=== PATIENT | male | born 1960 ===

== ENCOUNTER 2024-04-08 20:47 | Inpatient (IN) | payer OTHER, MEDICARE ==
[2024-04-08 21:08] LABS: Glucose,Whole Blood 412 mg/dL (70-110)
[2024-04-08 21:28] LABS: Basophils % (A) 0 %; Eosinophils # (A) 0.1 k/uL (0-0.7); Eosinophils % (A) 1 %; HCT 23.3 % (39.0-53.0); HGB 8.1 gm/dL (13.0-17.5); Lymphocytes # (A) 0.3 k/uL (1.0-4.8); Lymphocytes % (A) 5 %; MCH 34.9 pg (25.0-35.0); MCHC 34.8 g/dL (31.0-37.0); MCV 100.2 fL (80.0-100.0); Mean Platelet Volume 8.8; Monocytes # (A) 0.2 k/uL (0-1.0); Monocytes % (A) 3 %; Neutrophils # (A) 5.7 k/uL (1.3-7.7); Neutrophils % (A) 91 %; Platelet Count 100 k/uL (150-450); RBC 2.32 m/uL (4.30-5.90); WBC 6.3 k/uL (3.8-10.6)
[2024-04-08 21:33] LABS: INR 1.2 (<1.2); Partial Thromboplastin Time 22.3 sec (22.0-30.0)
[2024-04-08 21:35] LABS: ALT 101 U/L (4-49); AST 363 U/L (17-59); African American GFR (CKD) >90 (>60 ml/min/1.73 sqM); Albumin 3.5 g/dL (3.5-5.0); Alkaline Phosphatase 102 U/L (38-126); Anion Gap 19 mmol/L; Blood Urea Nitrogen 18 mg/dL (9-20); Calcium 8.9 mg/dL (8.4-10.2); Carbon Dioxide 21 mmol/L (22-30); Chloride 84 mmol/L (98-107); Creatine Kinase 722 U/L (55-170); Glucose 66 mg/dL (74-99); Magnesium 1.5 mg/dL (1.6-2.3); Non-African American GFR(CKD) >90 (>60 ml/min/1.73 sqM); Sodium 124 mmol/L (137-145); Total Bilirubin 2.1 mg/dL (0.2-1.3); Total Protein 5.9 g/dL (6.3-8.2)
[2024-04-08] MEDS: SODIUM CHLORIDE 0.9% 1,000 ML IV ONE (21:36)
[2024-04-08 22:20] LABS: Glucose,Whole Blood 66 mg/dL (70-110)
[2024-04-08] MEDS: SODIUM CHLORIDE 0.9% 1,000 ML IV SCH (22:36)
[2024-04-08] MEDS: DEXTROSE 5%-0.9% NACL 1,000 ML IV SCH (22:40)
[2024-04-08] MEDS ORDERED: NALOXONE 0.4 MG/ML 1 ML VIAL IV PRN (23:03)
--- NOTE | 2024-04-08 23:03 | ED ---
General Adult HPI - General Chief complaint: Recheck/Abnormal Lab/Rx Stated complaint: Abnormal labs Time Seen by Provider: 04/08/24 20:57 Source: EMS, RN notes reviewed Mode of arrival: EMS Limitations: altered mental status - History of Present Illness Initial comments: 63-year-old male presents emergency department via EMS from [facility] as a transfer. Patient was reportedly found by neighbor/caregiver on the ground in which they found that he did not have heat in his home. He did have initial temp of 87 degrees. Patient did have rewarming at outside facility. Patient also found to have glucose in the 30s. Patient is not a known diabetic. Patient did have CT of his brain, C-spine, chest abdomen pelvis. Patient had some subacute rib fractures but no other acute process. Patient unable to provide any significant information at this time. Patient reported that he drinks at least 1/5 of alcohol daily per reports. Patient found to have an elevated lactic, mildly elevated CK. Is unsure how long he was down on the ground. Patient was transferred here from outside facility for further treatment and evaluation. - Related Data Allergies Allergy/AdvReac Type Severity Reaction Status Date / Time Unable to Assess Allergy Verified 04/08/24 21:01 Review of Systems ROS Statement: Those systems with pertinent positive or pertinent negative responses have been documented in the HPI. ROS Other: All systems not noted in ROS Statement are negative. General Exam Limitations: altered mental status General appearance: in no apparent distress, lethargic Head exam: Present: atraumatic, normocephalic, normal inspection Eye exam: Present: normal appearance, PERRL, EOMI. Absent: scleral icterus, conjunctival injection, periorbital swelling ENT exam: Present: mucous membranes moist. Absent: normal exam, normal oropharynx (poor Dentition) Neck exam: Present: normal inspection, full ROM. Absent: tenderness, meningismus, lymphadenopathy Respiratory exam: Present: normal lung sounds bilaterally. Absent: respiratory distress, wheezes, rales, rhonchi, stridor Cardiovascular Exam: Present: normal rhythm, tachycardia, normal heart sounds. Absent: systolic murmur, diastolic murmur, rubs, gallop, clicks GI/Abdominal exam: Present: soft, normal bowel sounds. Absent: distended, tenderness, guarding, rebound, rigid Extremities exam: Present: other (Bruising noted, small abrasions) Neurological exam: Absent: alert, oriented X3 Skin exam: Present: warm, dry, intact, normal color. Absent: rash Course Vital Signs 04/08/24 20:49 Temperature 97.1 F L Pulse Rate 102 H Respiratory 18 Rate O2 Sat by Pulse 98 Oximetry EKG Findings - EKG Comments: EKG Findings:: EKG performed at 20: 54 sinus tachycardia with a rate of 1 2 VT 175 QRS 92 QT/QTc 370/429 - EKG Results: EKG: interpreted by [facility] Medical Decision Making - Medical Decision Making Was pt. sent in by a medical professional or institution (, PA, CARD RUNNER, urgent care, hospital, or usp...) When possible be specific @ -[facility] Did you speak to anyone other than the patient for history (EMS, parent, family, police, friend...)? What history was obtained from this source @ -No Did you review nursing and triage notes (agree or disagree)? Why? @ -I reviewed and agree with nursing and triage notes Were old charts reviewed (outside hosp., previous admission, EMS record, old EKG, old radiological studies, urgent care reports/EKG's, usp records)? Report findings @ -[Reviewed imaging, laboratory studies from [facility] Differential Diagnosis (chest pain, altered mental status, abdominal pain women, abdominal pain men, vaginal bleeding, weakness, fever, dyspnea, syncope, headache, dizziness, GI bleed, back pain, seizure, CVA, palpatations, mental health, musculoskeletal)? @ -Differential Altered Mental Status: Hypoglycemia, DKA, hypercapnia, ETOH, overdose, CO poisoning, trauma, myxedema coma, HTN encephalopathy, infection, encephalitis, psychosis, intercranial hemorrhage, hepatic encephalopathy, meningitis, CVA, this is not meant to be an all-inclusive list EKG interpreted by me (3pts min.). @ -As above X-rays interpreted by me (1pt min.). @ -None done CT interpreted by me (1pt min.). @ -None done U/S interpreted by me (1pt. min.). @ -None done What testing was considered but not performed or refused? (CT, X-rays, U/S, labs)? Why? @ -None What meds were considered but not given or refused? Why? @ -None Did you discuss the management of the patient with other professionals (professionals i.e. , PA, CARD RUNNER, lab, RT, psych nurse, licensed clinical social worker, steam brush operator, teacher, executive officer, nurse outreach case manager)? Give summary @ -[facility] for admission Was smoking cessation discussed for >3mins.? @ -No Was critical care preformed (if so, how long)? @ -No Were there social determinants of health that impacted care today? How? (Homelessness, low income, unemployed, alcoholism, drug addiction, transportation, low edu. Level, literacy, decrease access to med. care, correction, rehab)? @ -No Was there de-escalation of care discussed even if they declined (Discuss DNR or withdrawal of care, Hospice)? DNR status @ -No What co-morbidities impacted this encounter? (DM, HTN, Smoking, COPD, CAD, C ancer, CVA, ARF, Chemo, Hep., AIDS, mental health diagnosis, sleep apnea, morbid obesity)? @ -None Was patient admitted / discharged? Hospital course, mention meds given and route, prescriptions, significant lab abnormalities, going to OR and other pertinent info. @ -Admitted patient presented from outside facility for altered mental status. Patient has hyponatremia, hyperglycemia altered mental status may be from prolonged hypoglycemia, patient is known alcoholic with placed on CIWA, seizure precautions. Undiagnosed new problem with uncertain prognosis? @ -No Drug Therapy requiring intensive monitoring for toxicity (Heparin, Nitro, Insulin, Cardizem)? @ -No Were any procedures done? @ -No Diagnosis/symptom? @ -Altered mental status, hypoglycemia, hyponatremia, alcohol withdrawal, alcohol abuse Acute, or Chronic, or Acute on Chronic? @ -Acute Uncomplicated (without systemic symptoms) or Complicated (systemic symptoms)? @ -Complicated Side effects of treatment? @ -No Exacerbation, Progression, or Severe Exacerbation? @ -No Poses a threat to life or bodily function? How? (Chest pain, USA, NV, pneumonia, PE, COPD, DKA, ARF, appy, cholecystitis, CVA, Diverticulitis, Homicidal, Suicidal, threat to staff... and all critical care pts) @ -Yes endorgan failure - Lab Data Result diagrams: 04/08/24 21:14 04/08/24 21:14 Lab Results 04/08/24 04/08/24 04/08/24 Range/Units 21:07 21:14 21:14 WBC 6.3 (3.8-10.6) k/uL RBC 2.32 L (4.30-5.90) m/uL Hgb 8.1 L (13.0-17.5) gm/dL Hct 23.3 L (39.0-53.0) % MCV 100.2 H (80.0-100.0) fL MCH 34.9 (25.0-35.0) pg MCHC 34.8 (31.0-37.0) g/dL RDW 14.0 (11.5-15.5) % Plt Count 100 L (150-450) k/uL MPV 8.8 Neutrophils % 91 % Lymphocytes % 5 % Monocytes % 3 % Eosinophils % 1 % Basophils % 0 % Neutrophils # 5.7 (1.3-7.7) k/uL Lymphocytes # 0.3 L (1.0-4.8) k/uL Monocytes # 0.2 (0-1.0) k/uL Eosinophils # 0.1 (0-0.7) k/uL Basophils # 0.0 (0-0.2) k/uL PT (10.0-12.5) sec INR (<1.2) APTT (22.0-30.0) sec Sodium 124 L (137-145) mmol/L Potassium 3.0 L (3.5-5.1) mmol/L Chloride 84 L (98-107) mmol/L Carbon Dioxide 21 L (22-30) mmol/L Anion Gap 19 mmol/L BUN 18 (9-20) mg/dL Creatinine 0.67 (0.66-1.25) mg/dL Est GFR (CKD-EPI)AfAm >90 (>60 ml/min/1.73 sqM) Est GFR (CKD-EPI)NonAf >90 (>60 ml/min/1.73 sqM) Glucose 66 L (74-99) mg/dL POC Glucose (mg/dL) 412 H (70-110) mg/dL POC Glu Hospice Educator ID Lilia Carmichael Calcium 8.9 (8.4-10.2) mg/dL Magnesium 1.5 L (1.6-2.3) mg/dL Total Bilirubin 2.1 H (0.2-1.3) mg/dL AST 363 H (17-59) U/L ALT 101 H (4-49) U/L Alkaline Phosphatase 102 (38-126) U/L Creatine Kinase 722 H (55-170) U/L Troponin I (0.000-0.034) ng/mL Total Protein 5.9 L (6.3-8.2) g/dL Albumin 3.5 (3.5-5.0) g/dL 04/08/24 04/08/24 04/08/24 Range/Units 21:14 21:14 22:19 WBC (3.8-10.6) k/uL RBC (4.30-5.90) m/uL Hgb (13.0-17.5) gm/dL Hct (39.0-53.0) % MCV (80.0-100.0) fL MCH (25.0-35.0) pg MCHC (31.0-37.0) g/dL RDW (11.5-15.5) % Plt Count (150-450) k/uL MPV Neutrophils % % Lymphocytes % % Monocytes % % Eosinophils % % Basophils % % Neutrophils # (1.3-7.7) k/uL Lymphocytes # (1.0-4.8) k/uL Monocytes # (0-1.0) k/uL Eosinophils # (0-0.7) k/uL Basophils # (0-0.2) k/uL PT 13.0 H (10.0-12.5) sec INR 1.2 H (<1.2) APTT 22.3 (22.0-30.0) sec Sodium (137-145) mmol/L Potassium (3.5-5.1) mmol/L Chloride (98-107) mmol/L Carbon Dioxide (22-30) mmol/L Anion Gap mmol/L BUN (9-20) mg/dL Creatinine (0.66-1.25) mg/dL Est GFR (CKD-EPI)AfAm (>60 ml/min/1.73 sqM) Est GFR (CKD-EPI)NonAf (>60 ml/min/1.73 sqM) Glucose (74-99) mg/dL POC Glucose (mg/dL) 66 L (70-110) mg/dL POC Glu Hospice Educator ID Samay[place] Kay Calcium (8.4-10.2) mg/dL Magnesium (1.6-2.3) mg/dL Total Bilirubin (0.2-1.3) mg/dL AST (17-59) U/L ALT (4-49) U/L Alkaline Phosphatase (38-126) U/L Creatine Kinase (55-170) U/L Troponin I 0.042 H* (0.000-0.034) ng/mL Total Protein (6.3-8.2) g/dL Albumin (3.5-5.0) g/dL Disposition Clinical Impression: Hypoglycemia, Hyponatremia, Altered mental status, Alcohol withdrawal, Alcohol abuse, Hypokalemia, Hypomagnesemia Disposition: ADMITTED IP TO THIS HOSP Condition: Poor Referrals: Uriel Arciniega MD [Primary Care Provider] - 1-2 days Time of Disposition: 23:03
[2024-04-08] MEDS ORDERED: LORazepam 2 MG/ML INJ IV PRN (23:04)
[2024-04-08] MEDS: POTASSIUM CHLORIDE 10 MEQ in WATER FOR INJECTION 1 100ML.BAG IVPB STA (23:14)
[2024-04-08] MEDS: MAGNESIUM SULFATE-D5W PMX 1 GM in DEXTROSE/WATER 1 100ML.BAG IVPB SCH (23:52)
[2024-04-09] MEDS: POTASSIUM CHLORIDE 10 MEQ in WATER FOR INJECTION 1 100ML.BAG IVPB SCH (00:20)
[2024-04-09 02:42] LABS: Glucose,Whole Blood 90 mg/dL (70-110)
[2024-04-09] MEDS: LORazepam 2 MG/ML INJ IV PRN ×2 (02:43→15:28)
[2024-04-09] MEDS: POTASSIUM CHLORIDE 10 MEQ in WATER FOR INJECTION 1 100ML.BAG IVPB STA ×3 (02:47→02:48)
[2024-04-09 08:14] LABS: ALT 98 U/L (4-49); AST 363 U/L (17-59); African American GFR (CKD) >90 (>60 ml/min/1.73 sqM); Albumin 3.1 g/dL (3.5-5.0); Alkaline Phosphatase 99 U/L (38-126); Anion Gap 11 mmol/L; Blood Urea Nitrogen 18 mg/dL (9-20); Calcium 8.5 mg/dL (8.4-10.2); Carbon Dioxide 26 mmol/L (22-30); Chloride 87 mmol/L (98-107); Glucose 76 mg/dL (74-99); Non-African American GFR(CKD) >90 (>60 ml/min/1.73 sqM); Potassium 3.2 mmol/L (3.5-5.1); Sodium 124 mmol/L (137-145); Total Bilirubin 1.9 mg/dL (0.2-1.3); Total Protein 5.4 g/dL (6.3-8.2)
[2024-04-09] MEDS: THIAMINE 100 MG TAB PO SCH (09:53)
--- NOTE | 2024-04-09 12:09 | P.NPCON ---
History of Present Illness - Reason for Consult hyponatremia - History of Present Illness Reason for consultation: Hyponatremia History of present illness: Patient is a 63-year-old male seen in renal consultation for hyponatremia. Patient presented to another facility and a sodium level was noted to be 123 dated April 08, 2023 at 2 PM. Patient was subsequently transferred here and a sodium level was 124 last night and again this morning. He is currently receiving D5 normal saline. He has an external Diaz catheter and is nonoliguric. Patient is a poor historian. He is currently on [facility] protocol. Per records it is noted that he drinks a pint of liquor every day. Patient was found down in cold weather and was subsequently brought to the hospital. It is unsure how long he was down for. CK level elevated at 722. I do see Motrin on his home medication list but unsure how often he was taking it. I do not see any thiazide diuretics. Imaging revealed rib fractures but no other acute process. Vital signs are stable. General: No acute distress. HEENT: Head exam is unremarkable. On nasal cannula. LUNGS: No audible rhonchi or wheezes. HEART: Rate and Rhythm are regular. ABDOMEN: No distention. EXTREMITITES: No edema. Medications and Allergies Home Medications Medication Instructions Recorded Confirmed Type Acetaminophen Tab [Tylenol Tab] 1,000 mg PO TID PRN 04/09/24 04/09/24 History Albuterol Nebulized [Ventolin 2.5 mg INHALATION RT-QID PRN 04/09/24 04/09/24 History Nebulized] Albuterol Sulfate [Albuterol 2 puff PO RT-QID PRN 04/09/24 04/09/24 History Sulfate Hfa] Baclofen [Lioresal] 10 mg PO Q8H PRN 04/09/24 04/09/24 History Fexofenadine HCl [Stephanie Allergy] 180 mg PO DAILY 04/09/24 04/09/24 History Fluticasone Propion/Salmeterol 1 puff INHALATION RT-BID 04/09/24 04/09/24 History [Wixela 250-50 Inhub] Gabapentin 600 mg PO BID 04/09/24 04/09/24 History Ibuprofen [Motrin] 800 mg PO Q8H PRN 04/09/24 04/09/24 History Loratadine [Claritin] 10 mg PO DAILY 04/09/24 04/09/24 History Losartan Potassium [Cozaar] 100 mg PO DAILY 04/09/24 04/09/24 History Mag-Ox 420mg 420 mg PO DAILY 04/09/24 04/09/24 History Metoprolol Tartrate [Lopressor] 50 mg PO BID 04/09/24 04/09/24 History Multivitamins, Thera [Multivitamin 1 tab PO DAILY 04/09/24 04/09/24 History (formulary)] Omeprazole [PriLOSEC] 20 mg PO DAILY 04/09/24 04/09/24 History Oxybutynin ER [Ditropan XL] 10 mg PO HS 04/09/24 04/09/24 History Psyllium Husk/Aspartame [Metamucil 1 tsp PO BID 04/09/24 04/09/24 History Sugar-Free Powder] Roflumilast 500 mcg PO DAILY 04/09/24 04/09/24 History Sodium Bicarbonate 325 mg PO TID 04/09/24 04/09/24 History Spironolactone [Aldactone] 25 mg PO DAILY 04/09/24 04/09/24 History Tamsulosin HCl [Flomax] 0.4 mg PO BID 04/09/24 04/09/24 History amLODIPine [Norvasc] 10 mg PO DAILY 04/09/24 04/09/24 History hydrALAZINE HCL [Apresoline] 50 mg PO TID 04/09/24 04/09/24 History oxyCODONE-APAP 7.5-325MG [Percocet 1 tab PO Q8H PRN 04/09/24 04/09/24 History 7.5-325 mg] Allergies Allergy/AdvReac Type Severity Reaction Status Date / Time No Known Allergies Allergy Unverified 04/09/24 07:20 Physical Exam Vitals: Vital Signs Temp Pulse Resp BP Pulse Ox 04/09/24 11:00 95 24 143/90 90 L 04/09/24 10:00 97 24 143/94 95 04/09/24 09:00 98 24 155/97 96 04/09/24 07:00 98.3 F 101 H 22 134/95 95 04/09/24 06:28 98.4 F 103 H 20 146/90 94 L 04/09/24 04:00 102 H 20 155/92 100 04/09/24 02:00 106 H 20 129/94 100 04/09/24 00:27 101 H 20 124/83 99 04/08/24 23:22 101 H 20 132/96 100 04/08/24 22:45 100 20 132/86 100 04/08/24 22:21 97.2 F L 101 H 18 151/92 99 04/08/24 22:00 97.8 F 99 18 151/92 98 04/08/24 21:30 97.7 F 101 H 18 152/90 98 04/08/24 20:49 97.1 F L 102 H 18 98 Intake and Output 04/08/24 04/09/24 04/09/24 22:59 06:59 14:59 Other: Weight 86.183 kg Results - Lab Results Most recent lab results Calcium 8.5 mg/dL (8.4-10.2) 04/09/24 07:09 Magnesium 1.5 mg/dL (1.6-2.3) L 04/08/24 21:14 04/08/24 21:14 04/09/24 07:09 Assessment and Plan Plan: Assessment: 1. Hyponatremia. This is due to poor solute intake/beer potomania with component of hypovolemia. Sodium level 124 this morning. 2. Hypokalemia from poor intake. 3. Metabolic acidosis secondary to lactic acidosis. Improved with fluids. 4. Hypomagnesemia from alcohol induced urinary losses. Replaced. 5. Alcohol abuse. 6. Mild rhabdomyolysis from immobility. Plan: Maintain D5 normal saline. Check serum and urine osmolality and urine sodium level. Check TSH. Replace potassium. Repeat sodium level this evening. Thank you for the consultation. I will continue to follow the patient with you during his hospital stay.
--- NOTE | 2024-04-09 13:27 | CT ---
EXAMINATION TYPE: CT brain wo con DATE OF EXAM: 04/09/2024 12:29 PM COMPARISON: None. CLINICAL INDICATION: Male, 63 years old with history of confusion, altered mental status, difficulty with speech, TECHNIQUE: Examination was done in axial plane without intravenous contrast. Coronal and sagittal r econstructions performed. CT DLP: 978.2 mGycm, Automated exposure control for dose reduction was used. FINDINGS: There is no evidence of acute intracranial hemorrhage, acute ischemic changes, mass, mass-effect, or extra-axial fluid collection. There is no effacement of cerebral sulci or basal subarachnoid cister ns. There is no hydrocephalus. There is no midline shift. [place]-white matter distinction is preserv ed. There is a rounded area of eggshell calcification measuring 1.2 cm within the midline posterior fossa along the left vertebral artery. Unable to exclude underlying aneurysm. Mild patchy white matter hypodensities both cerebral hemispheres. Partially empty sella. Rightward nasal septal deviation. Patient is partially edentulous. The impacted left maxillary molar shows a probable 1.8 cm dentigerous cyst eroding the posterior wall of the maxilla, axial images 11 a nd 12. Trace adjacent mucosal thickening floor of the left maxillary sinus. Air fluid level left sphenoid sinus. Mastoid air cells are well pneumatized. Orbits and globes appear intact. IMPRESSION: 1. A 1.2 cm rounded area of eggshell calcification midline posterior cranial fossa along the left flakita tebral artery. Unable to exclude an arterial aneurysm here. 2. Mild pattern of chronic small vessel ischemic disease. 3. 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 Eroding the posteri or wall of the maxilla. Questionable clinical significance if asymptomatic. Consider dental referral. 4. Air fluid level left sphenoid sinus may represent acute sinusitis. [facility], , 04/09/2024 1:25 PM
--- NOTE | 2024-04-09 13:37 | P.HPIM ---
History of Present Illness H&P Date: 04/09/24 History of present illness; patient 63-year-old gentleman who is a transfer from [facility] after being found laying on ground outside his house. Most of the history has been obtained from the EMR according to which patient has been drinking 1/5 of alcohol per day. Patient was found by his neighbor to be laying on the ground, patient was initially hypothermic and was placed on warming blankets and was transferred to [facility] where he had CT of his brain, cervical spine and CT abdominal pelvis done which were unremarkable. Patient was later transferred to [facility] for further evaluation and treatment Initial lab work done in the ER showed WBC 6.3, hemoglobin 8.1, platelet count 100, sodium 124, potassium 5, BUN 18, creatinine 0.67, glucose 412, lactate 3.6, bilirubin 2.1, AST 363, ALT 101 Patient admitted to internal medicine service REVIEW OF SYSTEMS: Review of system cannot be obtained as patient is very lethargic PHYSICAL EXAMINATION: GENERAL: The patient is lethargic HEENT: Pupils are round and equally reacting to light. EOMI. No scleral icterus. No conjunctival pallor. Normocephalic, atraumatic. No pharyngeal erythema. No thyromegaly. CARDIOVASCULAR: S1 and S2 present. No murmurs, rubs, or gallops. PULMONARY: Chest is clear to auscultation, no wheezing or crackles. ABDOMEN: Soft, nontender, nondistended, normoactive bowel sounds. No palpable organomegaly. MUSCULOSKELETAL: No joint swelling or deformity. EXTREMITIES: No cyanosis, clubbing, or pedal edema. NEUROLOGICAL: Gross neurological examination did not reveal any focal deficits. SKIN: No rashes. Assessment and plan Ground-level fall Acute metabolic encephalopathy Alcohol abuse impending alcohol detox Rhabdomyolysis Acute transaminitis Hyponatremia Hypokalemia Lactic acidosis Elevated troponin Thrombocytopenia Monitor vital signs Monitor CBC Monitor CMP Continue telemetry monitoring Check troponins Serial electrolytes Replace potassium Continue IV fluids Check serial CPK Ordered CIWA protocol Ordered symptom triggered Ativan therapy Ordered thiamine folic acid Ordered 2D echo Consult nephrology Labs and medication were reviewed.. Continue same treatment. Continue with symptomatic treatment. Resume home medication. Monitor labs and vitals. DVT and GI prophylaxis. Further recommendations as per clinical course of the patient Dictation was produced using [employer] software. please excuse any grammatical, word or spelling errors. Medications and Allergies Home Medications Medication Instructions Recorded Confirmed Type Acetaminophen Tab [Tylenol Tab] 1,000 mg PO TID PRN 04/09/24 04/09/24 History Albuterol Nebulized [Ventolin 2.5 mg INHALATION RT-QID PRN 04/09/24 04/09/24 History Nebulized] Albuterol Sulfate [Albuterol 2 puff PO RT-QID PRN 04/09/24 04/09/24 History Sulfate Hfa] Baclofen [Lioresal] 10 mg PO Q8H PRN 04/09/24 04/09/24 History Fexofenadine HCl [Stephanie Allergy] 180 mg PO DAILY 04/09/24 04/09/24 History Fluticasone Propion/Salmeterol 1 puff INHALATION RT-BID 04/09/24 04/09/24 History [Wixela 250-50 Inhub] Gabapentin 600 mg PO BID 04/09/24 04/09/24 History Ibuprofen [Motrin] 800 mg PO Q8H PRN 04/09/24 04/09/24 History Loratadine [Claritin] 10 mg PO DAILY 04/09/24 04/09/24 History Losartan Potassium [Cozaar] 100 mg PO DAILY 04/09/24 04/09/24 History Mag-Ox 420mg 420 mg PO DAILY 04/09/24 04/09/24 History Metoprolol Tartrate [Lopressor] 50 mg PO BID 04/09/24 04/09/24 History Multivitamins, Thera [Multivitamin 1 tab PO DAILY 04/09/24 04/09/24 History (formulary)] Omeprazole [PriLOSEC] 20 mg PO DAILY 04/09/24 04/09/24 History Oxybutynin ER [Ditropan XL] 10 mg PO HS 04/09/24 04/09/24 History Psyllium Husk/Aspartame [Metamucil 1 tsp PO BID 04/09/24 04/09/24 History Sugar-Free Powder] Roflumilast 500 mcg PO DAILY 04/09/24 04/09/24 History Sodium Bicarbonate 325 mg PO TID 04/09/24 04/09/24 History Spironolactone [Aldactone] 25 mg PO DAILY 04/09/24 04/09/24 History Tamsulosin HCl [Flomax] 0.4 mg PO BID 04/09/24 04/09/24 History amLODIPine [Norvasc] 10 mg PO DAILY 04/09/24 04/09/24 History hydrALAZINE HCL [Apresoline] 50 mg PO TID 04/09/24 04/09/24 History oxyCODONE-APAP 7.5-325MG [Percocet 1 tab PO Q8H PRN 04/09/24 04/09/24 History 7.5-325 mg] Allergies Allergy/AdvReac Type Severity Reaction Status Date / Time No Known Allergies Allergy Unverified 04/09/24 07:20 Physical Exam Vitals: Vital Signs Temp Pulse Resp BP Pulse Ox 04/09/24 07:00 98.3 F 101 H 22 134/95 95 04/09/24 06:28 98.4 F 103 H 20 146/90 94 L 04/09/24 04:00 102 H 20 155/92 100 04/09/24 02:00 106 H 20 129/94 100 04/09/24 00:27 101 H 20 124/83 99 04/08/24 23:22 101 H 20 132/96 100 04/08/24 22:45 100 20 132/86 100 04/08/24 22:21 97.2 F L 101 H 18 151/92 99 04/08/24 22:00 97.8 F 99 18 151/92 98 04/08/24 21:30 97.7 F 101 H 18 152/90 98 04/08/24 20:49 97.1 F L 102 H 18 98 Intake and Output 04/08/24 04/09/24 04/09/24 22:59 06:59 14:59 Other: Weight 86.183 kg Results CBC & Chem 7: 04/08/24 21:14 04/09/24 07:09 Labs: Abnormal Lab Results - Last 24 Hours (Table) 04/08/24 04/08/24 04/08/24 Range/Units 21:05 21:07 21:14 RBC 2.32 L (4.30-5.90) m/uL Hgb 8.1 L (13.0-17.5) gm/dL Hct 23.3 L (39.0-53.0) % MCV 100.2 H (80.0-100.0) fL Plt Count 100 L (150-450) k/uL Lymphocytes # 0.3 L (1.0-4.8) k/uL PT (10.0-12.5) sec INR (<1.2) Sodium (137-145) mmol/L Potassium (3.5-5.1) mmol/L Chloride (98-107) mmol/L Carbon Dioxide (22-30) mmol/L Creatinine (0.66-1.25) mg/dL Glucose (74-99) mg/dL POC Glucose (mg/dL) 412 H (70-110) mg/dL Plasma Lactic Acid Edu 3.6 H* (0.7-2.0) mmol/L Magnesium (1.6-2.3) mg/dL Total Bilirubin (0.2-1.3) mg/dL AST (17-59) U/L ALT (4-49) U/L Creatine Kinase (55-170) U/L Troponin I (0.000-0.034) ng/mL Total Protein (6.3-8.2) g/dL Albumin (3.5-5.0) g/dL 04/08/24 04/08/24 04/08/24 Range/Units 21:14 21:14 21:14 RBC (4.30-5.90) m/uL Hgb (13.0-17.5) gm/dL Hct (39.0-53.0) % MCV (80.0-100.0) fL Plt Count (150-450) k/uL Lymphocytes # (1.0-4.8) k/uL PT 13.0 H (10.0-12.5) sec INR 1.2 H (<1.2) Sodium 124 L (137-145) mmol/L Potassium 3.0 L (3.5-5.1) mmol/L Chloride 84 L (98-107) mmol/L Carbon Dioxide 21 L (22-30) mmol/L Creatinine (0.66-1.25) mg/dL Glucose 66 L (74-99) mg/dL POC Glucose (mg/dL) (70-110) mg/dL Plasma Lactic Acid Edu (0.7-2.0) mmol/L Magnesium 1.5 L (1.6-2.3) mg/dL Total Bilirubin 2.1 H (0.2-1.3) mg/dL AST 363 H (17-59) U/L ALT 101 H (4-49) U/L Creatine Kinase 722 H (55-170) U/L Troponin I 0.042 H* (0.000-0.034) ng/mL Total Protein 5.9 L (6.3-8.2) g/dL Albumin (3.5-5.0) g/dL 04/08/24 04/09/24 Range/Units 22:19 07:09 RBC (4.30-5.90) m/uL Hgb (13.0-17.5) gm/dL Hct (39.0-53.0) % MCV (80.0-100.0) fL Plt Count (150-450) k/uL Lymphocytes # (1.0-4.8) k/uL PT (10.0-12.5) sec INR (<1.2) Sodium 124 L (137-145) mmol/L Potassium 3.2 L (3.5-5.1) mmol/L Chloride 87 L (98-107) mmol/L Carbon Dioxide (22-30) mmol/L Creatinine 0.61 L (0.66-1.25) mg/dL Glucose (74-99) mg/dL POC Glucose (mg/dL) 66 L (70-110) mg/dL Plasma Lactic Acid Edu (0.7-2.0) mmol/L Magnesium (1.6-2.3) mg/dL Total Bilirubin 1.9 H (0.2-1.3) mg/dL AST 363 H (17-59) U/L ALT 98 H (4-49) U/L Creatine Kinase (55-170) U/L Troponin I (0.000-0.034) ng/mL Total Protein 5.4 L (6.3-8.2) g/dL Albumin 3.1 L (3.5-5.0) g/dL
[2024-04-09] MEDS: POTASSIUM CHLORIDE 20 MEQ in WATER FOR INJECTION 1 100ML.BAG IVPB SCH (14:19)
--- NOTE | 2024-04-09 14:21 | XR ---
EXAMINATION TYPE: XR chest 1V portable DATE OF EXAM: 04/09/2024 2:14 PM COMPARISON: None. CLINICAL INDICATION: Male, 63 years old with history of Shortness of breath, TECHNIQUE: Single frontal view of the chest is obtained. FINDINGS: Low lung volumes are seen. There are small right greater than left pleural effusions is l eft basilar opacity. The cardiac silhouette size is upper limits of normal. Surgical change in the ce rvical and lumbar spine is partially imaged. IMPRESSION: Low lung volumes with small right greater than left pleural effusions and left basilar ac [place] infiltrate and/or atelectasis. [facility], , 04/09/2024 2:19 PM
--- NOTE | 2024-04-09 14:44 | P.CNNES ---
History of Present Illness Consult date: 04/09/24 Requesting physician: Marino Freeman Reason for Consult: altered mental status History of Present Illness: This is a 63-year-old gentleman who was transferred to our emergency department from outside facility in the [place] for further evaluation. History is obtained from the ED note as well as his nurse. It seems that the patient was found by his neighbor/caregiver on the ground and it seems that he did not have heat in his home and the initial temperature. Patient did have rewarming at the outside facility and it seems that his sugar was in 30s. He had CT of the head and cervical spine and chest and pelvis and the abnormality was subacute rib fracture but no other acute process. Patient does drink at least 1/5 of alcohol daily and had mildly elevated CK level. He does have underlying history of Par kinson's disease. No reported history of seizure reported. Some of the workup during this hospital visit consisted of: Sodium is 124, POC glucose is 412, plasma lactic acid is 3.6, AST is 363 and ALT is 101, CK level 722 Troponins 0.042 His repeated POC glucose was 66 Review of Systems Limited but as per HPI. Medications and Allergies Home Medications Medication Instructions Recorded Confirmed Type Acetaminophen Tab [Tylenol Tab] 1,000 mg PO TID PRN 04/09/24 04/09/24 History Albuterol Nebulized [Ventolin 2.5 mg INHALATION RT-QID PRN 04/09/24 04/09/24 History Nebulized] Albuterol Sulfate [Albuterol 2 puff PO RT-QID PRN 04/09/24 04/09/24 History Sulfate Hfa] Baclofen [Lioresal] 10 mg PO Q8H PRN 04/09/24 04/09/24 History Fexofenadine HCl [Stephanie Allergy] 180 mg PO DAILY 04/09/24 04/09/24 History Fluticasone Propion/Salmeterol 1 puff INHALATION RT-BID 04/09/24 04/09/24 History [Wixela 250-50 Inhub] Gabapentin 600 mg PO BID 04/09/24 04/09/24 History Ibuprofen [Motrin] 800 mg PO Q8H PRN 04/09/24 04/09/24 History Loratadine [Claritin] 10 mg PO DAILY 04/09/24 04/09/24 History Losartan Potassium [Cozaar] 100 mg PO DAILY 04/09/24 04/09/24 History Mag-Ox 420mg 420 mg PO DAILY 04/09/24 04/09/24 History Metoprolol Tartrate [Lopressor] 50 mg PO BID 04/09/24 04/09/24 History Multivitamins, Thera [Multivitamin 1 tab PO DAILY 04/09/24 04/09/24 History (formulary)] Omeprazole [PriLOSEC] 20 mg PO DAILY 04/09/24 04/09/24 History Oxybutynin ER [Ditropan XL] 10 mg PO HS 04/09/24 04/09/24 History Psyllium Husk/Aspartame [Metamucil 1 tsp PO BID 04/09/24 04/09/24 History Sugar-Free Powder] Roflumilast 500 mcg PO DAILY 04/09/24 04/09/24 History Sodium Bicarbonate 325 mg PO TID 04/09/24 04/09/24 History Spironolactone [Aldactone] 25 mg PO DAILY 04/09/24 04/09/24 History Tamsulosin HCl [Flomax] 0.4 mg PO BID 04/09/24 04/09/24 History amLODIPine [Norvasc] 10 mg PO DAILY 04/09/24 04/09/24 History hydrALAZINE HCL [Apresoline] 50 mg PO TID 04/09/24 04/09/24 History oxyCODONE-APAP 7.5-325MG [Percocet 1 tab PO Q8H PRN 04/09/24 04/09/24 History 7.5-325 mg] Allergies Allergy/AdvReac Type Severity Reaction Status Date / Time No Known Allergies Allergy Unverified 04/09/24 07:20 Physical Examination - Vital Signs Vital Signs: Vital Signs Temp Pulse Resp BP Pulse Ox 04/09/24 13:54 90 L 04/09/24 11:00 95 24 143/90 90 L 04/09/24 10:00 97 24 143/94 95 04/09/24 09:00 98 24 155/97 96 04/09/24 07:00 98.3 F 101 H 22 134/95 95 04/09/24 06:28 98.4 F 103 H 20 146/90 94 L 04/09/24 04:00 102 H 20 155/92 100 04/09/24 02:00 106 H 20 129/94 100 04/09/24 00:27 101 H 20 124/83 99 04/08/24 23:22 101 H 20 132/96 100 04/08/24 22:45 100 20 132/86 100 04/08/24 22:21 97.2 F L 101 H 18 151/92 99 04/08/24 22:00 97.8 F 99 18 151/92 98 04/08/24 21:30 97.7 F 101 H 18 152/90 98 04/08/24 20:49 97.1 F L 102 H 18 98 Intake and Output 04/08/24 04/09/24 04/09/24 22:59 06:59 14:59 Other: Weight 86.183 kg General: Lying in bed and does not appear in acute distress. Neuro: Limited. Patient is moderate to severe encephalopathic but is awake both to voice. He is oriented to self. He is oriented to place and the year with options. He follows some simple commands. No facial weakness. He does open his eyes but unable to assess visual andujar or pupillary reflex because of his cooperation. Motor he does lift the left upper extremity above gravity and he has resting tremor of left upper extremity and per the nurse he has underlying history of Parkinson's disease. Results - Laboratory Findings CBC and BMP: 04/08/24 21:14 04/09/24 07:09 Abnormal Lab Findings: Abnormal Labs 04/08/24 04/08/24 04/08/24 21:05 21:07 21:14 RBC 2.32 L Hgb 8.1 L Hct 23.3 L MCV 100.2 H Plt Count 100 L Lymphocytes # 0.3 L PT INR Sodium Potassium Chloride Carbon Dioxide Creatinine Glucose POC Glucose (mg/dL) 412 H Plasma Lactic Acid Edu 3.6 H* Magnesium Total Bilirubin AST ALT Creatine Kinase Troponin I C-Reactive Protein Total Protein Albumin 04/08/24 04/08/24 04/08/24 21:14 21:14 21:14 RBC Hgb Hct MCV Plt Count Lymphocytes # PT 13.0 H INR 1.2 H Sodium 124 L Potassium 3.0 L Chloride 84 L Carbon Dioxide 21 L Creatinine Glucose 66 L POC Glucose (mg/dL) Plasma Lactic Acid Edu Magnesium 1.5 L Total Bilirubin 2.1 H AST 363 H ALT 101 H Creatine Kinase 722 H Troponin I 0.042 H* C-Reactive Protein Total Protein 5.9 L Albumin 04/08/24 04/09/24 04/09/24 22:19 07:09 07:09 RBC Hgb Hct MCV Plt Count Lymphocytes # PT INR Sodium 124 L Potassium 3.2 L Chloride 87 L Carbon Dioxide Creatinine 0.61 L Glucose POC Glucose (mg/dL) 66 L Plasma Lactic Acid Edu Magnesium Total Bilirubin 1.9 H AST 363 H ALT 98 H Creatine Kinase Troponin I C-Reactive Protein 3.7 H Total Protein 5.4 L Albumin 3.1 L Assessment and Plan Assessment: This is a 63-year-old gentleman who was transferred from [place] for escalation of care in which the patient was found down by his neighbor on the ground and he did not have heat and his initial temperature was 87. Seems that his sugar at the outside facility was in the 30s. He had CT brain cervical spine abdomen pelvis and it showed subacute rib fracture but no acute process. In our facility he had sugars in the 400 initially then down to the 60s. He has [id number]. He is also is a heavy drinker Altered mental status due to toxic metabolic encephalopathy: Hyponatremia, hypoglycemia, hypothermia, transaminitis Hyponatremia Hypoglycemia Hypothermia and patient does not have heat at home that is reported Transaminitis AST more than ALT likely due to his alcohol use Underlying history of Parkinson's disease Plan: I ordered a CT of the head as a repeat in our facility. Ordered ammonia level, vitamin B12, folate. TSH is already ordered. I will start the patient on Sinemet 25-100, 1 tablet 3 times daily to assess if there is any improvement No need for EEG at this time since this seems more toxic metabolic encephalopathy. Patient is on thiamine 100mg daily. Nephrology is consulted Defer the rest of the medical management to primary other specialist Plan discussed with the patient nurse Thank you for the consultation Time with Patient: Greater than 30
[2024-04-09 14:45] LABS: C Reactive Protein 5.1 mg/dL (<1.0)
[2024-04-09] MEDS: CARBIDOPA-LEVODOPA 25-100 MG 1 EACH TAB PO SCH (17:21)
[2024-04-09 17:25] LABS: African American GFR (CKD) >90 (>60 ml/min/1.73 sqM); Anion Gap 10 mmol/L; Blood Urea Nitrogen 15 mg/dL (9-20); Carbon Dioxide 28 mmol/L (22-30); Chloride 87 mmol/L (98-107); Glucose 117 mg/dL (74-99); Potassium 3.4 mmol/L (3.5-5.1); Sodium 125 mmol/L (137-145)
[2024-04-09 17:26] LABS: Calcium 8.1 mg/dL (8.4-10.2); Non-African American GFR(CKD) >90 (>60 ml/min/1.73 sqM)
[2024-04-09] MEDS: IPRATROPIUM-ALBUTEROL 3 ML NEB INHALATION PRN (19:42)
[2024-04-09] MEDS: guaiFENesin 600 MG TABLET.ER PO SCH (20:10)
[2024-04-10 00:21] LABS: Glucose,Whole Blood 155 mg/dL (70-110)
[2024-04-10 00:54] LABS: ABG Base Excess 4.1 mmol/L; ABG HCO3 29 mmol/L (21-25); ABG Oxygen Saturation 94.7 % (94-97); ABG PCO2 42 mmHg (35-45); ABG PH 7.44 (7.35-7.45); ABG PO2 70 mmHg (83-108); ABG TCO2 30 mmol/L (19-24); Allen Test Performed? Yes
[2024-04-10] MEDS ORDERED: IPRATROPIUM-ALBUTEROL 3 ML NEB INHALATION PRN (01:01)
[2024-04-10] MEDS: AZITHROMYCIN 500 MG in SODIUM CHLORIDE 0.9% 250 ML IVPB STA (01:30)
[2024-04-10 01:48] LABS: Influenza A Not Detected (Not Detectd); Influenza B Not Detected (Not Detectd); RSV Not Detected (Not Detectd)
[2024-04-10] MEDS: methylPREDNISolone SOD SUCCI 125 MG/2 ML VIAL IV STA (01:51)
--- NOTE | 2024-04-10 02:08 | XR ---
EXAM: XR Chest, 1 View CLINICAL HISTORY: ITS.REASON XR Reason: respiratory distress TECHNIQUE: Frontal view of the chest. COMPARISON: Prior chest x-ray from April 09, 2024. FINDINGS: Lungs: Mild to moderate peribronchial thickening of the central and lower lobe bronchi. There is a patchy opacity at the left lung base. Low lung volumes limit evaluation of the lung bases. Pleural space: Tiny bilateral pleural effusions. No pneumothorax. Heart: Unremarkable. No cardiomegaly. Mediastinum: Unremarkable. Normal mediastinal contour. Bones/joints: Status post anterior fusion of the distal cervical spine. Status post posterior fusion of the thoracolumbar spine. No acute fracture. IMPRESSION: Bronchitis with left lower lobe infiltrate and tiny bilateral pleural effusions.
--- NOTE | 2024-04-10 03:52 | P.CNPUL ---
History of Present Illness Consult date: 04/10/24 Requesting physician: Renan De La Vega Reason for consult: other (Acute hypoxemic respiratory failure requiring BiPAP) Chief complaint: Altered status History of present illness: Patient is a 63-year-old male with past medical history significant for COPD, alcohol abuse, hypertension, hyperlipidemia, among other things. Transferred from [facility] on 04/08/2024. Apparently, was found by his neighbor on the ground and unresponsive in his residence. The heat in the house was not working, and patient was hypothermic with a temperature of 87 F. Unclear just how long the patient was on the floor. Did undergo rewarming at the outside facility. His blood glucose was also found to be low at 27 mg/dL. Did have a CT of the brain and C-spine which did not show any abnormalities or C-spine fracture/subluxation. Also, had a CT of the chest, images not available, however, reportedly demonstrating multiple bilateral subacute and nondisplaced rib fractures. According to the ER records, patient is an alcoholic and drinks approximately 1/5 of liquor per day. Currently on CIWA protocol. Workup at our facility, including a brain CT which did not show any acute intracranial hemorrhage, acute ischemic changes, or mass effect. Demonstrated a 1.2 cm rounded area of eggshell calcification midline posterior cranial fossa along the left vertebral artery. Concern was for possible aneurysm. Suspect a 1.8 cm cyst involving an impacted left maxillary molar. Regarding posterior wall of the maxilla. Air-fluid level of the left soft sphenoid sinus, possibly representing acute sinusitis. Chest x-ray showing low lung volumes with small bilateral pleural effusions and left-sided basilar atelectasis or infiltrate.CBC done arrival: WBC count 6.3, hemoglobin 8.1, hematocrit 23.3, platelets 100. Most recent CMP from yesterday showing a sodium 125, potassium 3.4, chloride 87, serum bicarb 28, BUN 15, creatinine 0.48, glucose 117. Lactic was 3.6 down to 1.5. Magnesium 1.5. LFTs mildly elevated, possibly secondary to chronic alcohol intake. CPK 722. Troponin was elevated at 0.042 and is trending down, most recently 0.027. Procalcitonin level is 1.11. Not currently on any antibiotics Patient currently being evaluated emergency department. He is on BiPAP with settings 12/6 and FiO2 100%. He is quite tachypneic, breathing in the high 40s. Vital lungs range around 400 to 500 mL. ABGs done on these settings showing a PaO2 of 70, pCO2 42, pH of 7.44. He remains quite obtunded, withdraws to painful stimuli in all 4 extremities. Now normothermic with a temperature of 98.3 F. Blood glucose 155. Ammonia 22. D5W with normal saline infusing at 75 mL/h. Plan is for patient be transferred to the intensive care unit once bed available. Review of Systems ROS unobtainable: due to mental status Medications and Allergies Home Medications Medication Instructions Recorded Confirmed Type Acetaminophen Tab [Tylenol Tab] 1,000 mg PO TID PRN 04/09/24 04/09/24 History Albuterol Nebulized [Ventolin 2.5 mg INHALATION RT-QID PRN 04/09/24 04/09/24 History Nebulized] Albuterol Sulfate [Albuterol 2 puff PO RT-QID PRN 04/09/24 04/09/24 History Sulfate Hfa] Baclofen [Lioresal] 10 mg PO Q8H PRN 04/09/24 04/09/24 History Fexofenadine HCl [Stephanie Allergy] 180 mg PO DAILY 04/09/24 04/09/24 History Fluticasone Propion/Salmeterol 1 puff INHALATION RT-BID 04/09/24 04/09/24 History [Wixela 250-50 Inhub] Gabapentin 600 mg PO BID 04/09/24 04/09/24 History Ibuprofen [Motrin] 800 mg PO Q8H PRN 04/09/24 04/09/24 History Loratadine [Claritin] 10 mg PO DAILY 04/09/24 04/09/24 History Losartan Potassium [Cozaar] 100 mg PO DAILY 04/09/24 04/09/24 History Mag-Ox 420mg 420 mg PO DAILY 04/09/24 04/09/24 History Metoprolol Tartrate [Lopressor] 50 mg PO BID 04/09/24 04/09/24 History Multivitamins, Thera [Multivitamin 1 tab PO DAILY 04/09/24 04/09/24 History (formulary)] Omeprazole [PriLOSEC] 20 mg PO DAILY 04/09/24 04/09/24 History Oxybutynin ER [Ditropan XL] 10 mg PO HS 04/09/24 04/09/24 History Psyllium Husk/Aspartame [Metamucil 1 tsp PO BID 04/09/24 04/09/24 History Sugar-Free Powder] Roflumilast 500 mcg PO DAILY 04/09/24 04/09/24 History Sodium Bicarbonate 325 mg PO TID 04/09/24 04/09/24 History Spironolactone [Aldactone] 25 mg PO DAILY 04/09/24 04/09/24 History Tamsulosin HCl [Flomax] 0.4 mg PO BID 04/09/24 04/09/24 History amLODIPine [Norvasc] 10 mg PO DAILY 04/09/24 04/09/24 History hydrALAZINE HCL [Apresoline] 50 mg PO TID 04/09/24 04/09/24 History oxyCODONE-APAP 7.5-325MG [Percocet 1 tab PO Q8H PRN 04/09/24 04/09/24 History 7.5-325 mg] Allergies Allergy/AdvReac Type Severity Reaction Status Date / Time No Known Allergies Allergy Unverified 04/09/24 07:20 Physical Exam Vitals: Vital Signs Temp Pulse Resp BP Pulse Ox FiO2 04/10/24 00:40 116 H 44 H 98/72 94 L 04/10/24 00:00 114 H 44 H 134/87 94 L 04/09/24 23:49 113 H 40 H 194/89 94 L 04/09/24 23:00 108 H 42 H 123/75 95 04/09/24 22:00 109 H 40 H 97 04/09/24 21:00 106 H 36 H 123/86 97 04/09/24 19:55 102 H 04/09/24 19:44 99 80 04/09/24 19:36 98 32 H 145/105 98 04/09/24 19:00 97 35 H 152/100 100 04/09/24 18:00 101 H 36 H 132/86 100 04/09/24 17:00 96 36 H 128/106 97 04/09/24 16:00 99 35 H 142/104 99 80 04/09/24 15:15 80 04/09/24 15:08 80 04/09/24 15:00 96 42 H 132/82 89 L 04/09/24 14:00 96 41 H 119/96 90 L 04/09/24 13:54 90 L 04/09/24 13:00 96 35 H 140/94 89 L 04/09/24 12:00 96 30 H 134/85 90 L 04/09/24 11:00 95 24 143/90 90 L 04/09/24 10:00 97 24 143/94 95 04/09/24 09:00 98 24 155/97 96 04/09/24 07:00 98.3 F 101 H 22 134/95 95 04/09/24 06:28 98.4 F 103 H 20 146/90 94 L 04/09/24 04:00 102 H 20 155/92 100 04/09/24 02:00 106 H 20 129/94 100 Intake and Output 04/09/24 04/09/24 04/10/24 14:59 22:59 06:59 Output Total 800 Balance -800 Output: Urine 800 Uretheral (Diaz) 800 GENERAL EXAM: Obtunded, disheveled 63-year-old male, in respiratory distress, tachypneic, on BiPAP HEAD: Normocephalic and atraumatic EYES: Normal reaction of pupils, equal size. No nystagmus. Nonicteric sclera. NOSE: Clear with pink turbinates. THROAT: No erythema or exudates. NECK: No masses, no JVD. CHEST: No chest wall deformity. LUNGS: Equal air entry with diffuse coarse rhonchi heard bilaterally. On BiPAP with settings 12/6 and FiO2 100%. Respiratory rate in the mid to high 40s. Tidal volumes ranging 400 to 500 mL. Accessory muscle use. CVS: S1 and S2 normal with no audible murmur, regular rhythm. No extra heart sounds ABDOMEN: No hepatosplenomegaly, active bowel sounds, no guarding or rigidity. SPINE: No scoliosis or deformity SKIN: No rashes CENTRAL NERVOUS SYSTEM: Obtunded, withdraws to painful stimuli in all 4 extremities, no focal deficits, tone is normal in all 4 extremities. EXTREMITIES: There is mild bilateral lower extremity edema . No clubbing, or cyanosis. Peripheral pulses are intact. Results - Laboratory Findings CBC and BMP: 04/08/24 21:14 04/09/24 16:50 PT/INR, D-dimer PT 13.0 sec (10.0-12.5) H 04/08/24 21:14 INR 1.2 (<1.2) H 04/08/24 21:14 Abnormal lab findings: Abnormal Labs 04/08/24 04/08/24 04/08/24 21:05 21:07 21:14 RBC 2.32 L Hgb 8.1 L Hct 23.3 L MCV 100.2 H Plt Count 100 L Lymphocytes # 0.3 L PT INR Sodium Potassium Chloride Carbon Dioxide Creatinine Glucose POC Glucose (mg/dL) 412 H Plasma Lactic Acid Edu 3.6 H* Calcium Magnesium Total Bilirubin AST ALT Creatine Kinase Troponin I C-Reactive Protein Total Protein Albumin Vitamin B12 Folate Procalcitonin 04/08/24 04/08/24 04/08/24 21:14 21:14 21:14 RBC Hgb Hct MCV Plt Count Lymphocytes # PT 13.0 H INR 1.2 H Sodium 124 L Potassium 3.0 L Chloride 84 L Carbon Dioxide 21 L Creatinine Glucose 66 L POC Glucose (mg/dL) Plasma Lactic Acid Edu Calcium Magnesium 1.5 L Total Bilirubin 2.1 H AST 363 H ALT 101 H Creatine Kinase 722 H Troponin I 0.042 H* C-Reactive Protein Total Protein 5.9 L Albumin Vitamin B12 Folate Procalcitonin 04/08/24 04/09/24 04/09/24 22:19 07:09 07:09 RBC Hgb Hct MCV Plt Count Lymphocytes # PT INR Sodium 124 L Potassium 3.2 L Chloride 87 L Carbon Dioxide Creatinine 0.61 L Glucose POC Glucose (mg/dL) 66 L Plasma Lactic Acid Edu Calcium Magnesium Total Bilirubin 1.9 H AST 363 H ALT 98 H Creatine Kinase Troponin I C-Reactive Protein 3.7 H Total Protein 5.4 L Albumin 3.1 L Vitamin B12 Folate Procalcitonin 04/09/24 04/09/24 04/09/24 07:09 13:50 13:55 RBC Hgb Hct MCV Plt Count Lymphocytes # PT INR Sodium Potassium Chloride Carbon Dioxide Creatinine Glucose POC Glucose (mg/dL) Plasma Lactic Acid Edu Calcium Magnesium Total Bilirubin AST ALT Creatine Kinase Troponin I C-Reactive Protein 5.1 H Total Protein Albumin Vitamin B12 Folate Procalcitonin 1.35 H 1.11 H 04/09/24 04/09/24 04/09/24 15:02 15:02 16:50 RBC Hgb Hct MCV Plt Count Lymphocytes # PT INR Sodium 125 L Potassium 3.4 L Chloride 87 L Carbon Dioxide Creatinine 0.48 L Glucose 117 H POC Glucose (mg/dL) Plasma Lactic Acid Edu Calcium 8.1 L Magnesium Total Bilirubin AST ALT Creatine Kinase Troponin I C-Reactive Protein Total Protein Albumin Vitamin B12 >3600.0 H Folate 31.90 H Procalcitonin 04/10/24 00:19 RBC Hgb Hct MCV Plt Count Lymphocytes # PT INR Sodium Potassium Chloride Carbon Dioxide Creatinine Glucose POC Glucose (mg/dL) 155 H Plasma Lactic Acid Edu Calcium Magnesium Total Bilirubin AST ALT Creatine Kinase Troponin I C-Reactive Protein Total Protein Albumin Vitamin B12 Folate Procalcitonin - Diagnostic Findings Chest x-ray: image reviewed Assessment and Plan Assessment: Acute hypoxemic respiratory failure, currently on BiPAP, chest x-ray showing low lung volumes with small bilateral pleural effusions, and left-sided basilar atelectasis versus infiltrate. Procalcitonin level elevated at 1.11 Acute COPD exacerbation Altered mental status, secondary to acute metabolic encephalopathy; hypothermic at outside facility with temperature of 87 F, hypoglycemic with initial blood glucose of 27 g/dL, hyponatremic sodium 125 Hypothermia, was rewarmed at outside facility, currently normothermic Episode of hypoglycemia, continues with Accu-Cheks Hyponatremia, likely secondary to poor oral intake Alcohol abuse, reportedly drinks 1/5 liquor /day, serum alcohol was 113 at outside facility Transaminitis, possibly secondary to alcohol intake Mild rhabdomyolysis, CPK 722 Normocytic, normochromic anemia, monitor for bleeding Thrombocytopenia, likely secondary to chronic alcohol intake History of hypertension History of hyperlipidemia History of Parkinson's Plan: Patient's medications, labs, chest x-ray reviewed Continue on BiPAP with current settings. ABG reviewed. Repeat chest x-ray Start patient on combination of DuoNebs, budesonide inhalation, formoterol inhalation, and IV Solu-Medrol Obtain blood culture, sputum culture Procalcitonin level elevated at 1.11 Patient to be started empiric antibiotics check Cepheid 4 Plex Monitor for signs of alcohol withdrawal and CIWA protocol Monitor CPK and renal function. Nephrology is consulted Monitor Accu-Cheks Echocardiogram pending Patient is at high risk for intubation; will continue with noninvasive Bipap at this time. Patient is currently transferred to the intensive care unit once bed available I have personally seen and examined the patient, performed the documentation and the assessment and plan as written. Number of minutes spent on the visit:20 This dictation was produced using [employer] dictation software please excuse grammatical errors Time with Patient: Greater than 30
[2024-04-10] MEDS: methylPREDNISolone SOD SUCCI 125 MG/2 ML VIAL IV SCH (07:26)
[2024-04-10 07:59] LABS: Basophils % (A) 0 %; Eosinophils % (A) 2 %; HCT 23.8 % (39.0-53.0); HGB 7.8 gm/dL (13.0-17.5); Lymphocytes # (A) 0.1 k/uL (1.0-4.8); Lymphocytes % (A) 11 %; MCH 33.9 pg (25.0-35.0); Macrocytosis Slight; Mean Platelet Volume 11.6; Monocytes # (A) 0.1 k/uL (0-1.0); Monocytes % (A) 9 %; Neutrophils # (A) 0.8 k/uL (1.3-7.7); Neutrophils % (A) 77 %; RBC 2.31 m/uL (4.30-5.90); RDW 14.2 % (11.5-15.5)
[2024-04-10 08:01] LABS: ALT 86 U/L (4-49); AST 310 U/L (17-59); African American GFR (CKD) >90 (>60 ml/min/1.73 sqM); Albumin 2.8 g/dL (3.5-5.0); Alkaline Phosphatase 123 U/L (38-126); Anion Gap 8 mmol/L; Blood Urea Nitrogen 15 mg/dL (9-20); Carbon Dioxide 29 mmol/L (22-30); Chloride 90 mmol/L (98-107); Creatine Kinase 312 U/L (55-170); Glucose 168 mg/dL (74-99); Magnesium 1.3 mg/dL (1.6-2.3); Non-African American GFR(CKD) >90 (>60 ml/min/1.73 sqM); Potassium 3.1 mmol/L (3.5-5.1); Sodium 127 mmol/L (137-145); Total Bilirubin 2.3 mg/dL (0.2-1.3); Total Protein 5.3 g/dL (6.3-8.2)
[2024-04-10] MEDS: FORMOTEROL FUMARATE 20 MCG/2 ML NEBU INHALATION SCH (08:15)
[2024-04-10] MEDS: BUDESONIDE 1 MG/2 ML NEBU INHALATION SCH (08:15)
[2024-04-10] MEDS: IPRATROPIUM-ALBUTEROL 3 ML NEB INHALATION SCH (08:16)
[2024-04-10] MEDS: PANTOPRAZOLE 40 MG/10 ML VIAL IVP SCH (08:16)
--- NOTE | 2024-04-10 09:29 | P.PN ---
Subjective History of present illness; patient 63-year-old gentleman who is a transfer from [facility] after being found laying on ground outside his house. Most of the history has been obtained from the EMR according to which patient has been drinking 1/5 of alcohol per day. Patient was found by his neighbor to be laying on the ground, patient was initially hypothermic and was placed on warming blankets and was transferred to [facility] where he had CT of his brain, cervical spine and CT abdominal pelvis done which were unremarkable. Patient was later transferred to [facility] for further evaluation and treatment Initial lab work done in the ER showed WBC 6.3, hemoglobin 8.1, platelet count 100, sodium 124, potassium 5, BUN 18, creatinine 0.67, glucose 412, lactate 3.6, bilirubin 2.1, AST 363, ALT 101 Patient admitted to internal medicine service 04/10 Patient is very weak and obtained. Currently in the ICU holding PEG in the emergency room T2. Patient on BiPAP with a setting of 12/6 and FiO2 of 70%, is tachypneic with somewhat limited air entry on both sides but no significant wheezing Abdomen soft. He has elevated CIWA score 13, 7 and 1, he received several doses of Ativan earlier this morning. Has Diaz catheter in place Getting D5 normal saline 75 mL/h. Sodium improved to 127, hemoglobin 8.1, platelet count 100 K, liver enzymes mildly elevated His blood pressure 98/72, has low-grade fever earlier 98.8, heart rate 101, respiratory rate 28 Is currently on Zithromax and ceftriaxone, CIWA protocol IV fluid and IV Solu- Medrol [address] of the brain ordered by neurology showing 1.2 cm round eggshell calcification along the left vertebral artery in the posterior cranial fossa cannot rule out aneurysm, left maxillary molar sepsis 1.8 cm eroding posterior wall of the maxilla and air-fluid level of the left sphenoid suspicious for acute sinusitis REVIEW OF SYSTEMS: Review of system cannot be obtained as patient is very lethargic Active Medications Generic Name Dose Route Start Last Admin Trade Name Freq PRN Reason Stop Dose Admin Albuterol/Ipratropium 3 ml 04/09/24 13:42 04/10/24 01:07 Ipratropium-Albuterol 3 Ml Neb INHALATION 3 ml RT-QID PRN Administration Shortness Of Breath Or Wheezing Albuterol/Ipratropium 3 ml 02/13/25 08:00 04/10/24 08:16 Ipratropium-Albuterol 3 Ml Neb INHALATION 3 ml RT-QID PANCHO Administration Albuterol/Ipratropium 3 ml 04/10/24 01:01 Ipratropium-Albuterol 3 Ml Neb INHALATION RT-Q4H PRN Shortness Of Breath Or Wheezing Budesonide 1 mg 04/10/24 08:00 04/10/24 08:15 Budesonide 1 Mg/2 Ml Nebu INHALATION 1 mg RT-BID PANCHO Administration Carbidopa/Levodopa 1 each 04/09/24 16:00 04/10/24 08:14 Carbidopa-Levodopa 25-100 Mg 1 Each Tab PO Not Given TID PANCHO Formoterol Fumarate 20 mcg 04/10/24 08:00 04/10/24 08:15 Formoterol Fumarate 20 Mcg/2 Ml Nebu INHALATION 20 mcg RT-BID PANCHO Administration Guaifenesin 600 mg 04/09/24 21:00 04/10/24 08:14 Guaifenesin 600 Mg Tablet.Er PO Not Given Q12HR [facility]CHO Sodium Chloride 1,000 mls @ 75 mls/hr 04/08/24 21:30 04/09/24 21:46 Saline 0.9% IV Not Given .[id number] [facility]CHO Dextrose/Sodium Chloride 1,000 mls @ 75 mls/hr 04/08/24 22:30 04/09/24 21:43 Dextrose 5%-Ns Iv Soln IV 75 mls/hr .[id number] [facility]CHO Administration Azithromycin 500 mg/ Sodium 250 mls @ 250 mls/hr 04/10/24 21:00 Chloride IVPB 04/12/24 21:59 DAILY@2100 [facility] Protocol Ceftriaxone Sodium 1 gm/ 50 mls @ 100 mls/hr 04/10/24 22:00 Sodium Chloride IVPB Q24H [facility] Protocol Lorazepam 1 mg 04/08/24 23:04 04/10/24 00:29 Lorazepam 2 Mg/Ml Inj IV 1 mg Q1HR PRN Administration CIWA 10 to 15 Lorazepam 1 mg 04/08/24 23:04 04/10/24 03:33 Lorazepam 2 Mg/Ml Inj IV 1 mg Q2HR PRN Administration CIWA 8 or 9 Lorazepam 2 mg 04/08/24 23:04 Lorazepam 2 Mg/Ml Inj IV 04/10/24 23:04 Q10M PRN CIWA 16 or higher Methylprednisolone Sodium Succinate 60 mg 04/10/24 06:00 04/10/24 07:26 Methylprednisolone Sod Succi 125 Mg/2 Ml Vial IV 60 mg Q6HR [facility]CHO Administration Morphine Sulfate 2 mg 04/10/24 09:12 Morphine Sulfate 2 Mg/Ml Syringe IVP Q6HR PRN Pain/Discomfort Naloxone HCl 0.2 mg 04/08/24 23:03 Naloxone 0.4 Mg/Ml 1 Ml Vial IV Q2M PRN Opioid Reversal Pantoprazole Sodium 40 mg 04/10/24 09:00 04/10/24 08:16 Pantoprazole 40 Mg/10 Ml Vial IVP 40 mg DAILY PANCHO Administration Thiamine HCl 100 mg 04/09/24 09:00 04/10/24 08:14 Thiamine 100 Mg Tab PO Not Given DAILY [facility] Objective - Vital Signs Vital signs: Vital Signs Temp 99.1 F 04/10/24 06:00 Pulse 101 H 04/10/24 08:43 Resp 22 04/10/24 08:17 BP 98/72 04/10/24 08:17 Pulse Ox 95 04/10/24 08:17 FiO2 70 04/10/24 08:11 Intake & Output 04/09/24 04/10/24 04/10/24 18:59 06:59 18:59 Intake Total 300 Output Total 1825 Balance -1525 Weight 86.183 kg Intake: Intake, IV Titration 300 Amount Dextrose 5%-0.9% NaCl 1, 225 000 ml @ 75 mls/hr IV . [id number] [facility] Rx#:[id number] Sodium Chloride 0.9% 1, 75 000 ml @ 75 mls/hr IV . [id number] [facility] Rx#:[id number] Oral 0 Output: Urine 1825 Uretheral (Diaz) 800 Other: Voiding Method Indwelling Catheter - Exam -GENERAL: The patient is confused, not answering questions on BiPAP HEENT: Pupils are round and equally reacting to light. EOMI. No scleral icterus. No conjunctival pallor. Normocephalic, atraumatic. No pharyngeal erythema. No thyromegaly. CARDIOVASCULAR: S1 and S2 present. No murmurs, rubs, or gallops. -PULMONARY: Chest is clear to auscultation, no wheezing , no crackles. Tachypneic with limited air entry on both sides ABDOMEN: Soft, nontender, nondistended, normoactive bowel sounds. No palpable organomegaly. MUSCULOSKELETAL: No joint swelling or deformity. EXTREMITIES: No cyanosis, clubbing, or pedal edema. NEUROLOGICAL: Gross neurological examination did not reveal any focal deficits. SKIN: No rashes. no petechiae. - Labs CBC & Chem 7: 04/08/24 21:14 04/10/24 06:40 Labs: Abnormal Lab Results - Last 24 Hours (Table) 04/09/24 04/09/24 04/09/24 Range/Units 07:09 07:09 13:50 ABG pO2 (83-108) mmHg ABG HCO3 (21-25) mmol/L ABG Total CO2 (19-24) mmol/L Hemoglobin (13.0-17.5) gm/dL Sodium (137-145) mmol/L Potassium (3.5-5.1) mmol/L Chloride (98-107) mmol/L Creatinine (0.66-1.25) mg/dL Glucose (74-99) mg/dL POC Glucose (mg/dL) (70-110) mg/dL Calcium (8.4-10.2) mg/dL Magnesium (1.6-2.3) mg/dL Total Bilirubin (0.2-1.3) mg/dL AST (17-59) U/L ALT (4-49) U/L Creatine Kinase (55-170) U/L C-Reactive Protein 3.7 H 5.1 H (<1.0) mg/dL Total Protein (6.3-8.2) g/dL Albumin (3.5-5.0) g/dL Vitamin B12 (200.0-944.0) pg/mL Folate (4.40-31.00) ng/mL Procalcitonin 1.35 H (0.02-0.50) ng/mL 04/09/24 04/09/24 04/09/24 Range/Units 13:55 15:02 15:02 ABG pO2 (83-108) mmHg ABG HCO3 (21-25) mmol/L ABG Total CO2 (19-24) mmol/L Hemoglobin (13.0-17.5) gm/dL Sodium (137-145) mmol/L Potassium (3.5-5.1) mmol/L Chloride (98-107) mmol/L Creatinine (0.66-1.25) mg/dL Glucose (74-99) mg/dL POC Glucose (mg/dL) (70-110) mg/dL Calcium (8.4-10.2) mg/dL Magnesium (1.6-2.3) mg/dL Total Bilirubin (0.2-1.3) mg/dL AST (17-59) U/L ALT (4-49) U/L Creatine Kinase (55-170) U/L C-Reactive Protein (<1.0) mg/dL Total Protein (6.3-8.2) g/dL Albumin (3.5-5.0) g/dL Vitamin B12 >3600.0 H (200.0-944.0) pg/mL Folate 31.90 H (4.40-31.00) ng/mL Procalcitonin 1.11 H (0.02-0.50) ng/mL 04/09/24 04/10/24 04/10/24 Range/Units 16:50 00:19 00:46 ABG pO2 70 L (83-108) mmHg ABG HCO3 29 H (21-25) mmol/L ABG Total CO2 30 H (19-24) mmol/L Hemoglobin 7.8 L (13.0-17.5) gm/dL Sodium 125 L (137-145) mmol/L Potassium 3.4 L (3.5-5.1) mmol/L Chloride 87 L (98-107) mmol/L Creatinine 0.48 L (0.66-1.25) mg/dL Glucose 117 H (74-99) mg/dL POC Glucose (mg/dL) 155 H (70-110) mg/dL Calcium 8.1 L (8.4-10.2) mg/dL Magnesium (1.6-2.3) mg/dL Total Bilirubin (0.2-1.3) mg/dL AST (17-59) U/L ALT (4-49) U/L Creatine Kinase (55-170) U/L C-Reactive Protein (<1.0) mg/dL Total Protein (6.3-8.2) g/dL Albumin (3.5-5.0) g/dL Vitamin B12 (200.0-944.0) pg/mL Folate (4.40-31.00) ng/mL Procalcitonin (0.02-0.50) ng/mL 04/10/24 Range/Units 06:40 ABG pO2 (83-108) mmHg ABG HCO3 (21-25) mmol/L ABG Total CO2 (19-24) mmol/L Hemoglobin (13.0-17.5) gm/dL Sodium 127 L (137-145) mmol/L Potassium 3.1 L (3.5-5.1) mmol/L Chloride 90 L (98-107) mmol/L Creatinine 0.43 L (0.66-1.25) mg/dL Glucose 168 H (74-99) mg/dL POC Glucose (mg/dL) (70-110) mg/dL Calcium 8.0 L (8.4-10.2) mg/dL Magnesium 1.3 L (1.6-2.3) mg/dL Total Bilirubin 2.3 H (0.2-1.3) mg/dL AST 310 H (17-59) U/L ALT 86 H (4-49) U/L Creatine Kinase 312 H (55-170) U/L C-Reactive Protein (<1.0) mg/dL Total Protein 5.3 L (6.3-8.2) g/dL Albumin 2.8 L (3.5-5.0) g/dL Vitamin B12 (200.0-944.0) pg/mL Folate (4.40-31.00) ng/mL Procalcitonin (0.02-0.50) ng/mL Assessment and Plan Assessment: Left lower lobe pneumonia Acute COPD exacerbation Acute hypoxic respiratory failure Alcohol use disorder and withdrawal Metabolic/toxic encephalopathy Microcytic anemia Alcoholic transaminitis Alcoholic induced thrombocytopenia Possible left vertebral artery round calcified eggshell lesion of 1.2 cm in the posterior cranial fossa, aneurysm cannot be ruled out Acute left sphenoid sinusitis Left upper maxillary cyst 1.8 cm eroding into the posterior wall of the left maxilla Hypertension Hyperlipidemia Possible Parkinson disease Plan: Continue with antibiotic Zithromax and ceftriaxone Continue with CIWA protocol and thiamine On IV fluid D5 normal saline at 75 mL/h On IV Solu-Medrol 60 mg Monitor sodium level Continue with oxygen therapy and BiPAP as needed and bronchodilator Several consultants on the case including pulmonary/critical care team, adhesive sprayer and neurologist GI prophylaxis: Protonix DVT prophylaxis: Mechanical. Relative contraindication for anticoagulation because of the possible brain aneurysm Prognosis is guarded
--- NOTE | 2024-04-10 09:40 | P.PN ---
Subjective Patient is seen in follow-up for hyponatremia. Sodium level 127 this morning. Resting in bed. On BiPAP. Vital signs are stable. General: No acute distress. HEENT: Head exam is unremarkable. On BiPAP. LUNGS: Scattered rhonchi. HEART: Rate and Rhythm are regular. ABDOMEN: No distention. EXTREMITITES: No edema. Objective - Vital Signs Vital signs: Vital Signs Temp 99.1 F 04/10/24 06:00 Pulse 99 04/10/24 09:21 Resp 28 H 04/10/24 09:21 BP 109/76 04/10/24 09:21 Pulse Ox 97 04/10/24 09:21 FiO2 70 04/10/24 08:11 Intake & Output 04/09/24 04/10/24 04/10/24 18:59 06:59 18:59 Intake Total 300 Output Total 1825 Balance -1525 Weight 86.183 kg Intake: Intake, IV Titration 300 Amount Dextrose 5%-0.9% NaCl 1, 225 000 ml @ 75 mls/hr IV . [id number] [facility] Rx#:[id number] Sodium Chloride 0.9% 1, 75 000 ml @ 75 mls/hr IV . [id number] [facility] Rx#:[id number] Oral 0 Output: Urine 1825 Uretheral (Diaz) 800 Other: Voiding Method Indwelling Catheter - Labs CBC & Chem 7: 04/08/24 21:14 04/10/24 06:40 Labs: Abnormal Lab Results - Last 24 Hours (Table) 04/09/24 04/09/24 04/09/24 Range/Units 07:09 07:09 13:50 ABG pO2 (83-108) mmHg ABG HCO3 (21-25) mmol/L ABG Total CO2 (19-24) mmol/L Hemoglobin (13.0-17.5) gm/dL Sodium (137-145) mmol/L Potassium (3.5-5.1) mmol/L Chloride (98-107) mmol/L Creatinine (0.66-1.25) mg/dL Glucose (74-99) mg/dL POC Glucose (mg/dL) (70-110) mg/dL Calcium (8.4-10.2) mg/dL Magnesium (1.6-2.3) mg/dL Total Bilirubin (0.2-1.3) mg/dL AST (17-59) U/L ALT (4-49) U/L Creatine Kinase (55-170) U/L C-Reactive Protein 3.7 H 5.1 H (<1.0) mg/dL Total Protein (6.3-8.2) g/dL Albumin (3.5-5.0) g/dL Vitamin B12 (200.0-944.0) pg/mL Folate (4.40-31.00) ng/mL Procalcitonin 1.35 H (0.02-0.50) ng/mL 04/09/24 04/09/24 04/09/24 Range/Units 13:55 15:02 15:02 ABG pO2 (83-108) mmHg ABG HCO3 (21-25) mmol/L ABG Total CO2 (19-24) mmol/L Hemoglobin (13.0-17.5) gm/dL Sodium (137-145) mmol/L Potassium (3.5-5.1) mmol/L Chloride (98-107) mmol/L Creatinine (0.66-1.25) mg/dL Glucose (74-99) mg/dL POC Glucose (mg/dL) (70-110) mg/dL Calcium (8.4-10.2) mg/dL Magnesium (1.6-2.3) mg/dL Total Bilirubin (0.2-1.3) mg/dL AST (17-59) U/L ALT (4-49) U/L Creatine Kinase (55-170) U/L C-Reactive Protein (<1.0) mg/dL Total Protein (6.3-8.2) g/dL Albumin (3.5-5.0) g/dL Vitamin B12 >3600.0 H (200.0-944.0) pg/mL Folate 31.90 H (4.40-31.00) ng/mL Procalcitonin 1.11 H (0.02-0.50) ng/mL 04/09/24 04/10/24 04/10/24 Range/Units 16:50 00:19 00:46 ABG pO2 70 L (83-108) mmHg ABG HCO3 29 H (21-25) mmol/L ABG Total CO2 30 H (19-24) mmol/L Hemoglobin 7.8 L (13.0-17.5) gm/dL Sodium 125 L (137-145) mmol/L Potassium 3.4 L (3.5-5.1) mmol/L Chloride 87 L (98-107) mmol/L Creatinine 0.48 L (0.66-1.25) mg/dL Glucose 117 H (74-99) mg/dL POC Glucose (mg/dL) 155 H (70-110) mg/dL Calcium 8.1 L (8.4-10.2) mg/dL Magnesium (1.6-2.3) mg/dL Total Bilirubin (0.2-1.3) mg/dL AST (17-59) U/L ALT (4-49) U/L Creatine Kinase (55-170) U/L C-Reactive Protein (<1.0) mg/dL Total Protein (6.3-8.2) g/dL Albumin (3.5-5.0) g/dL Vitamin B12 (200.0-944.0) pg/mL Folate (4.40-31.00) ng/mL Procalcitonin (0.02-0.50) ng/mL 04/10/24 Range/Units 06:40 ABG pO2 (83-108) mmHg ABG HCO3 (21-25) mmol/L ABG Total CO2 (19-24) mmol/L Hemoglobin (13.0-17.5) gm/dL Sodium 127 L (137-145) mmol/L Potassium 3.1 L (3.5-5.1) mmol/L Chloride 90 L (98-107) mmol/L Creatinine 0.43 L (0.66-1.25) mg/dL Glucose 168 H (74-99) mg/dL POC Glucose (mg/dL) (70-110) mg/dL Calcium 8.0 L (8.4-10.2) mg/dL Magnesium 1.3 L (1.6-2.3) mg/dL Total Bilirubin 2.3 H (0.2-1.3) mg/dL AST 310 H (17-59) U/L ALT 86 H (4-49) U/L Creatine Kinase 312 H (55-170) U/L C-Reactive Protein (<1.0) mg/dL Total Protein 5.3 L (6.3-8.2) g/dL Albumin 2.8 L (3.5-5.0) g/dL Vitamin B12 (200.0-944.0) pg/mL Folate (4.40-31.00) ng/mL Procalcitonin (0.02-0.50) ng/mL Assessment and Plan Plan: Assessment: 1. Hyponatremia. This is due to poor solute intake/beer potomania with component of hypovolemia. Sodium level 127 this morning. Urine sodium 63 and urine osmolality 620. TSH normal. 2. Hypokalemia from poor intake and hypomagnesemia. 3. Metabolic acidosis secondary to lactic acidosis. Improved with fluids. 4. Hypomagnesemia from poor intake and alcohol induced urinary losses. 5. Alcohol abuse. 6. Mild rhabdomyolysis from immobility. CK levels trending down. Plan: Maintain D5 normal saline. Replace potassium and magnesium. Continue to monitor renal function and urine output.
[2024-04-10] MEDS: POTASSIUM CHLORIDE 20 MEQ in WATER FOR INJECTION 1 100ML.BAG IVPB SCH (10:04)
[2024-04-10] MEDS: MAGNESIUM SULFATE-D5W PMX 1 GM in DEXTROSE/WATER 1 100ML.BAG IVPB SCH (10:04)
[2024-04-10 10:34] LABS: WBC 1.1 k/uL (3.8-10.6)
[2024-04-10 10:36] LABS: Platelet Count 111 k/uL (150-450)
--- NOTE | 2024-04-10 11:22 | P.PN ---
Subjective Progress Note Date: 04/10/24 I am following-up with the patient and is hypoxic, hypercapnic and he is on BiPAP. He continues to have elevated LFT's. He continues to be confused. Objective - Vital Signs Vital signs: Vital Signs Temp 99.1 F 04/10/24 06:00 Pulse 101 H 04/10/24 10:15 Resp 29 H 04/10/24 10:15 BP 132/99 04/10/24 10:15 Pulse Ox 96 04/10/24 10:15 FiO2 70 04/10/24 08:11 Intake & Output 04/09/24 04/10/24 04/10/24 18:59 06:59 18:59 Intake Total 300 Output Total 1825 Balance -1525 Weight 86.183 kg Intake: Intake, IV Titration 300 Amount Dextrose 5%-0.9% NaCl 1, 225 000 ml @ 75 mls/hr IV . [id number] [facility] Rx#:[id number] Sodium Chloride 0.9% 1, 75 000 ml @ 75 mls/hr IV . [id number] [facility] Rx#:[id number] Oral 0 Output: Urine 1825 Uretheral (Diaz) 800 Other: Voiding Method Indwelling Catheter - Exam General: Lying in bed and does not appear in acute distress. Respiratory: Is on BiPAP. Neuro: Very limited. But is severely drowsy and minimally opens eyes with painful stimuli. Otherwise not following commands or verbalizing. Some of the workup during this hospital visit consisted of: Sodium is 124, POC glucose is 412, plasma lactic acid is 3.6, AST is 363 and ALT is 101, CK level 722 Troponins 0.042 His repeated POC glucose was 66--resolved CT head: A 1.2cm rounded area of eggshell calcification midline posterior cranial fossa along the left vertebral artery. Unable to exclude an arterial aneurysm. Suspect 1.8cm dentgerous cyst involving the impacted left maxilary molar. Eroding the posterior wall of the maxilla. - Labs CBC & Chem 7: 04/10/24 06:40 04/10/24 06:40 Labs: Abnormal Lab Results - Last 24 Hours (Table) 04/09/24 04/09/24 04/09/24 Range/Units 07:09 07:09 13:50 WBC (3.8-10.6) k/uL RBC (4.30-5.90) m/uL Hgb (13.0-17.5) gm/dL Hct (39.0-53.0) % MCV (80.0-100.0) fL Plt Count (150-450) k/uL Neutrophils # (1.3-7.7) k/uL Lymphocytes # (1.0-4.8) k/uL ABG pO2 (83-108) mmHg ABG HCO3 (21-25) mmol/L ABG Total CO2 (19-24) mmol/L Hemoglobin (13.0-17.5) gm/dL Sodium (137-145) mmol/L Potassium (3.5-5.1) mmol/L Chloride (98-107) mmol/L Creatinine (0.66-1.25) mg/dL Glucose (74-99) mg/dL POC Glucose (mg/dL) (70-110) mg/dL Calcium (8.4-10.2) mg/dL Magnesium (1.6-2.3) mg/dL Total Bilirubin (0.2-1.3) mg/dL AST (17-59) U/L ALT (4-49) U/L Creatine Kinase (55-170) U/L C-Reactive Protein 3.7 H 5.1 H (<1.0) mg/dL Total Protein (6.3-8.2) g/dL Albumin (3.5-5.0) g/dL Vitamin B12 (200.0-944.0) pg/mL Folate (4.40-31.00) ng/mL Procalcitonin 1.35 H (0.02-0.50) ng/mL 04/09/24 04/09/24 04/09/24 Range/Units 13:55 15:02 15:02 WBC (3.8-10.6) k/uL RBC (4.30-5.90) m/uL Hgb (13.0-17.5) gm/dL Hct (39.0-53.0) % MCV (80.0-100.0) fL Plt Count (150-450) k/uL Neutrophils # (1.3-7.7) k/uL Lymphocytes # (1.0-4.8) k/uL ABG pO2 (83-108) mmHg ABG HCO3 (21-25) mmol/L ABG Total CO2 (19-24) mmol/L Hemoglobin (13.0-17.5) gm/dL Sodium (137-145) mmol/L Potassium (3.5-5.1) mmol/L Chloride (98-107) mmol/L Creatinine (0.66-1.25) mg/dL Glucose (74-99) mg/dL POC Glucose (mg/dL) (70-110) mg/dL Calcium (8.4-10.2) mg/dL Magnesium (1.6-2.3) mg/dL Total Bilirubin (0.2-1.3) mg/dL AST (17-59) U/L ALT (4-49) U/L Creatine Kinase (55-170) U/L C-Reactive Protein (<1.0) mg/dL Total Protein (6.3-8.2) g/dL Albumin (3.5-5.0) g/dL Vitamin B12 >3600.0 H (200.0-944.0) pg/mL Folate 31.90 H (4.40-31.00) ng/mL Procalcitonin 1.11 H (0.02-0.50) ng/mL 04/09/24 04/10/24 04/10/24 Range/Units 16:50 00:19 00:46 WBC (3.8-10.6) k/uL RBC (4.30-5.90) m/uL Hgb (13.0-17.5) gm/dL Hct (39.0-53.0) % MCV (80.0-100.0) fL Plt Count (150-450) k/uL Neutrophils # (1.3-7.7) k/uL Lymphocytes # (1.0-4.8) k/uL ABG pO2 70 L (83-108) mmHg ABG HCO3 29 H (21-25) mmol/L ABG Total CO2 30 H (19-24) mmol/L Hemoglobin 7.8 L (13.0-17.5) gm/dL Sodium 125 L (137-145) mmol/L Potassium 3.4 L (3.5-5.1) mmol/L Chloride 87 L (98-107) mmol/L Creatinine 0.48 L (0.66-1.25) mg/dL Glucose 117 H (74-99) mg/dL POC Glucose (mg/dL) 155 H (70-110) mg/dL Calcium 8.1 L (8.4-10.2) mg/dL Magnesium (1.6-2.3) mg/dL Total Bilirubin (0.2-1.3) mg/dL AST (17-59) U/L ALT (4-49) U/L Creatine Kinase (55-170) U/L C-Reactive Protein (<1.0) mg/dL Total Protein (6.3-8.2) g/dL Albumin (3.5-5.0) g/dL Vitamin B12 (200.0-944.0) pg/mL Folate (4.40-31.00) ng/mL Procalcitonin (0.02-0.50) ng/mL 04/10/24 04/10/24 Range/Units 06:40 06:40 WBC 1.1 L* (3.8-10.6) k/uL RBC 2.31 L (4.30-5.90) m/uL Hgb 7.8 L (13.0-17.5) gm/dL Hct 23.8 L (39.0-53.0) % MCV 103.0 H (80.0-100.0) fL Plt Count 111 L (150-450) k/uL Neutrophils # 0.8 L (1.3-7.7) k/uL Lymphocytes # 0.1 L (1.0-4.8) k/uL ABG pO2 (83-108) mmHg ABG HCO3 (21-25) mmol/L ABG Total CO2 (19-24) mmol/L Hemoglobin (13.0-17.5) gm/dL Sodium 127 L (137-145) mmol/L Potassium 3.1 L (3.5-5.1) mmol/L Chloride 90 L (98-107) mmol/L Creatinine 0.43 L (0.66-1.25) mg/dL Glucose 168 H (74-99) mg/dL POC Glucose (mg/dL) (70-110) mg/dL Calcium 8.0 L (8.4-10.2) mg/dL Magnesium 1.3 L (1.6-2.3) mg/dL Total Bilirubin 2.3 H (0.2-1.3) mg/dL AST 310 H (17-59) U/L ALT 86 H (4-49) U/L Creatine Kinase 312 H (55-170) U/L C-Reactive Protein (<1.0) mg/dL Total Protein 5.3 L (6.3-8.2) g/dL Albumin 2.8 L (3.5-5.0) g/dL Vitamin B12 (200.0-944.0) pg/mL Folate (4.40-31.00) ng/mL Procalcitonin (0.02-0.50) ng/mL Assessment and Plan Assessment: This is a 63-year-old gentleman who was transferred from [place] for escalation of care in which the patient was found down by his neighbor on the ground and he did not have heat and his initial temperature was 87. Seems that his sugar at the outside facility was in the 30s. He had CT brain cervical spine abdomen pelvis and it showed subacute rib fracture but no acute process. In our facility he had sugars in the 400 initially then down to the 60s. He has [id number]. He is also is a heavy drinker Altered mental status due to toxic metabolic encephalopathy: Hyponatremia, hypoglycemia, hypothermia, transaminitis and hypoxic/hypercapnic encephalopathy Hyponatremia (124-->127) Hypoglycemia--resolved 1.2cm rounded area of eggshell calcification midline posterior cranial fossa along the left vertebral artery. Unable to exclude an arterial aneurysm on CT head Suspect 1.8cm dentgerous cyst involving the impacted left maxilary molar. Eroding the posterior wall of the maxilla. Acute Hypoxic/Hypercapnic respiratory failure on BiPAP. Hypothermia and patient does not have heat at home that is reported Transaminitis AST more than ALT likely due to his alcohol use Underlying history of Parkinson's disease Plan: I ordered CTA head and neck to rule out aneurysm I started the patient on Sinemet 25-100 on 04/09/2024 for his Parkison's, 1 tablet 3 times daily to assess if there is any improvement His confusion does not seems seizure. But once patient is off BiPAP will attempt to pursue with EEG. Will consider MRI Brain once patient is stable and is off of BiPAP. Patient is on thiamine 100mg daily. Nephrology is consulted Consider dental consultation. Defer the rest of the medical management to primary other specialist Time with Patient: Less than 30
--- NOTE | 2024-04-10 14:39 | CT ---
EXAMINATION TYPE: CT angio head neck DATE OF EXAM: 04/10/2024 COMPARISON: None CLINICAL INDICATION: Male, 63 years old with history of rule out aneurysm on routine CT brain; Izzy MATT TECHNIQUE: CTA scan of the head and neck is performed with IV Contrast, patient injected with 65 mL of Isovue 370, axial images are obtained, coronal and sagittal reformatted images are reviewed. 3D re constructed images are created on an independent workstation and reviewed. 3-D post processing was pe rformed. CT DLP: 476.[address] CTDI: mGy Automated exposure control for dose reduction was used. NASCET criteria was used in interpretation of this exam? FINDINGS: The brachiocephalic origins are widely patent and no significant stenosis. There is mild eccentric calcified plaque within the carotid bifurcations. There is no significant kaitlynn nosis of the common or internal carotid arteries within the neck. There is no stenosis of the vertebral arteries. The left vertebral artery is markedly dominant and th e right vertebral artery. 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 There is no occlusive disease intracranially. There is an air-fluid level in the sphenoid sinus indicating acute sphenoid sinusitis. There are postsurgical changes of anterior cervical fusion from C3 through C7. IMPRESSION:. 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 NASCET criteria was used in interpretation of this exam? [facility], Workstation: RYAN 04/10/2024 2:37 PM
--- NOTE | 2024-04-10 14:46 | CA ---
Transthoracic Echo Report Name: Kevyn Odell Age: 63 Gender: M : 1960 Exam Date: 04/10/2024 10:01 Exam Location: [facility] Ht (in): 74 Wt (lb): 190 Ordering Physician: Renan De La Vega MD Attending/Referring Phys: Log Peeler Storm Ayala RDCS Procedure CPT: Indications: elevated troponin Cardiac Hx: Technical Quality: Good Contrast 1: Total Dose (mL): Contrast 2: Total Dose (mL): MEASUREMENTS (Male / Female) Normal Values 2D ECHO LV Diastolic Diameter PLAX 5.0 cm 4.2 - 5.9 / 3.9 - 5.3 cm LV Systolic Diameter PLAX 3.4 cm IVS Diastolic Thickness 0.9 cm 0.6 - 1.0 / 0.6 - 0.9 cm LVPW Diastolic Thickness 0.9 cm 0.6 - 1.0 / 0.6 - 0.9 cm LV Relative Wall Thickness 0.4 RV Internal Dim ED PLAX 3.9 cm LVOT Diameter 2.3 cm Aortic Root Diameter 2.9 cm LA Systolic Diameter LX 3.5 cm 3.0 - 4.0 / 2.7 - 3.8 cm LV Diastolic Volume MOD 2C 92.9 cm??? LV Systolic Volume MOD 2C 45.2 cm??? LV Ejection Fraction MOD 2C 51.4 % LV Cardiac Index MOD 2C 2179.5 cm???/min???m??? LV Diastolic Length 2C 9.7 cm LV Systolic Length 2C 8.4 cm LA Volume 43.7 cm??? 18 - 58 / 22 - 52 cm??? LA Volume Index 20.5 cm???/m??? 16 - 28 cm???/m??? DOPPLER AV Peak Velocity 131.8 cm/s AV Peak Gradient 7.0 mmHg AV Mean Velocity 87.3 cm/s AV Mean Gradient 3.3 mmHg AV Velocity Time Integral 16.5 cm LVOT Peak Velocity 118.9 cm/s LVOT Peak Gradient 5.7 mmHg LVOT Velocity Time Integral 19.9 cm LVOT Stroke Volume 83.5 cm??? LVOT Stroke Volume Index 39.3 ml/m??? LVOT Cardiac Index 3811.7 cm???/min???m??? AV Area Cont Eq vti 5.1 cm??? AV Area Cont Eq pk 3.8 cm??? MV Area PHT 4.6 cm??? Mitral E Point Velocity 54.0 cm/s Mitral A Point Velocity 80.4 cm/s Mitral E to A Ratio 0.7 MV Deceleration Time 164.8 ms TR Peak Velocity 313.3 cm/s TR Peak Gradient 39.3 mmHg Right Atrial Pressure 20.0 mmHg Pulmonary Artery Systolic Pressu 59.3 mmHg Right Ventricular Systolic Press 59.3 mmHg FINDINGS Left Ventricle Left ventricular ejection fraction is estimated at 60-65 %. Normal left ventricular systolic function with no obvious regional wall motion abnormalities. Right Ventricle Normal right ventricular size and function. Severe pulmonary hypertension. Right Atrium Normal right atrial size. Interatrial septum aneurysm. Left Atrium Normal left atrial size. Mitral Valve Structurally normal mitral valve. No mitral stenosis. No mitral regurgitation. Aortic Valve Trileaflet aortic valve. No aortic valve stenosis or regurgitation. Tricuspid Valve Structurally normal tricuspid valve. No tricuspid stenosis. Mild tricuspid regurgitation. Pulmonic Valve Structurally normal pulmonic valve. No pulmonic stenosis. No pulmonic regurgitation. Pericardium No pericardial effusion. Aorta Normal size aortic root and proximal ascending aorta. CONCLUSIONS Diagnosis abnormal troponins Normal LV size and systolic function No segmental wall motion abnormalities Previewed by: Dr. Fransico Kilgore MD (Electronically Signed) Final Date: 10 April 2024 14:45
[2024-04-10 16:02] LABS: Appearance,Urine Clear (Clear); Bilirubin,Urine 1+ (Negative); Blood,Urine Large (Negative); Color,Urine Yellow; Glucose,Urine (UA) 4+ (Negative); Ketones,Urine 1+ (Negative); Leukocyte Esterase,Urine Negative (Negative); Mucus,Urine Few /hpf; Nitrite,Urine Negative (Negative); PH, Urine 6.5 (5.0-8.0); Protein,Urine 1+ (Negative); RBC,Urine 7 /hpf (0-5); Squamous Epithelial Cell,Urine <1 /hpf (0-4); WBC,Urine 2 /hpf (0-5)
[2024-04-10 16:15] LABS: Specific Gravity,Urine >1.050 (1.001-1.035)
[2024-04-10 16:16] LABS: Amphetamine Screen,Urine Not Detected (NotDetected); Barbiturate Screen,Urine Not Detected (NotDetected); Benzodiazepines Screen,Urine Detected (NotDetected); Cocaine Screen,Urine Not Detected (NotDetected); Methadone Screen, Urine Not Detected (NotDetected); Opiate Screen,Urine Not Detected (NotDetected); Oxycodone Screen, Urine Not Detected (NotDetected); Phencyclidine Screen,Urine Not Detected (NotDetected); Tricyclic Antidepressant,Urine Not Detected (NotDetected); Urn Cannabinoid Scrn Detected (NotDetected)
[2024-04-10 17:19] LABS: Potassium 3.5 mmol/L (3.5-5.1)
[2024-04-10] MEDS ORDERED: Potassium Replacement Protocol 1 EACH MISC MISCELLANE PRN (19:37)
[2024-04-10 19:45] LABS: Glucose,Whole Blood 261 mg/dL (70-110)
[2024-04-10] MEDS ORDERED: DEXTROSE 50% SYRINGE 50 ML IVP PRN ×2 (19:57)
[2024-04-10] MEDS: INSULIN ASPART (NovoLOG) 100 UNIT/ML VIAL SQ SCH (20:15)
[2024-04-10] MEDS: POTASSIUM CHLORIDE 10 MEQ in WATER FOR INJECTION 1 100ML.BAG IVPB SCH (21:09)
[2024-04-10] MEDS: AZITHROMYCIN 500 MG in SODIUM CHLORIDE 0.9% 250 ML IVPB SCH (22:10)
[2024-04-11 01:36] LABS: Glucose,Whole Blood 166 mg/dL (70-110)
[2024-04-11 06:28] LABS: Glucose,Whole Blood 157 mg/dL (70-110)
[2024-04-11 06:48] LABS: Basophils % (A) 0 %; Eosinophils % (A) 1 %; HCT 22.3 % (39.0-53.0); HGB 7.4 gm/dL (13.0-17.5); Lymphocytes # (A) 0.2 k/uL (1.0-4.8); Lymphocytes % (A) 4 %; MCH 35.2 pg (25.0-35.0); MCHC 33.2 g/dL (31.0-37.0); MCV 106.1 fL (80.0-100.0); Macrocytosis Moderate; Mean Platelet Volume 10.6; Monocytes # (A) 0.3 k/uL (0-1.0); Monocytes % (A) 7 %; Neutrophils # (A) 3.4 k/uL (1.3-7.7); Neutrophils % (A) 87 %; Platelet Count 126 k/uL (150-450); RDW 14.3 % (11.5-15.5); WBC 3.9 k/uL (3.8-10.6)
[2024-04-11 07:05] LABS: African American GFR (CKD) >90 (>60 ml/min/1.73 sqM); Anion Gap 3 mmol/L; Blood Urea Nitrogen 15 mg/dL (9-20); Calcium 7.8 mg/dL (8.4-10.2); Carbon Dioxide 33 mmol/L (22-30); Chloride 95 mmol/L (98-107); Glucose 129 mg/dL (74-99); Magnesium 1.8 mg/dL (1.6-2.3); Non-African American GFR(CKD) >90 (>60 ml/min/1.73 sqM); Sodium 131 mmol/L (137-145)
[2024-04-11] MEDS ORDERED: Magnesium Replacement Protocol 1 EACH MISC MISCELLANE PRN (07:10)
[2024-04-11] MEDS: MAGNESIUM SULFATE-D5W PMX 1 GM in DEXTROSE/WATER 1 100ML.BAG IVPB ONE (08:22)
[2024-04-11] MEDS: SODIUM CHLORIDE 0.9% 500 ML 500 ML IV ONE ×2 (08:30→10:00)
--- NOTE | 2024-04-11 08:37 | XR ---
EXAMINATION TYPE: XR chest 1V portable DATE OF EXAM: 04/11/2024 5:37 AM COMPARISON: 04/10/2024 earlier exam CLINICAL INDICATION: Male, 63 years old with history of increased o2 needs, TECHNIQUE: XR chest 1V portable view(s) obtained. FINDINGS: The heart size is normal. The pulmonary vasculature is normal. The. Correlate for atelectasis and pneumonia. Retrocardiac infiltrate may be present. Small left pleu ral effusion is present. IMPRESSION: 1. Mild bibasilar infiltrates. Correlate for atelectasis or pneumonia. Small left pleural effusion is present. [facility], , 04/11/2024 8:35 AM
[2024-04-11] MEDS: SODIUM CHLORIDE 0.9% 1,000 ML IV SCH (10:00)
--- NOTE | 2024-04-11 11:05 | P.PN ---
Subjective Patient is seen in follow-up for hyponatremia. Sodium level 131 this morning. Resting in bed. Received fluid bolus this AM. Poor historian. Vital signs are stable. General: No acute distress. HEENT: Head exam is unremarkable. On NC. LUNGS: Scattered rhonchi. HEART: Rate and Rhythm are regular. ABDOMEN: No distention. EXTREMITITES: No edema. Objective - Vital Signs Vital signs: Vital Signs Temp 97.8 F 04/11/24 08:00 Pulse 107 H 04/11/24 09:02 Resp 29 H 04/11/24 09:00 BP 109/75 04/11/24 09:00 Pulse Ox 99 04/11/24 09:00 FiO2 60 04/11/24 04:00 Intake & Output 04/10/24 04/11/24 04/11/24 18:59 06:59 18:59 Intake Total 225 1675 250 Output Total 380 370 55 Balance -155 1305 195 Weight 77.2 kg Intake: IV 225 1675 250 Azithromycin 500 mg In 250 Sodium Chloride 0.9% 250 ml @ 250 mls/hr IVPB DAILY@2100 [facility] Rx#: [id number] Dextrose 5%-0.9% NaCl 1, 225 975 150 000 ml @ 75 mls/hr IV . [id number] [facility] Rx#:[id number] Magnesium Sulfate-D5w Pmx 100 1 gm In Dextrose/Water 1 100ml.bag @ 100 mls/hr IVPB ONCE ONE Rx#: [id number] Potassium Chloride 10 meq 400 In Water For Injection 1 100ml.bag @ 100 mls/hr IVPB Q1HR [facility] Rx#: [id number] cefTRIAXone 1 gm In 50 Sodium Chloride 0.9% 50 ml @ 100 mls/hr IVPB Q24H [facility] Rx#:[id number] Output: Urine 380 370 55 Other: Voiding Method Indwelling Catheter Indwelling Catheter - Labs CBC & Chem 7: 04/11/24 05:53 04/11/24 05:53 Labs: Abnormal Lab Results - Last 24 Hours (Table) 04/10/24 04/10/24 04/10/24 Range/Units 06:40 15:50 16:39 RBC (4.30-5.90) m/uL Hgb (13.0-17.5) gm/dL Hct (39.0-53.0) % MCV (80.0-100.0) fL MCH (25.0-35.0) pg Plt Count (150-450) k/uL Neutrophils # 0.8 L (1.3-7.7) k/uL Lymphocytes # 0.1 L (1.0-4.8) k/uL Sodium 129 L (137-145) mmol/L Chloride (98-107) mmol/L Carbon Dioxide (22-30) mmol/L Creatinine (0.66-1.25) mg/dL Glucose (74-99) mg/dL POC Glucose (mg/dL) (70-110) mg/dL Calcium (8.4-10.2) mg/dL Ur Specific [place] >1.050 H (1.001-1.035) Urine Protein 1+ H (Negative) Urine Glucose (UA) 4+ H (Negative) Urine Ketones 1+ H (Negative) Urine Blood Large H (Negative) Urine Bilirubin 1+ H (Negative) Urine RBC 7 H (0-5) /hpf Urine Mucus Few H (None) /hpf U Benzodiazepines Scrn Detected H (NotDetected) U Marijuana (THC) Screen Detected H (NotDetected) 04/10/24 04/11/24 04/11/24 Range/Units 19:44 01:34 05:53 RBC (4.30-5.90) m/uL Hgb (13.0-17.5) gm/dL Hct (39.0-53.0) % MCV (80.0-100.0) fL MCH (25.0-35.0) pg Plt Count (150-450) k/uL Neutrophils # (1.3-7.7) k/uL Lymphocytes # (1.0-4.8) k/uL Sodium 131 L (137-145) mmol/L Chloride 95 L (98-107) mmol/L Carbon Dioxide 33 H (22-30) mmol/L Creatinine 0.39 L (0.66-1.25) mg/dL Glucose 129 H (74-99) mg/dL POC Glucose (mg/dL) 261 H 166 H (70-110) mg/dL Calcium 7.8 L (8.4-10.2) mg/dL Ur Specific [place] (1.001-1.035) Urine Protein (Negative) Urine Glucose (UA) (Negative) Urine Ketones (Negative) Urine Blood (Negative) Urine Bilirubin (Negative) Urine RBC (0-5) /hpf Urine Mucus (None) /hpf U Benzodiazepines Scrn (NotDetected) U Marijuana (THC) Screen (NotDetected) 04/11/24 04/11/24 Range/Units 05:53 06:26 RBC 2.10 L (4.30-5.90) m/uL Hgb 7.4 L (13.0-17.5) gm/dL Hct 22.3 L (39.0-53.0) % MCV 106.1 H (80.0-100.0) fL MCH 35.2 H (25.0-35.0) pg Plt Count 126 L (150-450) k/uL Neutrophils # (1.3-7.7) k/uL Lymphocytes # 0.2 L (1.0-4.8) k/uL Sodium (137-145) mmol/L Chloride (98-107) mmol/L Carbon Dioxide (22-30) mmol/L Creatinine (0.66-1.25) mg/dL Glucose (74-99) mg/dL POC Glucose (mg/dL) 157 H (70-110) mg/dL Calcium (8.4-10.2) mg/dL Ur Specific [place] (1.001-1.035) Urine Protein (Negative) Urine Glucose (UA) (Negative) Urine Ketones (Negative) Urine Blood (Negative) Urine Bilirubin (Negative) Urine RBC (0-5) /hpf Urine Mucus (None) /hpf U Benzodiazepines Scrn (NotDetected) U Marijuana (THC) Screen (NotDetected) Assessment and Plan Plan: Assessment: 1. Hyponatremia. This is due to poor solute intake/beer potomania with component of hypovolemia. Sodium level 131 this morning. Urine sodium 63 and urine osmolality 620. TSH normal. 2. Hypokalemia from poor intake and hypomagnesemia. Replaced, better. 3. Metabolic acidosis secondary to lactic acidosis. Resolved. 4. Hypomagnesemia from poor intake and alcohol induced urinary losses. Replaced, better. 5. Alcohol abuse. 6. Mild rhabdomyolysis from immobility. CK levels trending down. Plan: Maintain NS. Replace potassium and magnesium as needed. Continue to monitor renal function and urine output.
--- NOTE | 2024-04-11 12:37 | P.PN ---
Subjective Progress Note Date: 04/11/24 I am following-up with patient and according to the nurse he is lethargic but he follows simple commands appropriately. He is not getting PO medication because of his overall condition. Objective - Vital Signs Vital signs: Vital Signs Temp 97.8 F 04/11/24 08:00 Pulse 105 H 04/11/24 11:51 Resp 29 H 04/11/24 09:00 BP 109/75 04/11/24 09:00 Pulse Ox 99 04/11/24 09:00 FiO2 60 04/11/24 04:00 Intake & Output 04/10/24 04/11/24 04/11/24 18:59 06:59 18:59 Intake Total 225 1675 250 Output Total 380 370 55 Balance -155 1305 195 Weight 77.2 kg Intake: IV 225 1675 250 Azithromycin 500 mg In 250 Sodium Chloride 0.9% 250 ml @ 250 mls/hr IVPB DAILY@2100 [facility] Rx#: [id number] Dextrose 5%-0.9% NaCl 1, 225 975 150 000 ml @ 75 mls/hr IV . [id number] [facility] Rx#:[id number] Magnesium Sulfate-D5w Pmx 100 1 gm In Dextrose/Water 1 100ml.bag @ 100 mls/hr IVPB ONCE ONE Rx#: [id number] Potassium Chloride 10 meq 400 In Water For Injection 1 100ml.bag @ 100 mls/hr IVPB Q1HR [facility] Rx#: [id number] cefTRIAXone 1 gm In 50 Sodium Chloride 0.9% 50 ml @ 100 mls/hr IVPB Q24H [facility] Rx#:[id number] Output: Urine 380 370 55 Other: Voiding Method Indwelling Catheter Indwelling Catheter - Exam General: Lying in bed and does not appear in acute distress. Neuro: Very limited. But is severely drowsy and is awakeable to voice. He is following simple command appropriately (thumbs up, raising arms, wiggling toes, attempting to smile). He nods appropriately to his name. Has tremor of the left upper extremity. Motor: Strength is hard to assess individual muscle strength because of his overall condition. Some of the workup during this hospital visit consisted of: Sodium is 124, POC glucose is 412, plasma lactic acid is 3.6, AST is 363 and ALT is 101, CK level 722 Troponins 0.042 His repeated POC glucose was 66--resolved CT head: A 1.2cm rounded area of eggshell calcification midline posterior cranial fossa along the left vertebral artery. Unable to exclude an arterial aneurysm. Suspect 1.8cm dentgerous cyst involving the impacted left maxilary molar. Eroding the posterior wall of the maxilla. 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 - Labs CBC & Chem 7: 04/11/24 05:53 04/11/24 05:53 Labs: Abnormal Lab Results - Last 24 Hours (Table) 04/10/24 04/10/24 04/10/24 Range/Units 15:50 16:39 19:44 RBC (4.30-5.90) m/uL Hgb (13.0-17.5) gm/dL Hct (39.0-53.0) % MCV (80.0-100.0) fL MCH (25.0-35.0) pg Plt Count (150-450) k/uL Lymphocytes # (1.0-4.8) k/uL Sodium 129 L (137-145) mmol/L Chloride (98-107) mmol/L Carbon Dioxide (22-30) mmol/L Creatinine (0.66-1.25) mg/dL Glucose (74-99) mg/dL POC Glucose (mg/dL) 261 H (70-110) mg/dL Calcium (8.4-10.2) mg/dL Ur Specific [place] >1.050 H (1.001-1.035) Urine Protein 1+ H (Negative) Urine Glucose (UA) 4+ H (Negative) Urine Ketones 1+ H (Negative) Urine Blood Large H (Negative) Urine Bilirubin 1+ H (Negative) Urine RBC 7 H (0-5) /hpf Urine Mucus Few H (None) /hpf U Benzodiazepines Scrn Detected H (NotDetected) U Marijuana (THC) Screen Detected H (NotDetected) 04/11/24 04/11/24 04/11/24 Range/Units 01:34 05:53 05:53 RBC 2.10 L (4.30-5.90) m/uL Hgb 7.4 L (13.0-17.5) gm/dL Hct 22.3 L (39.0-53.0) % MCV 106.1 H (80.0-100.0) fL MCH 35.2 H (25.0-35.0) pg Plt Count 126 L (150-450) k/uL Lymphocytes # 0.2 L (1.0-4.8) k/uL Sodium 131 L (137-145) mmol/L Chloride 95 L (98-107) mmol/L Carbon Dioxide 33 H (22-30) mmol/L Creatinine 0.39 L (0.66-1.25) mg/dL Glucose 129 H (74-99) mg/dL POC Glucose (mg/dL) 166 H (70-110) mg/dL Calcium 7.8 L (8.4-10.2) mg/dL Ur Specific [place] (1.001-1.035) Urine Protein (Negative) Urine Glucose (UA) (Negative) Urine Ketones (Negative) Urine Blood (Negative) Urine Bilirubin (Negative) Urine RBC (0-5) /hpf Urine Mucus (None) /hpf U Benzodiazepines Scrn (NotDetected) U Marijuana (THC) Screen (NotDetected) 04/11/24 Range/Units 06:26 RBC (4.30-5.90) m/uL Hgb (13.0-17.5) gm/dL Hct (39.0-53.0) % MCV (80.0-100.0) fL MCH (25.0-35.0) pg Plt Count (150-450) k/uL Lymphocytes # (1.0-4.8) k/uL Sodium (137-145) mmol/L Chloride (98-107) mmol/L Carbon Dioxide (22-30) mmol/L Creatinine (0.66-1.25) mg/dL Glucose (74-99) mg/dL POC Glucose (mg/dL) 157 H (70-110) mg/dL Calcium (8.4-10.2) mg/dL Ur Specific [place] (1.001-1.035) Urine Protein (Negative) Urine Glucose (UA) (Negative) Urine Ketones (Negative) Urine Blood (Negative) Urine Bilirubin (Negative) Urine RBC (0-5) /hpf Urine Mucus (None) /hpf U Benzodiazepines Scrn (NotDetected) U Marijuana (THC) Screen (NotDetected) Assessment and Plan Assessment: This is a 63-year-old gentleman who was transferred from [place] for escalation of care in which the patient was found down by his neighbor on the ground and he did not have heat and his initial temperature was 87. Seems that his sugar at the outside facility was in the 30s. He had CT brain cervical spine abdomen pelvis and it showed subacute rib fracture but no acute process. In our facility he had sugars in the 400 initially then down to the 60s. He has [id number]. He is also is a heavy drinker Altered mental status due to toxic metabolic encephalopathy: Hyponatremia, hypoglycemia, hypothermia, transaminitis and hypoxic/hypercapnic encephalopathy Hyponatremia (124-->131) Hypoglycemia--resolved Incidental 9mm Left vertebral artery aneurysm Suspect 1.8cm dentgerous cyst involving the impacted left maxilary molar. Eroding the posterior wall of the maxilla. Acute Hypoxic/Hypercapnic respiratory failure on BiPAP. Hypothermia and patient does not have heat at home that is reported Transaminitis AST more than ALT likely due to his alcohol use Underlying history of Parkinson's disease Plan: Regarding the left vertebral artery aneurysm, this seems incidental and recommend patient to follow-up with Dr. Kohli (Interventional Neurologist) as outpatient within 3 weeks as outpatient. Per nurse patient is not getting PO medication because of overall condition. I initially started him on Sinemet 25-100 on 04/09/2024 for his Parkison's, 1 tablet 3 times daily to assess if there is any improvement but since not getting it changed to 1 tab bid once stable to assess if help and if helps will escalate going up on the medication. Unsure if he can obtain MRI Brain since he had metal on neck and nurse will find out. Ordered routine EEG> Patient is on thiamine 100mg daily. Nephrology is consulted Consider dental consultation. Defer the rest of the medical management to primary other specialist The plan is discussed with patient's nurse. Will follow-up with patient sporadically. Dr. Meneses will resume neurology service this Sunday (04/14/2024) A.M. Time with Patient: Less than 30
--- NOTE | 2024-04-11 13:06 | P.PN ---
Subjective Progress Note Date: 04/11/24 Principal diagnosis: Hyponatremia. Patient is a 63-year-old male with past medical history significant for COPD, alcohol abuse, hypertension, hyperlipidemia, among other things. Transferred from [facility] on 04/08/2024. Apparently, was found by his neighbor on the ground and unresponsive in his residence. The heat in the house was not working, and patient was hypothermic with a temperature of 87 F. Unclear just how long the patient was on the floor. Did undergo rewarming at the outside facility. His blood glucose was also found to be low at 27 mg/dL. Did have a CT of the brain and C-spine which did not show any abnormalities or C-spine fracture/subluxation. Also, had a CT of the chest, images not available, however, reportedly demonstrating multiple bilateral subacute and nondisplaced rib fractures. According to the ER records, patient is an alcoholic and drinks approximately 1/5 of liquor per day. Currently on CIWA protocol. Workup at our facility, including a brain CT which did not show any acute intracranial hemorrhage, acute ischemic changes, or mass effect. Demonstrated a 1.2 cm rounded area of eggshell calcification midline posterior cranial fossa along the left vertebral artery. Concern was for possible aneurysm. Suspect a 1.8 cm cyst involving an impacted left maxillary molar. Regarding posterior wall of the maxilla. Air-fluid level of the left soft sphenoid sinus, possibly representing acute sinusitis. Chest x-ray showing low lung volumes with small bilateral pleural effusions and left-sided basilar atelectasis or infiltrate.CBC done arrival: WBC count 6.3, hemoglobin 8.1, hematocrit 23.3, platelets 100. Most recent CMP from yesterday showing a sodium 125, potassium 3.4, chloride 87, serum bicarb 28, BUN 15, creatinine 0.48, glucose 117. Lactic was 3.6 down to 1.5. Magnesium 1.5. LFTs mildly elevated, possibly secondary to chronic alcohol intake. CPK 722. Troponin was elevated at 0.042 and is trending down, most recently 0.027. Procalcitonin level is 1.11. Not currently on any antibiotics Patient currently being evaluated emergency department. He is on BiPAP with settings 12/6 and FiO2 100%. He is quite tachypneic, breathing in the high 40s. Vital lungs range around 400 to 500 mL. ABGs done on these settings showing a PaO2 of 70, pCO2 42, pH of 7.44. He remains quite obtunded, withdraws to painful stimuli in all 4 extremities. Now normothermic with a temperature of 98.3 F. Blood glucose 155. Ammonia 22. D5W with normal saline infusing at 75 mL/h. Plan is for patient be transferred to the intensive care unit once bed available. Progress note dated April 11, 2024. 63-year-old male seen today in the intensive care unit, room 259. The patient is on dextrose, with saline, 75 cc an hour, saline IV at 10 cc an hour, and getting nasal cannula at 3 L. He also has a BiPAP in the room, with settings of 12/6, and 60%. He appears to be resting relatively comfortably, although he is a bit lethargic and somnolent. Current labs include a white count 3.9, hemoglobin 7.4, hematocrit 22.3, and a platelet count of hearing 26,000. Sodium 131, potassium 4, chlorides 95, CO2 33, BUN 15, creatinine 0.39. Glucose is 157. Chest x-ray reveals mild bibasilar infiltrates or atelectasis. 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 Objective - Vital Signs Vital signs: Vital Signs Temp 97.8 F 04/11/24 08:00 Pulse 105 H 04/11/24 11:51 Resp 29 H 04/11/24 09:00 BP 109/75 04/11/24 09:00 Pulse Ox 99 04/11/24 09:00 FiO2 60 04/11/24 04:00 Intake & Output 04/10/24 04/11/24 04/11/24 18:59 06:59 18:59 Intake Total 225 1675 250 Output Total 380 370 55 Balance -155 1305 195 Weight 77.2 kg Intake: IV 225 1675 250 Azithromycin 500 mg In 250 Sodium Chloride 0.9% 250 ml @ 250 mls/hr IVPB DAILY@2100 [facility] Rx#: [id number] Dextrose 5%-0.9% NaCl 1, 225 975 150 000 ml @ 75 mls/hr IV . [id number] [facility] Rx#:[id number] Magnesium Sulfate-D5w Pmx 100 1 gm In Dextrose/Water 1 100ml.bag @ 100 mls/hr IVPB ONCE ONE Rx#: [id number] Potassium Chloride 10 meq 400 In Water For Injection 1 100ml.bag @ 100 mls/hr IVPB Q1HR [facility] Rx#: [id number] cefTRIAXone 1 gm In 50 Sodium Chloride 0.9% 50 ml @ 100 mls/hr IVPB Q24H [facility] Rx#:[id number] Output: Urine 380 370 55 Other: Voiding Method Indwelling Catheter Indwelling Catheter - Exam No acute distress, lethargic. Currently on 3 L nasal cannula. HEENT examination is grossly unremarkable. Mucous membranes are moist. No oral lesions. Neck supple. Full range of motion. No adenopathy thyromegaly or neck vein distention. Cardiovascular examination reveals regular rhythm rate. S1-S2 normal. No S3 or S4. No discernible murmur noted. Lungs reveal scattered bilateral inspiratory and expiratory rhonchi. No wheezes or crackles. Abdomen soft bowel sounds are heard. No masses or tenderness. Extremities are intact. No cyanosis clubbing or edema. Skin is without rash or lesion. Neurologic examination feels the patient to be obtunded, but does withdraw to painful stimuli. He is not able to give any history. - Labs CBC & Chem 7: 04/11/24 05:53 04/11/24 05:53 Labs: Abnormal Lab Results - Last 24 Hours (Table) 04/10/24 04/10/24 04/10/24 Range/Units 15:50 16:39 19:44 RBC (4.30-5.90) m/uL Hgb (13.0-17.5) gm/dL Hct (39.0-53.0) % MCV (80.0-100.0) fL MCH (25.0-35.0) pg Plt Count (150-450) k/uL Lymphocytes # (1.0-4.8) k/uL Sodium 129 L (137-145) mmol/L Chloride (98-107) mmol/L Carbon Dioxide (22-30) mmol/L Creatinine (0.66-1.25) mg/dL Glucose (74-99) mg/dL POC Glucose (mg/dL) 261 H (70-110) mg/dL Calcium (8.4-10.2) mg/dL Ur Specific [place] >1.050 H (1.001-1.035) Urine Protein 1+ H (Negative) Urine Glucose (UA) 4+ H (Negative) Urine Ketones 1+ H (Negative) Urine Blood Large H (Negative) Urine Bilirubin 1+ H (Negative) Urine RBC 7 H (0-5) /hpf Urine Mucus Few H (None) /hpf U Benzodiazepines Scrn Detected H (NotDetected) U Marijuana (THC) Screen Detected H (NotDetected) 04/11/24 04/11/24 04/11/24 Range/Units 01:34 05:53 05:53 RBC 2.10 L (4.30-5.90) m/uL Hgb 7.4 L (13.0-17.5) gm/dL Hct 22.3 L (39.0-53.0) % MCV 106.1 H (80.0-100.0) fL MCH 35.2 H (25.0-35.0) pg Plt Count 126 L (150-450) k/uL Lymphocytes # 0.2 L (1.0-4.8) k/uL Sodium 131 L (137-145) mmol/L Chloride 95 L (98-107) mmol/L Carbon Dioxide 33 H (22-30) mmol/L Creatinine 0.39 L (0.66-1.25) mg/dL Glucose 129 H (74-99) mg/dL POC Glucose (mg/dL) 166 H (70-110) mg/dL Calcium 7.8 L (8.4-10.2) mg/dL Ur Specific [place] (1.001-1.035) Urine Protein (Negative) Urine Glucose (UA) (Negative) Urine Ketones (Negative) Urine Blood (Negative) Urine Bilirubin (Negative) Urine RBC (0-5) /hpf Urine Mucus (None) /hpf U Benzodiazepines Scrn (NotDetected) U Marijuana (THC) Screen (NotDetected) 04/11/24 Range/Units 06:26 RBC (4.30-5.90) m/uL Hgb (13.0-17.5) gm/dL Hct (39.0-53.0) % MCV (80.0-100.0) fL MCH (25.0-35.0) pg Plt Count (150-450) k/uL Lymphocytes # (1.0-4.8) k/uL Sodium (137-145) mmol/L Chloride (98-107) mmol/L Carbon Dioxide (22-30) mmol/L Creatinine (0.66-1.25) mg/dL Glucose (74-99) mg/dL POC Glucose (mg/dL) 157 H (70-110) mg/dL Calcium (8.4-10.2) mg/dL Ur Specific [place] (1.001-1.035) Urine Protein (Negative) Urine Glucose (UA) (Negative) Urine Ketones (Negative) Urine Blood (Negative) Urine Bilirubin (Negative) Urine RBC (0-5) /hpf Urine Mucus (None) /hpf U Benzodiazepines Scrn (NotDetected) U Marijuana (THC) Screen (NotDetected) Assessment and Plan Assessment: Acute hypoxemic respiratory failure. Acute COPD exacerbation. Altered mental status, secondary to acute metabolic encephalopathy and hypothermia. 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 Hypothermia, resolved. Episode of hypoglycemia. Hyponatremia. Alcohol abuse, reportedly drinks 1/5 liquor /day. Transaminitis, possibly secondary to alcohol. Mild rhabdomyolysis. Normocytic, normochromic anemia. Thrombocytopenia, likely secondary to chronic alcohol intake. History of hypertension. History of hyperlipidemia . History of Parkinson's. Plan: Plan dated April 11, 2024. The patient is seen today in room 259. The patient's mental status is quite poor. The patient continues on dextrose and saline at 75 cc an hour, and nasal cannula at 3 L. Labs, x-rays, and all medications are reviewed. Procalcitonin level was elevated at 1.11. Laboratory data reveals anemia, but otherwise, the lab data appears relatively normal. The patient continues on azithromycin, and Rocephin, empirically, and culture data is currently negative. The patient also is currently on updrafts, as well as Pulmicort, and formoterol. The patient is also getting Solu-Medrol 60 mg every 6 hours. The patient's overall prognosis remains guarded. The patient continues on the CIWA protocol. 50 minutes was spent with this patient, including time spent examining the patient, reviewing pertinent laboratory data, x-rays, medications, as well as discussing the diagnosis, treatment, and prognosis, with the nursing staff, and other individuals in the intensive care unit. Time with Patient: Greater than 30
[2024-04-11] MEDS: THIAMINE 100 MG/ML 2 ML VIAL IVP SCH (14:23)
[2024-04-11 15:00] LABS: Glucose,Whole Blood 163 mg/dL (70-110)
[2024-04-11 18:41] LABS: Glucose,Whole Blood 126 mg/dL (70-110)
[2024-04-11] MEDS: SODIUM CHLORIDE 0.9% 1,000 ML IV ONE (18:55)
--- NOTE | 2024-04-11 19:38 | EEG ---
ELECTROENCEPHALOGRAM REPORT CLINICAL HISTORY: This is a 63-year-old gentleman with history of Parkinson's with altered mental status. The video EEG is obtained to evaluate for seizure epileptiform activity. RELEVANT MEDICATIONS: Ativan p.r.n. EEG TYPE: This is a routine 21-channel EEG with video using the 10/20 electrode placement system. DESCRIPTION: Wakefulness and drowsiness are obtained. During awake state, it was hard to assess because of the background, but appears 7.5 to 8.5 hertz activity intermixed with delta activity. There was no physiological stage 2 sleep architecture. There is no focal slowing. There is moderate to severe diffuse myogenic artifact. Interictal and ictal is none. ACTIVATION PROCEDURE: Photic stimulation was aborted at 2 hertz because of his cooperation and from the limited photic stimulation, there is no photic driving or abnormality. Hyperventilation is not performed. CLINICAL INTERPRETATION: This is an abnormal routine EEG. The background slowing is suggestive of mild to moderate encephalopathy. Otherwise, there is no focal slowing, epileptiform discharge, or seizure on the EEG. There is moderate to severe myogenic artifact during the study. Clinical correlation is recommended. RUBIO / IJN: [id number] / SONIA
[2024-04-11] MEDS: CARBIDOPA-LEVODOPA 25-100 MG 1 EACH TAB PO SCH (21:02)
[2024-04-11 21:08] LABS: Glucose,Whole Blood 120 mg/dL (70-110)
[2024-04-12 00:10] LABS: Glucose,Whole Blood 137 mg/dL (70-110)
[2024-04-12] MEDS: MAGNESIUM SULFATE-D5W PMX 1 GM in DEXTROSE/WATER 1 100ML.BAG IVPB SCH (05:15)
[2024-04-12 05:49] LABS: African American GFR (CKD) >90 (>60 ml/min/1.73 sqM); Anion Gap 9 mmol/L; Blood Urea Nitrogen 14 mg/dL (9-20); Calcium 7.4 mg/dL (8.4-10.2); Carbon Dioxide 25 mmol/L (22-30); Chloride 101 mmol/L (98-107); Glucose 127 mg/dL (74-99); Non-African American GFR(CKD) >90 (>60 ml/min/1.73 sqM); Potassium 4.1 mmol/L (3.5-5.1); Sodium 135 mmol/L (137-145)
[2024-04-12 06:09] LABS: Basophils % (A) 0 %; Eosinophils % (A) 1 %; HCT 21.4 % (39.0-53.0); Hypochromasia Slight; Lymphocytes # (A) 0.3 k/uL (1.0-4.8); Lymphocytes % (A) 5 %; MCH 35.1 pg (25.0-35.0); MCHC 32.1 g/dL (31.0-37.0); Macrocytosis Marked; Mean Platelet Volume 10.5; Monocytes # (A) 0.3 k/uL (0-1.0); Monocytes % (A) 6 %; Neutrophils % (A) 87 %; Platelet Count 133 k/uL (150-450); RBC 1.96 m/uL (4.30-5.90); RDW 14.5 % (11.5-15.5); WBC 4.6 k/uL (3.8-10.6)
[2024-04-12 06:14] LABS: HGB 6.9 gm/dL (13.0-17.5); MCV 109.3 fL (80.0-100.0)
[2024-04-12 06:51] LABS: Glucose,Whole Blood 166 mg/dL (70-110)
--- NOTE | 2024-04-12 07:38 | XR ---
EXAMINATION TYPE: XR chest 1V portable DATE OF EXAM: 04/12/2024 5:08 AM COMPARISON: Chest radiographs from 04/11/2024 CLINICAL INDICATION: Male, 63 years old with history of atelectasis; TECHNIQUE: XR chest 1V portable Frontal view of the chest. FINDINGS: Lungs/Pleura: Bibasilar opacities possibly representing atelectasis. No evidence for pneumothorax, pl eural effusion or focal consolidation. Pulmonary vascularity: Unremarkable. Heart/mediastinum: Cardiomediastinal silhouette is unremarkable. Musculoskeletal: No acute osseous pathology. There is fixation hardware in the lower cervical spine. IMPRESSION: Similar bibasilar airspace opacities versus atelectasis. [facility], , 04/12/2024 7:35 AM
[2024-04-12] MEDS: FUROSEMIDE 10 MG/ML 2 ML VIAL IV ONE (09:54)
--- NOTE | 2024-04-12 11:07 | P.PN ---
Subjective Patient is seen for follow-up for hyponatremia. Maintained on normal saline. Serum sodium is 135 today. Receiving packed RBCs transfusion for hemoglobin of 6.9 g/dL. Objective - Vital Signs Vital signs: Vital Signs Temp 96.4 F L 04/12/24 10:18 Pulse 105 H 04/12/24 10:18 Resp 19 04/12/24 10:18 BP 118/91 04/12/24 10:18 Pulse Ox 98 04/12/24 10:18 FiO2 60 04/11/24 04:00 Intake & Output 04/11/24 04/12/24 04/12/24 18:59 06:59 18:59 Intake Total 1925 2200 225 Output Total 320 350 100 Balance 1605 1850 125 Weight 79.6 kg Intake: IV 1925 2200 225 Azithromycin 500 mg In 250 Sodium Chloride 0.9% 250 ml @ 250 mls/hr IVPB DAILY@2100 [facility] Rx#: [id number] Dextrose 5%-0.9% NaCl 1, 225 000 ml @ 75 mls/hr IV . [id number] [facility] Rx#:[id number] Magnesium Sulfate-D5w Pmx 100 1 gm In Dextrose/Water 1 100ml.bag @ 100 mls/hr IVPB ONCE ONE Rx#: [id number] Sodium Chloride 0.9% 1, 1300 000 ml @ 75 mls/hr IV . [id number] [facility] Rx#:[id number] Sodium Chloride 0.9% 1, 300 1900 225 000 ml @ 75 mls/hr IV . [id number] [facility] Rx#:[id number] cefTRIAXone 1 gm In 50 Sodium Chloride 0.9% 50 ml @ 100 mls/hr IVPB Q24H [facility] Rx#:[id number] Blood Product 0 Unit 0 Output: Urine 320 350 100 Other: Voiding Method Indwelling Catheter Indwelling Catheter - Exam Patient is awake. He does not communicate much. Involuntary movements noted of the upper extremities. Examination of the heart S1 and S2 Examination of the lungs bilateral breath sounds are heard Abdomen is soft Examination of lower extremity shows no significant edema. - Labs CBC & Chem 7: 04/12/24 04:01 04/12/24 04:01 Labs: Abnormal Lab Results - Last 24 Hours (Table) 04/11/24 04/11/24 04/11/24 Range/Units 14:58 18:39 21:06 RBC (4.30-5.90) m/uL Hgb (13.0-17.5) gm/dL Hct (39.0-53.0) % MCV (80.0-100.0) fL MCH (25.0-35.0) pg Plt Count (150-450) k/uL Lymphocytes # (1.0-4.8) k/uL Macrocytosis Sodium (137-145) mmol/L Creatinine (0.66-1.25) mg/dL Glucose (74-99) mg/dL POC Glucose (mg/dL) 163 H 126 H 120 H (70-110) mg/dL Calcium (8.4-10.2) mg/dL Crossmatch 04/12/24 04/12/24 04/12/24 Range/Units 00:09 04:01 04:01 RBC 1.96 L (4.30-5.90) m/uL Hgb 6.9 L* (13.0-17.5) gm/dL Hct 21.4 L (39.0-53.0) % MCV 109.3 H (80.0-100.0) fL MCH 35.1 H (25.0-35.0) pg Plt Count 133 L (150-450) k/uL Lymphocytes # 0.3 L (1.0-4.8) k/uL Macrocytosis Marked A Sodium 135 L (137-145) mmol/L Creatinine 0.39 L (0.66-1.25) mg/dL Glucose 127 H (74-99) mg/dL POC Glucose (mg/dL) 137 H (70-110) mg/dL Calcium 7.4 L (8.4-10.2) mg/dL Crossmatch 04/12/24 04/12/24 Range/Units 06:49 06:50 RBC (4.30-5.90) m/uL Hgb (13.0-17.5) gm/dL Hct (39.0-53.0) % MCV (80.0-100.0) fL MCH (25.0-35.0) pg Plt Count (150-450) k/uL Lymphocytes # (1.0-4.8) k/uL Macrocytosis Sodium (137-145) mmol/L Creatinine (0.66-1.25) mg/dL Glucose (74-99) mg/dL POC Glucose (mg/dL) 166 H (70-110) mg/dL Calcium (8.4-10.2) mg/dL Crossmatch See Detail Microbiology - Last 24 Hours (Table) 04/10/24 00:48 Blood Culture - Preliminary Blood Assessment and Plan Assessment: 1. Hyponatremia secondary to poor solute intake/beer potomania with component of hypovolemia. Sodium level 135 this morning. Maintained on normal saline. Urine sodium 63 and urine osmolality 620. TSH normal. 2. Hypokalemia from poor intake and hypomagnesemia. Replaced, better. 3. Metabolic acidosis secondary to lactic acidosis. Resolved. 4. Hypomagnesemia from poor intake and alcohol induced urinary losses. Replaced, better. 5. Alcohol abuse. 6. Mild rhabdomyolysis from immobility. CK levels trending down. Plan: Continue with normal saline Repeat labs in a.m.
--- NOTE | 2024-04-12 11:36 | P.PN ---
Subjective Progress Note Date: 04/12/24 Principal diagnosis: Hyponatremia. Patient is a 63-year-old male with past medical history significant for COPD, alcohol abuse, hypertension, hyperlipidemia, among other things. Transferred from [facility] on 04/08/2024. Apparently, was found by his neighbor on the ground and unresponsive in his residence. The heat in the house was not working, and patient was hypothermic with a temperature of 87 F. Unclear just how long the patient was on the floor. Did undergo rewarming at the outside facility. His blood glucose was also found to be low at 27 mg/dL. Did have a CT of the brain and C-spine which did not show any abnormalities or C-spine fracture/subluxation. Also, had a CT of the chest, images not available, however, reportedly demonstrating multiple bilateral subacute and nondisplaced rib fractures. According to the ER records, patient is an alcoholic and drinks approximately 1/5 of liquor per day. Currently on CIWA protocol. Workup at our facility, including a brain CT which did not show any acute intracranial hemorrhage, acute ischemic changes, or mass effect. Demonstrated a 1.2 cm rounded area of eggshell calcification midline posterior cranial fossa along the left vertebral artery. Concern was for possible aneurysm. Suspect a 1.8 cm cyst involving an impacted left maxillary molar. Regarding posterior wall of the maxilla. Air-fluid level of the left soft sphenoid sinus, possibly representing acute sinusitis. Chest x-ray showing low lung volumes with small bilateral pleural effusions and left-sided basilar atelectasis or infiltrate.CBC done arrival: WBC count 6.3, hemoglobin 8.1, hematocrit 23.3, platelets 100. Most recent CMP from yesterday showing a sodium 125, potassium 3.4, chloride 87, serum bicarb 28, BUN 15, creatinine 0.48, glucose 117. Lactic was 3.6 down to 1.5. Magnesium 1.5. LFTs mildly elevated, possibly secondary to chronic alcohol intake. CPK 722. Troponin was elevated at 0.042 and is trending down, most recently 0.027. Procalcitonin level is 1.11. Not currently on any antibiotics Patient currently being evaluated emergency department. He is on BiPAP with settings 12/6 and FiO2 100%. He is quite tachypneic, breathing in the high 40s. Vital lungs range around 400 to 500 mL. ABGs done on these settings showing a PaO2 of 70, pCO2 42, pH of 7.44. He remains quite obtunded, withdraws to painful stimuli in all 4 extremities. Now normothermic with a temperature of 98.3 F. Blood glucose 155. Ammonia 22. D5W with normal saline infusing at 75 mL/h. Plan is for patient be transferred to the intensive care unit once bed available. Progress note dated April 11, 2024. 63-year-old male seen today in the intensive care unit, room 259. The patient is on dextrose, with saline, 75 cc an hour, saline IV at 10 cc an hour, and getting nasal cannula at 3 L. He also has a BiPAP in the room, with settings of 12/6, and 60%. He appears to be resting relatively comfortably, although he is a bit lethargic and somnolent. Current labs include a white count 3.9, hemoglobin 7.4, hematocrit 22.3, and a platelet count of hearing 26,000. Sodium 131, potassium 4, chlorides 95, CO2 33, BUN 15, creatinine 0.39. Glucose is 157. Chest x-ray reveals mild bibasilar infiltrates or atelectasis. 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 Progress note dated April 12, 2024. The patient is seen here in room 259. His mental status is a bit improved. He continues on 2 L nasal cannula. He is not using the BiPAP device. He is getting saline at 75 cc an hour. His hemoglobin this morning was 6.9. He will receive 1 unit packed red blood cells. In addition, the patient will get 1 dose of Lasix, 20 mg IV push. White count 4.6, hemoglobin 6.9, macro 21.4, platelet count 133,000. Sodium 135, potassium 4.1, chlorides 101, CO2 25, BUN 14, creatinine 0.39. Glucose 166. Calcium 7.4. Blood cultures are negative. Chest x-ray is largely unchanged, and show bibasilar airspace opacities versus atelectasis. Objective - Vital Signs Vital signs: Vital Signs Temp 96.4 F L 04/12/24 10:18 Pulse 108 H 04/12/24 11:00 Resp 18 04/12/24 11:00 BP 124/91 04/12/24 11:00 Pulse Ox 97 04/12/24 11:00 FiO2 60 04/11/24 04:00 Intake & Output 04/11/24 04/12/24 04/12/24 18:59 06:59 18:59 Intake Total 1925 2200 225 Output Total 320 350 600 Balance 1605 1850 -375 Weight 79.[place]: [place] [address] 225 Azithromycin 500 mg In 250 Sodium Chloride 0.9% 250 ml @ 250 mls/hr IVPB DAILY@2100 [facility] Rx#: [id number] Dextrose 5%-0.9% NaCl 1, 225 000 ml @ 75 mls/hr IV . [id number] [facility] Rx#:[id number] Magnesium Sulfate-D5w Pmx 100 1 gm In Dextrose/Water 1 100ml.bag @ 100 mls/hr IVPB ONCE ONE Rx#: [id number] Sodium Chloride 0.9% 1, 1300 000 ml @ 75 mls/hr IV . [id number] [facility] Rx#:[id number] Sodium Chloride 0.9% 1, 300 1900 225 000 ml @ 75 mls/hr IV . [id number] [facility] Rx#:[id number] cefTRIAXone 1 gm In 50 Sodium Chloride 0.9% 50 ml @ 100 mls/hr IVPB Q24H [facility] Rx#:[id number] Blood Product 0 Unit 0 Output: Urine 320 350 600 Other: Voiding Method Indwelling Catheter Indwelling Catheter - Exam No acute distress, lethargic. Currently on 2 L nasal cannula. HEENT examination is grossly unremarkable. Mucous membranes are moist. No oral lesions. Neck supple. Full range of motion. No adenopathy thyromegaly or neck vein distention. Cardiovascular examination reveals regular rhythm rate. S1-S2 normal. No S3 or S4. No discernible murmur noted. Lungs reveal scattered bilateral inspiratory and expiratory rhonchi. No wheezes or crackles. Abdomen soft bowel sounds are heard. No masses or tenderness. Extremities are intact. No cyanosis clubbing or edema. Skin is without rash or lesion. Neurologic examination feels the patient to be obtunded, but does withdraw to painful stimuli. He is not able to give any history. - Labs CBC & Chem 7: 04/12/24 04:01 04/12/24 04:01 Labs: Abnormal Lab Results - Last 24 Hours (Table) 04/11/24 04/11/24 04/11/24 Range/Units 14:58 18:39 21:06 RBC (4.30-5.90) m/uL Hgb (13.0-17.5) gm/dL Hct (39.0-53.0) % MCV (80.0-100.0) fL MCH (25.0-35.0) pg Plt Count (150-450) k/uL Lymphocytes # (1.0-4.8) k/uL Macrocytosis Sodium (137-145) mmol/L Creatinine (0.66-1.25) mg/dL Glucose (74-99) mg/dL POC Glucose (mg/dL) 163 H 126 H 120 H (70-110) mg/dL Calcium (8.4-10.2) mg/dL Crossmatch 04/12/24 04/12/24 04/12/24 Range/Units 00:09 04:01 04:01 RBC 1.96 L (4.30-5.90) m/uL Hgb 6.9 L* (13.0-17.5) gm/dL Hct 21.4 L (39.0-53.0) % MCV 109.3 H (80.0-100.0) fL MCH 35.1 H (25.0-35.0) pg Plt Count 133 L (150-450) k/uL Lymphocytes # 0.3 L (1.0-4.8) k/uL Macrocytosis Marked A Sodium 135 L (137-145) mmol/L Creatinine 0.39 L (0.66-1.25) mg/dL Glucose 127 H (74-99) mg/dL POC Glucose (mg/dL) 137 H (70-110) mg/dL Calcium 7.4 L (8.4-10.2) mg/dL Crossmatch 04/12/24 04/12/24 Range/Units 06:49 06:50 RBC (4.30-5.90) m/uL Hgb (13.0-17.5) gm/dL Hct (39.0-53.0) % MCV (80.0-100.0) fL MCH (25.0-35.0) pg Plt Count (150-450) k/uL Lymphocytes # (1.0-4.8) k/uL Macrocytosis Sodium (137-145) mmol/L Creatinine (0.66-1.25) mg/dL Glucose (74-99) mg/dL POC Glucose (mg/dL) 166 H (70-110) mg/dL Calcium (8.4-10.2) mg/dL Crossmatch See Detail Microbiology - Last 24 Hours (Table) 04/10/24 00:48 Blood Culture - Preliminary Blood Assessment and Plan Assessment: Acute hypoxemic respiratory failure. Acute COPD exacerbation. Altered mental status, secondary to acute metabolic encephalopathy and hypo thermia. 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 Hypothermia, resolved. Episode of hypoglycemia. Hyponatremia. Alcohol abuse, reportedly drinks 1/5 liquor /day. Transaminitis, possibly secondary to alcohol. Mild rhabdomyolysis. Normocytic, normochromic anemia. Thrombocytopenia, likely secondary to chronic alcohol intake. History of hypertension. History of hyperlipidemia . History of Parkinson's. Plan: Plan dated April 11, 2024. The patient is seen today in room 259. The patient's mental status is quite poor. The patient continues on dextrose and saline at 75 cc an hour, and nasal cannula at 3 L. Labs, x-rays, and all medications are reviewed. Procalcitonin level was elevated at 1.11. Laboratory data reveals anemia, but otherwise, the lab data appears relatively normal. The patient continues on azithromycin, and Rocephin, empirically, and culture data is currently negative. The patient also is currently on updrafts, as well as Pulmicort, and formoterol. The patient is also getting Solu-Medrol 60 mg every 6 hours. The patient's overall prognosis remains guarded. The patient continues on the CIWA protocol. 50 minutes was spent with this patient, including time spent examining the patient, reviewing pertinent laboratory data, x-rays, medications, as well as discussing the diagnosis, treatment, and prognosis, with the nursing staff, and other individuals in the intensive care unit. Plan dated April 12, 2024. The patient is seen today in room 259. His overall mental status is may be slightly improved. The patient continues on 2 L of oxygen by nasal cannula, saline at 75 cc an hour. He is has not used his BiPAP device overnight. The patient got Lasix 20 mg IV push x 1. His hemoglobin this morning was 6.9. 1 u nit of packed red blood cells was ordered. Labs, x-rays, and all medications are reviewed. 50 minutes was spent with this patient, including time spent examining the patient, reviewing pertinent laboratory data, x-rays, medications, as well as discussing the diagnosis, treatment, prognosis, with nursing staff, residents, and other ICU personnel. The patient's overall prognosis remains guarded. He remains a full code. Dictation was produced using [employer] dictation software. Please excuse any grammatical, word or spelling errors. Time with Patient: Greater than 30
[2024-04-12 12:00] LABS: Glucose,Whole Blood 158 mg/dL (70-110)
--- NOTE | 2024-04-12 13:21 | P.PN ---
Subjective Progress Note Date: 04/12/24 I am following with the patient and per the nurse he is following commands. Objective - Vital Signs Vital signs: Vital Signs Temp 96.7 F L 04/12/24 12:00 Pulse 98 04/12/24 13:00 Resp 28 H 04/12/24 13:00 BP 131/98 04/12/24 13:00 Pulse Ox 97 04/12/24 13:00 FiO2 60 04/11/24 04:00 Intake & Output 04/11/24 04/12/24 04/12/24 18:59 06:59 18:59 Intake Total 1925 2200 661 Output Total 320 350 800 Balance 1605 1850 -139 Weight 79.6 kg 79.6 kg Intake: IV 192 2200 375 Azithromycin 500 mg In 250 Sodium Chloride 0.9% 250 ml @ 250 mls/hr IVPB DAILY@2100 [facility] Rx#: [id number] Dextrose 5%-0.9% NaCl 1, 225 000 ml @ 75 mls/hr IV . [id number] [facility] Rx#:[id number] Magnesium Sulfate-D5w Pmx 100 1 gm In Dextrose/Water 1 100ml.bag @ 100 mls/hr IVPB ONCE ONE Rx#: [id number] Sodium Chloride 0.9% 1, 1300 000 ml @ 75 mls/hr IV . [id number] [facility] Rx#:[id number] Sodium Chloride 0.9% 1, 300 1900 375 000 ml @ 75 mls/hr IV . [id number] [facility] Rx#:[id number] cefTRIAXone 1 gm In 50 Sodium Chloride 0.9% 50 ml @ 100 mls/hr IVPB Q24H [facility] Rx#:[id number] Blood Product 286 Rc Pheresis As-3 Unit 286 [id number] Output: Urine 320 350 800 Other: Voiding Method Indwelling Catheter Indwelling Catheter - Exam General: Lying in bed and does not appear in acute distress. Neuro: Very limited. But is moderately drowsy and is awakeable to voice. He is oriented to self. Also oriented to place and time with options. He is following simple command appropriately (thumbs up, raising arms, wiggling toes, attempting to smile). He nods appropriately to his name. Has tremor of the left upper extremity. Motor: Strength is hard to assess individual muscle strength because of his overall condition. Some of the workup during this hospital visit consisted of: Sodium is 124, POC glucose is 412, plasma lactic acid is 3.6, AST is 363 and ALT is 101, CK level 722 Troponins 0.042 His repeated POC glucose was 66--resolved CT head: A 1.2cm rounded area of eggshell calcification midline posterior cranial fossa along the left vertebral artery. Unable to exclude an arterial aneurysm. Suspect 1.8cm dentgerous cyst involving the impacted left maxilary molar. Eroding the posterior wall of the maxilla. 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 Routine EEG: This is an abnormal routine EEG. The background slowing is suggestive of mild to moderate encephalopathy. Otherwise, there is no focal slowing, epileptiform discharge or seizure on the EEG. There is moderate to severe myogenic artifact during this study. - Labs CBC & Chem 7: 04/12/24 04:01 04/12/24 04:01 Labs: Abnormal Lab Results - Last 24 Hours (Table) 04/11/24 04/11/24 04/11/24 Range/Units 14:58 18:39 21:06 RBC (4.30-5.90) m/uL Hgb (13.0-17.5) gm/dL Hct (39.0-53.0) % MCV (80.0-100.0) fL MCH (25.0-35.0) pg Plt Count (150-450) k/uL Lymphocytes # (1.0-4.8) k/uL Macrocytosis Sodium (137-145) mmol/L Creatinine (0.66-1.25) mg/dL Glucose (74-99) mg/dL POC Glucose (mg/dL) 163 H 126 H 120 H (70-110) mg/dL Calcium (8.4-10.2) mg/dL Crossmatch 04/12/24 04/12/24 04/12/24 Range/Units 00:09 04:01 04:01 RBC 1.96 L (4.30-5.90) m/uL Hgb 6.9 L* (13.0-17.5) gm/dL Hct 21.4 L (39.0-53.0) % MCV 109.3 H (80.0-100.0) fL MCH 35.1 H (25.0-35.0) pg Plt Count 133 L (150-450) k/uL Lymphocytes # 0.3 L (1.0-4.8) k/uL Macrocytosis Marked A Sodium 135 L (137-145) mmol/L Creatinine 0.39 L (0.66-1.25) mg/dL Glucose 127 H (74-99) mg/dL POC Glucose (mg/dL) 137 H (70-110) mg/dL Calcium 7.4 L (8.4-10.2) mg/dL Crossmatch 04/12/24 04/12/24 04/12/24 Range/Units 06:49 06:50 11:58 RBC (4.30-5.90) m/uL Hgb (13.0-17.5) gm/dL Hct (39.0-53.0) % MCV (80.0-100.0) fL MCH (25.0-35.0) pg Plt Count (150-450) k/uL Lymphocytes # (1.0-4.8) k/uL Macrocytosis Sodium (137-145) mmol/L Creatinine (0.66-1.25) mg/dL Glucose (74-99) mg/dL POC Glucose (mg/dL) 166 H 158 H (70-110) mg/dL Calcium (8.4-10.2) mg/dL Crossmatch See Detail Microbiology - Last 24 Hours (Table) 04/10/24 00:48 Blood Culture - Preliminary Blood Assessment and Plan Assessment: This is a 63-year-old gentleman who was transferred from [place] for escalation of care in which the patient was found down by his neighbor on the ground and he did not have heat and his initial temperature was 87. Seems that his sugar at the outside facility was in the 30s. He had CT brain cervical spine abdomen pelvis and it showed subacute rib fracture but no acute process. In our facility he had sugars in the 400 initially then down to the 60s. He has [id number]. He is also is a heavy drinker Altered mental status due to toxic metabolic encephalopathy: Hyponatremia, hyp oglycemia, hypothermia, transaminitis and hypoxic/hypercapnic encephalopathy--mentation is improving. Hyponatremia (124-->135) Hypoglycemia--resolved Incidental 9mm Left vertebral artery aneurysm Suspect 1.8cm dentgerous cyst involving the impacted left maxilary molar. Eroding the posterior wall of the maxilla. Acute Hypoxic/Hypercapnic respiratory failure on BiPAP. Hypothermia and patient does not have heat at home that is reported Transaminitis AST more than ALT likely due to his alcohol use Underlying history of Parkinson's disease Plan: Regarding the left vertebral artery aneurysm, this seems incidental and recommend patient to follow-up with Dr. Kohli (Interventional Neurologist) as outpatient within 3 weeks as outpatient. Per nurse patient is not getting PO medication because of overall condition. I initially started him on Sinemet 25-100 on 04/09/2024 for his Parkison's, 1 tablet 3 times daily to assess if there is any improvement but since not getting it changed to 1 tab bid once stable to assess if help and if helps will escalate going up on the medication. No need for further brain imaging since altered mental status due to toxic-metabolic derangement and mentation is improving Patient is on thiamine 100mg daily. Nephrology is consulted Consider dental consultation. Defer the rest of the medical management to primary other specialist The plan is discussed with patient's nurse. Will follow-up with patient sporadically. Dr. Meneses will resume neurology service this Sunday (04/14/2024) A.M. Time with Patient: Less than 30
[2024-04-12 14:26] LABS: Anisocytosis Slight; HCT 23.4 % (39.0-53.0); HGB 7.9 gm/dL (13.0-17.5); Hypochromasia Slight; MCH 34.8 pg (25.0-35.0); MCHC 33.5 g/dL (31.0-37.0); Macrocytosis Moderate; Mean Platelet Volume 9.3; Platelet Count 129 k/uL (150-450); RBC 2.26 m/uL (4.30-5.90); RDW 16.4 % (11.5-15.5); WBC 6.5 k/uL (3.8-10.6)
[2024-04-12 14:32] LABS: MCV 103.9 fL (80.0-100.0)
--- NOTE | 2024-04-12 17:46 | P.PN ---
Subjective Progress Note Date: 04/11/24 63-year-old gentleman who is a transfer from [facility] after being found laying on ground outside his house. Most of the history has been obtained from the EMR according to which patient has been drinking 1/5 of alcohol per day. Patient was found by his neighbor to be laying on the ground, patient was initially hypothermic and was placed on warming blankets and was transferred to [facility] where he had CT of his brain, cervical spine and CT abdominal pelvis done which were unremarkable. Patient was later transferred to [facility] for further evaluation and treatment Initial lab work done in the ER showed WBC 6.3, hemoglobin 8.1, platelet count 100, sodium 124, potassium 5, BUN 18, creatinine 0.67, glucose 412, lactate 3.6, bilirubin 2.1, AST 363, ALT 101 Patient admitted to internal medicine service Objective - Vital Signs Vital signs: Vital Signs Temp 97.8 F 04/11/24 08:00 Pulse 103 H 04/11/24 11:38 Resp 29 H 04/11/24 09:00 BP 109/75 04/11/24 09:00 Pulse Ox 99 04/11/24 09:00 FiO2 60 04/11/24 04:00 Intake & Output 04/10/24 04/11/24 04/11/24 18:59 06:59 18:59 Intake Total 225 1675 250 Output Total 380 370 55 Balance -155 1305 195 Weight 77.2 kg Intake: IV 225 1675 250 Azithromycin 500 mg In 250 Sodium Chloride 0.9% 250 ml @ 250 mls/hr IVPB DAILY@2100 [facility] Rx#: [id number] Dextrose 5%-0.9% NaCl 1, 225 975 150 000 ml @ 75 mls/hr IV . [id number] [facility] Rx#:[id number] Magnesium Sulfate-D5w Pmx 100 1 gm In Dextrose/Water 1 100ml.bag @ 100 mls/hr IVPB ONCE ONE Rx#: [id number] Potassium Chloride 10 meq 400 In Water For Injection 1 100ml.bag @ 100 mls/hr IVPB Q1HR [facility] Rx#: [id number] cefTRIAXone 1 gm In 50 Sodium Chloride 0.9% 50 ml @ 100 mls/hr IVPB Q24H [facility] Rx#:[id number] Output: Urine 380 370 55 Other: Voiding Method Indwelling Catheter Indwelling Catheter - Exam -GENERAL: The patient is confused, not answering questions on BiPAP HEENT: Pupils are round and equally reacting to light. EOMI. No scleral icterus. No conjunctival pallor. Normocephalic, atraumatic. No pharyngeal erythema. No thyromegaly. CARDIOVASCULAR: S1 and S2 present. No murmurs, rubs, or gallops. -PULMONARY: Chest is clear to auscultation, no wheezing , no crackles. Tachypneic with limited air entry on both sides ABDOMEN: Soft, nontender, nondistended, normoactive bowel sounds. No palpable organomegaly. MUSCULOSKELETAL: No joint swelling or deformity. EXTREMITIES: No cyanosis, clubbing, or pedal edema. NEUROLOGICAL: Gross neurological examination did not reveal any focal deficits. SKIN: No rashes. no petechiae. - Labs CBC & Chem 7: 04/12/24 14:05 04/12/24 04:01 Labs: Abnormal Lab Results - Last 24 Hours (Table) 04/10/24 04/10/24 04/10/24 Range/Units 15:50 16:39 19:44 RBC (4.30-5.90) m/uL Hgb (13.0-17.5) gm/dL Hct (39.0-53.0) % MCV (80.0-100.0) fL MCH (25.0-35.0) pg Plt Count (150-450) k/uL Lymphocytes # (1.0-4.8) k/uL Sodium 129 L (137-145) mmol/L Chloride (98-107) mmol/L Carbon Dioxide (22-30) mmol/L Creatinine (0.66-1.25) mg/dL Glucose (74-99) mg/dL POC Glucose (mg/dL) 261 H (70-110) mg/dL Calcium (8.4-10.2) mg/dL Ur Specific [place] >1.050 H (1.001-1.035) Urine Protein 1+ H (Negative) Urine Glucose (UA) 4+ H (Negative) Urine Ketones 1+ H (Negative) Urine Blood Large H (Negative) Urine Bilirubin 1+ H (Negative) Urine RBC 7 H (0-5) /hpf Urine Mucus Few H (None) /hpf U Benzodiazepines Scrn Detected H (NotDetected) U Marijuana (THC) Screen Detected H (NotDetected) 04/11/24 04/11/24 04/11/24 Range/Units 01:34 05:53 05:53 RBC 2.10 L (4.30-5.90) m/uL Hgb 7.4 L (13.0-17.5) gm/dL Hct 22.3 L (39.0-53.0) % MCV 106.1 H (80.0-100.0) fL MCH 35.2 H (25.0-35.0) pg Plt Count 126 L (150-450) k/uL Lymphocytes # 0.2 L (1.0-4.8) k/uL Sodium 131 L (137-145) mmol/L Chloride 95 L (98-107) mmol/L Carbon Dioxide 33 H (22-30) mmol/L Creatinine 0.39 L (0.66-1.25) mg/dL Glucose 129 H (74-99) mg/dL POC Glucose (mg/dL) 166 H (70-110) mg/dL Calcium 7.8 L (8.4-10.2) mg/dL Ur Specific [place] (1.001-1.035) Urine Protein (Negative) Urine Glucose (UA) (Negative) Urine Ketones (Negative) Urine Blood (Negative) Urine Bilirubin (Negative) Urine RBC (0-5) /hpf Urine Mucus (None) /hpf U Benzodiazepines Scrn (NotDetected) U Marijuana (THC) Screen (NotDetected) 04/11/24 Range/Units 06:26 RBC (4.30-5.90) m/uL Hgb (13.0-17.5) gm/dL Hct (39.0-53.0) % MCV (80.0-100.0) fL MCH (25.0-35.0) pg Plt Count (150-450) k/uL Lymphocytes # (1.0-4.8) k/uL Sodium (137-145) mmol/L Chloride (98-107) mmol/L Carbon Dioxide (22-30) mmol/L Creatinine (0.66-1.25) mg/dL Glucose (74-99) mg/dL POC Glucose (mg/dL) 157 H (70-110) mg/dL Calcium (8.4-10.2) mg/dL Ur Specific [place] (1.001-1.035) Urine Protein (Negative) Urine Glucose (UA) (Negative) Urine Ketones (Negative) Urine Blood (Negative) Urine Bilirubin (Negative) Urine RBC (0-5) /hpf Urine Mucus (None) /hpf U Benzodiazepines Scrn (NotDetected) U Marijuana (THC) Screen (NotDetected) Assessment and Plan Assessment: Left lower lobe pneumonia Acute COPD exacerbation Acute hypoxic respiratory failure Alcohol use disorder and withdrawal Metabolic/toxic encephalopathy Microcytic anemia Alcoholic transaminitis Alcoholic induced thrombocytopenia Possible left vertebral artery round calcified eggshell lesion of 1.2 cm in the posterior cranial fossa, aneurysm cannot be ruled out Acute left sphenoid sinusitis Left upper maxillary cyst 1.8 cm eroding into the posterior wall of the left maxilla Hypertension Hyperlipidemia Possible Parkinson disease Plan: Continue with antibiotic Zithromax and ceftriaxone Continue with CIWA protocol and thiamine On IV fluid D5 normal saline at 75 mL/h On IV Solu-Medrol 60 mg Monitor sodium level Continue with oxygen therapy and BiPAP as needed and bronchodilator Several consultants on the case including pulmonary/critical care team, supervisor advertising dispatch clerks and neurologist GI prophylaxis: Protonix DVT prophylaxis: Mechanical. Relative contraindication for anticoagulation because of the possible brain aneurysm
--- NOTE | 2024-04-12 17:50 | P.PN ---
Subjective Progress Note Date: 04/12/24 63-year-old gentleman who is a transfer from [facility] after being found laying on ground outside his house. Most of the history has been obtained from the EMR according to which patient has been drinking 1/5 of alcohol per day. Patient was found by his neighbor to be laying on the ground, patient was initially hypothermic and was placed on warming blankets and was transferred to [facility] where he had CT of his brain, cervical spine and CT abdominal pelvis done which were unremarkable. Patient was later transferred to [facility] for further evaluation and treatment Initial lab work done in the ER showed WBC 6.3, hemoglobin 8.1, platelet count 100, sodium 124, potassium 5, BUN 18, creatinine 0.67, glucose 412, lactate 3.6, bilirubin 2.1, AST 363, ALT 101 Patient admitted to internal medicine service 04/12/2024 Patient is seen and evaluated in room at bedside; discussed with nursing staff; mental status is a bit improved. He continues on 2 L nasal cannula. He is not using the BiPAP device. Blood work reveals hemoglobin this morning was 6.9. He will receive 1 unit packed red blood cells. White count 4.6, hemoglobin 6.9, macro 21.4, platelet count 133,000. Sodium 135, potassium 4.1, chlorides 101, CO2 25, BUN 14, creatinine 0.39. Glucose 166. Calcium 7.4. Blood cultures are negative. Chest x-ray is largely unchanged, and show bibasilar airspace opacities versus atelectasis; patient received 1 dose of Lasix per critical care recommendations. The patient's overall prognosis remains guarded. Objective - Vital Signs Vital signs: Vital Signs Temp 96.7 F L 04/12/24 12:00 Pulse 98 04/12/24 13:00 Resp 28 H 04/12/24 13:00 BP 131/98 04/12/24 13:00 Pulse Ox 97 04/12/24 13:00 FiO2 60 04/11/24 04:00 Intake & Output 04/11/24 04/12/24 04/12/24 18:59 06:59 18:59 Intake Total 192 2200 661 Output Total 320 350 800 Balance 1605 1850 -139 Weight 79.6 kg 79.6 kg Intake: IV 1924 2199 375 Azithromycin 500 mg In 250 Sodium Chloride 0.9% 250 ml @ 250 mls/hr IVPB DAILY@2100 [facility] Rx#: [id number] Dextrose 5%-0.9% NaCl 1, 225 000 ml @ 75 mls/hr IV . [id number] [facility] Rx#:[id number] Magnesium Sulfate-D5w Pmx 100 1 gm In Dextrose/Water 1 100ml.bag @ 100 mls/hr IVPB ONCE ONE Rx#: [id number] Sodium Chloride 0.9% 1, 1300 000 ml @ 75 mls/hr IV . [id number] [facility] Rx#:[id number] Sodium Chloride 0.9% 1, 300 1900 375 000 ml @ 75 mls/hr IV . [id number] [facility] Rx#:[id number] cefTRIAXone 1 gm In 50 Sodium Chloride 0.9% 50 ml @ 100 mls/hr IVPB Q24H [facility] Rx#:[id number] Blood Product 286 Rc Pheresis As-3 Unit 286 [id number] Output: Urine 320 350 800 Other: Voiding Method Indwelling Catheter Indwelling Catheter - Exam -GENERAL: The patient is confused, not answering questions on BiPAP HEENT: Pupils are round and equally reacting to light. EOMI. No scleral icterus. No conjunctival pallor. Normocephalic, atraumatic. No pharyngeal erythema. No thyromegaly. CARDIOVASCULAR: S1 and S2 present. No murmurs, rubs, or gallops. -PULMONARY: Chest is clear to auscultation, no wheezing , no crackles. Tachypne ic with limited air entry on both sides ABDOMEN: Soft, nontender, nondistended, normoactive bowel sounds. No palpable organomegaly. MUSCULOSKELETAL: No joint swelling or deformity. EXTREMITIES: No cyanosis, clubbing, or pedal edema. NEUROLOGICAL: Gross neurological examination did not reveal any focal deficits. SKIN: No rashes. no petechiae. - Labs CBC & Chem 7: 04/12/24 14:05 04/12/24 04:01 Labs: Abnormal Lab Results - Last 24 Hours (Table) 04/11/24 04/11/24 04/11/24 Range/Units 14:58 18:39 21:06 RBC (4.30-5.90) m/uL Hgb (13.0-17.5) gm/dL Hct (39.0-53.0) % MCV (80.0-100.0) fL MCH (25.0-35.0) pg Plt Count (150-450) k/uL Lymphocytes # (1.0-4.8) k/uL Macrocytosis Sodium (137-145) mmol/L Creatinine (0.66-1.25) mg/dL Glucose (74-99) mg/dL POC Glucose (mg/dL) 163 H 126 H 120 H (70-110) mg/dL Calcium (8.4-10.2) mg/dL Crossmatch 04/12/24 04/12/24 04/12/24 Range/Units 00:09 04:01 04:01 RBC 1.96 L (4.30-5.90) m/uL Hgb 6.9 L* (13.0-17.5) gm/dL Hct 21.4 L (39.0-53.0) % MCV 109.3 H (80.0-100.0) fL MCH 35.1 H (25.0-35.0) pg Plt Count 133 L (150-450) k/uL Lymphocytes # 0.3 L (1.0-4.8) k/uL Macrocytosis Marked A Sodium 135 L (137-145) mmol/L Creatinine 0.39 L (0.66-1.25) mg/dL Glucose 127 H (74-99) mg/dL POC Glucose (mg/dL) 137 H (70-110) mg/dL Calcium 7.4 L (8.4-10.2) mg/dL Crossmatch 04/12/24 04/12/24 04/12/24 Range/Units 06:49 06:50 11:58 RBC (4.30-5.90) m/uL Hgb (13.0-17.5) gm/dL Hct (39.0-53.0) % MCV (80.0-100.0) fL MCH (25.0-35.0) pg Plt Count (150-450) k/uL Lymphocytes # (1.0-4.8) k/uL Macrocytosis Sodium (137-145) mmol/L Creatinine (0.66-1.25) mg/dL Glucose (74-99) mg/dL POC Glucose (mg/dL) 166 H 158 H (70-110) mg/dL Calcium (8.4-10.2) mg/dL Crossmatch See Detail Microbiology - Last 24 Hours (Table) 04/10/24 00:48 Blood Culture - Preliminary Blood Assessment and Plan Assessment: Left lower lobe pneumonia Acute COPD exacerbation Acute hypoxic respiratory failure Alcohol use disorder and withdrawal Metabolic/toxic encephalopathy Microcytic anemia Alcoholic transaminitis Alcoholic induced thrombocytopenia Possible left vertebral artery round calcified eggshell lesion of 1.2 cm in the posterior cranial fossa, aneurysm cannot be ruled out Acute left sphenoid sinusitis Left upper maxillary cyst 1.8 cm eroding into the posterior wall of the left maxilla Hypertension Hyperlipidemia Possible Parkinson disease Plan: Continue with antibiotic Zithromax and ceftriaxone Continue with CIWA protocol and thiamine On IV fluid D5 normal saline at 75 mL/h On IV Solu-Medrol 60 mg Monitor sodium level Continue with oxygen therapy and BiPAP as needed and bronchodilator Several consultants on the case including pulmonary/critical care team, medical records tech and neurologist GI prophylaxis: Protonix DVT prophylaxis: Mechanical. Relative contraindication for anticoagulation because of the possible brain aneurysm
[2024-04-12 18:12] LABS: Glucose,Whole Blood 162 mg/dL (70-110)
[2024-04-12] MEDS: INSULIN ASPART (NovoLOG) 100 UNIT/ML VIAL SQ SCH (18:38)
[2024-04-13 05:25] LABS: African American GFR (CKD) >90 (>60 ml/min/1.73 sqM); Anion Gap 12 mmol/L; Blood Urea Nitrogen 21 mg/dL (9-20); Calcium 7.8 mg/dL (8.4-10.2); Carbon Dioxide 23 mmol/L (22-30); Chloride 102 mmol/L (98-107); Glucose 117 mg/dL (74-99); Magnesium 1.9 mg/dL (1.6-2.3); Non-African American GFR(CKD) >90 (>60 ml/min/1.73 sqM); Potassium 4.1 mmol/L (3.5-5.1); Sodium 137 mmol/L (137-145)
[2024-04-13 05:46] LABS: Glucose,Whole Blood 127 mg/dL (70-110)
[2024-04-13 06:42] LABS: Anisocytosis Slight; HCT 26.2 % (39.0-53.0); HGB 8.5 gm/dL (13.0-17.5); MCH 33.7 pg (25.0-35.0); MCHC 32.6 g/dL (31.0-37.0); MCV 103.1 fL (80.0-100.0); Macrocytosis Moderate; Platelet Count 169 k/uL (150-450); RBC 2.54 m/uL (4.30-5.90); RDW 17.1 % (11.5-15.5)
--- NOTE | 2024-04-13 07:22 | XR ---
EXAMINATION TYPE: XR chest 1V portable DATE OF EXAM: 04/13/2024 5:15 AM COMPARISON: Chest radiographs from 04/12/2024 CLINICAL INDICATION: Male, 63 years old with history of atelectasis; TECHNIQUE: XR chest 1V portable Frontal view of the chest. FINDINGS: Lungs/Pleura: Bibasilar opacities possibly representing atelectasis. No evidence for pneumothorax, pl eural effusion or focal consolidation. Pulmonary vascularity: Unremarkable. Heart/mediastinum: Cardiomediastinal silhouette is unremarkable. Musculoskeletal: No acute osseous pathology. There is fixation hardware in the lower cervical spine. IMPRESSION: Similar bibasilar airspace opacities versus atelectasis. [facility], , 04/13/2024 7:20 AM
[2024-04-13 08:12] LABS: Basophils # (M) 0.07 k/uL (0-0.2); Lymphocytes # (M) 1.16 k/uL (1.0-4.8); Metamyelocytes # (M) 0.07 k/uL (0); Metamyelocytes % 1 %; Monocytes # (M) 0.07 k/uL (0-1.0); Neutrophils # (M) 5.51 k/uL (1.3-7.7); Neutrophils % (M) 81 %; Nucleated Red Blood Cells 11 /100 WBC (0-0); Total Cells Counted 200; WBC 6.8 k/uL (3.8-10.6)
[2024-04-13 08:13] LABS: Target Cells Present
[2024-04-13] MEDS: MAGNESIUM SULFATE-D5W PMX 1 GM in DEXTROSE/WATER 1 100ML.BAG IVPB ONE (08:40)
[2024-04-13] MEDS ORDERED: CLEVIDIPINE BUTYRATE 25 MG in EMPTY BAG 1 BAG IV SCH (09:00)
[2024-04-13] MEDS: METOPROLOL TARTRATE 5 MG/5 ML VIAL IVP SCH (09:45)
--- NOTE | 2024-04-13 11:05 | P.PN ---
Subjective Progress Note Date: 04/13/24 Principal diagnosis: Hyponatremia. Patient is a 63-year-old male with past medical history significant for COPD, alcohol abuse, hypertension, hyperlipidemia, among other things. Transferred from [facility] on 04/08/2024. Apparently, was found by his neighbor on the ground and unresponsive in his residence. The heat in the house was not working, and patient was hypothermic with a temperature of 87 F. Unclear just how long the patient was on the floor. Did undergo rewarming at the outside facility. His blood glucose was also found to be low at 27 mg/dL. Did have a CT of the brain and C-spine which did not show any abnormalities or C-spine fracture/subluxation. Also, had a CT of the chest, images not available, however, reportedly demonstrating multiple bilateral subacute and nondisplaced rib fractures. According to the ER records, patient is an alcoholic and drinks approximately 1/5 of liquor per day. Currently on CIWA protocol. Workup at our facility, including a brain CT which did not show any acute intracranial hemorrhage, acute ischemic changes, or mass effect. Demonstrated a 1.2 cm rounded area of eggshell calcification midline posterior cranial fossa along the left vertebral artery. Concern was for possible aneurysm. Suspect a 1.8 cm cyst involving an impacted left maxillary molar. Regarding posterior wall of the maxilla. Air-fluid level of the left soft sphenoid sinus, possibly representing acute sinusitis. Chest x-ray showing low lung volumes with small bilateral pleural effusions and left-sided basilar atelectasis or infiltrate.CBC done arrival: WBC count 6.3, hemoglobin 8.1, hematocrit 23.3, platelets 100. Most recent CMP from yesterday showing a sodium 125, potassium 3.4, chloride 87, serum bicarb 28, BUN 15, creatinine 0.48, glucose 117. Lactic was 3.6 down to 1.5. Magnesium 1.5. LFTs mildly elevated, possibly secondary to chronic alcohol intake. CPK 722. Troponin was elevated at 0.042 and is trending down, most recently 0.027. Procalcitonin level is 1.11. Not currently on any antibiotics Patient currently being evaluated emergency department. He is on BiPAP with settings 12/6 and FiO2 100%. He is quite tachypneic, breathing in the high 40s. Vital lungs range around 400 to 500 mL. ABGs done on these settings showing a PaO2 of 70, pCO2 42, pH of 7.44. He remains quite obtunded, withdraws to painful stimuli in all 4 extremities. Now normothermic with a temperature of 98.3 F. Blood glucose 155. Ammonia 22. D5W with normal saline infusing at 75 mL/h. Plan is for patient be transferred to the intensive care unit once bed available. Progress note dated April 11, 2024. 63-year-old male seen today in the intensive care unit, room 259. The patient is on dextrose, with saline, 75 cc an hour, saline IV at 10 cc an hour, and getting nasal cannula at 3 L. He also has a BiPAP in the room, with settings of 12/6, and 60%. He appears to be resting relatively comfortably, although he is a bit lethargic and somnolent. Current labs include a white count 3.9, hemoglobin 7.4, hematocrit 22.3, and a platelet count of hearing 26,000. Sodium 131, potassium 4, chlorides 95, CO2 33, BUN 15, creatinine 0.39. Glucose is 157. Chest x-ray reveals mild bibasilar infiltrates or atelectasis. 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 Progress note dated April 12, 2024. The patient is seen here in room 259. His mental status is a bit improved. He continues on 2 L nasal cannula. He is not using the BiPAP device. He is getting saline at 75 cc an hour. His hemoglobin this morning was 6.9. He will receive 1 unit packed red blood cells. In addition, the patient will get 1 dose of Lasix, 20 mg IV push. White count 4.6, hemoglobin 6.9, macro 21.4, platelet count 133,000. Sodium 135, potassium 4.1, chlorides 101, CO2 25, BUN 14, creatinine 0.39. Glucose 166. Calcium 7.4. Blood cultures are negative. Chest x-ray is largely unchanged, and show bibasilar airspace opacities versus atelectasis. Progress note dated April 13, 2024. 63-year-old male seen today in room 259. The patient is on saline at 75 cc an hour, nasal O2 at 2 L. He did receive 1 unit of packed red blood cells. The patient's blood pressure has been a bit elevated, so he may need something IV for that, I have written orders for both Cleviprex to be titrated, and IV beta- oh, i.e. the Lopressor. The patient's mental status is poor. It continues to be about the same. White count 6.8, hemoglobin 8.5, hematocrit 26.2, platelet count 169,000. Sodium 137, potassium 4.1, chlorides 102, CO2 23, anion gap 12, BUN 21, creatinine 0.5. Glucose 127. Calcium 7.8. Magnesium 1.9. Sputum and blood cultures are negative. Chest x-ray shows bibasilar airspace disease and/or atelectasis. Objective - Vital Signs Vital signs: Vital Signs Temp 98.0 F 04/13/24 09:00 Pulse 92 04/13/24 10:00 Resp 28 H 04/13/24 10:00 BP 110/87 04/13/24 10:00 Pulse Ox 99 04/13/24 10:00 FiO2 60 04/11/24 04:00 Intake & Output 04/12/24 04/13/24 04/13/24 18:59 06:59 18:59 Intake Total 1036 1200 400 Output Total 1225 485 60 Balance -189 715 340 Weight 79.6 kg 79.2 kg Intake: IV 750 1200 300 Azithromycin 500 mg In 250 Sodium Chloride 0.9% 250 ml @ 250 mls/hr IVPB DAILY@2100 [facility] Rx#: [id number] Sodium Chloride 0.9% 1, 750 900 300 000 ml @ 75 mls/hr IV . [id number] [facility] Rx#:[id number] cefTRIAXone 1 gm In 50 Sodium Chloride 0.9% 50 ml @ 100 mls/hr IVPB Q24H [facility] Rx#:[id number] Intake, IV Titration 100 Amount Magnesium Sulfate-D5w Pmx 100 1 gm In Dextrose/Water 1 100ml.bag @ 100 mls/hr IVPB ONCE ONE Rx#: [id number] Blood Product 286 Rc Pheresis As-3 Unit 286 [id number] Output: Urine 1225 485 60 Other: Voiding Method Indwelling Catheter Indwelling Catheter Indwelling Catheter - Exam No acute distress, lethargic. Currently on 2 L nasal cannula. HEENT examination is grossly unremarkable. Mucous membranes are moist. No oral lesions. Neck supple. Full range of motion. No adenopathy thyromegaly or neck vein distention. Cardiovascular examination reveals regular rhythm rate. S1-S2 normal. No S3 or S4. No discernible murmur noted. Lungs reveal scattered bilateral inspiratory and expiratory rhonchi. No wheezes or crackles. Abdomen soft bowel sounds are heard. No masses or tenderness. Extremities are intact. No cyanosis clubbing or edema. Skin is without rash or lesion. Neurologic examination feels the patient to be obtunded, but does withdraw to painful stimuli. He is not able to give any history. - Labs CBC & Chem 7: 04/13/24 04:42 04/13/24 04:42 Labs: Abnormal Lab Results - Last 24 Hours (Table) 04/12/24 04/12/24 04/12/24 Range/Units 06:50 11:58 14:05 RBC 2.26 L (4.30-5.90) m/uL Hgb 7.9 L (13.0-17.5) gm/dL Hct 23.4 L (39.0-53.0) % MCV 103.9 H D (80.0-100.0) fL RDW 16.4 H (11.5-15.5) % Plt Count 129 L (150-450) k/uL Metamyelocytes # (Man) (0) k/uL Nucleated RBCs (0-0) /100 WBC BUN (9-20) mg/dL Creatinine (0.66-1.25) mg/dL Glucose (74-99) mg/dL POC Glucose (mg/dL) 158 H (70-110) mg/dL Calcium (8.4-10.2) mg/dL Crossmatch See Detail 04/12/24 04/13/24 04/13/24 Range/Units 18:10 04:42 04:42 RBC 2.54 L (4.30-5.90) m/uL Hgb 8.5 L (13.0-17.5) gm/dL Hct 26.2 L (39.0-53.0) % MCV 103.1 H (80.0-100.0) fL RDW 17.1 H (11.5-15.5) % Plt Count (150-450) k/uL Metamyelocytes # (Man) 0.07 H (0) k/uL Nucleated RBCs 11 H (0-0) /100 WBC BUN 21 H (9-20) mg/dL Creatinine 0.50 L (0.66-1.25) mg/dL Glucose 117 H (74-99) mg/dL POC Glucose (mg/dL) 162 H (70-110) mg/dL Calcium 7.8 L (8.4-10.2) mg/dL Crossmatch 04/13/24 Range/Units 05:45 RBC (4.30-5.90) m/uL Hgb (13.0-17.5) gm/dL Hct (39.0-53.0) % MCV (80.0-100.0) fL RDW (11.5-15.5) % Plt Count (150-450) k/uL Metamyelocytes # (Man) (0) k/uL Nucleated RBCs (0-0) /100 WBC BUN (9-20) mg/dL Creatinine (0.66-1.25) mg/dL Glucose (74-99) mg/dL POC Glucose (mg/dL) 127 H (70-110) mg/dL Calcium (8.4-10.2) mg/dL Crossmatch Microbiology - Last 24 Hours (Table) 04/11/24 20:12 Gram Stain - Preliminary Sputum 04/10/24 00:48 Blood Culture - Preliminary Blood Assessment and Plan Assessment: Acute hypoxemic respiratory failure. Acute COPD exacerbation. Altered mental status, secondary to acute metabolic encephalopathy and hypothermia. 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 Hypothermia, resolved. Episode of hypoglycemia. Hyponatremia. Alcohol abuse, reportedly drinks 1/5 liquor /day. Transaminitis, possibly secondary to alcohol. Mild rhabdomyolysis. Normocytic, normochromic anemia. Thrombocytopenia, likely secondary to chronic alcohol intake. History of hypertension. History of hyperlipidemia . History of Parkinson's. Plan: Plan dated April 11, 2024. The patient is seen today in room 259. The patient's mental status is quite poor. The patient continues on dextrose and saline at 75 cc an hour, and nasal cannula at 3 L. Labs, x-rays, and all medications are reviewed. Procalcitonin level was elevated at 1.11. Laboratory data reveals anemia, but otherwise, the lab data appears relatively normal. The patient continues on azithromycin, and Rocephin, empirically, and culture data is currently negative. The patient also is currently on updrafts, as well as Pulmicort, and formoterol. The patient is also getting Solu-Medrol 60 mg every 6 hours. The patient's overall prognosis remains guarded. The patient continues on the CIWA protocol. 50 minutes was spent with this patient, including time spent examining the patient, reviewing pertinent laboratory data, x-rays, medications, as well as discussing the diagnosis, treatment, and prognosis, with the nursing staff, and other individuals in the intensive care unit. Plan dated April 12, 2024. The patient is seen today in room 259. His overall mental status is may be slightly improved. The patient continues on 2 L of oxygen by nasal cannula, sa line at 75 cc an hour. He is has not used his BiPAP device overnight. The patient got Lasix 20 mg IV push x 1. His hemoglobin this morning was 6.9. 1 unit of packed red blood cells was ordered. Labs, x-rays, and all medications are reviewed. 50 minutes was spent with this patient, including time spent examining the patient, reviewing pertinent laboratory data, x-rays, medications, as well as discussing the diagnosis, treatment, prognosis, with nursing staff, residents, and other ICU personnel. The patient's overall prognosis remains guarded. He remains a full code. Dictation was produced using [employer] software. Please excuse any grammatical, word or spelling errors. Plan dated April 13, 2024. The patient is seen in room 259. The patient continues on O2 at 2 L. The patient is getting saline at 75 cc an hour. For a low hemoglobin, the patient received 1 unit packed red blood cells. The patient has tachycardia, and hypertension. I recommend a combination of beta-oh, i.e. Lopressor, and Cleviprex, to be titrated. All labs, x-rays, and medications are reviewed. We will continue to follow the patient, make recommendations along the way. 50 minutes was spent with this patient, which included obtaining additional history, examining the patient, reviewing pertinent laboratory data, x-rays, medications, as well as discussing the diagnosis, treatment, and prognosis, with the patient's nursing staff, and other ICU personnel. Prognosis is guarded. Di ctation was produced using [employer] dictation software. Please excuse any grammatical, word or spelling errors. Time with Patient: Greater than 30
[2024-04-13 11:38] LABS: Glucose,Whole Blood 143 mg/dL (70-110)
--- NOTE | 2024-04-13 14:53 | P.PN ---
Subjective Progress Note Date: 04/13/24 63-year-old gentleman who is a transfer from [facility] after being found laying on ground outside his house. Most of the history has been obtained from the EMR according to which patient has been drinking 1/5 of alcohol per day. Patient was found by his neighbor to be laying on the ground, patient was initially hypothermic and was placed on warming blankets and was transferred to [facility] where he had CT of his brain, cervical spine and CT abdominal pelvis done which were unremarkable. Patient was later transferred to [facility] for further evaluation and treatment Initial lab work done in the ER showed WBC 6.3, hemoglobin 8.1, platelet count 100, sodium 124, potassium 5, BUN 18, creatinine 0.67, glucose 412, lactate 3.6, bilirubin 2.1, AST 363, ALT 101 Patient admitted to internal medicine service 04/12/2024 Patient is seen and evaluated in room at bedside; discussed with nursing staff; mental status is a bit improved. He continues on 2 L nasal cannula. He is not using the BiPAP device. Blood work reveals hemoglobin this morning was 6.9. He will receive 1 unit packed red blood cells. White count 4.6, hemoglobin 6.9, macro 21.4, platelet count 133,000. Sodium 135, potassium 4.1, chlorides 101, CO2 25, BUN 14, creatinine 0.39. Glucose 166. Calcium 7.4. Blood cultures are negative. Chest x-ray is largely unchanged, and show bibasilar airspace opacities versus atelectasis; patient received 1 dose of Lasix per critical care recommendations. The patient's overall prognosis remains guarded. 04/13/2024 Patient is seen and evaluated with nursing staff at bedside; patient is more alert and responsive; able to follow commands; wants to go home Vital signs are reviewed; blood pressure has been somewhat elevated; critical care recommended to titrate Cleviprex and IV Lopressor White count 6.8, hemoglobin 8.5, hematocrit 26.2, platelet count 169,000. Sodium 137, potassium 4.1, chlorides 102, CO2 23, anion gap 12, BUN 21, creatinine 0.5. Glucose 127. Calcium 7.8. Magnesium 1.9. Sputum and blood cultures are negative. Chest x-ray shows bibasilar airspace disease and/or atelectasis. -Patient received 1 unit packed RBCs for low hemoglobin -- Plan to continue current management at this time Objective - Vital Signs Vital signs: Vital Signs Temp 98.0 F 04/13/24 09:00 Pulse 112 H 04/13/24 09:59 Resp 26 H 04/13/24 09:00 BP 140/108 04/13/24 09:00 Pulse Ox 89 L 04/13/24 09:00 FiO2 60 04/11/24 04:00 Intake & Output 04/12/24 04/13/24 04/13/24 18:59 06:59 18:59 Intake Total 1036 1200 250 Output Total 1225 485 45 Balance -189 715 205 Weight 79.6 kg 79.2 kg Intake: IV 750 1200 150 Azithromycin 500 mg In 250 Sodium Chloride 0.9% 250 ml @ 250 mls/hr IVPB DAILY@2100 [facility] Rx#: [id number] Sodium Chloride 0.9% 1, 750 900 150 000 ml @ 75 mls/hr IV . [id number] [facility] Rx#:[id number] cefTRIAXone 1 gm In 50 Sodium Chloride 0.9% 50 ml @ 100 mls/hr IVPB Q24H [facility] Rx#:[id number] Intake, IV Titration 100 Amount Magnesium Sulfate-D5w Pmx 100 1 gm In Dextrose/Water 1 100ml.bag @ 100 mls/hr IVPB ONCE ONE Rx#: [id number] Blood Product 286 Rc Pheresis As-3 Unit 286 [id number] Output: Urine 1225 485 45 Other: Voiding Method Indwelling Catheter Indwelling Catheter Indwelling Catheter - Exam -GENERAL: The patient is confused, not answering questions on BiPAP HEENT: Pupils are round and equally reacting to light. EOMI. No scleral icterus. No conjunctival pallor. Normocephalic, atraumatic. No pharyngeal erythema. No thyromegaly. CARDIOVASCULAR: S1 and S2 present. No murmurs, rubs, or gallops. -PULMONARY: Chest is clear to auscultation, no wheezing , no crackles. Tachypneic with limited air entry on both sides ABDOMEN: Soft, nontender, nondistended, normoactive bowel sounds. No palpable organomegaly. MUSCULOSKELETAL: No joint swelling or deformity. EXTREMITIES: No cyanosis, clubbing, or pedal edema. NEUROLOGICAL: Gross neurological examination did not reveal any focal deficits. SKIN: No rashes. no petechiae. - Labs CBC & Chem 7: 04/13/24 04:42 04/13/24 04:42 Labs: Abnormal Lab Results - Last 24 Hours (Table) 04/12/24 04/12/24 04/12/24 Range/Units 06:50 11:58 14:05 RBC 2.26 L (4.30-5.90) m/uL Hgb 7.9 L (13.0-17.5) gm/dL Hct 23.4 L (39.0-53.0) % MCV 103.9 H D (80.0-100.0) fL RDW 16.4 H (11.5-15.5) % Plt Count 129 L (150-450) k/uL Metamyelocytes # (Man) (0) k/uL Nucleated RBCs (0-0) /100 WBC BUN (9-20) mg/dL Creatinine (0.66-1.25) mg/dL Glucose (74-99) mg/dL POC Glucose (mg/dL) 158 H (70-110) mg/dL Calcium (8.4-10.2) mg/dL Crossmatch See Detail 04/12/24 04/13/24 04/13/24 Range/Units 18:10 04:42 04:42 RBC 2.54 L (4.30-5.90) m/uL Hgb 8.5 L (13.0-17.5) gm/dL Hct 26.2 L (39.0-53.0) % MCV 103.1 H (80.0-100.0) fL RDW 17.1 H (11.5-15.5) % Plt Count (150-450) k/uL Metamyelocytes # (Man) 0.07 H (0) k/uL Nucleated RBCs 11 H (0-0) /100 WBC BUN 21 H (9-20) mg/dL Creatinine 0.50 L (0.66-1.25) mg/dL Glucose 117 H (74-99) mg/dL POC Glucose (mg/dL) 162 H (70-110) mg/dL Calcium 7.8 L (8.4-10.2) mg/dL Crossmatch 04/13/24 Range/Units 05:45 RBC (4.30-5.90) m/uL Hgb (13.0-17.5) gm/dL Hct (39.0-53.0) % MCV (80.0-100.0) fL RDW (11.5-15.5) % Plt Count (150-450) k/uL Metamyelocytes # (Man) (0) k/uL Nucleated RBCs (0-0) /100 WBC BUN (9-20) mg/dL Creatinine (0.66-1.25) mg/dL Glucose (74-99) mg/dL POC Glucose (mg/dL) 127 H (70-110) mg/dL Calcium (8.4-10.2) mg/dL Crossmatch Microbiology - Last 24 Hours (Table) 04/11/24 20:12 Gram Stain - Preliminary Sputum 04/10/24 00:48 Blood Culture - Preliminary Blood Assessment and Plan Assessment: Left lower lobe pneumonia Acute COPD exacerbation Acute hypoxic respiratory failure Alcohol use disorder and withdrawal Metabolic/toxic encephalopathy Microcytic anemia Alcoholic transaminitis Alcoholic induced thrombocytopenia Possible left vertebral artery round calcified eggshell lesion of 1.2 cm in the posterior cranial fossa, aneurysm cannot be ruled out Acute left sphenoid sinusitis Left upper maxillary cyst 1.8 cm eroding into the posterior wall of the left maxilla Hypertension Hyperlipidemia Possible Parkinson disease Plan: Continue with antibiotic Zithromax and ceftriaxone Continue with CIWA protocol and thiamine On IV fluid D5 normal saline at 75 mL/h On IV Solu-Medrol 60 mg Monitor sodium level Continue with oxygen therapy and BiPAP as needed and bronchodilator Several consultants on the case including pulmonary/critical care team, ne phrologist and neurologist GI prophylaxis: Protonix DVT prophylaxis: Mechanical. Relative contraindication for anticoagulation because of the possible brain aneurysm
[2024-04-13 17:23] LABS: Glucose,Whole Blood 147 mg/dL (70-110)
--- NOTE | 2024-04-13 21:17 | P.PN ---
Subjective Patient is seen for follow-up for hyponatremia. Maintained on normal saline. Serum sodium is 137 today. Objective - Vital Signs Vital signs: Vital Signs Temp 97.6 F 04/13/24 20:00 Pulse 95 04/13/24 20:00 Resp 18 04/13/24 20:00 BP 137/105 04/13/24 20:00 Pulse Ox 99 04/13/24 19:00 FiO2 99 04/13/24 20:00 Intake & Output 04/13/24 04/13/24 04/14/24 06:59 18:59 06:59 Intake Total 1200 1000 150 Output Total 485 220 35 Balance 715 780 115 Weight 79.2 kg Intake: IV 1200 900 150 Azithromycin 500 mg In 250 Sodium Chloride 0.9% 250 ml @ 250 mls/hr IVPB DAILY@2100 [facility] Rx#: [id number] Sodium Chloride 0.9% 1, 900 900 150 000 ml @ 75 mls/hr IV . [id number] [facility] Rx#:[id number] cefTRIAXone 1 gm In 50 Sodium Chloride 0.9% 50 ml @ 100 mls/hr IVPB Q24H [facility] Rx#:[id number] Intake, IV Titration 100 Amount Magnesium Sulfate-D5w Pmx 100 1 gm In Dextrose/Water 1 100ml.bag @ 100 mls/hr IVPB ONCE ONE Rx#: [id number] Output: Urine 485 220 35 Other: Voiding Method Indwelling Catheter Indwelling Catheter Indwelling Catheter - Exam Patient is sleeping but arousable Comfortable. Examination of the heart S1 and S2 Examination of the lungs bilateral breath sounds are heard Abdomen is soft Examination of lower extremity shows no significant edema. - Labs CBC & Chem 7: 04/13/24 04:42 04/13/24 04:42 Labs: Abnormal Lab Results - Last 24 Hours (Table) 04/13/24 04/13/24 04/13/24 Range/Units 04:42 04:42 05:45 RBC 2.54 L (4.30-5.90) m/uL Hgb 8.5 L (13.0-17.5) gm/dL Hct 26.2 L (39.0-53.0) % MCV 103.1 H (80.0-100.0) fL RDW 17.1 H (11.5-15.5) % Metamyelocytes # (Man) 0.07 H (0) k/uL Nucleated RBCs 11 H (0-0) /100 WBC BUN 21 H (9-20) mg/dL Creatinine 0.50 L (0.66-1.25) mg/dL Glucose 117 H (74-99) mg/dL POC Glucose (mg/dL) 127 H (70-110) mg/dL Calcium 7.8 L (8.4-10.2) mg/dL 04/13/24 04/13/24 Range/Units 11:36 17:22 RBC (4.30-5.90) m/uL Hgb (13.0-17.5) gm/dL Hct (39.0-53.0) % MCV (80.0-100.0) fL RDW (11.5-15.5) % Metamyelocytes # (Man) (0) k/uL Nucleated RBCs (0-0) /100 WBC BUN (9-20) mg/dL Creatinine (0.66-1.25) mg/dL Glucose (74-99) mg/dL POC Glucose (mg/dL) 143 H 147 H (70-110) mg/dL Calcium (8.4-10.2) mg/dL Microbiology - Last 24 Hours (Table) 04/11/24 20:12 Gram Stain - Preliminary Sputum Sputum Culture - Preliminary 04/10/24 00:48 Blood Culture - Preliminary Blood Assessment and Plan Assessment: 1. Hyponatremia secondary to poor solute intake/beer potomania with component of hypovolemia. Sodium level 137 this morning. Maintained on normal saline. Urine sodium 63 and urine osmolality 620. TSH normal. 2. Hypokalemia from poor intake and hypomagnesemia. Replaced, better. 3. Metabolic acidosis secondary to lactic acidosis. Resolved. 4. Hypomagnesemia from poor intake and alcohol induced urinary losses. Replaced, better. 5. Alcohol abuse. 6. Mild rhabdomyolysis from immobility. CK levels trending down. Plan: Continue with normal saline Repeat labs in a.m.
[2024-04-13 23:28] LABS: Glucose,Whole Blood 135 mg/dL (70-110)
[2024-04-14 06:50] LABS: Anisocytosis Slight; HCT 29.5 % (39.0-53.0); HGB 9.8 gm/dL (13.0-17.5); Hypochromasia Slight; MCH 35.1 pg (25.0-35.0); MCHC 33.2 g/dL (31.0-37.0); MCV 105.8 fL (80.0-100.0); Macrocytosis Marked; Platelet Count 187 k/uL (150-450); RBC 2.78 m/uL (4.30-5.90); RDW 16.8 % (11.5-15.5)
[2024-04-14 07:08] LABS: Band Neutrophils % 1 %; Neutrophils % (M) 80 %; Nucleated Red Blood Cells 13 /100 WBC (0-0); Total Cells Counted 200
[2024-04-14 07:09] LABS: Lymphocytes # (M) 0.74 k/uL (1.0-4.8); WBC 6.2 k/uL (3.8-10.6)
--- NOTE | 2024-04-14 07:10 | XR ---
EXAMINATION TYPE: XR chest 1V portable DATE OF EXAM: 04/14/2024 5:27 AM COMPARISON: 04/13/2024 CLINICAL INDICATION: Male, 63 years old with history of atelectasis, TECHNIQUE: XR chest 1V portable view(s) obtained. Patient is rotated to the left. FINDINGS: The heart size is normal. The pulmonary vasculature is normal. Small left pleural effusion with adjacent infiltrate may be present. A right lower lobe infiltrate is present worsening from comparison. Minimal right pleural effusion may be developing. IMPRESSION: 1. Worsening right lower lobe infiltrate and small effusion. 2. Small left pleural effusion. There may be some adjacent atelectasis. [facility], , 04/14/2024 7:08 AM
[2024-04-14 08:14] LABS: African American GFR (CKD) >90 (>60 ml/min/1.73 sqM); Anion Gap 10 mmol/L; Blood Urea Nitrogen 33 mg/dL (9-20); Calcium 7.9 mg/dL (8.4-10.2); Carbon Dioxide 24 mmol/L (22-30); Chloride 105 mmol/L (98-107); Glucose 128 mg/dL (74-99); Magnesium 2.1 mg/dL (1.6-2.3); Non-African American GFR(CKD) >90 (>60 ml/min/1.73 sqM); Potassium 4.8 mmol/L (3.5-5.1); Sodium 139 mmol/L (137-145)
[2024-04-14] MEDS: PIPERACILLIN-TAZOBACTAM 3.375 GM in SODIUM CHLORIDE 0.9% 100 ML IVPB SCH (11:28)
--- NOTE | 2024-04-14 12:31 | P.PN ---
Subjective Progress Note Date: 04/14/24 Patient is a 63-year-old male with past medical history significant for COPD, alcohol abuse, hypertension, hyperlipidemia, among other things. Transferred from [facility] on 04/08/2024. Apparently, was found by his neighbor on the ground and unresponsive in his residence. The heat in the house was not working, and patient was hypothermic with a temperature of 87 F. Unclear just how long the patient was on the floor. Did undergo rewarming at the outside facility. His blood glucose was also found to be low at 27 mg/dL. Did have a CT of the brain and C-spine which did not show any abnormalities or C-spine fracture/subluxation. Also, had a CT of the chest, images not available, ho estela, reportedly demonstrating multiple bilateral subacute and nondisplaced rib fractures. According to the ER records, patient is an alcoholic and drinks approximately 1/5 of liquor per day. Currently on CIWA protocol. Workup at our facility, including a brain CT which did not show any acute intracranial hemorrhage, acute ischemic changes, or mass effect. Demonstrated a 1.2 cm rounded area of eggshell calcification midline posterior cranial fossa along the left vertebral artery. Concern was for possible aneurysm. Suspect a 1.8 cm cyst involving an impacted left maxillary molar. Regarding posterior wall of the maxilla. Air-fluid level of the left soft sphenoid sinus, possibly repres enting acute sinusitis. Chest x-ray showing low lung volumes with small bilateral pleural effusions and left-sided basilar atelectasis or infiltrate.CBC done arrival: WBC count 6.3, hemoglobin 8.1, hematocrit 23.3, platelets 100. Most recent CMP from yesterday showing a sodium 125, potassium 3.4, chloride 87, serum bicarb 28, BUN 15, creatinine 0.48, glucose 117. Lactic was 3.6 down to 1.5. Magnesium 1.5. LFTs mildly elevated, possibly secondary to chronic alcohol intake. CPK 722. Troponin was elevated at 0.042 and is trending down, most recently 0.027. Procalcitonin level is 1.11. Not currently on any antibiotics Patient currently being evaluated emergency department. He is on BiPAP with settings 12/6 and FiO2 100%. He is quite tachypneic, breathing in the high 40s. Vital lungs range around 400 to 500 mL. ABGs done on these settings showing a PaO2 of 70, pCO2 42, pH of 7.44. He remains quite obtunded, withdraws to painful stimuli in all 4 extremities. Now normothermic with a temperature of 98.3 F. Blood glucose 155. Ammonia 22. D5W with normal saline infusing at 75 mL/h. Plan is for patient be transferred to the intensive care unit once bed available. Progress note dated April 11, 2024. 63-year-old male seen today in the intensive care unit, room 259. The patient is on dextrose, with saline, 75 cc an hour, saline IV at 10 cc an hour, and getting nasal cannula at 3 L. He also has a BiPAP in the room, with settings of 12/6, and 60%. He appears to be resting relatively comfortably, although he is a bit lethargic and somnolent. Current labs include a white count 3.9, hemoglobin 7.4, hematocrit 22.3, and a platelet count of hearing 26,000. Sodium 131, potassium 4, chlorides 95, CO2 33, BUN 15, creatinine 0.39. Glucose is 157. Chest x-ray reveals mild bibasilar infiltrates or atelectasis. 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 Progress note dated April 12, 2024. The patient is seen here in room 259. His mental status is a bit improved. He continues on 2 L nasal cannula. He is not using the BiPAP device. He is getting saline at 75 cc an hour. His hemoglobin this morning was 6.9. He will receive 1 unit packed red blood cells. In addition, the patient will get 1 dose of Lasix, 20 mg IV push. White count 4.6, hemoglobin 6.9, macro 21.4, platelet count 133,000. Sodium 135, potassium 4.1, chlorides 101, CO2 25, BUN 14, creatinine 0.39. Glucose 166. Calcium 7.4. Blood cultures are negative. Chest x-ray is largely unchanged, and show bibasilar airspace opacities versus atelectasis. Progress note dated April 13, 2024. 63-year-old male seen today in room 259. The patient is on saline at 75 cc an hour, nasal O2 at 2 L. He did receive 1 unit of packed red blood cells. The patient's blood pressure has been a bit elevated, so he may need something IV for that, I have written orders for both Cleviprex to be titrated, and IV beta- oh, i.e. the Lopressor. The patient's mental status is poor. It continues to be about the same. White count 6.8, hemoglobin 8.5, hematocrit 26.2, platelet count 169,000. Sodium 137, potassium 4.1, chlorides 102, CO2 23, anion gap 12, BUN 21, creatinine 0.5. Glucose 127. Calcium 7.8. Magnesium 1.9. Sputum and blood cultures are negative. Chest x-ray shows bibasilar airspace disease and/or atelectasis. On 04/14/2024, the patient is being seen for a follow-up. This morning, the patient is quite drowsy and sleepy and encephalopathic. He is not communicating with me. I was told that his mentation was much better yesterday. I came to find out that the patient was given Ativan overnight. Will continue monitoring his mentation. He is currently on 2 L of oxygen by nasal cannula. Chest x-ray shows development of a right lower lobe consolidation with worsening right lower lobe pulmonary filtrate and small left-sided pleural effusion and right-sided pleural effusion. There is also some limited atelectatic changes in the left lung. Hemodynamically stable on no pressors. White cell count of 6.2 with a heme of 9.8 and a platelet count of 187. BUN is 33 with a creatinine of 0.5 and a sodium levels at 139 and potassium level is at 4.8. Remains on DuoNeb. Remains on Pulmicort and Perforomist updrafts twice a day. Remains on IV Solu- Medrol. He was on IV Rocephin and I am going to switch his antibiotics to IV Zosyn covering for aspiration and hospital-acquired pathogens. Remains on normal citrate of 75 cc an hour. Ativan will be discontinued and his mental status needs to be monitored very closely. Objective - Vital Signs Vital signs: Vital Signs Temp 97.2 F L 04/14/24 08:00 Pulse 91 04/14/24 09:14 Resp 44 H 04/14/24 09:14 BP 122/96 04/14/24 09:00 Pulse Ox 98 04/14/24 09:00 FiO2 99 04/13/24 22:00 Intake & Output 04/13/24 04/14/24 04/14/24 18:59 06:59 18:59 Intake Total 1000 900 225 Output Total 220 275 95 Balance 780 625 130 Weight 78.4 kg Intake: IV 900 900 225 Sodium Chloride 0.9% 1, 900 900 225 000 ml @ 75 mls/hr IV . [id number] [facility] Rx#:[id number] Intake, IV Titration 100 Amount Magnesium Sulfate-D5w Pmx 100 1 gm In Dextrose/Water 1 100ml.bag @ 100 mls/hr IVPB ONCE ONE Rx#: [id number] Output: Urine 220 275 95 Other: Voiding Method Indwelling Catheter Indwelling Catheter Indwelling Catheter - Exam No acute distress, lethargic. Currently on 2 L nasal cannula. Diminished level of consciousness and encephalopathy, could be drug-induced. Grimaces to deep painful stimulation. Unable to maintain a conversation. HEENT examination is grossly unremarkable. Mucous membranes are moist. No oral lesions. Neck supple. Full range of motion. No adenopathy thyromegaly or neck vein distention. Cardiovascular examination reveals regular rhythm rate. S1-S2 normal. No S3 or S4. No discernible murmur noted. Lungs reveal scattered bilateral inspiratory and expiratory rhonchi. No wheezes or crackles. Diminished breath sound the right lung base Abdomen soft bowel sounds are heard. No masses or tenderness. Extremities are intact. No cyanosis clubbing or edema. Skin is without rash or lesion. Neurologic examination feels the patient to be obtunded, withdraws only to deep painful stimulation. Unable to provide any history. - Labs CBC & Chem 7: 04/14/24 06:00 04/14/24 06:00 Labs: Abnormal Lab Results - Last 24 Hours (Table) 04/13/24 04/13/24 04/13/24 Range/Units 11:36 17:22 23:27 RBC (4.30-5.90) m/uL Hgb (13.0-17.5) gm/dL Hct (39.0-53.0) % MCV (80.0-100.0) fL MCH (25.0-35.0) pg RDW (11.5-15.5) % Lymphocytes # (Manual) (1.0-4.8) k/uL Nucleated RBCs (0-0) /100 WBC Macrocytosis BUN (9-20) mg/dL Creatinine (0.66-1.25) mg/dL Glucose (74-99) mg/dL POC Glucose (mg/dL) 143 H 147 H 135 H (70-110) mg/dL Calcium (8.4-10.2) mg/dL 04/14/24 04/14/24 Range/Units 06:00 06:00 RBC 2.78 L (4.30-5.90) m/uL Hgb 9.8 L (13.0-17.5) gm/dL Hct 29.5 L (39.0-53.0) % MCV 105.8 H (80.0-100.0) fL MCH 35.1 H (25.0-35.0) pg RDW 16.8 H (11.5-15.5) % Lymphocytes # (Manual) 0.74 L (1.0-4.8) k/uL Nucleated RBCs 13 H (0-0) /100 WBC Macrocytosis Marked A BUN 33 H (9-20) mg/dL Creatinine 0.54 L (0.66-1.25) mg/dL Glucose 128 H (74-99) mg/dL POC Glucose (mg/dL) (70-110) mg/dL Calcium 7.9 L (8.4-10.2) mg/dL Microbiology - Last 24 Hours (Table) 04/11/24 20:12 Gram Stain - Preliminary Sputum Sputum Culture - Preliminary 04/10/24 00:48 Blood Culture - Preliminary Blood Assessment and Plan Plan: Acute hypoxemic respiratory failure, currently on 2 L of oxygen by nasal cannula Right lower lobe pneumonia with worsening consolidation of the right lung base. Rule out aspiration versus hospital-acquired pneumonia. The patient will be started on IV Zosyn. Acute COPD exacerbation, secondary to above maintained on a combination of bronchodilators and steroids Altered mental status, secondary to acute metabolic encephalopathy and hypothermia. The patient remains encephalopathic. There was concern of alcoholism and alcohol withdrawals and based on that the patient was given Ativan overnight. 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 Hypothermia, resolved. Episode of hypoglycemia, recovered Hyponatremia, recovered Alcohol abuse, reportedly drinks 1/5 liquor /day. Transaminitis, possibly secondary to alcohol. Mild rhabdomyolysis. Normocytic, normochromic anemia. Thrombocytopenia, likely secondary to chronic alcohol intake. History of hypertension. History of hyperlipidemia . History of Parkinson's. Plan: Keep the patient on 2 L of oxygen by nasal cannula Keep the patient n.p.o. Monitor mental status Hold Ativan CAT scan of the brain if there is no improvement in mentation over the next 24 hours Aspiration precautions Start the patient IV Zosyn based on worsening right lower lobe consolidation Continue bronchodilators Continue steroids and the patient remains on IV Solu-Medrol IV fluids at rate of 75 cc an hour Rest of the medication will be kept unchanged The patient was monitored closely in the intensive care unit. He is a full CODE STATUS. This evaluation was done and 35 minutes. This is a critical care evaluation. Time with Patient: Greater than 30
--- NOTE | 2024-04-14 18:50 | P.PN ---
Subjective 63-year-old gentleman who is a transfer from [facility] after being found laying on ground outside his house. Most of the history has been obtained from the EMR according to which patient has been drinking 1/5 of alcohol per day. Patient was found by his neighbor to be laying on the ground, patient was initially hypothermic and was placed on warming blankets and was transferred to [facility] where he had CT of his brain, cervical spine and CT abdominal pelvis done which were unremarkable. Patient was later transferred to [facility] for further evaluation and treatment Initial lab work done in the ER showed WBC 6.3, hemoglobin 8.1, platelet count 100, sodium 124, potassium 5, BUN 18, creatinine 0.67, glucose 412, lactate 3.6, bilirubin 2.1, AST 363, ALT 101 Patient admitted to internal medicine service 04/12/2024 Patient is seen and evaluated in room at bedside; discussed with nursing staff; mental status is a bit improved. He continues on 2 L nasal cannula. He is not using the BiPAP device. Blood work reveals hemoglobin this morning was 6.9. He will receive 1 unit packed red blood cells. White count 4.6, hemoglobin 6.9, macro 21.4, platelet count 133,000. Sodium 135, potassium 4.1, chlorides 101, CO2 25, BUN 14, creatinine 0.39. Glucose 166. Calcium 7.4. Blood cultures are negative. Chest x-ray is largely unchanged, and show bibasilar airspace opacities versus atelectasis; patient received 1 dose of Lasix per critical care recommendations. The patient's overall prognosis remains guarded. 04/13/2024 Patient is seen and evaluated with nursing staff at bedside; patient is more alert and responsive; able to follow commands; wants to go home Vital signs are reviewed; blood pressure has been somewhat elevated; critical care recommended to titrate Cleviprex and IV Lopressor White count 6.8, hemoglobin 8.5, hematocrit 26.2, platelet count 169,000. Sodium 137, potassium 4.1, chlorides 102, CO2 23, anion gap 12, BUN 21, creatinine 0.5. Glucose 127. Calcium 7.8. Magnesium 1.9. Sputum and blood cultures are negative. Chest x-ray shows bibasilar airspace disease and/or atelectasis. -Patient received 1 unit packed RBCs for low hemoglobin -- Plan to continue current management at this time 04/14 Patient remains obtund, nonverbal, not following command, he grimaces to painful stimuli He is off BiPAP on 2.5 L/min osygen via nasal cannula Has Diaz catheter in place Getting normal saline 75 mL/h Objective - Vital Signs Vital signs: Vital Signs Temp 97.5 F L 04/14/24 04:00 Pulse 93 04/14/24 06:00 Resp 24 04/14/24 06:00 BP 121/99 04/14/24 06:00 Pulse Ox 95 04/14/24 06:00 FiO2 99 04/13/24 22:00 Intake & Output 04/13/24 04/13/24 04/14/24 06:59 18:59 06:59 Intake Total 1200 1000 900 Output Total 485 220 275 Balance 715 780 625 Weight 79.2 kg 78.4 kg Intake: IV 1200 900 900 Azithromycin 500 mg In 250 Sodium Chloride 0.9% 250 ml @ 250 mls/hr IVPB DAILY@2100 [facility] Rx#: [id number] Sodium Chloride 0.9% 1, 900 900 900 000 ml @ 75 mls/hr IV . [id number] [facility] Rx#:[id number] cefTRIAXone 1 gm In 50 Sodium Chloride 0.9% 50 ml @ 100 mls/hr IVPB Q24H [facility] Rx#:[id number] Intake, IV Titration 100 Amount Magnesium Sulfate-D5w Pmx 100 1 gm In Dextrose/Water 1 100ml.bag @ 100 mls/hr IVPB ONCE ONE Rx#: [id number] Output: Urine 485 220 275 Other: Voiding Method Indwelling Catheter Indwelling Catheter Indwelling Catheter - Exam -GENERAL: The patient is obtund, not answering questions, nonverbal, grimaces to painful stimuli,on nasal canula HEENT: Pupils are round and equally reacting to light. EOMI. No scleral icterus. No conjunctival pallor. Normocephalic, atraumatic. No pharyngeal erythema. No thyromegaly. CARDIOVASCULAR: S1 and S2 present. No murmurs, rubs, or gallops. -PULMONARY: Chest is clear to auscultation, no wheezing , no crackles. Tachypneic with limited air entry on both sides ABDOMEN: Soft, nontender, nondistended, normoactive bowel sounds. No palpable organomegaly. MUSCULOSKELETAL: No joint swelling or deformity. EXTREMITIES: No cyanosis, clubbing, or pedal edema. NEUROLOGICAL: Gross neurological examination did not reveal any focal deficits. SKIN: No rashes. no petechiae. - Labs CBC & Chem 7: 04/14/24 06:00 04/14/24 06:00 Labs: Abnormal Lab Results - Last 24 Hours (Table) 04/13/24 04/13/24 04/13/24 Range/Units 04:42 11:36 17:22 RBC 2.54 L (4.30-5.90) m/uL Hgb 8.5 L (13.0-17.5) gm/dL Hct 26.2 L (39.0-53.0) % MCV 103.1 H (80.0-100.0) fL RDW 17.1 H (11.5-15.5) % Metamyelocytes # (Man) 0.07 H (0) k/uL Nucleated RBCs 11 H (0-0) /100 WBC POC Glucose (mg/dL) 143 H 147 H (70-110) mg/dL 04/13/24 Range/Units 23:27 RBC (4.30-5.90) m/uL Hgb (13.0-17.5) gm/dL Hct (39.0-53.0) % MCV (80.0-100.0) fL RDW (11.5-15.5) % Metamyelocytes # (Man) (0) k/uL Nucleated RBCs (0-0) /100 WBC POC Glucose (mg/dL) 135 H (70-110) mg/dL Microbiology - Last 24 Hours (Table) 04/11/24 20:12 Gram Stain - Preliminary Sputum Sputum Culture - Preliminary 04/10/24 00:48 Blood Culture - Preliminary Blood Assessment and Plan Assessment: Left lower lobe pneumonia Acute COPD exacerbation Acute hypoxic respiratory failure Alcohol use disorder and withdrawal Metabolic/toxic encephalopathy Microcytic anemia Alcoholic transaminitis Alcoholic induced thrombocytopenia Possible left vertebral artery round calcified eggshell lesion of 1.2 cm in the posterior cranial fossa, aneurysm cannot be ruled out Acute left sphenoid sinusitis Left upper maxillary cyst 1.8 cm eroding into the posterior wall of the left maxilla Hypertension Hyperlipidemia Possible Parkinson disease Plan: Continue with antibiotic Zithromax and ceftriaxone Continue with CIWA protocol and thiamine On IV fluid D5 normal saline at 75 mL/h On IV Solu-Medrol 60 mg Monitor sodium level Continue with oxygen therapy and BiPAP as needed and bronchodilator Several consultants on the case including pulmonary/critical care team, redevelopment manager and neurologist GI prophylaxis: Protonix DVT prophylaxis: Mechanical. Relative contraindication for anticoagulation because of the possible brain aneurysm
--- NOTE | 2024-04-14 20:22 | P.PN ---
Subjective Progress Note Date: 04/14/24 Patient was initially seen by Dr. Arvind Mayo. Please refer to his notes for details. Patient is a 63-year-old male with toxic metabolic encephalopathy. EEG showed mild to moderate slowing but no seizure or discharges. Patient has vertebral artery aneurysm and recommend outpatient evaluation. Nurses reported that patient daughter's was questioning regarding starting of the Sinemet. She does not recall him having a diagnosis of Parkinson's. He has history of tremors. Some of the workup during this hospital visit consisted of: Sodium is 124, POC glucose is 412, plasma lactic acid is 3.6, AST is 363 and ALT is 101, CK level 722 Troponins 0.042 His repeated POC glucose was 66--resolved CT head: A 1.2cm rounded area of eggshell calcification midline posterior cranial fossa along the left vertebral artery. Unable to exclude an arterial aneurysm. Suspect 1.8cm dentgerous cyst involving the impacted left maxilary molar. Eroding the posterior wall of the maxilla. 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 Routine EEG: This is an abnormal routine EEG. The background slowing is suggestive of mild to moderate encephalopathy. Otherwise, there is no focal slowing, epileptiform discharge or seizure on the EEG. There is moderate to severe myogenic artifact during this study. Objective - Vital Signs Vital signs: Vital Signs Temp 98.0 F 04/14/24 16:00 Pulse 86 04/14/24 19:00 Resp 36 H 04/14/24 19:00 BP 113/90 04/14/24 19:00 Pulse Ox 96 04/14/24 19:00 FiO2 99 04/13/24 22:00 Intake & Output 04/14/24 04/14/24 04/15/24 06:59 18:59 06:59 Intake Total 900 1000 75 Output Total 275 355 30 Balance 625 645 45 Weight 78.4 kg Intake: IV 900 900 75 Sodium Chloride 0.9% 1, 900 900 75 000 ml @ 75 mls/hr IV . [id number] [facility] Rx#:[id number] Intake, IV Titration 100 Amount Piperacillin-Tazobactam 3 100 .375 gm In Sodium Chloride 0.9% 100 ml @ 25 mls/hr IVPB Q8H [facility] Rx#: [id number] Output: Urine 275 355 30 Other: Voiding Method Indwelling Catheter Indwelling Catheter - Exam Patient is laying in the bed, somewhat obtunded. Patient does not respond to calling his name. Patient not responding to painful stimuli. Pupils are equal, round and reacting to light. Visual andujar cannot be tested. Oculocephalics are absent. Patient's left foot appears somewhat everted. He has some bruises on his arms. Some peripheral edema. No obvious seizure-like activity noted. Flexes are hypoactive. No obvious tremors noted at rest. Tone is completely normal, in fact slightly decreased in the arms. - Labs CBC & Chem 7: 04/15/24 02:07 04/15/24 06:02 Labs: Abnormal Lab Results - Last 24 Hours (Table) 04/13/24 04/14/24 04/14/24 Range/Units 23:27 06:00 06:00 RBC 2.78 L (4.30-5.90) m/uL Hgb 9.8 L (13.0-17.5) gm/dL Hct 29.5 L (39.0-53.0) % MCV 105.8 H (80.0-100.0) fL MCH 35.1 H (25.0-35.0) pg RDW 16.8 H (11.5-15.5) % Lymphocytes # (Manual) 0.74 L (1.0-4.8) k/uL Nucleated RBCs 13 H (0-0) /100 WBC Macrocytosis Marked A BUN 33 H (9-20) mg/dL Creatinine 0.54 L (0.66-1.25) mg/dL Glucose 128 H (74-99) mg/dL POC Glucose (mg/dL) 135 H (70-110) mg/dL Calcium 7.9 L (8.4-10.2) mg/dL Microbiology - Last 24 Hours (Table) 04/11/24 20:12 Gram Stain - Final Sputum Sputum Culture - Final Assessment and Plan Assessment: This is a 63-year-old gentleman who was transferred from [facility] for escalation of care in which the patient was found down by his neighbor on the ground and he did not have heat and his initial temperature was 87. Seems that his sugar at the outside facility was in the 30s. He had CT brain cervical spine abdomen pelvis and it showed subacute rib fracture but no acute process. In our facility he had sugars in the 400 initially then down to the 60s. He has . He is also is a heavy drinker Altered mental status due to toxic metabolic encephalopathy: Hyponatremia, hypoglycemia, hypothermia, transaminitis and hypoxic/hypercapnic encephalopathy. Hyponatremia (124-->139) Hypoglycemia--resolved Incidental 9mm Left vertebral artery aneurysm Suspect 1.8cm dentgerous cyst involving the impacted left maxilary molar. Eroding the posterior wall of the maxilla. Acute Hypoxic/Hypercapnic respiratory failure on BiPAP. Hypothermia and patient does not have heat at home that is reported Transaminitis AST more than ALT likely due to his alcohol use Per patient's daughter, there is no history of Parkinson's. Marijuana use Reported history of alcoholism. Plan: Regarding the left vertebral artery aneurysm, this seems incidental and recommend patient to follow-up with Dr. Kohli (Interventional Neurologist) as outpatient within 3 weeks as outpatient. Per nurse patient is not getting PO medication because of overall condition. Dr. Arvind Mayo initially started him on Sinemet 25-100 on 04/09/2024 for his Parkison's, 1 tablet 3 times daily to assess if there is any improvement but since not getting it changed to 1 tab bid. Patient was not taking Sinemet at home. Patient's daughter has reported that patient does not have Parkinson's. I tried to contact her twice, and she did not diamond picker the phone. I left a message on her voicemail to call me back. In the meantime, we will hold off on Sinemet and not give the night dose tonight. If she confirms, we will cancel Sinemet altogether. No need for further brain imaging since altered mental status due to toxic- metabolic derangement and mentation is improving. If no improvement in a day or 2, will repeat CT head. Patient is on thiamine 100mg daily. Nephrology is consulted Consider dental or an ENT consultation per Dr. Mayo. Discussed with patient's nurse. Defer the rest of the medical management to primary other specialist
[2024-04-15 00:24] LABS: Allen Test Performed? Yes
[2024-04-15 00:42] LABS: ABG Base Excess -0.8 mmol/L; ABG HCO3 25 mmol/L (21-25); ABG Oxygen Saturation 99.6 % (94-97); ABG PCO2 46 mmHg (35-45); ABG PH 7.34 (7.35-7.45); ABG TCO2 26 mmol/L (19-24)
[2024-04-15] MEDS: SODIUM CHLORIDE 0.9% 1,000 ML IV ONE ×2 (00:45→04:50)
[2024-04-15] MEDS: NOREPINEPHRINE 4 MG in SODIUM CHLORIDE 0.9% 250 ML IV SCH (00:55)
[2024-04-15 02:52] LABS: Anisocytosis Slight; HCT 29.5 % (39.0-53.0); HGB 9.3 gm/dL (13.0-17.5); Hypochromasia Marked; MCH 34.9 pg (25.0-35.0); MCHC 31.5 g/dL (31.0-37.0); MCV 110.6 fL (80.0-100.0); Mean Platelet Volume 11.1; Platelet Count 217 k/uL (150-450); RBC 2.67 m/uL (4.30-5.90); RDW 16.9 % (11.5-15.5); WBC 10.6 k/uL (3.8-10.6)
[2024-04-15 03:11] LABS: Macrocytosis Marked
[2024-04-15 04:54] LABS: ABG Base Excess -6.8 mmol/L; ABG HCO3 24 mmol/L (21-25); ABG Oxygen Saturation 92.3 % (94-97); ABG PO2 81 mmHg (83-108); ABG TCO2 26 mmol/L (19-24); Allen Test Performed? Yes
[2024-04-15 04:58] LABS: ABG PH 7.09 (7.35-7.45)
[2024-04-15 04:59] LABS: ABG PCO2 79 mmHg (35-45)
[2024-04-15] MEDS ORDERED: DEXTROSE 50% SYRINGE 50 ML IVP PRN (06:05)
[2024-04-15 06:10] LABS: ABG Base Excess -4.3 mmol/L; ABG HCO3 21 mmol/L (21-25); ABG Oxygen Saturation >100.0 % (94-97); ABG PCO2 37 mmHg (35-45); ABG PH 7.36 (7.35-7.45); ABG TCO2 22 mmol/L (19-24); Allen Test Performed? Yes
[2024-04-15 06:13] LABS: ABG PO2 >420 mmHg (83-108)
[2024-04-15] MEDS: DEXTROSE 50% SYRINGE 50 ML IVP PRN (06:24)
[2024-04-15 06:39] LABS: African American GFR (CKD) >90 (>60 ml/min/1.73 sqM); Anion Gap 7 mmol/L; Blood Urea Nitrogen 36 mg/dL (9-20); Carbon Dioxide 20 mmol/L (22-30); Chloride 115 mmol/L (98-107); Glucose 67 mg/dL (74-99); Non-African American GFR(CKD) >90 (>60 ml/min/1.73 sqM); Potassium 5.6 mmol/L (3.5-5.1); Sodium 142 mmol/L (137-145)
--- NOTE | 2024-04-15 06:47 | XR ---
EXAM: XR Chest, 1 View CLINICAL HISTORY: ITS.REASON XR Reason: Tube placement TECHNIQUE: Frontal view of the chest. COMPARISON: X-ray dated 04/10/2024 endotr[address] tube is in place with the tip near the level of the right mainstem bronchus, recommend retraction roughly 1/2 cm. FINDINGS: Lungs: Opacification of the bilateral lung bases. Pleural space: Bilateral pleural effusions. No pneumothorax. Heart: Unremarkable. No cardiomegaly. Mediastinum: Unremarkable. Normal mediastinal contour. Bones/joints: Unremarkable. No acute fracture. Tubes, lines and devices: Enteric tube is in place with the side-port overlying the gastric bubble. IMPRESSION: 1. Medical supportive devices as above. 2. Bilateral pleural effusions with adjacent atelectasis and/or pneumonia not excluded.
--- NOTE | 2024-04-15 07:01 | P.PN ---
Subjective 63-year-old gentleman who is a transfer from [facility] after being found laying on ground outside his house. Most of the history has been obtained from the EMR according to which patient has been drinking 1/5 of alcohol per day. Patient was found by his neighbor to be laying on the ground, patient was initially hypothermic and was placed on warming blankets and was transferred to [facility] where he had CT of his brain, cervical spine and CT abdominal pelvis done which were unremarkable. Patient was later transferred to [facility] for further evaluation and treatment Initial lab work done in the ER showed WBC 6.3, hemoglobin 8.1, platelet count 100, sodium 124, potassium 5, BUN 18, creatinine 0.67, glucose 412, lactate 3.6, bilirubin 2.1, AST 363, ALT 101 Patient admitted to internal medicine service 04/12/2024 Patient is seen and evaluated in room at bedside; discussed with nursing staff; mental status is a bit improved. He continues on 2 L nasal cannula. He is not using the BiPAP device. Blood work reveals hemoglobin this morning was 6.9. He will receive 1 unit packed red blood cells. White count 4.6, hemoglobin 6.9, macro 21.4, platelet count 133,000. Sodium 135, potassium 4.1, chlorides 101, CO2 25, BUN 14, creatinine 0.39. Glucose 166. Calcium 7.4. Blood cultures are negative. Chest x-ray is largely unchanged, and show bibasilar airspace opacities versus atelectasis; patient received 1 dose of Lasix per critical care recommendations. The patient's overall prognosis remains guarded. 04/13/2024 Patient is seen and evaluated with nursing staff at bedside; patient is more alert and responsive; able to follow commands; wants to go home Vital signs are reviewed; blood pressure has been somewhat elevated; critical care recommended to titrate Cleviprex and IV Lopressor White count 6.8, hemoglobin 8.5, hematocrit 26.2, platelet count 169,000. Sodium 137, potassium 4.1, chlorides 102, CO2 23, anion gap 12, BUN 21, creatinine 0.5. Glucose 127. Calcium 7.8. Magnesium 1.9. Sputum and blood cultures are negative. Chest x-ray shows bibasilar airspace disease and/or atelectasis. 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 Patient was intubated about 1 to 2 hours ago. Repeat ABG showing pH is normal at 7.36 and lower and pCO2 down to reference range at 37 CT of the brain showing no acute process and EEG showing no epileptiform discharge. Neurologist on the case and patient was diagnosed with toxic metabolic encephalopathy. Other than that he is afebrile. Hemoglobin 9.3, WBC 10.6. Creatinine 0.5. Chest x-ray:Bilateral pleural effusion. His antibiotics were changed to Zosyn. He is also on IV Solu-Medrol 60 mg He is getting normal saline at 75 mL/h. Also patient started on Levophed Review of system: N/AA Active Medications Generic Name Dose Route Start Last Admin Trade Name Freq PRN Reason Stop Dose Admin Albuterol/Ipratropium 3 ml 04/10/24 08:00 04/14/24 19:43 Ipratropium-Albuterol 3 Ml Neb INHALATION 3 ml RT-QID PANCHO Administration Albuterol/Ipratropium 3 ml 04/10/24 01:01 Ipratropium-Albuterol 3 Ml Neb INHALATION RT-Q4H PRN Shortness Of Breath Or Wheezing Budesonide 1 mg 04/10/24 08:00 04/14/24 19:43 Budesonide 1 Mg/2 Ml Nebu INHALATION 1 mg RT-BID PANCHO Administration Carbidopa/Levodopa 1 each 04/11/24 21:00 04/14/24 19:45 Carbidopa-Levodopa 25-100 Mg 1 Each Tab PO Not Given BID PANCHO Chlorhexidine Gluconate 15 ml 04/15/24 09:00 Chlorhexidine Gluconate 15 Ml Cup MUCOUS MEM BID PANCHO Dextrose/Water 25 ml 04/10/24 19:57 Dextrose 50% Syringe 50 Ml IVP PER PROTOCOL PRN Hypoglycemia Protocol Dextrose/Water 50 ml 04/10/24 19:57 Dextrose 50% Syringe 50 Ml IVP PER PROTOCOL PRN Hypoglycemia Protocol Dextrose/Water 25 ml 04/15/24 06:05 04/15/24 06:24 Dextrose 50% Syringe 50 Ml IVP 25 ml PER PROTOCOL PRN Administration Hypoglycemia Protocol Dextrose/Water 50 ml 04/15/24 06:05 Dextrose 50% Syringe 50 Ml IVP PER PROTOCOL PRN Hypoglycemia Protocol Formoterol Fumarate 20 mcg 04/10/24 08:00 04/14/24 19:43 Formoterol Fumarate 20 Mcg/2 Ml Nebu INHALATION 20 mcg RT-BID PANCHO Administration Guaifenesin 600 mg 04/09/24 21:00 04/14/24 19:45 Guaifenesin 600 Mg Tablet.Er PO Not Given Q12HR PANCHO Sodium Chloride 1,000 mls @ 75 mls/hr 04/11/24 15:15 04/14/24 23:59 Saline 0.9% IV 75 mls/hr .[id number] PANCHO Administration Piperacillin Sod/Tazobactam 100 mls @ 25 mls/hr 04/14/24 11:00 04/15/24 02:44 Sod 3.375 gm/ Sodium Chloride IVPB 25 mls/hr Q8H PANCHO Administration Protocol Norepinephrine Bitartrate 4 mg 254 mls @ 8.961 mls/hr 04/15/24 00:45 04/15/24 06:43 / Sodium Chloride IV 0 mcg/kg/min .Q24H PANCHO 0 mls/hr Titration Protocol 0.03 MCG/KG/MIN Propofol 1,000 mg/ IV Solution 100 mls @ 7.866 mls/hr 04/15/24 05:15 04/15/24 06:31 IV 30 mcg/kg/min .[id number] PANCHO 15.732 mls/hr Titration Protocol 15 MCG/KG/MIN Insulin Aspart 0 unit 04/12/24 18:00 04/15/24 06:07 Insulin Aspart (Novolog) 100 Unit/Ml Vial SQ Not Given Q6H PANCHO Protocol Methylprednisolone Sodium Succinate 60 mg 04/10/24 06:00 04/15/24 06:30 Methylprednisolone Sod Succi 125 Mg/2 Ml Vial IV 60 mg Q6HR PANCHO Administration Metoprolol Tartrate 5 mg 04/13/24 12:00 04/15/24 06:07 Metoprolol Tartrate 5 Mg/5 Ml Vial IVP Not Given Q6HR [facility] Miscellaneous Information 1 each 04/10/24 19:37 Potassium Replacement Protocol 1 Each Misc MISCELLANE DAILY PRN Per Protocol Protocol Miscellaneous Information 1 each 04/11/24 07:10 Magnesium Replacement Protocol 1 Each Misc MISCELLANE DAILY PRN Per Protocol Protocol Morphine Sulfate 2 mg 04/10/24 09:12 Morphine Sulfate 2 Mg/Ml Syringe IVP Q6HR PRN Pain/Discomfort Naloxone HCl 0.2 mg 04/08/24 23:03 Naloxone 0.4 Mg/Ml 1 Ml Vial IV Q2M PRN Opioid Reversal Pantoprazole Sodium 40 mg 04/10/24 09:00 04/14/24 08:26 Pantoprazole 40 Mg/10 Ml Vial IVP 40 mg DAILY PANCHO Administration Thiamine HCl 100 mg 04/11/24 14:15 04/14/24 08:26 Thiamine 100 Mg/Ml 2 Ml Vial IVP 100 mg DAILY PANCHO Administration Objective - Vital Signs Vital signs: Vital Signs Temp 97.4 F L 04/15/24 04:00 Pulse 82 04/15/24 06:00 Resp 24 04/15/24 06:00 BP 151/109 04/15/24 06:00 Pulse Ox 100 04/15/24 06:00 FiO2 50 04/15/24 06:19 Intake & Output 04/14/24 04/14/24 04/15/24 06:59 18:59 06:59 Intake Total 900 1000 1909.502 Output Total 275 355 215 Balance 107 707 5321.502 Weight 78.4 kg 87.4 kg Intake: IV 157 139 3776 Sodium Chloride 0.9% 1, 900 900 825 000 ml @ 75 mls/hr IV . [id number] [facility] Rx#:[id number] Sodium Chloride 0.9% 1, 999 000 ml @ 999 mls/hr IV . Q1H1M [facility] Rx#:[id number] Intake, IV Titration 100 85.502 Amount Norepinephrine 4 mg In 74.576 Sodium Chloride 0.9% 250 ml @ 0.03 MCG/KG/MIN 8. 961 mls/hr IV .Q24H [facility] Rx#:[id number] Piperacillin-Tazobactam 3 100 .375 gm In Sodium Chloride 0.9% 100 ml @ 25 mls/hr IVPB Q8H [facility] Rx#: [id number] propofoL 1,000 mg In 10.926 Empty Bag 1 bag @ 15 MCG/ KG/MIN 7.866 mls/hr IV . [id number] [facility] Rx#:[id number] Output: Urine 275 355 215 Other: Voiding Method Indwelling Catheter Indwelling Catheter Indwelling Catheter - Exam -GENERAL: The patient is intubated and sedated HEENT: Pupils are round and equally reacting to light. EOMI. No scleral icterus. No conjunctival pallor. Normocephalic, atraumatic. No pharyngeal erythema. No thyromegaly. CARDIOVASCULAR: S1 and S2 present. No murmurs, rubs, or gallops. -PULMONARY: Chest is clear to auscultation, no wheezing , no crackles. Tachypneic with limited air entry on both sides ABDOMEN: Soft, nontender, nondistended, normoactive bowel sounds. No palpable o rganomegaly. MUSCULOSKELETAL: No joint swelling or deformity. EXTREMITIES: No cyanosis, clubbing, or pedal edema. NEUROLOGICAL: Gross neurological examination did not reveal any focal deficits. SKIN: No rashes. no petechiae. - Labs CBC & Chem 7: 04/15/24 02:07 04/14/24 06:00 Labs: Abnormal Lab Results - Last 24 Hours (Table) 04/14/24 04/14/24 04/15/24 Range/Units 06:00 06:00 00:20 RBC 2.78 L (4.30-5.90) m/uL Hgb 9.8 L (13.0-17.5) gm/dL Hct 29.5 L (39.0-53.0) % MCV 105.8 H (80.0-100.0) fL MCH 35.1 H (25.0-35.0) pg RDW 16.8 H (11.5-15.5) % Lymphocytes # (Manual) 0.74 L (1.0-4.8) k/uL Nucleated RBCs 13 H (0-0) /100 WBC Macrocytosis Marked A ABG pH 7.34 L (7.35-7.45) ABG pCO2 46 H (35-45) mmHg ABG pO2 (83-108) mmHg ABG Total CO2 26 H (19-24) mmol/L ABG O2 Saturation 99.6 H (94-97) % BUN 33 H (9-20) mg/dL Creatinine 0.54 L (0.66-1.25) mg/dL Glucose 128 H (74-99) mg/dL Calcium 7.9 L (8.4-10.2) mg/dL 04/15/24 04/15/24 04/15/24 Range/Units 02:07 04:45 06:04 RBC 2.67 L (4.30-5.90) m/uL Hgb 9.3 L (13.0-17.5) gm/dL Hct 29.5 L (39.0-53.0) % MCV 110.6 H (80.0-100.0) fL MCH (25.0-35.0) pg RDW 16.9 H (11.5-15.5) % Lymphocytes # (Manual) (1.0-4.8) k/uL Nucleated RBCs (0-0) /100 WBC Macrocytosis Marked A ABG pH 7.09 L* (7.35-7.45) ABG pCO2 79 H* (35-45) mmHg ABG pO2 81 L >420 H (83-108) mmHg ABG Total CO2 26 H (19-24) mmol/L ABG O2 Saturation 92.3 L >100.0 H (94-97) % BUN (9-20) mg/dL Creatinine (0.66-1.25) mg/dL Glucose (74-99) mg/dL Calcium (8.4-10.2) mg/dL Microbiology - Last 24 Hours (Table) 04/11/24 20:12 Gram Stain - Final Sputum Sputum Culture - Final Assessment and Plan Assessment: Severe sepsis Left lower lobe pneumonia Acute COPD exacerbation Acute hypoxic hypercapnic respiratory failure Alcohol use disorder and withdrawal Metabolic/toxic encephalopathy Microcytic anemia Alcoholic transaminitis Alcoholic induced thrombocytopenia Possible left vertebral artery round calcified eggshell lesion of 1.2 cm in the posterior cranial fossa, aneurysm cannot be ruled out. Patient will need to follow-up as an outpatient with interventional neurologist Acute left sphenoid sinusitis Left upper maxillary cyst 1.8 cm eroding into the posterior wall of the left maxilla Hypertension Hyperlipidemia Possible Parkinson disease Plan: Continue with antibiotic Zithromax and ceftriaxone Continue with CIWA protocol and thiamine On IV fluid D5 normal saline at 75 mL/h On IV Solu-Medrol 60 mg Monitor sodium level Continue with oxygen therapy and BiPAP as needed and bronchodilator Several consultants on the case including pulmonary/critical care team, parking control officer and neurologist GI prophylaxis: Protonix DVT prophylaxis: Mechanical. Relative contraindication for anticoagulation because of the possible brain aneurysm
[2024-04-15 07:15] LABS: Calcium 6.4 mg/dL (8.4-10.2)
--- NOTE | 2024-04-15 09:02 | XR ---
EXAMINATION TYPE: XR chest 1V portable DATE OF EXAM: 04/15/2024 4:07 AM COMPARISON: 04/14/2024 CLINICAL INDICATION: Male, 63 years old with history of atelectasis, previous abnormal chest difficul ty breathing TECHNIQUE: XR chest 1V portable view(s) obtained. FINDINGS: The heart size is enlarged. The pulmonary vasculature is normal. Bibasilar infiltrates are present. Small left pleural effusion is present. Findings mild improvement IMPRESSION: 1. Bibasilar infiltrates may be related atelectasis. 2. Small left pleural effusion. 3. There may be some mild cardiomegaly present [facility], , 04/15/2024 9:00 AM
[2024-04-15] MEDS: CHLORHEXIDINE GLUCONATE 15 ML CUP MUCOUS MEM SCH (09:39)
[2024-04-15] MEDS: CALCIUM GLUCONATE IN NACL 2 GM in SALINE 1 100ML.BAG IVPB ONE (10:40)
[2024-04-15 10:47] LABS: Anisocytosis Slight; HCT 27.2 % (39.0-53.0); HGB 8.5 gm/dL (13.0-17.5); Hypochromasia Marked; MCH 33.8 pg (25.0-35.0); MCHC 31.3 g/dL (31.0-37.0); MCV 107.9 fL (80.0-100.0); Macrocytosis Marked; Mean Platelet Volume 9.2; Platelet Count 156 k/uL (150-450); RBC 2.52 m/uL (4.30-5.90)
[2024-04-15] MEDS ORDERED: RX INFO: IV CONTRAST WAS GIVEN 1 EACH MISC MISCELLANE PRN (12:07)
--- NOTE | 2024-04-15 12:41 | P.PN ---
Subjective Progress Note Date: 04/15/24 Patient is a 63-year-old male with past medical history significant for COPD, alcohol abuse, hypertension, hyperlipidemia, among other things. Transferred from [facility] on 04/08/2024. Apparently, was found by his neighbor on the ground and unresponsive in his residence. The heat in the house was not working, and patient was hypothermic with a temperature of 87 F. Unclear just how long the patient was on the floor. Did undergo rewarming at the outside facility. His blood glucose was also found to be low at 27 mg/dL. Did have a CT of the brain and C-spine which did not show any abnormalities or C-spine fracture/subluxation. Also, had a CT of the chest, images not available, ho estela, reportedly demonstrating multiple bilateral subacute and nondisplaced rib fractures. According to the ER records, patient is an alcoholic and drinks approximately 1/5 of liquor per day. Currently on CIWA protocol. Workup at our facility, including a brain CT which did not show any acute intracranial hemorrhage, acute ischemic changes, or mass effect. Demonstrated a 1.2 cm rounded area of eggshell calcification midline posterior cranial fossa along the left vertebral artery. Concern was for possible aneurysm. Suspect a 1.8 cm cyst involving an impacted left maxillary molar. Regarding posterior wall of the maxilla. Air-fluid level of the left soft sphenoid sinus, possibly repres enting acute sinusitis. Chest x-ray showing low lung volumes with small bilateral pleural effusions and left-sided basilar atelectasis or infiltrate.CBC done arrival: WBC count 6.3, hemoglobin 8.1, hematocrit 23.3, platelets 100. Most recent CMP from yesterday showing a sodium 125, potassium 3.4, chloride 87, serum bicarb 28, BUN 15, creatinine 0.48, glucose 117. Lactic was 3.6 down to 1.5. Magnesium 1.5. LFTs mildly elevated, possibly secondary to chronic alcohol intake. CPK 722. Troponin was elevated at 0.042 and is trending down, most recently 0.027. Procalcitonin level is 1.11. Not currently on any antibiotics Patient currently being evaluated emergency department. He is on BiPAP with settings 12/6 and FiO2 100%. He is quite tachypneic, breathing in the high 40s. Vital lungs range around 400 to 500 mL. ABGs done on these settings showing a PaO2 of 70, pCO2 42, pH of 7.44. He remains quite obtunded, withdraws to painful stimuli in all 4 extremities. Now normothermic with a temperature of 98.3 F. Blood glucose 155. Ammonia 22. D5W with normal saline infusing at 75 mL/h. Plan is for patient be transferred to the intensive care unit once bed available. Progress note dated April 11, 2024. 63-year-old male seen today in the intensive care unit, room 259. The patient is on dextrose, with saline, 75 cc an hour, saline IV at 10 cc an hour, and getting nasal cannula at 3 L. He also has a BiPAP in the room, with settings of 12/6, and 60%. He appears to be resting relatively comfortably, although he is a bit lethargic and somnolent. Current labs include a white count 3.9, hemoglobin 7.4, hematocrit 22.3, and a platelet count of hearing 26,000. Sodium 131, potassium 4, chlorides 95, CO2 33, BUN 15, creatinine 0.39. Glucose is 157. Chest x-ray reveals mild bibasilar infiltrates or atelectasis. 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 Progress note dated April 12, 2024. The patient is seen here in room 259. His mental status is a bit improved. He continues on 2 L nasal cannula. He is not using the BiPAP device. He is getting saline at 75 cc an hour. His hemoglobin this morning was 6.9. He will receive 1 unit packed red blood cells. In addition, the patient will get 1 dose of Lasix, 20 mg IV push. White count 4.6, hemoglobin 6.9, macro 21.4, platelet count 133,000. Sodium 135, potassium 4.1, chlorides 101, CO2 25, BUN 14, creatinine 0.39. Glucose 166. Calcium 7.4. Blood cultures are negative. Chest x-ray is largely unchanged, and show bibasilar airspace opacities versus atelectasis. Progress note dated April 13, 2024. 63-year-old male seen today in room 259. The patient is on saline at 75 cc an hour, nasal O2 at 2 L. He did receive 1 unit of packed red blood cells. The patient's blood pressure has been a bit elevated, so he may need something IV for that, I have written orders for both Cleviprex to be titrated, and IV beta- oh, i.e. the Lopressor. The patient's mental status is poor. It continues to be about the same. White count 6.8, hemoglobin 8.5, hematocrit 26.2, platelet count 169,000. Sodium 137, potassium 4.1, chlorides 102, CO2 23, anion gap 12, BUN 21, creatinine 0.5. Glucose 127. Calcium 7.8. Magnesium 1.9. Sputum and blood cultures are negative. Chest x-ray shows bibasilar airspace disease and/or atelectasis. On 04/14/2024, the patient is being seen for a follow-up. This morning, the patient is quite drowsy and sleepy and encephalopathic. He is not communicating with me. I was told that his mentation was much better yesterday. I came to find out that the patient was given Ativan overnight. Will continue monitoring his mentation. He is currently on 2 L of oxygen by nasal cannula. Chest x-ray shows development of a right lower lobe consolidation with worsening right lower lobe pulmonary filtrate and small left-sided pleural effusion and right-sided pleural effusion. There is also some limited atelectatic changes in the left lung. Hemodynamically stable on no pressors. White cell count of 6.2 with a heme of 9.8 and a platelet count of 187. BUN is 33 with a creatinine of 0.5 and a sodium levels at 139 and potassium level is at 4.8. Remains on DuoNeb. Remains on Pulmicort and Perforomist updrafts twice a day. Remains on IV Solu- Medrol. He was on IV Rocephin and I am going to switch his antibiotics to IV Zosyn covering for aspiration and hospital-acquired pathogens. Remains on normal citrate of 75 cc an hour. Ativan will be discontinued and his mental status needs to be monitored very closely. On 04/15/2024, the patient is being seen for a follow-up. Noted, the patient has significant diminishment of level of consciousness from yesterday. He was maintained on 2 L of oxygen by nasal cannula and he was also noted to have worsening in the right lower lobe consolidation. Overnight, the patient became more dyspneic and the blood gas was obtained that showed a pH of 7.09 with a pCO2 of 79 and pO2 of 81. Based on that, the patient was intubated and placed on mechanical ventilation. This morning, the patient is still on propofol running at 35 mcg/kg/min. The patient is on mechanical ventilator assist- control mode rate of 24, tidal volume of 500, FiO2 50% with a PEEP of 5. Blood gas showed a pH of 7.36 with a pCO2 of 37 and pO2 420. FiO2 was accordingly dropped. Chest x-ray shows a dense consolidation in the right lower lobe and the patient is currently on IV Zosyn. He remains on normal saline at rate of 75 cc an hour. Urine output is in order of 20 to 30 cc an hour. Fluid balance is +2.3 L over the past 24 hours. The white cell count is at 14.8 with a hemoglobin 8.5 and a platelet count of 156. Sodium is 142, potassium is at 5.6, bicarb is at 20 with a BUN of 36 and a creatinine of 0.68. Calcium level is at 6.4. Afebrile. Hemodynamically stable on no pressors. Objective - Vital Signs Vital signs: Vital Signs Temp 98 F 04/15/24 08:00 Pulse 90 04/15/24 09:06 Resp 24 04/15/24 09:00 BP 151/100 04/15/24 09:00 Pulse Ox 100 04/15/24 09:00 FiO2 50 04/15/24 08:49 Intake & Output 04/14/24 04/15/24 04/15/24 18:59 06:59 18:59 Intake Total 1000 1984.502 196.409 Output Total 355 245 80 Balance 645 1739.502 116.409 Weight 87.4 kg Intake: IV 900 1899 150 Sodium Chloride 0.9% 1, 900 900 150 000 ml @ 75 mls/hr IV . [id number] PANCHO Rx#:[id number] Sodium Chloride 0.9% 1, 999 000 ml @ 999 mls/hr IV . Q1H1M ONE Rx#:[id number] Intake, IV Titration 100 85.502 46.409 Amount Norepinephrine 4 mg In 74.576 Sodium Chloride 0.9% 250 ml @ 0.03 MCG/KG/MIN 8. 961 mls/hr IV .Q24H PANCHO Rx#:[id number] Piperacillin-Tazobactam 3 100 .375 gm In Sodium Chloride 0.9% 100 ml @ 25 mls/hr IVPB Q8H PANCHO Rx#: [id number] propofoL 1,000 mg In 10.926 46.409 Empty Bag 1 bag @ 15 MCG/ KG/MIN 7.866 mls/hr IV . [id number] PANCHO Rx#:[id number] Output: Urine 355 245 80 Other: Voiding Method Indwelling Catheter Indwelling Catheter - Exam No acute distress, intubated, orogastric endotracheal tube was in place, sedated on propofol. HEENT examination is grossly unremarkable. Mucous membranes are moist. No oral lesions. Neck supple. Full range of motion. No adenopathy thyromegaly or neck vein distention. Cardiovascular examination reveals regular rhythm rate. S1-S2 normal. No S3 or S4. No discernible murmur noted. Lungs reveal scattered bilateral inspiratory and expiratory rhonchi. No wheezes or crackles. Diminished breath sound the right lung base Abdomen soft bowel sounds are heard. No masses or tenderness. Extremities are intact. No cyanosis clubbing or edema. Skin is without rash or lesion. Neurologic examination is limited. The patient is quite sedated at this point in time. Pupils are equal reactive to light. No facial asymmetry. Some withdrawal to deep painful stimulation. Otherwise, responsive. - Labs CBC & Chem 7: 04/15/24 10:24 04/15/24 06:02 Labs: Abnormal Lab Results - Last 24 Hours (Table) 04/15/24 04/15/24 04/15/24 Range/Units 00:20 02:07 04:45 RBC 2.67 L (4.30-5.90) m/uL Hgb 9.3 L (13.0-17.5) gm/dL Hct 29.5 L (39.0-53.0) % MCV 110.6 H (80.0-100.0) fL RDW 16.9 H (11.5-15.5) % Macrocytosis Marked A ABG pH 7.34 L 7.09 L* (7.35-7.45) ABG pCO2 46 H 79 H* (35-45) mmHg ABG pO2 81 L (83-108) mmHg ABG Total CO2 26 H 26 H (19-24) mmol/L ABG O2 Saturation 99.6 H 92.3 L (94-97) % Potassium (3.5-5.1) mmol/L Chloride (98-107) mmol/L Carbon Dioxide (22-30) mmol/L BUN (9-20) mg/dL Glucose (74-99) mg/dL Calcium (8.4-10.2) mg/dL 04/15/24 04/15/24 Range/Units 06:02 06:04 RBC (4.30-5.90) m/uL Hgb (13.0-17.5) gm/dL Hct (39.0-53.0) % MCV (80.0-100.0) fL RDW (11.5-15.5) % Macrocytosis ABG pH (7.35-7.45) ABG pCO2 (35-45) mmHg ABG pO2 >420 H (83-108) mmHg ABG Total CO2 (19-24) mmol/L ABG O2 Saturation >100.0 H (94-97) % Potassium 5.6 H (3.5-5.1) mmol/L Chloride 115 H (98-107) mmol/L Carbon Dioxide 20 L (22-30) mmol/L BUN 36 H (9-20) mg/dL Glucose 67 L (74-99) mg/dL Calcium 6.4 L* (8.4-10.2) mg/dL Microbiology - Last 24 Hours (Table) 04/11/24 20:12 Gram Stain - Final Sputum Sputum Culture - Final Assessment and Plan Plan: Acute hypoxemic/hypercapnic respiratory failure with development of the right lower lobe pneumonia, consider aspiration pneumonia versus hospital-acquired and the patient is currently on IV Zosyn. The patient was intubated on 04/14/2024 and currently remains intubated on mechanical ventilator. Chest x-ray is showing a dense consolidation of the right lower lobe. Right lower lobe pneumonia with worsening consolidation of the right lung base. Rule out aspiration versus hospital-acquired pneumonia. The patient will be started on IV Zosyn. Acute COPD exacerbation, secondary to above maintained on a combination of bronchodilators and steroids Altered mental status, secondary to acute metabolic encephalopathy and hypothermia. The patient was encephalopathic throughout the day yesterday without any improvement in the mental status. Alcohol abuse, reportedly drinks 1/5 liquor /day. 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 Hypothermia at the time of admission, recovered Episode of hypoglycemia at the time of admission, recovered Hyponatremia, recovered Transaminitis, possibly secondary to alcohol. Mild rhabdomyolysis at the time of admission secondary to above Normocytic, normochromic anemia. Thrombocytopenia, likely secondary to chronic alcohol intake, stable, improved History of hypertension. History of hyperlipidemia . History of Parkinson's. Hypocalcemia Plan: Keep the patient on propofol Keep the patient intubated on mechanical ventilator Obtain a CAT scan of the brain Obtain a CAT scan of the chest with contrast Establish triple-lumen catheter Start the patient on enteral feeding for nutritional support Monitor mental status Continue IV Zosyn based on worsening right lower lobe consolidation, may need a bronchoscopy and and possibly a bronchioloalveolar lavage and a final decision on that will be made after reviewing the CAT scan of the chest Continue bronchodilators Continue steroids and the patient remains on IV Solu-Medrol IV fluids at rate of 75 cc an hour Rest of the medication will be kept unchanged Check ionized calcium and replace calcium deficit The patient was monitored closely in the intensive care unit. He is a full CODE STATUS. This evaluation was done and 40 minutes. This is a critical care evaluation. Time with Patient: Greater than 30
--- NOTE | 2024-04-15 12:41 | P.PCN ---
Date of Procedure: 04/15/24 Preoperative Diagnosis: Right lower lobe pneumonia, acute hypoxic respiratory failure Postoperative Diagnosis: Same Procedure(s) Performed: Triple-lumen catheter, right femoral Operative Findings: Procedure(s) Performed: Triple-lumen insertion, femoral Anesthesia: local Surgeon: Kip Burnham Estimated Blood Loss (ml): 0 Pathology: other Condition: critical Disposition: ICU Operative Findings: Indication: Hemodynamic monitoring/Intravenous access. A time-out was completed verifying correct patient, procedure, site, positioning, and implant(s) or special equipment if applicable. The patient was placed in a dependent position appropriate for triple lumen catheter placement based on the vein to be cannulated. The patient's right femoral area was prepped and draped in sterile fashion. 1% Lidocaine was used to anesthetize the surrounding skin area. A triple lumen 9F Cordis catheter was introduced into the femoral vein using Seldinger technique. The catheter was threaded smoothly over the guide wire and appropriate blood return was obtained. Each lumen of the catheter was evacuated of air and flushed with sterile saline. The catheter was then sutured in place to the skin and a sterile dressing applied. Perfusion to the extremity distal to the point of catheter insertion was checked and found to be adequate.
[2024-04-15] MEDS: MORPHINE SULFATE 2 MG/ML SYRINGE IVP PRN (15:36)
--- NOTE | 2024-04-15 15:47 | CT ---
EXAMINATION TYPE: CT brain wo con DATE OF EXAM: 04/15/2024 COMPARISON: 04/09/2024 CLINICAL INDICATION: Male, 63 years old with history of AMS; PHH, AMS. CT DLP: 1252 mGycm Automated exposure control for dose reduction was used. Findings: The ventricles, basal cisterns and sulci over the convexities are moderately enlarged consistent with moderate generalized atrophy and there is mild decreased density in the periventricular white matter consistent with chronic ischemic white matter demyelination. There is no mass effect or shift of midline structures. There is no acute intra or extra-axial hemorrhage. There is a 12 mm aneurysm of the distal left vertebral artery which is seen on the prior study and is stable. The remainder the posterior fossa is unremarkable. There is a tracheostomy tube There are acute inflammatory changes in the sphenoid sinus. There are questionable destructive changes in the maxilla and mandible raising the question of osteom yelitis and clinical correlation is recommended. The intraorbital contents are normal and symmetric. IMPRESSION: 1. Stable mild senescent changes. No acute bleed or mass effect. 2. Stable acute sinusitis in the sphenoid sinus. 3. Stable left vertebral artery aneurysm as described above. 4. Questionable destructive changes in the mandible and maxilla raising the question of osteomyelitis . Further evaluation may be warranted. [facility], , 04/15/2024 3:44 PM
[2024-04-15 15:49] LABS: Band Neutrophils % 1 %; Metamyelocytes % 1 %; Myelocytes % 1 %; Neutrophils % (M) 93 %; Nucleated Red Blood Cells 35 /100 WBC (0-0); Total Cells Counted 200
[2024-04-15 15:51] LABS: Lymphocytes # (M) 0.22 k/uL (1.0-4.8); Metamyelocytes # (M) 0.11 k/uL (0); Monocytes # (M) 0.44 k/uL (0-1.0); Myelocytes # (M) 0.11 k/uL (0)
--- NOTE | 2024-04-15 15:51 | CT ---
CT thorax with contrast HISTORY: PNA. COMPARISON: None TECHNIQUE: Multiple axial images are obtained through the thorax following IV contrast administration . Gaze: There is an NG tube within the stomach. There is ET tube terminating above the jim. There are small bilateral pleural effusions and bibasilar lung consolidations consistent with pneumon ia. There is no pneumothorax. The great vessels the chest are normal and there is no mediastinal, hilar or axillary adenopathy. Limited scanning through the upper abdomen reveals marked liver steatosis and moderate pancreatic atr ophy and marked degenerative changes in the cervical and lower thoracic spine. There is cervical and thoracolumbar metallic fusion. IMPRESSION: 1. Bilateral lower lobe infiltrates and small effusions possibly represent bibasilar pneumonia is debby rt-term follow-up is recommended. 2. NG tube within the stomach and ET tube above the jim. 3. Marked liver steatosis. [facility], , 04/15/2024 3:49 PM
[2024-04-15] MEDS: hydrALAZINE HCL 25 MG TAB PO SCH (16:09)
[2024-04-15] MEDS: amLODIPine 10 MG TAB PO SCH (16:20)
[2024-04-15] MEDS: hydrALAZINE HCL 25 MG TAB PO PRN (21:07)
[2024-04-16] MEDS: METOPROLOL TARTRATE 50 MG TAB PO STA (00:53)
[2024-04-16 04:28] LABS: ABG Base Excess 0.2 mmol/L; ABG HCO3 22 mmol/L (21-25); ABG Oxygen Saturation 99.6 % (94-97); ABG PCO2 27 mmHg (35-45); ABG PH 7.53 (7.35-7.45); ABG PO2 144 mmHg (83-108); ABG TCO2 23 mmol/L (19-24)
[2024-04-16 04:30] LABS: Allen Test Performed? no
[2024-04-16 04:51] LABS: Anisocytosis Slight; HCT 24.9 % (39.0-53.0); HGB 8.3 gm/dL (13.0-17.5); MCH 34.1 pg (25.0-35.0); MCHC 33.2 g/dL (31.0-37.0); Macrocytosis Moderate; Mean Platelet Volume 8.9; Platelet Count 176 k/uL (150-450); RBC 2.43 m/uL (4.30-5.90); RDW 16.6 % (11.5-15.5)
[2024-04-16 04:53] LABS: Ionized Calcium 4.5 mg/dL (4.5-5.3)
[2024-04-16 05:04] LABS: MCV 102.6 fL (80.0-100.0)
[2024-04-16 05:05] LABS: African American GFR (CKD) 86 (>60 ml/min/1.73 sqM); Anion Gap 6 mmol/L; Blood Urea Nitrogen 50 mg/dL (9-20); Calcium 8.2 mg/dL (8.4-10.2); Carbon Dioxide 22 mmol/L (22-30); Chloride 112 mmol/L (98-107); Glucose 164 mg/dL (74-99); Non-African American GFR(CKD) 75 (>60 ml/min/1.73 sqM); Potassium 3.8 mmol/L (3.5-5.1); Sodium 140 mmol/L (137-145)
[2024-04-16] MEDS: POTASSIUM BICARBONATE/CIT AC 20 MEQ TABLET.EFF NG-TUBE SCH ×2 (05:32→12:38)
[2024-04-16 06:31] LABS: Band Neutrophils % 1 %; Lymphocytes # (M) 0.35 k/uL (1.0-4.8); Metamyelocytes # (M) 0.12 k/uL (0); Metamyelocytes % 1 %; Monocytes # (M) 0.23 k/uL (0-1.0); Neutrophils % (M) 95 %; Nucleated Red Blood Cells 44 /100 WBC (0-0); Total Cells Counted 200; WBC 11.5 k/uL (3.8-10.6)
--- NOTE | 2024-04-16 07:45 | XR ---
EXAMINATION TYPE: XR chest 1V portable DATE OF EXAM: 04/16/2024 5:26 AM COMPARISON: 04/15/2024 CLINICAL INDICATION: Male, 63 years old with history of Tube placement, difficulty breathing TECHNIQUE: XR chest 1V portable view(s) obtained. FINDINGS: The heart size is normal. The pulmonary vasculature is normal. Small effusions are present bilaterally. Retrocardiac infiltrate is not excluded. Findings are stable . Endotracheal tube is present with the tip 4.9 cm above the jim. Nasogastric tube transverses the t horax. IMPRESSION: 1. No acute pulmonary process. [facility], , 04/16/2024 7:43 AM
[2024-04-16] MEDS: THIAMINE 100 MG TAB PO SCH (08:49)
[2024-04-16] MEDS: METOPROLOL TARTRATE 50 MG TAB PO SCH (08:49)
[2024-04-16] MEDS: LOSARTAN 50 MG TAB PO SCH (08:49)
[2024-04-16] MEDS: FUROSEMIDE 40 MG TAB PO SCH (11:08)
[2024-04-16 11:46] LABS: Magnesium 1.8 mg/dL (1.6-2.3); Potassium 3.9 mmol/L (3.5-5.1)
[2024-04-16] MEDS ORDERED: Potassium Replacement Protocol 1 EACH MISC MISCELLANE PRN (12:20)
--- NOTE | 2024-04-16 12:28 | P.PN ---
Subjective Progress Note Date: 04/16/24 63-year-old gentleman who is a transfer from [facility] after being found laying on ground outside his house. Most of the history has been obtained from the EMR according to which patient has been drinking 1/5 of alcohol per day. Patient was found by his neighbor to be laying on the ground, patient was initially hypothermic and was placed on warming blankets and was transferred to [facility] where he had CT of his brain, cervical spine and CT abdominal pelvis done which were unremarkable. Patient was later transferred to [facility] for further evaluation and treatment Initial lab work done in the ER showed WBC 6.3, hemoglobin 8.1, platelet count 100, sodium 124, potassium 5, BUN 18, creatinine 0.67, glucose 412, lactate 3.6, bilirubin 2.1, AST 363, ALT 101 Patient admitted to internal medicine service 04/12/2024 Patient is seen and evaluated in room at bedside; discussed with nursing staff; mental status is a bit improved. He continues on 2 L nasal cannula. He is not using the BiPAP device. Blood work reveals hemoglobin this morning was 6.9. He will receive 1 unit packed red blood cells. White count 4.6, hemoglobin 6.9, macro 21.4, platelet count 133,000. Sodium 135, potassium 4.1, chlorides 101, CO2 25, BUN 14, creatinine 0.39. Glucose 166. Calcium 7.4. Blood cultures are negative. Chest x-ray is largely unchanged, and show bibasilar airspace opacities versus atelectasis; patient received 1 dose of Lasix per critical care recommendations. The patient's overall prognosis remains guarded. 04/13/2024 Patient is seen and evaluated with nursing staff at bedside; patient is more alert and responsive; able to follow commands; wants to go home Vital signs are reviewed; blood pressure has been somewhat elevated; critical care recommended to titrate Cleviprex and IV Lopressor White count 6.8, hemoglobin 8.5, hematocrit 26.2, platelet count 169,000. Sodium 137, potassium 4.1, chlorides 102, CO2 23, anion gap 12, BUN 21, creatinine 0.5. Glucose 127. Calcium 7.8. Magnesium 1.9. Sputum and blood cultures are negative. Chest x-ray shows bibasilar airspace disease and/or atelectasis. 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 Patient was intubated about 1 to 2 hours ago. Repeat ABG showing pH is normal at 7.36 and lower and pCO2 down to reference range at 37 CT of the brain showing no acute process and EEG showing no epileptiform discharge. Neurologist on the case and patient was diagnosed with toxic metabolic encephalopathy. Other than that he is afebrile. Hemoglobin 9.3, WBC 10.6. Creatinine 0.5. Chest x-ray:Bilateral pleural effusion. His antibiotics were changed to Zosyn. He is also on IV Solu-Medrol 60 mg He is getting normal saline at 75 mL/h. Also patient started on Levophed 04/16. Patient seen and examined. WBC 9.5, hemoglobin 8.3, platelet count 176, sodium 140, potassium 3.8 BUN 50, creatinine 1.05. Currently on mechanical vent ilation. REVIEW OF SYSTEMS: Review of system cannot be obtained as patient is currently intubated PHYSICAL EXAMINATION: GENERAL: The patient is intubated HEENT: Pupils are round and equally reacting to light. EOMI. No scleral icterus. No conjunctival pallor. Normocephalic, atraumatic. No pharyngeal erythema. No thyromegaly. CARDIOVASCULAR: S1 and S2 present. No murmurs, rubs, or gallops. PULMONARY: Diminished breath sound bilaterally, no wheezing or crackles. ABDOMEN: Soft, nontender, nondistended, normoactive bowel sounds. No palpable organomegaly. MUSCULOSKELETAL: No joint swelling or deformity. EXTREMITIES: No cyanosis, clubbing, or pedal edema. NEUROLOGICAL: Intubated and sedated SKIN: No rashes. Assessment and plan Severe sepsis Left lower lobe pneumonia Acute COPD exacerbation Acute hypoxic hypercapnic respiratory failure Alcohol use disorder and withdrawal Metabolic/toxic encephalopathy Microcytic anemia Alcoholic transaminitis Alcoholic induced thrombocytopenia Possible left vertebral artery round calcified eggshell lesion of 1.2 cm in the posterior cranial fossa, aneurysm cannot be ruled out. Patient will need to follow-up as an outpatient with interventional neurologist Acute left sphenoid sinusitis Left upper maxillary cyst 1.8 cm eroding into the posterior wall of the left maxilla Hypertension Hyperlipidemia Possible Parkinson disease Monitor vital signs Monitor CBC Monitor CMP Continue ox supplementation Continue vent management Continue aggressive bronchopulmonary hygiene Continue IV Solu-Medrol Continue CIWA protocol Continue IV Rocephin azithromycin Pulmonology following Labs and medication were reviewed.. Continue same treatment. Continue with symptomatic treatment. Resume home medication. Monitor labs and vitals. DVT and GI prophylaxis. Further recommendations as per clinical course of the patient Dictation was produced using [employer] dictation software. please excuse any grammatical, word or spelling errors. Objective - Vital Signs Vital signs: Vital Signs Temp 98.7 F 04/16/24 08:00 Pulse 75 04/16/24 09:10 Resp 21 04/16/24 09:00 BP 137/92 04/16/24 09:00 Pulse Ox 100 04/16/24 09:00 FiO2 40 04/16/24 08:46 Intake & Output 04/15/24 04/16/24 04/16/24 18:59 06:59 18:59 Intake Total 0605.992 8942.994 354 Output Total 430 460 150 Balance 6206.910 3865.994 204 Weight 87.4 kg 86.6 kg Intake: IV 1296 958 234 Calcium Gluconate in NaCl 100 2 gm In Saline 1 100ml. bag @ 100 mls/hr IVPB ONCE ONE Rx#:[id number] Piperacillin-Tazobactam 3 200 100 .375 gm In Sodium Chloride 0.9% 100 ml @ 25 mls/hr IVPB Q8H [facility] Rx#: [id number] Sodium Chloride 0.9% 1, 975 825 225 000 ml @ 75 mls/hr IV . [id number] [facility] Rx#:[id number] a line 21 33 9 Intake, IV Titration 159.563 235.994 Amount propofoL 1,000 mg In 159.563 235.994 Empty Bag 1 bag @ 15 MCG/ KG/MIN 7.866 mls/hr IV . [id number] [facility] Rx#:[id number] Tube Feeding 40 230 90 Other 30 90 30 Output: Urine 430 460 150 Other: Voiding Method Indwelling Catheter Indwelling Catheter Indwelling Catheter ABP, PAP, CO, CI - Last Documented Arterial Blood Pressure 179/83 - Labs CBC & Chem 7: 04/16/24 04:35 04/16/24 09:46 Labs: Abnormal Lab Results - Last 24 Hours (Table) 04/15/24 04/16/24 04/16/24 Range/Units 10:24 04:23 04:35 WBC 11.0 H (3.8-10.6) k/uL RBC 2.52 L (4.30-5.90) m/uL Hgb 8.5 L (13.0-17.5) gm/dL Hct 27.2 L (39.0-53.0) % MCV 107.9 H (80.0-100.0) fL RDW 17.0 H (11.5-15.5) % Neutrophils # (Manual) 10.30 H (1.3-7.7) k/uL Lymphocytes # (Manual) 0.22 L (1.0-4.8) k/uL Metamyelocytes # (Man) 0.11 H (0) k/uL Myelocytes # (Manual) 0.11 H (0) k/uL Nucleated RBCs 35 H (0-0) /100 WBC Macrocytosis Marked A ABG pH 7.53 H (7.35-7.45) ABG pCO2 27 L (35-45) mmHg ABG pO2 144 H (83-108) mmHg ABG O2 Saturation 99.6 H (94-97) % Hemoglobin 8.2 L (13.0-17.5) gm/dL Chloride 112 H (98-107) mmol/L BUN 50 H (9-20) mg/dL Glucose 164 H (74-99) mg/dL Calcium 8.2 L (8.4-10.2) mg/dL 04/16/24 Range/Units 04:35 WBC 11.5 H (3.8-10.6) k/uL RBC 2.43 L (4.30-5.90) m/uL Hgb 8.3 L (13.0-17.5) gm/dL Hct 24.9 L (39.0-53.0) % MCV 102.6 H D (80.0-100.0) fL RDW 16.6 H (11.5-15.5) % Neutrophils # (Manual) 11.00 H (1.3-7.7) k/uL Lymphocytes # (Manual) 0.35 L (1.0-4.8) k/uL Metamyelocytes # (Man) 0.12 H (0) k/uL Myelocytes # (Manual) (0) k/uL Nucleated RBCs 44 H (0-0) /100 WBC Macrocytosis ABG pH (7.35-7.45) ABG pCO2 (35-45) mmHg ABG pO2 (83-108) mmHg ABG O2 Saturation (94-97) % Hemoglobin (13.0-17.5) gm/dL Chloride (98-107) mmol/L BUN (9-20) mg/dL Glucose (74-99) mg/dL Calcium (8.4-10.2) mg/dL Microbiology - Last 24 Hours (Table) 04/15/24 05:56 Gram Stain - Preliminary Sputum 04/10/24 00:48 Blood Culture - Final Blood
[2024-04-16] MEDS: MAGNESIUM SULFATE-D5W PMX 1 GM in DEXTROSE/WATER 1 100ML.BAG IVPB ONE (12:38)
--- NOTE | 2024-04-16 16:14 | P.PN ---
Subjective Progress Note Date: 04/16/24 Patient is a 63-year-old male with past medical history significant for COPD, alcohol abuse, hypertension, hyperlipidemia, among other things. Transferred from [facility] on 04/08/2024. Apparently, was found by his neighbor on the ground and unresponsive in his residence. The heat in the house was not working, and patient was hypothermic with a temperature of 87 F. Unclear just how long the patient was on the floor. Did undergo rewarming at the outside facility. His blood glucose was also found to be low at 27 mg/dL. Did have a CT of the brain and C-spine which did not show any abnormalities or C-spine fracture/subluxation. Also, had a CT of the chest, images not available, ho estela, reportedly demonstrating multiple bilateral subacute and nondisplaced rib fractures. According to the ER records, patient is an alcoholic and drinks approximately 1/5 of liquor per day. Currently on CIWA protocol. Workup at our facility, including a brain CT which did not show any acute intracranial hemorrhage, acute ischemic changes, or mass effect. Demonstrated a 1.2 cm rounded area of eggshell calcification midline posterior cranial fossa along the left vertebral artery. Concern was for possible aneurysm. Suspect a 1.8 cm cyst involving an impacted left maxillary molar. Regarding posterior wall of the maxilla. Air-fluid level of the left soft sphenoid sinus, possibly repres enting acute sinusitis. Chest x-ray showing low lung volumes with small bilateral pleural effusions and left-sided basilar atelectasis or infiltrate.CBC done arrival: WBC count 6.3, hemoglobin 8.1, hematocrit 23.3, platelets 100. Most recent CMP from yesterday showing a sodium 125, potassium 3.4, chloride 87, serum bicarb 28, BUN 15, creatinine 0.48, glucose 117. Lactic was 3.6 down to 1.5. Magnesium 1.5. LFTs mildly elevated, possibly secondary to chronic alcohol intake. CPK 722. Troponin was elevated at 0.042 and is trending down, most recently 0.027. Procalcitonin level is 1.11. Not currently on any antibiotics Patient currently being evaluated emergency department. He is on BiPAP with settings 12/6 and FiO2 100%. He is quite tachypneic, breathing in the high 40s. Vital lungs range around 400 to 500 mL. ABGs done on these settings showing a PaO2 of 70, pCO2 42, pH of 7.44. He remains quite obtunded, withdraws to painful stimuli in all 4 extremities. Now normothermic with a temperature of 98.3 F. Blood glucose 155. Ammonia 22. D5W with normal saline infusing at 75 mL/h. Plan is for patient be transferred to the intensive care unit once bed available. Progress note dated April 11, 2024. 63-year-old male seen today in the intensive care unit, room 259. The patient is on dextrose, with saline, 75 cc an hour, saline IV at 10 cc an hour, and getting nasal cannula at 3 L. He also has a BiPAP in the room, with settings of 12/6, and 60%. He appears to be resting relatively comfortably, although he is a bit lethargic and somnolent. Current labs include a white count 3.9, hemoglobin 7.4, hematocrit 22.3, and a platelet count of hearing 26,000. Sodium 131, potassium 4, chlorides 95, CO2 33, BUN 15, creatinine 0.39. Glucose is 157. Chest x-ray reveals mild bibasilar infiltrates or atelectasis. 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 Progress note dated April 12, 2024. The patient is seen here in room 259. His mental status is a bit improved. He continues on 2 L nasal cannula. He is not using the BiPAP device. He is getting saline at 75 cc an hour. His hemoglobin this morning was 6.9. He will receive 1 unit packed red blood cells. In addition, the patient will get 1 dose of Lasix, 20 mg IV push. White count 4.6, hemoglobin 6.9, macro 21.4, platelet count 133,000. Sodium 135, potassium 4.1, chlorides 101, CO2 25, BUN 14, creatinine 0.39. Glucose 166. Calcium 7.4. Blood cultures are negative. Chest x-ray is largely unchanged, and show bibasilar airspace opacities versus atelectasis. Progress note dated April 13, 2024. 63-year-old male seen today in room 259. The patient is on saline at 75 cc an hour, nasal O2 at 2 L. He did receive 1 unit of packed red blood cells. The patient's blood pressure has been a bit elevated, so he may need something IV for that, I have written orders for both Cleviprex to be titrated, and IV beta- oh, i.e. the Lopressor. The patient's mental status is poor. It continues to be about the same. White count 6.8, hemoglobin 8.5, hematocrit 26.2, platelet count 169,000. Sodium 137, potassium 4.1, chlorides 102, CO2 23, anion gap 12, BUN 21, creatinine 0.5. Glucose 127. Calcium 7.8. Magnesium 1.9. Sputum and blood cultures are negative. Chest x-ray shows bibasilar airspace disease and/or atelectasis. On 04/14/2024, the patient is being seen for a follow-up. This morning, the patient is quite drowsy and sleepy and encephalopathic. He is not communicating with me. I was told that his mentation was much better yesterday. I came to find out that the patient was given Ativan overnight. Will continue monitoring his mentation. He is currently on 2 L of oxygen by nasal cannula. Chest x-ray shows development of a right lower lobe consolidation with worsening right lower lobe pulmonary filtrate and small left-sided pleural effusion and right-sided pleural effusion. There is also some limited atelectatic changes in the left lung. Hemodynamically stable on no pressors. White cell count of 6.2 with a heme of 9.8 and a platelet count of 187. BUN is 33 with a creatinine of 0.5 and a sodium levels at 139 and potassium level is at 4.8. Remains on DuoNeb. Remains on Pulmicort and Perforomist updrafts twice a day. Remains on IV Solu- Medrol. He was on IV Rocephin and I am going to switch his antibiotics to IV Zosyn covering for aspiration and hospital-acquired pathogens. Remains on normal citrate of 75 cc an hour. Ativan will be discontinued and his mental status needs to be monitored very closely. On 04/15/2024, the patient is being seen for a follow-up. Noted, the patient has significant diminishment of level of consciousness from yesterday. He was maintained on 2 L of oxygen by nasal cannula and he was also noted to have worsening in the right lower lobe consolidation. Overnight, the patient became more dyspneic and the blood gas was obtained that showed a pH of 7.09 with a pCO2 of 79 and pO2 of 81. Based on that, the patient was intubated and placed on mechanical ventilation. This morning, the patient is still on propofol running at 35 mcg/kg/min. The patient is on mechanical ventilator assist- control mode rate of 24, tidal volume of 500, FiO2 50% with a PEEP of 5. Blood gas showed a pH of 7.36 with a pCO2 of 37 and pO2 420. FiO2 was accordingly dropped. Chest x-ray shows a dense consolidation in the right lower lobe and the patient is currently on IV Zosyn. He remains on normal saline at rate of 75 cc an hour. Urine output is in order of 20 to 30 cc an hour. Fluid balance is +2.3 L over the past 24 hours. The white cell count is at 14.8 with a hemoglobin 8.5 and a platelet count of 156. Sodium is 142, potassium is at 5.6, bicarb is at 20 with a BUN of 36 and a creatinine of 0.68. Calcium level is at 6.4. Afebrile. Hemodynamically stable on no pressors. On 04/16/2024, the patient is being seen for a follow-up. Remains intubated on mechanical ventilator. The patient is sedated with propofol which is running at 40 mcg/kg/min. The patient is on assist-control mode of mechanical ventilation at rate of 24, tidal volume of 500, FiO2 40% with a PEEP of 5. Blood gas showed a pH of 7.43 with a pCO2 of 27 and pO2 of 144. Chest x-ray shows a persistent right lower lobe consolidation and the patient remains on IV Zosyn. Fluid balance is +2.1 L over the past 24 hours. Blood pressure remains elevated and the patient is currently on a combination of losartan 100 mg p.o. daily, Norvasc 10 mg p.o. daily and metoprolol 50 mg p.o. 3 times daily. Receiving vital HP at rate of 30 cc an hour. Remains on bronchodilators. Will be started on diureti cs today. Will try to achieve a negative fluid balance on this patient. The WBC count is 11.5 with a hemoglobin 8.3 and a platelet count of 176. Sodium is at 140, potassium is at 3.8 and the patient's chloride is 112 with a BUN of 15 and a creatinine of 1.05. The sputum sample collected on 04/15/2024 remains negative. Lines have been established. Afebrile. Hemodynamically stable. Objective - Vital Signs Vital signs: Vital Signs Temp 98.7 F 04/16/24 08:00 Pulse 75 04/16/24 09:10 Resp 21 04/16/24 09:00 BP 137/92 04/16/24 09:00 Pulse Ox 100 04/16/24 09:00 FiO2 40 04/16/24 08:46 Intake & Output 04/15/24 04/16/24 04/16/24 18:59 06:59 18:59 Intake Total 0314.449 9785.994 354 Output Total 430 460 150 Balance 3545.343 8168.994 204 Weight 87.4 kg 86.6 kg Intake: IV 1296 958 234 Calcium Gluconate in NaCl 100 2 gm In Saline 1 100ml. bag @ 100 mls/hr IVPB ONCE ONE Rx#:[id number] Piperacillin-Tazobactam 3 200 100 .375 gm In Sodium Chloride 0.9% 100 ml @ 25 mls/hr IVPB Q8H [facility] Rx#: [id number] Sodium Chloride 0.9% 1, 975 825 225 000 ml @ 75 mls/hr IV . [id number] [facility] Rx#:[id number] a line 21 33 9 Intake, IV Titration 159.563 235.994 Amount propofoL 1,000 mg In 159.563 235.994 Empty Bag 1 bag @ 15 MCG/ KG/MIN 7.866 mls/hr IV . [id number] [facility] Rx#:[id number] Tube Feeding 40 230 90 Other 30 90 30 Output: Urine 430 460 150 Other: Voiding Method Indwelling Catheter Indwelling Catheter Indwelling Catheter ABP, PAP, CO, CI - Last Documented Arterial Blood Pressure 179/83 - Exam No acute distress, intubated, orogastric endotracheal tube was in place, sedated on propofol. HEENT examination is grossly unremarkable. Mucous membranes are moist. No oral lesions. Neck supple. Full range of motion. No adenopathy thyromegaly or neck vein distention. Cardiovascular examination reveals regular rhythm rate. S1-S2 normal. No S3 or S4. No discernible murmur noted. Lungs reveal scattered bilateral inspiratory and expiratory rhonchi. No wheezes or crackles. Diminished breath sound the right lung base Abdomen soft bowel sounds are heard. No masses or tenderness. Extremities are intact. No cyanosis clubbing or edema. Skin is without rash or lesion. Neurologic examination is limited. The patient is quite sedated at this point in time. Pupils are equal reactive to light. No facial asymmetry. Some withdrawal to deep painful stimulation. Otherwise, responsive. - Labs CBC & Chem 7: 04/16/24 04:35 04/16/24 09:46 Labs: Abnormal Lab Results - Last 24 Hours (Table) 04/15/24 04/16/24 04/16/24 Range/Units 10:24 04:23 04:35 WBC 11.0 H (3.8-10.6) k/uL RBC 2.52 L (4.30-5.90) m/uL Hgb 8.5 L (13.0-17.5) gm/dL Hct 27.2 L (39.0-53.0) % MCV 107.9 H (80.0-100.0) fL RDW 17.0 H (11.5-15.5) % Neutrophils # (Manual) 10.30 H (1.3-7.7) k/uL Lymphocytes # (Manual) 0.22 L (1.0-4.8) k/uL Metamyelocytes # (Man) 0.11 H (0) k/uL Myelocytes # (Manual) 0.11 H (0) k/uL Nucleated RBCs 35 H (0-0) /100 WBC Macrocytosis Marked A ABG pH 7.53 H (7.35-7.45) ABG pCO2 27 L (35-45) mmHg ABG pO2 144 H (83-108) mmHg ABG O2 Saturation 99.6 H (94-97) % Hemoglobin 8.2 L (13.0-17.5) gm/dL Chloride 112 H (98-107) mmol/L BUN 50 H (9-20) mg/dL Glucose 164 H (74-99) mg/dL Calcium 8.2 L (8.4-10.2) mg/dL 04/16/24 Range/Units 04:35 WBC 11.5 H (3.8-10.6) k/uL RBC 2.43 L (4.30-5.90) m/uL Hgb 8.3 L (13.0-17.5) gm/dL Hct 24.9 L (39.0-53.0) % MCV 102.6 H D (80.0-100.0) fL RDW 16.6 H (11.5-15.5) % Neutrophils # (Manual) 11.00 H (1.3-7.7) k/uL Lymphocytes # (Manual) 0.35 L (1.0-4.8) k/uL Metamyelocytes # (Man) 0.12 H (0) k/uL Myelocytes # (Manual) (0) k/uL Nucleated RBCs 44 H (0-0) /100 WBC Macrocytosis ABG pH (7.35-7.45) ABG pCO2 (35-45) mmHg ABG pO2 (83-108) mmHg ABG O2 Saturation (94-97) % Hemoglobin (13.0-17.5) gm/dL Chloride (98-107) mmol/L BUN (9-20) mg/dL Glucose (74-99) mg/dL Calcium (8.4-10.2) mg/dL Microbiology - Last 24 Hours (Table) 04/15/24 05:56 Gram Stain - Preliminary Sputum 04/10/24 00:48 Blood Culture - Final Blood Assessment and Plan Plan: Acute hypoxemic/hypercapnic respiratory failure with development of the right lower lobe pneumonia, consider aspiration pneumonia versus hospital-acquired and the patient is currently on IV Zosyn. The patient was intubated on 04/14/2024 and currently remains intubated on mechanical ventilator. Chest x-ray is showing a dense consolidation of the right lower lobe. Chest x-ray remains u nchanged the patient remains on mechanical ventilator. Adequate oxygenation and ventilation on today's blood gas. He does have a mild component of respiratory alkalosis and the necessary ventilator changes will be done. Right lower lobe pneumonia with worsening consolidation of the right lung base. Rule out aspiration versus hospital-acquired pneumonia. The patient remains on IV Zosyn Acute COPD exacerbation, secondary to above maintained on a combination of bronchodilators and steroids Altered mental status, secondary to acute metabolic encephalopathy and hypothermia. The patient was encephalopathic throughout the day yesterday without any improvement in the mental status. Alcohol abuse, reportedly drinks 1/5 liquor /day. 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 Hypothermia at the time of admission, recovered Episode of hypoglycemia at the time of admission, recovered Hyponatremia, recovered Transaminitis, possibly secondary to alcohol. Mild rhabdomyolysis at the time of admission secondary to above Normocytic, normochromic anemia. Thrombocytopenia, likely secondary to chronic alcohol intake, stable, improved History of hypertension. History of hyperlipidemia . History of Parkinson's. Hypocalcemia Plan: Keep the patient on propofol and the patient will be given a sedation holiday to evaluate his mental status Keep the patient intubated on mechanical ventilator and I dropped respiratory rate to 16 CAT scan of the brain was repeated and showed no acute abnormalities CAT scan of the chest showed bilateral pleural effusion and compressive atelectatic changes in the lung bases bilaterally The patient will be started on IV Lasix 40 mg every 12 hours Will check a procalcitonin level IV fluids to KVO Continue enteral feeding for nutritional support Monitor mental status and give the patient a sedation holiday Sputum culture has been negative Continue bronchodilators Continue steroids and the patient remains on IV Solu-Medrol Rest of the medication will be kept unchanged The patient was monitored closely in the intensive care unit. He is a full CODE STATUS. This evaluation was done and 35 minutes. This is a critical care evaluation. Time with Patient: Greater than 30
[2024-04-17 04:16] LABS: African American GFR (CKD) 89 (>60 ml/min/1.73 sqM); Anion Gap 2 mmol/L; Blood Urea Nitrogen 52 mg/dL (9-20); Calcium 7.9 mg/dL (8.4-10.2); Carbon Dioxide 32 mmol/L (22-30); Chloride 107 mmol/L (98-107); Glucose 145 mg/dL (74-99); Magnesium 1.6 mg/dL (1.6-2.3); Non-African American GFR(CKD) 77 (>60 ml/min/1.73 sqM); Potassium 3.6 mmol/L (3.5-5.1); Sodium 141 mmol/L (137-145)
[2024-04-17 04:37] LABS: Anisocytosis Slight; HCT 26.3 % (39.0-53.0); HGB 8.8 gm/dL (13.0-17.5); MCH 33.5 pg (25.0-35.0); MCHC 33.6 g/dL (31.0-37.0); MCV 99.6 fL (80.0-100.0); Macrocytosis Slight; Mean Platelet Volume 9.1; Platelet Count 185 k/uL (150-450); RBC 2.64 m/uL (4.30-5.90); RDW 16.7 % (11.5-15.5)
[2024-04-17 04:49] LABS: ABG Base Excess 7.4 mmol/L; ABG HCO3 30 mmol/L (21-25); ABG Oxygen Saturation 97.5 % (94-97); ABG PCO2 33 mmHg (35-45); ABG PO2 90 mmHg (83-108); ABG TCO2 31 mmol/L (19-24)
[2024-04-17 04:51] LABS: ABG PH 7.56 (7.35-7.45); Allen Test Performed? no
[2024-04-17] MEDS: POTASSIUM BICARBONATE/CIT AC 20 MEQ TABLET.EFF NG-TUBE SCH ×2 (04:58→21:28)
[2024-04-17] MEDS: MAGNESIUM SULFATE-D5W PMX 1 GM in DEXTROSE/WATER 1 100ML.BAG IVPB SCH (04:58)
--- NOTE | 2024-04-17 07:11 | XR ---
EXAMINATION TYPE: XR chest 1V portable DATE OF EXAM: 04/17/2024 5:39 AM COMPARISON: 04/16/2024 CLINICAL INDICATION: Male, 63 years old with history of Tube placement, difficulty breathing TECHNIQUE: XR chest 1V portable view(s) obtained. FINDINGS: The heart size is normal. The pulmonary vasculature is normal. Right lower lobe infiltrate has improved. Small left pleural effusion remains present. Retrocardiac i nfiltrate may be improving Endotracheal tube tip is 6.4 cm above jim. Nasogastric tube transverses the thorax with the tip in the proximal left upper quadrant. IMPRESSION: 1. Improving right lower lobe infiltrate. 2. Small residual left lower lobe infiltrate and small effusion. 3. Lines and catheters discussed above [facility], , 04/17/2024 7:09 AM
--- NOTE | 2024-04-17 08:09 | P.CONS ---
History of Present Illness - Reason for Consult Consult date: 04/16/24 Pneumonia Requesting physician: Renan De La Vega - Chief Complaint Found unresponsive at home on admission - History of Present Illness Patient is a 63-year-old male with a past medical history significant for COPD alcohol abuse hypertension hyperlipidemia who was transferred from [facility] on 04/08/2024 as the patient was found by the neighbor on the ground unresponsive in his home patient was noticed to be hypokalemic temperature of 87 F patient workup did not include x-rays and CT imaging shows evidence of multiple bilateral subacute and nondisplaced rib fracture no intracranial hemorrhage patient subsequently has been admitted to the ICU and has been treated with a BiPAP, on 04/15/2024 patient noted to have worsening of his mentation becoming less responsive and hypoxic short of breath ended up getting intubated noticed to have worsening right lower lobe consolidation patient has been started on Zosyn infectious was consulted today for further management of it by therapy most information has been obtained from review the chart talking nursing staff as the patient cannot provide any history patient temperature has normalized no high-grade fever has been noticed patient is currently on 40% FiO2 white count is 11.5 creatinine 1.05 (0.8 to repeat sputum cultures currently pending Review of Systems Positive points has been mentioned in HPI complete review could not be obtained because patient intubated on the vent Past Medical History Past Medical History: Unable to Obtain History of Any Multi-Drug Resistant Organisms: Unobtainable Past Surgical History: Unable to Obtain Past Anesthesia/Blood Transfusion Reactions: Unable to Obtain Past Psychological History: Unable to Obtain Smoking Status: Current every day smoker, Unknown if ever smoked Past Alcohol Use History: Abuse Medications and Allergies Home Medications Medication Instructions Recorded Confirmed Type Acetaminophen Tab [Tylenol Tab] 1,000 mg PO TID PRN 04/09/24 04/09/24 History Albuterol Nebulized [Ventolin 2.5 mg INHALATION RT-QID PRN 04/09/24 04/09/24 History Nebulized] Albuterol Sulfate [Albuterol 2 puff PO RT-QID PRN 04/09/24 04/09/24 History Sulfate Hfa] Baclofen [Lioresal] 10 mg PO Q8H PRN 04/09/24 04/09/24 History Fexofenadine HCl [Stephanie Allergy] 180 mg PO DAILY 04/09/24 04/09/24 History Fluticasone Propion/Salmeterol 1 puff INHALATION RT-BID 04/09/24 04/09/24 H istory [Wixela 250-50 Inhub] Gabapentin 600 mg PO BID 04/09/24 04/09/24 History Ibuprofen [Motrin] 800 mg PO Q8H PRN 04/09/24 04/09/24 History Loratadine [Claritin] 10 mg PO DAILY 04/09/24 04/09/24 History Losartan Potassium [Cozaar] 100 mg PO DAILY 04/09/24 04/09/24 History Mag-Ox 420mg 420 mg PO DAILY 04/09/24 04/09/24 History Metoprolol Tartrate [Lopressor] 50 mg PO BID 04/09/24 04/09/24 History Multivitamins, Thera [Multivitamin 1 tab PO DAILY 04/09/24 04/09/24 History (formulary)] Omeprazole [PriLOSEC] 20 mg PO DAILY 04/09/24 04/09/24 History Oxybutynin ER [Ditropan XL] 10 mg PO HS 04/09/24 04/09/24 History Psyllium Husk/Aspartame [Metamucil 1 tsp PO BID 04/09/24 04/09/24 History Sugar-Free Powder] Roflumilast 500 mcg PO DAILY 04/09/24 04/09/24 History Sodium Bicarbonate 325 mg PO TID 04/09/24 04/09/24 History Spironolactone [Aldactone] 25 mg PO DAILY 04/09/24 04/09/24 History Tamsulosin HCl [Flomax] 0.4 mg PO BID 04/09/24 04/09/24 History amLODIPine [Norvasc] 10 mg PO DAILY 04/09/24 04/09/24 History hydrALAZINE HCL [Apresoline] 50 mg PO TID 04/09/24 04/09/24 History oxyCODONE-APAP 7.5-325MG [Percocet 1 tab PO Q8H PRN 04/09/24 04/09/24 History 7.5-325 mg] Allergies Allergy/AdvReac Type Severity Reaction Status Date / Time No Known Allergies Allergy Unverified 04/09/24 07:20 Physical Exam Vitals: Vital Signs Temp Pulse Resp BP Pulse Ox FiO2 04/16/24 09:10 75 04/16/24 09:00 82 21 137/92 100 04/16/24 08:48 76 04/16/24 08:46 40 04/16/24 08:37 77 04/16/24 08:36 40 04/16/24 08:00 98.7 F 71 24 138/96 100 40 04/16/24 07:00 68 24 134/93 100 04/16/24 06:00 71 24 136/93 100 04/16/24 05:00 76 24 142/96 99 04/16/24 04:21 40 04/16/24 04:00 97.6 F 71 24 142/98 100 40 04/16/24 03:00 72 24 145/98 100 04/16/24 02:00 74 24 147/102 100 04/16/24 01:14 40 04/16/24 01:00 84 24 165/111 100 04/16/24 00:00 97.6 F 80 24 163/98 100 40 04/15/24 23:51 80 24 100 04/15/24 23:00 82 24 159/95 100 04/15/24 22:00 80 24 160/93 100 04/15/24 21:14 80 04/15/24 21:04 77 04/15/24 21:00 75 24 165/103 100 04/15/24 20:49 75 40 04/15/24 20:00 98.0 F 72 24 160/101 100 40 04/15/24 19:00 73 24 156/96 100 04/15/24 18:00 76 24 100 04/15/24 17:00 71 24 100 40 04/15/24 16:43 40 04/15/24 16:32 72 04/15/24 16:24 70 04/15/24 16:00 98 F 74 24 158/100 100 40 04/15/24 15:00 28 H 100 04/15/24 14:00 71 28 H 100 04/15/24 13:00 75 24 99 04/15/24 12:58 84 04/15/24 12:50 50 04/15/24 12:48 81 04/15/24 12:00 97.6 F 81 24 99 50 04/15/24 11:00 84 24 146/106 100 Intake and Output 0204/16/24 04/16/24 22:59 06:59 14:59 Intake Total 9604.160 5669.074 454 Output Total 260 340 150 Balance 742.223 780.074 304 Intake: IV 724 724 234 Piperacillin-Tazobactam 3 100 100 .375 gm In Sodium Chloride 0.9% 100 ml @ 25 mls/hr IVPB Q8H PANCHO Rx#: [id number] Sodium Chloride 0.9% 1, 600 600 225 000 ml @ 75 mls/hr IV . [id number] PANCHO Rx#:[id number] a line 24 24 9 Intake, IV Titration 118.223 166.074 100 Amount propofoL 1,000 mg In 118.223 166.074 100 Empty Bag 1 bag @ 15 MCG/ KG/MIN 7.866 mls/hr IV . [id number] PANCHO Rx#:[id number] Tube Feeding 100 170 90 Other 60 60 30 Output: Urine 260 340 150 Other: Voiding Method Indwelling Catheter Indwelling Catheter Indwelling Catheter Weight 86.6 kg ABP, PAP, CO, CI - Last 8 Hours Arterial Blood Pressure 179/83 Arterial Blood Pressure 175/81 GENERAL DESCRIPTION: Elderly male intubated on the [facility] HEENT: Shows Pallor , no scleral icterus. Oral mucous membrane is dry. NECK: Trachea central, no thyromegaly. LUNGS: Unlabored breathing. Decreased breath sounds at the base HEART: S1, S2, regular rate and rhythm. No loud murmur ABDOMEN: Soft, no tenderness , guarding or rigidity, no organomegaly EXTREMITIES: No edema of feet. SKIN: No rash, no masses palpable. NEUROLOGICAL: The patient is sedated on the vent Results CBC & Chem 7: 04/17/24 03:32 04/17/24 03:32 Labs: Abnormal Lab Results - Last 24 Hours (Table) 04/15/24 04/16/24 04/16/24 Range/Units 10:24 04:23 04:35 WBC 11.0 H (3.8-10.6) k/uL RBC 2.52 L (4.30-5.90) m/uL Hgb 8.5 L (13.0-17.5) gm/dL Hct 27.2 L (39.0-53.0) % MCV 107.9 H (80.0-100.0) fL RDW 17.0 H (11.5-15.5) % Neutrophils # (Manual) 10.30 H (1.3-7.7) k/uL Lymphocytes # (Manual) 0.22 L (1.0-4.8) k/uL Metamyelocytes # (Man) 0.11 H (0) k/uL Myelocytes # (Manual) 0.11 H (0) k/uL Nucleated RBCs 35 H (0-0) /100 WBC Macrocytosis Marked A ABG pH 7.53 H (7.35-7.45) ABG pCO2 27 L (35-45) mmHg ABG pO2 144 H (83-108) mmHg ABG O2 Saturation 99.6 H (94-97) % Hemoglobin 8.2 L (13.0-17.5) gm/dL Chloride 112 H (98-107) mmol/L BUN 50 H (9-20) mg/dL Glucose 164 H (74-99) mg/dL Calcium 8.2 L (8.4-10.2) mg/dL 04/16/24 Range/Units 04:35 WBC 11.5 H (3.8-10.6) k/uL RBC 2.43 L (4.30-5.90) m/uL Hgb 8.3 L (13.0-17.5) gm/dL Hct 24.9 L (39.0-53.0) % MCV 102.6 H D (80.0-100.0) fL RDW 16.6 H (11.5-15.5) % Neutrophils # (Manual) 11.00 H (1.3-7.7) k/uL Lymphocytes # (Manual) 0.35 L (1.0-4.8) k/uL Metamyelocytes # (Man) 0.12 H (0) k/uL Myelocytes # (Manual) (0) k/uL Nucleated RBCs 44 H (0-0) /100 WBC Macrocytosis ABG pH (7.35-7.45) ABG pCO2 (35-45) mmHg ABG pO2 (83-108) mmHg ABG O2 Saturation (94-97) % Hemoglobin (13.0-17.5) gm/dL Chloride (98-107) mmol/L BUN (9-20) mg/dL Glucose (74-99) mg/dL Calcium (8.4-10.2) mg/dL Microbiology - Last 24 Hours (Table) 04/15/24 05:56 Gram Stain - Preliminary Sputum 04/10/24 00:48 Blood Culture - Final Blood Assessment and Plan (1) Aspiration pneumonia Current Visit: Yes Status: Acute Code(s): J69.0 - PNEUMONITIS DUE TO INHALAT ION OF FOOD AND VOMIT SNOMED Code(s): 926367746 (2) Leukocytosis Current Visit: Yes Status: Acute Code(s): D72.829 - ELEVATED WHITE BLOOD CELL COUNT, UNSPECIFIED SNOMED Code(s): 613642252 Plan: 1patient with initial presentation to the hospital with episode of hypothermia and unresponsiveness subsequently worsening of his respiratory status requiring intubation and evidence of worsening right lower lobe infiltrate concerning for possible aspiration/gram-negative pneumonia. 2blood and sputum culture obtained results will be followed. 3patient appropriately started on Zosyn 3.37 every 8 hour to continue while watching his culture and clinical course closely Prognosis remains to be guarded We will follow on clinical condition and cultures to further adjust medication if needed Thank you for this consultation we will follow the patient along with you Dictation was produced using [employer] dictation software. please excuse any grammatical, word or spelling errors. Time with Patient: Greater than 30
[2024-04-17 09:17] LABS: Band Neutrophils % 1 %; Lymphocytes # (M) 0.41 k/uL (1.0-4.8); Neutrophils % (M) 96 %; Nucleated Red Blood Cells 6 /100 WBC (0-0); Total Cells Counted 200; WBC 20.4 k/uL (3.8-10.6)
[2024-04-17 09:18] LABS: Poikilocytosis (M) Present; Polychromasia Present
[2024-04-17 09:19] LABS: Target Cells Present
[2024-04-17] MEDS: acetaZOLAMIDE 250 MG TAB PO SCH (10:42)
[2024-04-17] MEDS: FUROSEMIDE 40 MG TAB PO SCH (10:43)
--- NOTE | 2024-04-17 10:44 | P.PN ---
Subjective Progress Note Date: 04/16/24 04/16/2024: Patient was seen for a follow-up. Patient currently on propofol 20 mcg/kg's per minute and also on Zosyn. Patient has failed weaning trial today. She does follow commands. She does have gag and coughs. Possible tomorrow extubation. Patient was apparently intubated after she was seen last time, sometimes after midnight between 04/14/2024 and 04/15/2024. 04/14/2024: Patient was initially seen by Dr. Arvind Mayo. Please refer to his notes for details. Patient is a 63-year-old male with toxic metabolic encephalopathy. EEG showed mild to moderate slowing but no seizure or discharges. Patient has vertebral artery aneurysm and recommend outpatient evaluation. Nurses reported that patient daughter's was questioning regarding starting of the Sinemet. She does not recall him having a diagnosis of Parkinson's. He has history of tremors. Some of the workup during this hospital visit consisted of: Sodium is 124, POC glucose is 412, plasma lactic acid is 3.6, AST is 363 and ALT is 101, CK level 722 Troponins 0.042 His repeated POC glucose was 66--resolved CT head: A 1.2cm rounded area of eggshell calcification midline posterior cranial fossa along the left vertebral artery. Unable to exclude an arterial aneurysm. Suspect 1.8cm dentgerous cyst involving the impacted left maxilary molar. Eroding the posterior wall of the maxilla. 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 Routine EEG: This is an abnormal routine EEG. The background slowing is suggestive of mild to moderate encephalopathy. Otherwise, there is no focal slowing, epileptiform discharge or seizure on the EEG. There is moderate to severe myogenic artifact during this study. Objective - Vital Signs Vital signs: Vital Signs Temp 97.4 F L 04/16/24 20:00 Pulse 83 04/16/24 20:00 Resp 23 04/16/24 20:00 BP 127/86 04/16/24 20:00 Pulse Ox 100 04/16/24 20:00 FiO2 40 04/16/24 20:00 Intake & Output 04/16/24 04/16/24 04/17/24 06:59 18:59 06:59 Intake Total 2618.237 7178.597 23 Output Total 460 2350 Balance 1053.994 -1041.403 23 Weight 86.6 kg 86.6 kg Intake: IV 958 611 23 Magnesium Sulfate-D5w Pmx 100 1 gm In Dextrose/Water 1 100ml.bag @ 100 mls/hr IVPB ONCE ONE Rx#: [id number] Piperacillin-Tazobactam 3 100 100 .375 gm In Sodium Chloride 0.9% 100 ml @ 25 mls/hr IVPB Q8H PANCHO Rx#: [id number] Sodium Chloride 0.9% 1, 825 375 20 000 ml @ 10 mls/hr IV . Q24H PANCHO Rx#:[id number] a line 33 36 3 Intake, IV Titration 235.994 157.597 Amount propofoL 1,000 mg In 235.994 157.597 Empty Bag 1 bag @ 15 MCG/ KG/MIN 7.866 mls/hr IV . [id number] PANCHO Rx#:[id number] Tube Feeding 230 450 Other 90 90 Output: Urine 460 2350 Other: Voiding Method Indwelling Catheter Indwelling Catheter ABP, PAP, CO, CI - Last Documented Arterial Blood Pressure 167/77 - Exam Patient is laying in the bed, intubated on mechanical ventilation. Patient is on propofol 20 mcg/g/min. Also Zosyn running. Pupils are equal, round and reacting to light. Visual andujar cannot be tested. Oculocephalics are slightly present. Patient's left foot appears somewhat everted. He has some bruises on his arms. Some peripheral edema. No obvious seizure-like activity noted. DTRs are hypoactive. No obvious tremors noted at rest. Tone is completely normal, in fact slightly decreased in the arms. - Labs CBC & Chem 7: 04/17/24 03:32 04/17/24 03:32 Labs: Abnormal Lab Results - Last 24 Hours (Table) 04/16/24 04/16/24 04/16/24 Range/Units 04:23 04:35 04:35 WBC 11.5 H (3.8-10.6) k/uL RBC 2.43 L (4.30-5.90) m/uL Hgb 8.3 L (13.0-17.5) gm/dL Hct 24.9 L (39.0-53.0) % MCV 102.6 H D (80.0-100.0) fL RDW 16.6 H (11.5-15.5) % Neutrophils # (Manual) 11.00 H (1.3-7.7) k/uL Lymphocytes # (Manual) 0.35 L (1.0-4.8) k/uL Metamyelocytes # (Man) 0.12 H (0) k/uL Nucleated RBCs 44 H (0-0) /100 WBC ABG pH 7.53 H (7.35-7.45) ABG pCO2 27 L (35-45) mmHg ABG pO2 144 H (83-108) mmHg ABG O2 Saturation 99.6 H (94-97) % Hemoglobin 8.2 L (13.0-17.5) gm/dL Chloride 112 H (98-107) mmol/L BUN 50 H (9-20) mg/dL Glucose 164 H (74-99) mg/dL Calcium 8.2 L (8.4-10.2) mg/dL Procalcitonin (0.02-0.50) ng/mL 04/16/24 Range/Units 09:46 WBC (3.8-10.6) k/uL RBC (4.30-5.90) m/uL Hgb (13.0-17.5) gm/dL Hct (39.0-53.0) % MCV (80.0-100.0) fL RDW (11.5-15.5) % Neutrophils # (Manual) (1.3-7.7) k/uL Lymphocytes # (Manual) (1.0-4.8) k/uL Metamyelocytes # (Man) (0) k/uL Nucleated RBCs (0-0) /100 WBC ABG pH (7.35-7.45) ABG pCO2 (35-45) mmHg ABG pO2 (83-108) mmHg ABG O2 Saturation (94-97) % Hemoglobin (13.0-17.5) gm/dL Chloride (98-107) mmol/L BUN (9-20) mg/dL Glucose (74-99) mg/dL Calcium (8.4-10.2) mg/dL Procalcitonin 0.82 H (0.02-0.50) ng/mL Microbiology - Last 24 Hours (Table) 04/15/24 05:56 Gram Stain - Preliminary Sputum Sputum Culture - Preliminary Assessment and Plan Assessment: This is a 63-year-old gentleman who was transferred from [facility] for escalation of care in which the patient was found down by his neighbor on the ground and he did not have heat and his initial temperature was 87. Seems that his sugar at the outside facility was in the 30s. He had CT brain cervical spine abdomen pelvis and it showed subacute rib fracture but no acute process. In our facility he had sugars in the 400 initially then down to the 60s. He has [id number]. He is also is a heavy drinker Altered mental status due to toxic metabolic encephalopathy: Hyponatremia, hypoglycemia, hypothermia, transaminitis and hypoxic/hypercapnic encephalopathy. Status post intubation 04/15/2024. Hyponatremia (124-->140) Hypoglycemia--resolved Incidental 9mm Left vertebral artery aneurysm Suspect 1.8cm dentgerous cyst involving the impacted left maxilary molar. Erod ing the posterior wall of the maxilla. Acute Hypoxic/Hypercapnic respiratory failure on BiPAP. Hypothermia and patient does not have heat at home that is reported Transaminitis AST more than ALT likely due to his alcohol use Per patient's daughter, there is no history of Parkinson's. History of polysubstance abuse Marijuana use Longstanding history of alcoholism. Plan: * Regarding the left vertebral artery aneurysm, this seems incidental and recommend patient to follow-up with Dr. Kohli (Interventional Neurologist) as outpatient within 3 weeks as outpatient. * I spoke to patient's daughter Celina on the phone. She states that patient martinez s never been diagnosed with Parkinson's disease. Celina and her dad have not been very close. She states that patient has history of lifelong alcoholism for almost 50 years since he was a teenager. 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 He also did prescription drug abuse with opiates, and also did some cocaine. 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 She states that patient does have history of tremors, which she believes is related to anxiety or possibly related to alcoholism. No history of Parkinson's. We will stop Sinemet. * No need for further brain imaging since altered mental status due to toxic- metabolic derangement and mentation is improving. If no improvement in a day or 2, will repeat CT head. * Patient is on thiamine 100mg daily. * Nephrology is consulted * Consider dental or an ENT consultation per Dr. Mayo. * Discussed with patient's nurse and patient's daughter in detail. * Defer the rest of the medical management to primary other specialist
--- NOTE | 2024-04-17 11:41 | P.PN ---
Subjective Progress Note Date: 04/17/24 63-year-old gentleman who is a transfer from [facility] after being found laying on ground outside his house. Most of the history has been obtained from the EMR according to which patient has been drinking 1/5 of alcohol per day. Patient was found by his neighbor to be laying on the ground, patient was initially hypothermic and was placed on warming blankets and was transferred to [facility] where he had CT of his brain, cervical spine and CT abdominal pelvis done which were unremarkable. Patient was later transferred to [facility] for further evaluation and treatment Initial lab work done in the ER showed WBC 6.3, hemoglobin 8.1, platelet count 100, sodium 124, potassium 5, BUN 18, creatinine 0.67, glucose 412, lactate 3.6, bilirubin 2.1, AST 363, ALT 101 Patient admitted to internal medicine service 04/12/2024 Patient is seen and evaluated in room at bedside; discussed with nursing staff; mental status is a bit improved. He continues on 2 L nasal cannula. He is not using the BiPAP device. Blood work reveals hemoglobin this morning was 6.9. He will receive 1 unit packed red blood cells. White count 4.6, hemoglobin 6.9, macro 21.4, platelet count 133,000. Sodium 135, potassium 4.1, chlorides 101, CO2 25, BUN 14, creatinine 0.39. Glucose 166. Calcium 7.4. Blood cultures are negative. Chest x-ray is largely unchanged, and show bibasilar airspace opacities versus atelectasis; patient received 1 dose of Lasix per critical care recommendations. The patient's overall prognosis remains guarded. 04/13/2024 Patient is seen and evaluated with nursing staff at bedside; patient is more alert and responsive; able to follow commands; wants to go home Vital signs are reviewed; blood pressure has been somewhat elevated; critical care recommended to titrate Cleviprex and IV Lopressor White count 6.8, hemoglobin 8.5, hematocrit 26.2, platelet count 169,000. Sodium 137, potassium 4.1, chlorides 102, CO2 23, anion gap 12, BUN 21, creatinine 0.5. Glucose 127. Calcium 7.8. Magnesium 1.9. Sputum and blood cultures are negative. Chest x-ray shows bibasilar airspace disease and/or atelectasis. 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 Patient was intubated about 1 to 2 hours ago. Repeat ABG showing pH is normal at 7.36 and lower and pCO2 down to reference range at 37 CT of the brain showing no acute process and EEG showing no epileptiform discharge. Neurologist on the case and patient was diagnosed with toxic metabolic encephalopathy. Other than that he is afebrile. Hemoglobin 9.3, WBC 10.6. Creatinine 0.5. Chest x-ray:Bilateral pleural effusion. His antibiotics were changed to Zosyn. He is also on IV Solu-Medrol 60 mg He is getting normal saline at 75 mL/h. Also patient started on Levophed 04/16. Patient seen and examined. WBC 9.5, hemoglobin 8.3, platelet count 176, sodium 140, potassium 3.8 BUN 50, creatinine 1.05. Currently on mechanical vent ilation. 04/17. Patient seen and examined. Patient is opening eyes, following commands. Still intubated. Patient is going through a weaning trial. Blood work done showed WBC 20.4, hemoglobin 8.8, platelet count 185, sodium 141, potassium 3.6, BUN 52, creatinine 1.02. Pro-Ramesh was 0.82 REVIEW OF SYSTEMS: Review of system cannot be obtained as patient is currently intubated PHYSICAL EXAMINATION: GENERAL: The patient is intubated HEENT: Pupils are round and equally reacting to light. EOMI. No scleral icterus. No conjunctival pallor. Normocephalic, atraumatic. No pharyngeal erythema. No t hyromegaly. CARDIOVASCULAR: S1 and S2 present. No murmurs, rubs, or gallops. PULMONARY: Diminished breath sound bilaterally, no wheezing or crackles. ABDOMEN: Soft, nontender, nondistended, normoactive bowel sounds. No palpable organomegaly. MUSCULOSKELETAL: No joint swelling or deformity. EXTREMITIES: No cyanosis, clubbing, or pedal edema. NEUROLOGICAL: Intubated and sedated SKIN: No rashes. Assessment and plan Severe sepsis Left lower lobe pneumonia Acute COPD exacerbation Acute hypoxic hypercapnic respiratory failure Alcohol use disorder and withdrawal Metabolic/toxic encephalopathy Microcytic anemia Alcoholic transaminitis Alcoholic induced thrombocytopenia Possible left vertebral artery round calcified eggshell lesion of 1.2 cm in the posterior cranial fossa, aneurysm cannot be ruled out. Patient will need to follow-up as an outpatient with interventional neurologist Acute left sphenoid sinusitis Left upper maxillary cyst 1.8 cm eroding into the posterior wall of the left maxilla Hypertension Hyperlipidemia Possible Parkinson disease Monitor vital signs Monitor CBC Monitor CMP Continue ox supplementation Continue vent management Continue aggressive bronchopulmonary hygiene Continue IV Solu-Medrol Continue CIWA protocol Continue IV Zosyn Pulmonology following ID following Labs and medication were reviewed.. Continue same treatment. Continue with symptomatic treatment. Resume home medication. Monitor labs and vitals. DVT and GI prophylaxis. Further recommendations as per clinical course of the patient Dictation was produced using [email or web address] dictation software. please excuse any grammatical, word or spelling errors. Objective - Vital Signs Vital signs: Vital Signs Temp 97.7 F 04/17/24 08:00 Pulse 90 04/17/24 10:00 Resp 32 H 04/17/24 10:00 BP 129/86 04/17/24 10:00 Pulse Ox 99 04/17/24 10:00 FiO2 40 04/17/24 08:14 Intake & Output 04/16/24 04/17/24 04/17/24 18:59 06:59 18:59 Intake Total 1308.597 414.893 92 Output Total 2350 2300 485 Balance -1041.403 -1885.107 -393 Weight 86.6 kg 85.3 kg Intake: IV 611 299 92 Magnesium Sulfate-D5w Pmx 100 1 gm In Dextrose/Water 1 100ml.bag @ 100 mls/hr IVPB ONCE ONE Rx#: [id number] Piperacillin-Tazobactam 3 100 .375 gm In Sodium Chloride 0.9% 100 ml @ 25 mls/hr IVPB Q8H [facility] Rx#: [id number] Sodium Chloride 0.9% 1, 375 260 80 000 ml @ 10 mls/hr IV . Q24H [facility] Rx#:[id number] a line 36 39 12 Intake, IV Titration 157.597 115.893 Amount propofoL 1,000 mg In 157.597 115.893 Empty Bag 1 bag @ 15 MCG/ KG/MIN 7.866 mls/hr IV . [id number] [facility] Rx#:[id number] Tube Feeding 450 Other 90 Output: Urine 2350 2300 485 Other: Voiding Method Indwelling Catheter Indwelling Catheter Indwelling Catheter ABP, PAP, CO, CI - Last Documented Arterial Blood Pressure 132/69 - Labs CBC & Chem 7: 04/17/24 03:32 04/17/24 03:32 Labs: Abnormal Lab Results - Last 24 Hours (Table) 04/16/24 04/17/24 04/17/24 Range/Units 09:46 03:32 03:32 WBC 20.4 H (3.8-10.6) k/uL RBC 2.64 L (4.30-5.90) m/uL Hgb 8.8 L (13.0-17.5) gm/dL Hct 26.3 L (39.0-53.0) % RDW 16.7 H (11.5-15.5) % Neutrophils # (Manual) 19.70 H (1.3-7.7) k/uL Lymphocytes # (Manual) 0.41 L (1.0-4.8) k/uL Nucleated RBCs 6 H (0-0) /100 WBC ABG pH (7.35-7.45) ABG pCO2 (35-45) mmHg ABG HCO3 (21-25) mmol/L ABG Total CO2 (19-24) mmol/L ABG O2 Saturation (94-97) % Hemoglobin (13.0-17.5) gm/dL Carbon Dioxide 32 H (22-30) mmol/L BUN 52 H (9-20) mg/dL Glucose 145 H (74-99) mg/dL Calcium 7.9 L (8.4-10.2) mg/dL Procalcitonin 0.82 H (0.02-0.50) ng/mL 04/17/24 Range/Units 04:42 WBC (3.8-10.6) k/uL RBC (4.30-5.90) m/uL Hgb (13.0-17.5) gm/dL Hct (39.0-53.0) % RDW (11.5-15.5) % Neutrophils # (Manual) (1.3-7.7) k/uL Lymphocytes # (Manual) (1.0-4.8) k/uL Nucleated RBCs (0-0) /100 WBC ABG pH 7.56 H* (7.35-7.45) ABG pCO2 33 L (35-45) mmHg ABG HCO3 30 H (21-25) mmol/L ABG Total CO2 31 H (19-24) mmol/L ABG O2 Saturation 97.5 H (94-97) % Hemoglobin 8.8 L (13.0-17.5) gm/dL Carbon Dioxide (22-30) mmol/L BUN (9-20) mg/dL Glucose (74-99) mg/dL Calcium (8.4-10.2) mg/dL Procalcitonin (0.02-0.50) ng/mL Microbiology - Last 24 Hours (Table) 04/15/24 05:56 Gram Stain - Final Sputum Sputum Culture - Final
[2024-04-17] MEDS: DEXMEDETOMIDINE/0.9% NACL(PMX) 400 MCG in EMPTY BAG 1 BAG IV SCH (11:45)
[2024-04-17 13:06] LABS: ABG Base Excess 5.9 mmol/L; ABG HCO3 30 mmol/L (21-25); ABG PCO2 38 mmHg (35-45); ABG PO2 106 mmHg (83-108); ABG TCO2 31 mmol/L (19-24)
[2024-04-17 13:08] LABS: Allen Test Performed? no
[2024-04-17 13:41] LABS: Anisocytosis Slight; HCT 25.9 % (39.0-53.0); HGB 8.5 gm/dL (13.0-17.5); MCH 33.8 pg (25.0-35.0); MCV 102.5 fL (80.0-100.0); Macrocytosis Slight; Platelet Count 181 k/uL (150-450); RBC 2.53 m/uL (4.30-5.90); RDW 16.2 % (11.5-15.5); WBC 19.5 k/uL (3.8-10.6)
[2024-04-17 14:05] LABS: ALT 161 U/L (4-49); AST 646 U/L (17-59); African American GFR (CKD) 83 (>60 ml/min/1.73 sqM); Albumin 2.2 g/dL (3.5-5.0); Alkaline Phosphatase 194 U/L (38-126); Anion Gap 4 mmol/L; Blood Urea Nitrogen 47 mg/dL (9-20); Calcium 7.9 mg/dL (8.4-10.2); Carbon Dioxide 32 mmol/L (22-30); Chloride 106 mmol/L (98-107); Glucose 104 mg/dL (74-99); Non-African American GFR(CKD) 72 (>60 ml/min/1.73 sqM); Potassium 3.6 mmol/L (3.5-5.1); Sodium 142 mmol/L (137-145); Total Bilirubin 2.9 mg/dL (0.2-1.3); Total Protein 4.7 g/dL (6.3-8.2)
--- NOTE | 2024-04-17 14:58 | P.PN ---
Subjective Progress Note Date: 04/17/24 Principal diagnosis: Reason for follow-up is pneumonia Patient is a 63-year-old male with a past medical history significant for COPD alcohol abuse hypertension hyperlipidemia with initially presented to the hospital the patient was found to be unresponsive and hypothermic sepsis he did have worsening of his respiratory status requiring intubation and there was concern for right lower lobe pneumonia. On today's evaluation that is 04/17/2024,the patient remains to be afebrile, patient is on 40% FiO2, requiring low-dose pressor support no significant purulent secretion through the ET diarrhea and the changes reported. Patient white count slightly down to 19.5, creatinine 1.0 8 repeat cultures currently pending Objective - Vital Signs Vital signs: Vital Signs Temp 97.7 F 04/17/24 08:00 Pulse 74 04/17/24 12:29 Resp 32 H 04/17/24 10:00 BP 129/86 04/17/24 10:00 Pulse Ox 99 04/17/24 10:00 FiO2 40 04/17/24 12:07 Intake & Output 04/16/24 04/17/24 04/17/24 18:59 06:59 18:59 Intake Total 1308.597 414.893 92 Output Total 2350 2300 485 Balance -1041.403 -1885.107 -393 Weight 86.6 kg 85.3 kg Intake: IV 611 299 92 Magnesium Sulfate-D5w Pmx 100 1 gm In Dextrose/Water 1 100ml.bag @ 100 mls/hr IVPB ONCE ONE Rx#: [id number] Piperacillin-Tazobactam 3 100 .375 gm In Sodium Chloride 0.9% 100 ml @ 25 mls/hr IVPB Q8H [facility] Rx#: [id number] Sodium Chloride 0.9% 1, 375 260 80 000 ml @ 10 mls/hr IV . Q24H [facility] Rx#:[id number] a line 36 39 12 Intake, IV Titration 157.597 115.893 Amount propofoL 1,000 mg In 157.597 115.893 Empty Bag 1 bag @ 15 MCG/ KG/MIN 7.866 mls/hr IV . [id number] [facility] Rx#:[id number] Tube Feeding 450 Other 90 Output: Urine 2350 2300 485 Other: Voiding Method Indwelling Catheter Indwelling Catheter Indwelling Catheter ABP, PAP, CO, CI - Last Documented Arterial Blood Pressure 132/69 - Exam GENERAL DESCRIPTION: An elderly male intubated on the vent RESPIRATORY SYSTEM: Unlabored breathing , decreased breath sounds at bases HEART: S1 S2 regular rate and rhythm , ABDOMEN: Soft , no tenderness EXTREMITIES: No edema feet - Labs CBC & Chem 7: 04/17/24 13:36 04/17/24 13:36 Labs: Abnormal Lab Results - Last 24 Hours (Table) 04/16/24 04/17/24 04/17/24 Range/Units 09:46 03:32 03:32 WBC 20.4 H (3.8-10.6) k/uL RBC 2.64 L (4.30-5.90) m/uL Hgb 8.8 L (13.0-17.5) gm/dL Hct 26.3 L (39.0-53.0) % RDW 16.7 H (11.5-15.5) % Neutrophils # (Manual) 19.70 H (1.3-7.7) k/uL Lymphocytes # (Manual) 0.41 L (1.0-4.8) k/uL Nucleated RBCs 6 H (0-0) /100 WBC ABG pH (7.35-7.45) ABG pCO2 (35-45) mmHg ABG HCO3 (21-25) mmol/L ABG Total CO2 (19-24) mmol/L ABG O2 Saturation (94-97) % Hemoglobin (13.0-17.5) gm/dL Carbon Dioxide 32 H (22-30) mmol/L BUN 52 H (9-20) mg/dL Glucose 145 H (74-99) mg/dL Calcium 7.9 L (8.4-10.2) mg/dL Procalcitonin 0.82 H (0.02-0.50) ng/mL 04/17/24 04/17/24 Range/Units 04:42 13:04 WBC (3.8-10.6) k/uL RBC (4.30-5.90) m/uL Hgb (13.0-17.5) gm/dL Hct (39.0-53.0) % RDW (11.5-15.5) % Neutrophils # (Manual) (1.3-7.7) k/uL Lymphocytes # (Manual) (1.0-4.8) k/uL Nucleated RBCs (0-0) /100 WBC ABG pH 7.56 H* 7.50 H (7.35-7.45) ABG pCO2 33 L (35-45) mmHg ABG HCO3 30 H 30 H (21-25) mmol/L ABG Total CO2 31 H 31 H (19-24) mmol/L ABG O2 Saturation 97.5 H 98.0 H (94-97) % Hemoglobin 8.8 L 8.7 L (13.0-17.5) gm/dL Carbon Dioxide (22-30) mmol/L BUN (9-20) mg/dL Glucose (74-99) mg/dL Calcium (8.4-10.2) mg/dL Procalcitonin (0.02-0.50) ng/mL Microbiology - Last 24 Hours (Table) 04/15/24 05:56 Gram Stain - Final Sputum Sputum Culture - Final Assessment and Plan (1) Aspiration pneumonia Current Visit: Yes Status: Acute Code(s): J69.0 - PNEUMONITIS DUE TO INHALATION OF FOOD AND VOMIT SNOMED Code(s): 391011583 (2) Leukocytosis Current Visit: Yes Status: Acute Code(s): D72.829 - ELEVATED WHITE BLOOD CELL COUNT, UNSPECIFIED SNOMED Code(s): 368887431 Plan: 1patient with initial presentation to the hospital with episode of hypothermia and unresponsiveness subsequently worsening of his respiratory status requiring intubation and evidence of worsening right lower lobe infiltrate concerning for possible aspiration/gram-negative pneumonia. 2blood and sputum culture obtained which are currently pending 3patient is afebrile white count slightly down today, to continue Zosyn 3.37 every 8 hour to continue while watching his culture and clinical course closely Dictation was produced using [employer] dictation software. please excuse any grammatical, word or spelling errors. Time with Patient: Less than 30
--- NOTE | 2024-04-17 16:28 | P.PN ---
Subjective Progress Note Date: 04/17/24 Patient is a 63-year-old male with past medical history significant for COPD, alcohol abuse, hypertension, hyperlipidemia, among other things. Transferred from [facility] on 04/08/2024. Apparently, was found by his neighbor on the ground and unresponsive in his residence. The heat in the house was not working, and patient was hypothermic with a temperature of 87 F. Unclear just how long the patient was on the floor. Did undergo rewarming at the outside facility. His blood glucose was also found to be low at 27 mg/dL. Did have a CT of the brain and C-spine which did not show any abnormalities or C-spine fracture/subluxation. Also, had a CT of the chest, images not available, ho estela, reportedly demonstrating multiple bilateral subacute and nondisplaced rib fractures. According to the ER records, patient is an alcoholic and drinks approximately 1/5 of liquor per day. Currently on CIWA protocol. Workup at our facility, including a brain CT which did not show any acute intracranial hemorrhage, acute ischemic changes, or mass effect. Demonstrated a 1.2 cm rounded area of eggshell calcification midline posterior cranial fossa along the left vertebral artery. Concern was for possible aneurysm. Suspect a 1.8 cm cyst involving an impacted left maxillary molar. Regarding posterior wall of the maxilla. Air-fluid level of the left soft sphenoid sinus, possibly repres enting acute sinusitis. Chest x-ray showing low lung volumes with small bilateral pleural effusions and left-sided basilar atelectasis or infiltrate.CBC done arrival: WBC count 6.3, hemoglobin 8.1, hematocrit 23.3, platelets 100. Most recent CMP from yesterday showing a sodium 125, potassium 3.4, chloride 87, serum bicarb 28, BUN 15, creatinine 0.48, glucose 117. Lactic was 3.6 down to 1.5. Magnesium 1.5. LFTs mildly elevated, possibly secondary to chronic alcohol intake. CPK 722. Troponin was elevated at 0.042 and is trending down, most recently 0.027. Procalcitonin level is 1.11. Not currently on any antibiotics Patient currently being evaluated emergency department. He is on BiPAP with settings 12/6 and FiO2 100%. He is quite tachypneic, breathing in the high 40s. Vital lungs range around 400 to 500 mL. ABGs done on these settings showing a PaO2 of 70, pCO2 42, pH of 7.44. He remains quite obtunded, withdraws to painful stimuli in all 4 extremities. Now normothermic with a temperature of 98.3 F. Blood glucose 155. Ammonia 22. D5W with normal saline infusing at 75 mL/h. Plan is for patient be transferred to the intensive care unit once bed available. Progress note dated April 11, 2024. 63-year-old male seen today in the intensive care unit, room 259. The patient is on dextrose, with saline, 75 cc an hour, saline IV at 10 cc an hour, and getting nasal cannula at 3 L. He also has a BiPAP in the room, with settings of 12/6, and 60%. He appears to be resting relatively comfortably, although he is a bit lethargic and somnolent. Current labs include a white count 3.9, hemoglobin 7.4, hematocrit 22.3, and a platelet count of hearing 26,000. Sodium 131, potassium 4, chlorides 95, CO2 33, BUN 15, creatinine 0.39. Glucose is 157. Chest x-ray reveals mild bibasilar infiltrates or atelectasis. 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 Progress note dated April 12, 2024. The patient is seen here in room 259. His mental status is a bit improved. He continues on 2 L nasal cannula. He is not using the BiPAP device. He is getting saline at 75 cc an hour. His hemoglobin this morning was 6.9. He will receive 1 unit packed red blood cells. In addition, the patient will get 1 dose of Lasix, 20 mg IV push. White count 4.6, hemoglobin 6.9, macro 21.4, platelet count 133,000. Sodium 135, potassium 4.1, chlorides 101, CO2 25, BUN 14, creatinine 0.39. Glucose 166. Calcium 7.4. Blood cultures are negative. Chest x-ray is largely unchanged, and show bibasilar airspace opacities versus atelectasis. Progress note dated April 13, 2024. 63-year-old male seen today in room 259. The patient is on saline at 75 cc an hour, nasal O2 at 2 L. He did receive 1 unit of packed red blood cells. The patient's blood pressure has been a bit elevated, so he may need something IV for that, I have written orders for both Cleviprex to be titrated, and IV beta- oh, i.e. the Lopressor. The patient's mental status is poor. It continues to be about the same. White count 6.8, hemoglobin 8.5, hematocrit 26.2, platelet count 169,000. Sodium 137, potassium 4.1, chlorides 102, CO2 23, anion gap 12, BUN 21, creatinine 0.5. Glucose 127. Calcium 7.8. Magnesium 1.9. Sputum and blood cultures are negative. Chest x-ray shows bibasilar airspace disease and/or atelectasis. On 04/14/2024, the patient is being seen for a follow-up. This morning, the patient is quite drowsy and sleepy and encephalopathic. He is not communicating with me. I was told that his mentation was much better yesterday. I came to find out that the patient was given Ativan overnight. Will continue monitoring his mentation. He is currently on 2 L of oxygen by nasal cannula. Chest x-ray shows development of a right lower lobe consolidation with worsening right lower lobe pulmonary filtrate and small left-sided pleural effusion and right-sided pleural effusion. There is also some limited atelectatic changes in the left lung. Hemodynamically stable on no pressors. White cell count of 6.2 with a heme of 9.8 and a platelet count of 187. BUN is 33 with a creatinine of 0.5 and a sodium levels at 139 and potassium level is at 4.8. Remains on DuoNeb. Remains on Pulmicort and Perforomist updrafts twice a day. Remains on IV Solu- Medrol. He was on IV Rocephin and I am going to switch his antibiotics to IV Zosyn covering for aspiration and hospital-acquired pathogens. Remains on normal citrate of 75 cc an hour. Ativan will be discontinued and his mental status needs to be monitored very closely. On 04/15/2024, the patient is being seen for a follow-up. Noted, the patient has significant diminishment of level of consciousness from yesterday. He was maintained on 2 L of oxygen by nasal cannula and he was also noted to have worsening in the right lower lobe consolidation. Overnight, the patient became more dyspneic and the blood gas was obtained that showed a pH of 7.09 with a pCO2 of 79 and pO2 of 81. Based on that, the patient was intubated and placed on mechanical ventilation. This morning, the patient is still on propofol running at 35 mcg/kg/min. The patient is on mechanical ventilator assist- control mode rate of 24, tidal volume of 500, FiO2 50% with a PEEP of 5. Blood gas showed a pH of 7.36 with a pCO2 of 37 and pO2 420. FiO2 was accordingly dropped. Chest x-ray shows a dense consolidation in the right lower lobe and the patient is currently on IV Zosyn. He remains on normal saline at rate of 75 cc an hour. Urine output is in order of 20 to 30 cc an hour. Fluid balance is +2.3 L over the past 24 hours. The white cell count is at 14.8 with a hemoglobin 8.5 and a platelet count of 156. Sodium is 142, potassium is at 5.6, bicarb is at 20 with a BUN of 36 and a creatinine of 0.68. Calcium level is at 6.4. Afebrile. Hemodynamically stable on no pressors. On 04/16/2024, the patient is being seen for a follow-up. Remains intubated on mechanical ventilator. The patient is sedated with propofol which is running at 40 mcg/kg/min. The patient is on assist-control mode of mechanical ventilation at rate of 24, tidal volume of 500, FiO2 40% with a PEEP of 5. Blood gas showed a pH of 7.43 with a pCO2 of 27 and pO2 of 144. Chest x-ray shows a persistent right lower lobe consolidation and the patient remains on IV Zosyn. Fluid balance is +2.1 L over the past 24 hours. Blood pressure remains elevated and the patient is currently on a combination of losartan 100 mg p.o. daily, Norvasc 10 mg p.o. daily and metoprolol 50 mg p.o. 3 times daily. Receiving vital HP at rate of 30 cc an hour. Remains on bronchodilators. Will be started on diureti cs today. Will try to achieve a negative fluid balance on this patient. The WBC count is 11.5 with a hemoglobin 8.3 and a platelet count of 176. Sodium is at 140, potassium is at 3.8 and the patient's chloride is 112 with a BUN of 15 and a creatinine of 1.05. The sputum sample collected on 04/15/2024 remains negative. Lines have been established. Afebrile. Hemodynamically stable. On 04/17/2024, the patient is being seen for a follow-up. This morning, the patient remains intubated on mechanical ventilator. He remains on propofol at 20 mcg/kg/min. Noted the patient was given a sedation holiday. He was arousable yesterday. Nevertheless, he became asynchronous with a mechanical ventilator and was quite restless and agitated. Based on that, the holiday was discontinued. The same is to be done today. The patient remains on IV Zosyn. Repeat chest x-ray done today shows improvement in right lower lobe consolidation. The patient is on assist-control mode of mechanical ventilation with a rate of 16, tidal volume of 500, FiO2 of 40% with a PEEP of 5. Blood gas showed a pH of 7.56 with a pCO2 of 33 and pO2 of 90. The patient is on normal saline at rate of 20 cc an hour. Urine output order of 100 cc an hour. Fluid balance is -2.9 L over the past 24 hours and the patient remains on vital high- protein at the rate of 50 cc an hour. He remains on IV Zosyn. Sputum culture h as been negative. The white cell count of 19 with a hemoglobin of 8.5 and a platelet count of 181. Sodium is at 142, potassium is 3.6, BUN is 47 with a creatinine of 1.08. Serum bicarb is at 32. LFTs are abnormal with an AST of 646, ALT of 161 and alkaline phosphatase of 194. Procalcitonin level is at 0.82. Objective - Vital Signs Vital signs: Vital Signs Temp 98.2 F 04/17/24 04:00 Pulse 82 04/17/24 08:36 Resp 19 04/17/24 07:00 BP 118/82 04/17/24 07:00 Pulse Ox 99 04/17/24 07:00 FiO2 40 04/17/24 08:14 Intake & Output 04/16/24 04/17/24 04/17/24 18:59 06:59 18:59 Intake Total 1308.597 414.893 23 Output Total 2350 2300 135 Balance -1041.403 -1885.107 -112 Weight 86.6 kg 85.3 kg Intake: IV 611 299 23 Magnesium Sulfate-D5w Pmx 100 1 gm In Dextrose/Water 1 100ml.bag @ 100 mls/hr IVPB ONCE ONE Rx#: [id number] Piperacillin-Tazobactam 3 100 .375 gm In Sodium Chloride 0.9% 100 ml @ 25 mls/hr IVPB Q8H PANCHO Rx#: [id number] Sodium Chloride 0.9% 1, 375 260 20 000 ml @ 10 mls/hr IV . Q24H PANCHO Rx#:[id number] a line 36 39 3 Intake, IV Titration 157.597 115.893 Amount propofoL 1,000 mg In 157.597 115.893 Empty Bag 1 bag @ 15 MCG/ KG/MIN 7.866 mls/hr IV . [id number] PANCHO Rx#:[id number] Tube Feeding 450 Other 90 Output: Urine 2350 2300 135 Other: Voiding Method Indwelling Catheter Indwelling Catheter ABP, PAP, CO, CI - Last Documented Arterial Blood Pressure 145/69 - Exam No acute distress, intubated, orogastric endotracheal tube was in place, sedated on propofol. HEENT examination is grossly unremarkable. Mucous membranes are moist. No oral lesions. Neck supple. Full range of motion. No adenopathy thyromegaly or neck vein distention. Cardiovascular examination reveals regular rhythm rate. S1-S2 normal. No S3 or S4. No discernible murmur noted. Lungs reveal scattered bilateral inspiratory and expiratory rhonchi. No wheezes or crackles. Diminished breath sound the right lung base Abdomen soft bowel sounds are heard. No masses or tenderness. Extremities are intact. No cyanosis clubbing or edema. Skin is without rash or lesion. Neurologic examination is limited. The patient is quite sedated at this point in time. Pupils are equal reactive to light. No facial asymmetry. Some withdrawal to deep painful stimulation. Otherwise, responsive. - Labs CBC & Chem 7: 04/17/24 13:36 04/17/24 13:36 Labs: Abnormal Lab Results - Last 24 Hours (Table) 04/16/24 04/17/24 04/17/24 Range/Units 09:46 03:32 03:32 WBC 21.6 H (3.8-10.6) k/uL RBC 2.64 L (4.30-5.90) m/uL Hgb 8.8 L (13.0-17.5) gm/dL Hct 26.3 L (39.0-53.0) % RDW 16.7 H (11.5-15.5) % ABG pH (7.35-7.45) ABG pCO2 (35-45) mmHg ABG HCO3 (21-25) mmol/L ABG Total CO2 (19-24) mmol/L ABG O2 Saturation (94-97) % Hemoglobin (13.0-17.5) gm/dL Carbon Dioxide 32 H (22-30) mmol/L BUN 52 H (9-20) mg/dL Glucose 145 H (74-99) mg/dL Calcium 7.9 L (8.4-10.2) mg/dL Procalcitonin 0.82 H (0.02-0.50) ng/mL 04/17/24 Range/Units 04:42 WBC (3.8-10.6) k/uL RBC (4.30-5.90) m/uL Hgb (13.0-17.5) gm/dL Hct (39.0-53.0) % RDW (11.5-15.5) % ABG pH 7.56 H* (7.35-7.45) ABG pCO2 33 L (35-45) mmHg ABG HCO3 30 H (21-25) mmol/L ABG Total CO2 31 H (19-24) mmol/L ABG O2 Saturation 97.5 H (94-97) % Hemoglobin 8.8 L (13.0-17.5) gm/dL Carbon Dioxide (22-30) mmol/L BUN (9-20) mg/dL Glucose (74-99) mg/dL Calcium (8.4-10.2) mg/dL Procalcitonin (0.02-0.50) ng/mL Microbiology - Last 24 Hours (Table) 04/15/24 05:56 Gram Stain - Final Sputum Sputum Culture - Final Assessment and Plan Plan: Acute hypoxemic/hypercapnic respiratory failure with development of the right lower lobe pneumonia, consider aspiration pneumonia versus hospital-acquired and the patient is currently on IV Zosyn. The patient was intubated on 04/14/2024 and currently remains intubated on mechanical ventilator. Chest x-ray is showing a dense shows improvement in the right lower lobe consolidation. Blood gases still showing a component of respiratory alkalosis. Right lower lobe pneumonia with worsening consolidation of the right lung base. Rule out aspiration versus hospital-acquired pneumonia. The patient remains on IV Zosyn. Chest x-ray seems to be improved. Acute COPD exacerbation, secondary to above maintained on a combination of bronchodilators and steroids Altered mental status, secondary to acute metabolic encephalopathy and hypothermia. The patient was encephalopathic throughout the day yesterday without any improvement in the mental status. Currently intubated on propofol and the patient failed a sedation holiday performed yesterday. Alcohol abuse, reportedly drinks 1/5 liquor /day. 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 Hypothermia at the time of admission, recovered Episode of hypoglycemia at the time of admission, recovered Hyponatremia, recovered Transaminitis, possibly secondary to alcohol., LFTs are on the rise and this will be further monitored. Mild rhabdomyolysis at the time of admission secondary to above Normocytic, normochromic anemia. Thrombocytopenia, likely secondary to chronic alcohol intake, stable, improved History of hypertension. History of hyperlipidemia . History of Parkinson's. Hypocalcemia Plan: Keep the patient on propofol and the patient will be given a sedation holiday to evaluate his mental status Keep the patient intubated and dropped the tidal volume to 400 decrease the dose of Lasix to 40 mg every 24 hours Give the patient Diamox to 50 mg IV push x 2 doses CAT scan of the brain was repeated and showed no acute abnormalities CAT scan of the chest showed bilateral pleural effusion and compressive atelectatic changes in the lung bases bilaterally Will check a procalcitonin level, nonelevated IV fluids to KVO Monitor LFTs Continue enteral feeding for nutritional support Monitor mental status and give the patient a sedation holiday Sputum culture has been negative Continue bronchodilators Continue steroids and the patient remains on IV Solu-Medrol Rest of the medication will be kept unchanged The patient was monitored closely in the intensive care unit. He is a full CODE STATUS. This evaluation was done and 35 minutes. This is a critical care evaluation. Time with Patient: Greater than 30
[2024-04-17] MEDS: ACETAMINOPHEN TAB 325 MG TAB PO PRN (20:21)
[2024-04-17 20:42] LABS: African American GFR (CKD) 77 (>60 ml/min/1.73 sqM); Anion Gap 2 mmol/L; Blood Urea Nitrogen 46 mg/dL (9-20); Calcium 8.1 mg/dL (8.4-10.2); Carbon Dioxide 34 mmol/L (22-30); Chloride 105 mmol/L (98-107); Glucose 109 mg/dL (74-99); Magnesium 1.8 mg/dL (1.6-2.3); Non-African American GFR(CKD) 66 (>60 ml/min/1.73 sqM); Potassium 3.4 mmol/L (3.5-5.1); Sodium 141 mmol/L (137-145)
[2024-04-17] MEDS ORDERED: Magnesium Replacement Protocol 1 EACH MISC MISCELLANE PRN (21:13)
[2024-04-17] MEDS: MAGNESIUM SULFATE-D5W PMX 1 GM in DEXTROSE/WATER 1 100ML.BAG IVPB ONE (21:29)
--- NOTE | 2024-04-17 22:36 | P.PN ---
Subjective Progress Note Date: 04/17/24 04/17/2024: Patient was seen for a follow-up. Patient currently only was fed, 0.06 mcg/kg per minute. Per nurse report, when patient was weaned off sedation, patient was alert awake, following all commands. Weaning attempt was considered, but patient became very restless. He started breathing at 40 per minute was placed on Precedex. Now patient on Diaz breathing support on Levophed. 04/16/2024: Patient was seen for a follow-up. Patient currently on propofol 20 mcg/kg's per minute and also on Zosyn. Patient has failed weaning trial today. She does follow commands. She does have gag and coughs. Possible tomorrow extubation. Patient was apparently intubated after she was seen last time, sometimes after midnight between 04/14/2024 and 04/15/2024. 04/14/2024: Patient was initially seen by Dr. Arvind Mayo. Please refer to his notes for details. Patient is a 63-year-old male with toxic metabolic encephalopathy. EEG showed mild to moderate slowing but no seizure or discharges. Patient has vertebral artery aneurysm and recommend outpatient evaluation. Nurses reported that patient daughter's was questioning regarding starting of the Sinemet. She does not recall him having a diagnosis of Parkinson's. He has history of tremors. Some of the workup during this hospital visit consisted of: Sodium is 124, POC glucose is 412, plasma lactic acid is 3.6, AST is 363 and ALT is 101, CK level 722 Troponins 0.042 His repeated POC glucose was 66--resolved CT head: A 1.2cm rounded area of eggshell calcification midline posterior cranial fossa along the left vertebral artery. Unable to exclude an arterial aneurysm. Suspect 1.8cm dentgerous cyst involving the impacted left maxilary molar. Eroding the posterior wall of the maxilla. 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 Routine EEG: This is an abnormal routine EEG. The background slowing is suggestive of mild to moderate encephalopathy. Otherwise, there is no focal slowing, epileptiform discharge or seizure on the EEG. There is moderate to severe myogenic artifact during this study. Objective - Vital Signs Vital signs: Vital Signs Temp 97.3 F L 04/17/24 22:00 Pulse 75 04/17/24 22:00 Resp 27 H 04/17/24 22:00 BP 109/77 04/17/24 18:00 Pulse Ox 100 04/17/24 22:00 FiO2 40 04/17/24 20:34 Intake & Output 04/17/24 04/17/24 04/18/24 06:59 18:59 06:59 Intake Total 414.893 571.115 338.952 Output Total 2300 3065 650 Balance -1885.107 -2493.885 -311.048 Weight 85.3 kg 85.3 kg Intake: IV 299 316 142 0.9 NS KVO 30 Magnesium Sulfate-D5w Pmx 100 1 gm In Dextrose/Water 1 100ml.bag @ 100 mls/hr IVPB ONCE ONE Rx#: [id number] Piperacillin-Tazobactam 3 200 .375 gm In Sodium Chloride 0.9% 100 ml @ 25 mls/hr IVPB Q8H PANCHO Rx#: [id number] Sodium Chloride 0.9% 1, 260 80 000 ml @ 10 mls/hr IV . Q24H PANCHO Rx#:[id number] a line 39 36 12 Intake, IV Titration 115.893 155.115 16.952 Amount Dexmedetomidine/0.9% NaCl 6.576 (Pmx) 400 mcg In Empty Bag 1 bag @ 0.2 MCG/KG/HR 4.265 mls/hr IV .[id number] PANCHO Rx#:[id number] Norepinephrine 4 mg In 48.539 5.328 Sodium Chloride 0.9% 250 ml @ 0.03 MCG/KG/MIN 8. 961 mls/hr IV .Q24H PANCHO Rx#:[id number] propofoL 1,000 mg In 115.893 100 11.624 Empty Bag 1 bag @ 15 MCG/ KG/MIN 7.866 mls/hr IV . [id number] PANCHO Rx#:[id number] Tube Feeding 100 150 Other 30 Output: Urine 2300 3065 650 Other: Voiding Method Indwelling Catheter Indwelling Catheter Indwelling Catheter ABP, PAP, CO, CI - Last Documented Arterial Blood Pressure 136/70 - Exam Patient is laying in the bed, intubated on mechanical ventilation. Patient is on Levophed 0.06 g/kg per minute. Patient not on any sedation. Pupils are equal, round and reacting to light. Visual andujar cannot be tested. Oculocephalics are slightly present. Patient's left foot appears somewhat everted. He has some bruises on his arms. Some peripheral edema. No obvious seizure-like activity noted. Patient able to squeeze hands, right better than left. Able to wiggle both toes equally. DTRs are hypoactive. No obvious tremors noted at rest. Tone is completely normal, in fact slightly decreased in the arms. - Labs CBC & Chem 7: 04/17/24 13:36 04/17/24 20:20 Labs: Abnormal Lab Results - Last 24 Hours (Table) 04/17/24 04/17/24 04/17/24 Range/Units 03:32 03:32 04:42 WBC 20.4 H (3.8-10.6) k/uL RBC 2.64 L (4.30-5.90) m/uL Hgb 8.8 L (13.0-17.5) gm/dL Hct 26.3 L (39.0-53.0) % MCV (80.0-100.0) fL RDW 16.7 H (11.5-15.5) % Neutrophils # (Manual) 19.70 H (1.3-7.7) k/uL Lymphocytes # (Manual) 0.41 L (1.0-4.8) k/uL Nucleated RBCs 6 H (0-0) /100 WBC ABG pH 7.56 H* (7.35-7.45) ABG pCO2 33 L (35-45) mmHg ABG HCO3 30 H (21-25) mmol/L ABG Total CO2 31 H (19-24) mmol/L ABG O2 Saturation 97.5 H (94-97) % Hemoglobin 8.8 L (13.0-17.5) gm/dL Potassium (3.5-5.1) mmol/L Carbon Dioxide 32 H (22-30) mmol/L BUN 52 H (9-20) mg/dL Glucose 145 H (74-99) mg/dL Calcium 7.9 L (8.4-10.2) mg/dL Total Bilirubin (0.2-1.3) mg/dL AST (17-59) U/L ALT (4-49) U/L Alkaline Phosphatase (38-126) U/L Total Protein (6.3-8.2) g/dL Albumin (3.5-5.0) g/dL 04/17/24 04/17/24 04/17/24 Range/Units 13:04 13:36 13:36 WBC 19.5 H (3.8-10.6) k/uL RBC 2.53 L (4.30-5.90) m/uL Hgb 8.5 L (13.0-17.5) gm/dL Hct 25.9 L (39.0-53.0) % MCV 102.5 H (80.0-100.0) fL RDW 16.2 H (11.5-15.5) % Neutrophils # (Manual) (1.3-7.7) k/uL Lymphocytes # (Manual) (1.0-4.8) k/uL Nucleated RBCs (0-0) /100 WBC ABG pH 7.50 H (7.35-7.45) ABG pCO2 (35-45) mmHg ABG HCO3 30 H (21-25) mmol/L ABG Total CO2 31 H (19-24) mmol/L ABG O2 Saturation 98.0 H (94-97) % Hemoglobin 8.7 L (13.0-17.5) gm/dL Potassium (3.5-5.1) mmol/L Carbon Dioxide 32 H (22-30) mmol/L BUN 47 H (9-20) mg/dL Glucose 104 H (74-99) mg/dL Calcium 7.9 L (8.4-10.2) mg/dL Total Bilirubin 2.9 H (0.2-1.3) mg/dL AST 646 H (17-59) U/L ALT 161 H (4-49) U/L Alkaline Phosphatase 194 H (38-126) U/L Total Protein 4.7 L (6.3-8.2) g/dL Albumin 2.2 L (3.5-5.0) g/dL 04/17/24 Range/Units 20:20 WBC (3.8-10.6) k/uL RBC (4.30-5.90) m/uL Hgb (13.0-17.5) gm/dL Hct (39.0-53.0) % MCV (80.0-100.0) fL RDW (11.5-15.5) % Neutrophils # (Manual) (1.3-7.7) k/uL Lymphocytes # (Manual) (1.0-4.8) k/uL Nucleated RBCs (0-0) /100 WBC ABG pH (7.35-7.45) ABG pCO2 (35-45) mmHg ABG HCO3 (21-25) mmol/L ABG Total CO2 (19-24) mmol/L ABG O2 Saturation (94-97) % Hemoglobin (13.0-17.5) gm/dL Potassium 3.4 L (3.5-5.1) mmol/L Carbon Dioxide 34 H (22-30) mmol/L BUN 46 H (9-20) mg/dL Glucose 109 H (74-99) mg/dL Calcium 8.1 L (8.4-10.2) mg/dL Total Bilirubin (0.2-1.3) mg/dL AST (17-59) U/L ALT (4-49) U/L Alkaline Phosphatase (38-126) U/L Total Protein (6.3-8.2) g/dL Albumin (3.5-5.0) g/dL Microbiology - Last 24 Hours (Table) 04/15/24 05:56 Gram Stain - Final Sputum Sputum Culture - Final Assessment and Plan Assessment: This is a 63-year-old gentleman who [facility] which the patient was found down by his neighbor on the ground and he did not have heat and his initial temperature was 87. Seems that his sugar at the outside facility was in the 30s. He had CT brain cervical spine abdomen pelvis and it showed subacute rib fracture but no acute process. In our facility he had sugars in the 400 initially then down to the 60s. He has hyponatremia 124. He is also is a heavy drinker Altered mental status due to toxic metabolic encephalopathy: Hyponatremia, hypoglycemia, hypothermia, transaminitis and hypoxic/hypercapnic encephalopathy. Status post intubation 04/15/2024. Hyponatremia (124-->140) Hypoglycemia--resolved Incidental 9mm Left vertebral artery aneurysm Suspect 1.8cm dentgerous cyst involving the impacted left maxilary molar. Eroding the posterior wall of the maxilla. Acute Hypoxic/Hypercapnic respiratory failure on BiPAP. Hypothermia and patient does not have heat at home that is reported Transaminitis AST more than ALT likely due to his alcohol use Per patient's daughter, there is no history of Parkinson's. History of polysubstance abuse Marijuana use Longstanding history of alcoholism. Plan: * Regarding the left vertebral artery aneurysm, this seems incidental and recommend patient to follow-up with Dr. Kohli (Interventional Neurologist) as outpatient within 3 weeks as outpatient. * I spoke to patient's daughter Celina on the phone. She states that patient has never been diagnosed with Parkinson's disease. Celina and her dad have not been very close. She states that patient has history of lifelong alcoholism for almost 50 years since he was a teenager. 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 He also did prescription drug abuse with opiates, and also did some cocaine. He was a lifelong democrat person. She states that patient does have history of tremors, which she believes is related to anxiety or possibly related to alcoholism. No history of Parkinson's. We will stop Sinemet. * CT head 04/15/2024 showed stable mild senescent changes. No acute bleed or mass effect. * Patient is on thiamine 100mg daily. * Nephrology is consulted * Consider dental or an ENT consultation per Dr. Mayo. * Discussed with patient's nurse in detail. * Defer the rest of the medical management to primary other specialist
[2024-04-18 05:27] LABS: African American GFR (CKD) 85 (>60 ml/min/1.73 sqM); Anion Gap 2 mmol/L; Blood Urea Nitrogen 47 mg/dL (9-20); Calcium 8.2 mg/dL (8.4-10.2); Carbon Dioxide 35 mmol/L (22-30); Chloride 103 mmol/L (98-107); Glucose 112 mg/dL (74-99); Magnesium 1.8 mg/dL (1.6-2.3); Non-African American GFR(CKD) 74 (>60 ml/min/1.73 sqM); Sodium 140 mmol/L (137-145)
[2024-04-18 05:28] LABS: Potassium 3.4 mmol/L (3.5-5.1)
[2024-04-18 05:39] LABS: Anisocytosis Slight; HCT 28.2 % (39.0-53.0); HGB 9.3 gm/dL (13.0-17.5); MCH 33.8 pg (25.0-35.0); MCHC 32.9 g/dL (31.0-37.0); MCV 102.5 fL (80.0-100.0); Macrocytosis Slight; Mean Platelet Volume 9.1; Platelet Count 191 k/uL (150-450); RBC 2.75 m/uL (4.30-5.90); RDW 16.2 % (11.5-15.5)
[2024-04-18] MEDS ORDERED: POTASSIUM CHLORIDE ER 20 MEQ TAB.ER PO SCH (06:00)
[2024-04-18 06:07] LABS: ABG Base Excess 7.7 mmol/L; ABG HCO3 32 mmol/L (21-25); ABG Oxygen Saturation 97.6 % (94-97); ABG PCO2 42 mmHg (35-45); ABG PH 7.49 (7.35-7.45); ABG PO2 94 mmHg (83-108); ABG TCO2 33 mmol/L (19-24); Allen Test Performed? Yes
[2024-04-18] MEDS: POTASSIUM BICARBONATE/CIT AC 20 MEQ TABLET.EFF NG-TUBE SCH (06:07)
[2024-04-18] MEDS: MAGNESIUM SULFATE-D5W PMX 1 GM in DEXTROSE/WATER 1 100ML.BAG IVPB ONE ×2 (06:07→18:36)
--- NOTE | 2024-04-18 07:02 | XR ---
EXAMINATION TYPE: XR chest 1V portable DATE OF EXAM: 04/18/2024 5:02 AM COMPARISON: 04/17/2024 CLINICAL INDICATION: Male, 63 years old with history of follow up right lower lobe infiltrate; left p leura, difficulty breathing TECHNIQUE: XR chest 1V portable view(s) obtained. FINDINGS: The heart size is normal. The pulmonary vasculature is normal. Right lower lobe infiltrate is present small right pleural effusion may be present. Small left pleura l effusion is present. IMPRESSION: 1. Bilateral pleural effusions with bibasilar atelectasis. 2. Lines and catheters discussed above [facility], , 04/18/2024 7:00 AM
[2024-04-18 07:05] LABS: Anisocytosis (M) Present; Band Neutrophils % 1 %; Lymphocytes # (M) 0.83 k/uL (1.0-4.8); Monocytes # (M) 0.17 k/uL (0-1.0); Neutrophils % (M) 94 %; Nucleated Red Blood Cells 4 /100 WBC (0-0); Total Cells Counted 200; WBC 16.6 k/uL (3.8-10.6)
--- NOTE | 2024-04-18 10:07 | XR ---
EXAMINATION TYPE: XR chest 1V portable DATE OF EXAM: 04/18/2024 9:53 AM COMPARISON: None. CLINICAL INDICATION: Male, 63 years old with history of Rule out aspiration, TECHNIQUE: XR chest 1V portable view(s) obtained. FINDINGS: The heart size is normal. The pulmonary vasculature is normal. Small right pleural effusion is present. Some mild adjacent atelectasis present. Minimal left pleural effusion remains present Findings appears stable IMPRESSION: 1. Stable appearance small bilateral pleural effusions and right lower lobe infiltrate. 2. No new suspicious changes to suggest aspiration [facility], , 04/18/2024 10:05 AM
--- NOTE | 2024-04-18 12:58 | P.PN ---
Subjective Progress Note Date: 04/18/24 Principal diagnosis: Reason for follow-up is pneumonia Patient is a 63-year-old male with a past medical history significant for COPD alcohol abuse hypertension hyperlipidemia with initially presented to the hospital the patient was found to be unresponsive and hypothermic sepsis he did have worsening of his respiratory status requiring intubation and there was concern for right lower lobe pneumonia. On today's evaluation that is 04/18/2024, the patient continues to be afebrile, the patient has been extubated and is currently breathing comfortably on 2 L nasal oxygen patient denies having any chest pain or any worsening cough no vomiting or diarrhea. Patient white count is down to 16.6, creatinine 1.06 sputum culture currently pending Objective - Vital Signs Vital signs: Vital Signs Temp 97.7 F 04/18/24 08:00 Pulse 88 04/18/24 12:56 Resp 18 04/18/24 12:00 BP 109/77 04/17/24 18:00 Pulse Ox 100 04/18/24 09:00 FiO2 40 04/18/24 08:00 Intake & Output 04/17/24 04/18/24 04/18/24 18:59 06:59 18:59 Intake Total 025.283 2967.473 Output Total 3065 1725 Balance -2493.885 -585.527 Weight 85.3 kg 85.3 kg Intake: IV 316 359 0.9 NS KVO 120 Magnesium Sulfate-D5w Pmx 100 1 gm In Dextrose/Water 1 100ml.bag @ 100 mls/hr IVPB ONCE ONE Rx#: [id number] Piperacillin-Tazobactam 3 200 100 .375 gm In Sodium Chloride 0.9% 100 ml @ 25 mls/hr IVPB Q8H PANCHO Rx#: [id number] Sodium Chloride 0.9% 1, 80 000 ml @ 10 mls/hr IV . Q24H PANCHO Rx#:[id number] a line 36 39 Intake, IV Titration 155.115 90.473 Amount Dexmedetomidine/0.9% NaCl 6.576 (Pmx) 400 mcg In Empty Bag 1 bag @ 0.2 MCG/KG/HR 4.265 mls/hr IV .[id number] PANCHO Rx#:[id number] Norepinephrine 4 mg In 48.539 27.283 Sodium Chloride 0.9% 250 ml @ 0.03 MCG/KG/MIN 8. 961 mls/hr IV .Q24H PANCHO Rx#:[id number] propofoL 1,000 mg In 100 63.190 Empty Bag 1 bag @ 15 MCG/ KG/MIN 7.866 mls/hr IV . [id number] PANCHO Rx#:[id number] Tube Feeding 100 600 Other 90 Output: Urine 3065 1725 Other: Voiding Method Indwelling Catheter Indwelling Catheter Indwelling Catheter ABP, PAP, CO, CI - Last Documented Arterial Blood Pressure 136/77 - Exam GENERAL DESCRIPTION: An elderly male lying in bed in no distress RESPIRATORY SYSTEM: Unlabored breathing , decreased breath sounds at bases HEART: S1 S2 regular rate and rhythm , ABDOMEN: Soft , no tenderness EXTREMITIES: No edema feet - Labs CBC & Chem 7: 04/18/24 05:00 04/18/24 05:00 Labs: Abnormal Lab Results - Last 24 Hours (Table) 04/17/24 04/17/24 04/17/24 Range/Units 13:04 13:36 13:36 WBC 19.5 H (3.8-10.6) k/uL RBC 2.53 L (4.30-5.90) m/uL Hgb 8.5 L (13.0-17.5) gm/dL Hct 25.9 L (39.0-53.0) % MCV 102.5 H (80.0-100.0) fL RDW 16.2 H (11.5-15.5) % Neutrophils # (Manual) (1.3-7.7) k/uL Lymphocytes # (Manual) (1.0-4.8) k/uL Nucleated RBCs (0-0) /100 WBC ABG pH 7.50 H (7.35-7.45) ABG HCO3 30 H (21-25) mmol/L ABG Total CO2 31 H (19-24) mmol/L ABG O2 Saturation 98.0 H (94-97) % Hemoglobin 8.7 L (13.0-17.5) gm/dL Potassium (3.5-5.1) mmol/L Carbon Dioxide 32 H (22-30) mmol/L BUN 47 H (9-20) mg/dL Glucose 104 H (74-99) mg/dL Calcium 7.9 L (8.4-10.2) mg/dL Total Bilirubin 2.9 H (0.2-1.3) mg/dL AST 646 H (17-59) U/L ALT 161 H (4-49) U/L Alkaline Phosphatase 194 H (38-126) U/L Total Protein 4.7 L (6.3-8.2) g/dL Albumin 2.2 L (3.5-5.0) g/dL 04/17/24 04/18/24 04/18/24 Range/Units 20:20 05:00 05:00 WBC 16.6 H (3.8-10.6) k/uL RBC 2.75 L (4.30-5.90) m/uL Hgb 9.3 L (13.0-17.5) gm/dL Hct 28.2 L (39.0-53.0) % MCV 102.5 H (80.0-100.0) fL RDW 16.2 H (11.5-15.5) % Neutrophils # (Manual) 15.70 H (1.3-7.7) k/uL Lymphocytes # (Manual) 0.83 L (1.0-4.8) k/uL Nucleated RBCs 4 H (0-0) /100 WBC ABG pH (7.35-7.45) ABG HCO3 (21-25) mmol/L ABG Total CO2 (19-24) mmol/L ABG O2 Saturation (94-97) % Hemoglobin (13.0-17.5) gm/dL Potassium 3.4 L 3.4 L (3.5-5.1) mmol/L Carbon Dioxide 34 H 35 H (22-30) mmol/L BUN 46 H 47 H (9-20) mg/dL Glucose 109 H 112 H (74-99) mg/dL Calcium 8.1 L 8.2 L (8.4-10.2) mg/dL Total Bilirubin (0.2-1.3) mg/dL AST (17-59) U/L ALT (4-49) U/L Alkaline Phosphatase (38-126) U/L Total Protein (6.3-8.2) g/dL Albumin (3.5-5.0) g/dL 04/18/24 Range/Units 06:03 WBC (3.8-10.6) k/uL RBC (4.30-5.90) m/uL Hgb (13.0-17.5) gm/dL Hct (39.0-53.0) % MCV (80.0-100.0) fL RDW (11.5-15.5) % Neutrophils # (Manual) (1.3-7.7) k/uL Lymphocytes # (Manual) (1.0-4.8) k/uL Nucleated RBCs (0-0) /100 WBC ABG pH 7.49 H (7.35-7.45) ABG HCO3 32 H (21-25) mmol/L ABG Total CO2 33 H (19-24) mmol/L ABG O2 Saturation 97.6 H (94-97) % Hemoglobin 9.1 L (13.0-17.5) gm/dL Potassium (3.5-5.1) mmol/L Carbon Dioxide (22-30) mmol/L BUN (9-20) mg/dL Glucose (74-99) mg/dL Calcium (8.4-10.2) mg/dL Total Bilirubin (0.2-1.3) mg/dL AST (17-59) U/L ALT (4-49) U/L Alkaline Phosphatase (38-126) U/L Total Protein (6.3-8.2) g/dL Albumin (3.5-5.0) g/dL Microbiology - Last 24 Hours (Table) 04/15/24 05:56 Gram Stain - Final Sputum Sputum Culture - Final Assessment and Plan (1) Aspiration pneumonia Current Visit: Yes Status: Acute Code(s): J69.0 - PNEUMONITIS DUE TO INHALATION OF FOOD AND VOMIT SNOMED Code(s): 359280285 (2) Leukocytosis Current Visit: Yes Status: Acute Code(s): D72.829 - ELEVATED WHITE BLOOD CELL COUNT, UNSPECIFIED SNOMED Code(s): 433569967 Plan: 1patient with initial presentation to the hospital with episode of hypothermia and unresponsiveness subsequently worsening of his respiratory status requiring intubation and evidence of worsening right lower lobe infiltrate concerning for possible aspiration/gram-negative pneumonia. 2blood and sputum culture obtained which are currently pending 3patient is afebrile and the patient white count is trending down patient has been extubated continue with Zosyn and monitor clinical course closely Dictation was produced using [employer] ([employer]) dictation software. please excuse any grammatical, word or spelling errors. Time with Patient: Less than 30
--- NOTE | 2024-04-18 13:26 | P.PN ---
Subjective Progress Note Date: 04/18/24 63-year-old gentleman who is a transfer from [facility] after being found laying on ground outside his house. Most of the history has been obtained from the EMR according to which patient has been drinking 1/5 of alcohol per day. Patient was found by his neighbor to be laying on the ground, patient was initially hypothermic and was placed on warming blankets and was transferred to [facility] where he had CT of his brain, cervical spine and CT abdominal pelvis done which were unremarkable. Patient was later transferred to [facility] for further evaluation and treatment Initial lab work done in the ER showed WBC 6.3, hemoglobin 8.1, platelet count 100, sodium 124, potassium 5, BUN 18, creatinine 0.67, glucose 412, lactate 3.6, bilirubin 2.1, AST 363, ALT 101 Patient admitted to internal medicine service 04/12/2024 Patient is seen and evaluated in room at bedside; discussed with nursing staff; mental status is a bit improved. He continues on 2 L nasal cannula. He is not using the BiPAP device. Blood work reveals hemoglobin this morning was 6.9. He will receive 1 unit packed red blood cells. White count 4.6, hemoglobin 6.9, macro 21.4, platelet count 133,000. Sodium 135, potassium 4.1, chlorides 101, CO2 25, BUN 14, creatinine 0.39. Glucose 166. Calcium 7.4. Blood cultures are negative. Chest x-ray is largely unchanged, and show bibasilar airspace opacities versus atelectasis; patient received 1 dose of Lasix per critical care recommendations. The patient's overall prognosis remains guarded. 04/13/2024 Patient is seen and evaluated with nursing staff at bedside; patient is more alert and responsive; able to follow commands; wants to go home Vital signs are reviewed; blood pressure has been somewhat elevated; critical care recommended to titrate Cleviprex and IV Lopressor White count 6.8, hemoglobin 8.5, hematocrit 26.2, platelet count 169,000. Sodium 137, potassium 4.1, chlorides 102, CO2 23, anion gap 12, BUN 21, creatinine 0.5. Glucose 127. Calcium 7.8. Magnesium 1.9. Sputum and blood cultures are negative. Chest x-ray shows bibasilar airspace disease and/or atelectasis. -Patient received 1 unit packed RBCs for low hemoglobin -- Plan to continue current management at this time 04/14 Patient remains obtund, nonverbal, not following command, he grimaces to painful stimuli He is off BiPAP on 2.5 L/min osygen via nasal cannula Has Diaz catheter in place Getting normal saline 75 mL/h 04/15 Patient has been very confused and lethargic over the last few days [employer] launch [employer] he started to desaturate he was placed on BiPAP and pH was very low 7.09, high pCO2 is 79. Patient was intubated about 1 to 2 hours ago. Repeat ABG showing pH is normal at 7.36 and lower and pCO2 down to reference range at 37 CT of the brain showing no acute process and EEG showing no epileptiform discharge. Neurologist on the case and patient was diagnosed with toxic metabolic encephalopathy. Other than that he is afebrile. Hemoglobin 9.3, WBC 10.6. Creatinine 0.5. Chest x-ray:Bilateral pleural effusion. His antibiotics were changed to Zosyn. He is also on IV Solu-Medrol 60 mg He is getting normal saline at 75 mL/h. Also patient started on Levophed 04/16. Patient seen and examined. WBC 9.5, hemoglobin 8.3, platelet count 176, sodium 140, potassium 3.8 BUN 50, creatinine 1.05. Currently on mechanical vent ilation. 04/17. Patient seen and examined. Patient is opening eyes, following commands. Still intubated. Patient is going through a weaning trial. Blood work done showed WBC 20.4, hemoglobin 8.8, platelet count 185, sodium 141, potassium 3.6, BUN 52, creatinine 1.02. Pro-Ramesh was 0.82 04/18. Patient seen and examined. Patient self extubated this morning. Currently patient is alert, following commands. Patient waiting on swallow evaluation. Denies any chest pain. Denies any shortness of breath REVIEW OF SYSTEMS: As mentioned above PHYSICAL EXAMINATION: GENERAL: The patient is alert HEENT: Pupils are round and equally reacting to light. EOMI. No scleral icterus. No conjunctival pallor. Normocephalic, atraumatic. No pharyngeal erythema. No thyromegaly. CARDIOVASCULAR: S1 and S2 present. No murmurs, rubs, or gallops. PULMONARY: Diminished breath sound bilaterally, no wheezing or crackles. ABDOMEN: Soft, nontender, nondistended, normoactive bowel sounds. No palpable organomegaly. MUSCULOSKELETAL: No joint swelling or deformity. EXTREMITIES: No cyanosis, clubbing, 1+ pitting edema lower extremities NEUROLOGICAL: Alert, following commands SKIN: No rashes. Assessment and plan Severe sepsis Left lower lobe pneumonia Acute COPD exacerbation Acute hypoxic hypercapnic respiratory failure Alcohol use disorder and withdrawal Metabolic/toxic encephalopathy Microcytic anemia Alcoholic transaminitis Alcoholic induced thrombocytopenia Possible left vertebral artery round calcified eggshell lesion of 1.2 cm in the posterior cranial fossa, aneurysm cannot be ruled out. Patient will need to follow-up as an outpatient with interventional neurologist Acute left sphenoid sinusitis Left upper maxillary cyst 1.8 cm eroding into the posterior wall of the left maxilla Hypertension Hyperlipidemia Possible Parkinson disease Monitor vital signs Monitor CBC Monitor CMP Continue ox supplementation Continue aggressive bronchopulmonary hygiene Continue IV Solu-Medrol Continue CIWA protocol Continue IV Zosyn Pulmonology following ID following Labs and medication were reviewed.. Continue same treatment. Continue with symptomatic treatment. Resume home medication. Monitor labs and vitals. DVT and GI prophylaxis. Further recommendations as per clinical course of the trung ent Dictation was produced using [employer] dictation software. please excuse any grammatical, word or spelling errors. Objective - Vital Signs Vital signs: Vital Signs Temp 97.7 F 04/18/24 08:00 Pulse 88 04/18/24 12:56 Resp 18 04/18/24 12:00 BP 109/77 04/17/24 18:00 Pulse Ox 100 04/18/24 09:00 FiO2 40 04/18/24 08:00 Intake & Output 04/17/24 04/18/24 04/18/24 18:59 06:59 18:59 Intake Total 053.862 9929.473 78 Output Total 3065 0525 700 Balance -2493.885 -585.527 -622 Weight 85.3 kg 85.3 kg Intake: IV 316 359 78 0.9 NS KVO 120 60 Magnesium Sulfate-D5w Pmx 100 1 gm In Dextrose/Water 1 100ml.bag @ 100 mls/hr IVPB ONCE ONE Rx#: [id number] Piperacillin-Tazobactam 3 200 100 .375 gm In Sodium Chloride 0.9% 100 ml @ 25 mls/hr IVPB Q8H PANCHO Rx#: [id number] Sodium Chloride 0.9% 1, 80 000 ml @ 10 mls/hr IV . Q24H PANCHO Rx#:[id number] a line 36 39 18 Intake, IV Titration 155.115 90.473 Amount Dexmedetomidine/0.9% NaCl 6.576 (Pmx) 400 mcg In Empty Bag 1 bag @ 0.2 MCG/KG/HR 4.265 mls/hr IV .[id number] PANCHO Rx#:[id number] Norepinephrine 4 mg In 48.539 27.283 Sodium Chloride 0.9% 250 ml @ 0.03 MCG/KG/MIN 8. 961 mls/hr IV .Q24H PANCHO Rx#:[id number] propofoL 1,000 mg In 100 63.190 Empty Bag 1 bag @ 15 MCG/ KG/MIN 7.866 mls/hr IV . [id number] PANCHO Rx#:[id number] Tube Feeding 100 600 Other 90 Output: Urine 3065 1725 700 Other: Voiding Method Indwelling Catheter Indwelling Catheter Indwelling Catheter ABP, PAP, CO, CI - Last Documented Arterial Blood Pressure 136/77 - Labs CBC & Chem 7: 04/18/24 05:00 04/18/24 05:00 Labs: Abnormal Lab Results - Last 24 Hours (Table) 04/17/24 04/17/24 04/17/24 Range/Units 13:36 13:36 20:20 WBC 19.5 H (3.8-10.6) k/uL RBC 2.53 L (4.30-5.90) m/uL Hgb 8.5 L (13.0-17.5) gm/dL Hct 25.9 L (39.0-53.0) % MCV 102.5 H (80.0-100.0) fL RDW 16.2 H (11.5-15.5) % Neutrophils # (Manual) (1.3-7.7) k/uL Lymphocytes # (Manual) (1.0-4.8) k/uL Nucleated RBCs (0-0) /100 WBC ABG pH (7.35-7.45) ABG HCO3 (21-25) mmol/L ABG Total CO2 (19-24) mmol/L ABG O2 Saturation (94-97) % Hemoglobin (13.0-17.5) gm/dL Potassium 3.4 L (3.5-5.1) mmol/L Carbon Dioxide 32 H 34 H (22-30) mmol/L BUN 47 H 46 H (9-20) mg/dL Glucose 104 H 109 H (74-99) mg/dL Calcium 7.9 L 8.1 L (8.4-10.2) mg/dL Total Bilirubin 2.9 H (0.2-1.3) mg/dL AST 646 H (17-59) U/L ALT 161 H (4-49) U/L Alkaline Phosphatase 194 H (38-126) U/L Total Protein 4.7 L (6.3-8.2) g/dL Albumin 2.2 L (3.5-5.0) g/dL 04/18/24 04/18/24 04/18/24 Range/Units 05:00 05:00 06:03 WBC 16.6 H (3.8-10.6) k/uL RBC 2.75 L (4.30-5.90) m/uL Hgb 9.3 L (13.0-17.5) gm/dL Hct 28.2 L (39.0-53.0) % MCV 102.5 H (80.0-100.0) fL RDW 16.2 H (11.5-15.5) % Neutrophils # (Manual) 15.70 H (1.3-7.7) k/uL Lymphocytes # (Manual) 0.83 L (1.0-4.8) k/uL Nucleated RBCs 4 H (0-0) /100 WBC ABG pH 7.49 H (7.35-7.45) ABG HCO3 32 H (21-25) mmol/L ABG Total CO2 33 H (19-24) mmol/L ABG O2 Saturation 97.6 H (94-97) % Hemoglobin 9.1 L (13.0-17.5) gm/dL Potassium 3.4 L (3.5-5.1) mmol/L Carbon Dioxide 35 H (22-30) mmol/L BUN 47 H (9-20) mg/dL Glucose 112 H (74-99) mg/dL Calcium 8.2 L (8.4-10.2) mg/dL Total Bilirubin (0.2-1.3) mg/dL AST (17-59) U/L ALT (4-49) U/L Alkaline Phosphatase (38-126) U/L Total Protein (6.3-8.2) g/dL Albumin (3.5-5.0) g/dL Microbiology - Last 24 Hours (Table) 04/15/24 05:56 Gram Stain - Final Sputum Sputum Culture - Final
--- NOTE | 2024-04-18 14:52 | P.PN ---
Subjective Progress Note Date: 04/18/24 Patient is a 63-year-old male with past medical history significant for COPD, alcohol abuse, hypertension, hyperlipidemia, among other things. Transferred from [facility] on 04/08/2024. Apparently, was found by his neighbor on the ground and unresponsive in his residence. The heat in the house was not working, and patient was hypothermic with a temperature of 87 F. Unclear just how long the patient was on the floor. Did undergo rewarming at the outside facility. His blood glucose was also found to be low at 27 mg/dL. Did have a CT of the brain and C-spine which did not show any abnormalities or C-spine fracture/subluxation. Also, had a CT of the chest, images not available, ho estela, reportedly demonstrating multiple bilateral subacute and nondisplaced rib fractures. According to the ER records, patient is an alcoholic and drinks approximately 1/5 of liquor per day. Currently on CIWA protocol. Workup at our facility, including a brain CT which did not show any acute intracranial hemorrhage, acute ischemic changes, or mass effect. Demonstrated a 1.2 cm rounded area of eggshell calcification midline posterior cranial fossa along the left vertebral artery. Concern was for possible aneurysm. Suspect a 1.8 cm cyst involving an impacted left maxillary molar. Regarding posterior wall of the maxilla. Air-fluid level of the left soft sphenoid sinus, possibly repres enting acute sinusitis. Chest x-ray showing low lung volumes with small bilateral pleural effusions and left-sided basilar atelectasis or infiltrate.CBC done arrival: WBC count 6.3, hemoglobin 8.1, hematocrit 23.3, platelets 100. Most recent CMP from yesterday showing a sodium 125, potassium 3.4, chloride 87, serum bicarb 28, BUN 15, creatinine 0.48, glucose 117. Lactic was 3.6 down to 1.5. Magnesium 1.5. LFTs mildly elevated, possibly secondary to chronic alcohol intake. CPK 722. Troponin was elevated at 0.042 and is trending down, most recently 0.027. Procalcitonin level is 1.11. Not currently on any antibiotics Patient currently being evaluated emergency department. He is on BiPAP with settings 12/6 and FiO2 100%. He is quite tachypneic, breathing in the high 40s. Vital lungs range around 400 to 500 mL. ABGs done on these settings showing a PaO2 of 70, pCO2 42, pH of 7.44. He remains quite obtunded, withdraws to painful stimuli in all 4 extremities. Now normothermic with a temperature of 98.3 F. Blood glucose 155. Ammonia 22. D5W with normal saline infusing at 75 mL/h. Plan is for patient be transferred to the intensive care unit once bed available. Progress note dated April 11, 2024. 63-year-old male seen today in the intensive care unit, room 259. The patient is on dextrose, with saline, 75 cc an hour, saline IV at 10 cc an hour, and getting nasal cannula at 3 L. He also has a BiPAP in the room, with settings of 12/6, and 60%. He appears to be resting relatively comfortably, although he is a bit lethargic and somnolent. Current labs include a white count 3.9, hemoglobin 7.4, hematocrit 22.3, and a platelet count of hearing 26,000. Sodium 131, potassium 4, chlorides 95, CO2 33, BUN 15, creatinine 0.39. Glucose is 157. Chest x-ray reveals mild bibasilar infiltrates or atelectasis. 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 Progress note dated April 12, 2024. The patient is seen here in room 259. His mental status is a bit improved. He continues on 2 L nasal cannula. He is not using the BiPAP device. He is getting saline at 75 cc an hour. His hemoglobin this morning was 6.9. He will receive 1 unit packed red blood cells. In addition, the patient will get 1 dose of Lasix, 20 mg IV push. White count 4.6, hemoglobin 6.9, macro 21.4, platelet count 133,000. Sodium 135, potassium 4.1, chlorides 101, CO2 25, BUN 14, creatinine 0.39. Glucose 166. Calcium 7.4. Blood cultures are negative. Chest x-ray is largely unchanged, and show bibasilar airspace opacities versus atelectasis. Progress note dated April 13, 2024. 63-year-old male seen today in room 259. The patient is on saline at 75 cc an hour, nasal O2 at 2 L. He did receive 1 unit of packed red blood cells. The patient's blood pressure has been a bit elevated, so he may need something IV for that, I have written orders for both Cleviprex to be titrated, and IV beta- oh, i.e. the Lopressor. The patient's mental status is poor. It continues to be about the same. White count 6.8, hemoglobin 8.5, hematocrit 26.2, platelet count 169,000. Sodium 137, potassium 4.1, chlorides 102, CO2 23, anion gap 12, BUN 21, creatinine 0.5. Glucose 127. Calcium 7.8. Magnesium 1.9. Sputum and blood cultures are negative. Chest x-ray shows bibasilar airspace disease and/or atelectasis. On 04/14/2024, the patient is being seen for a follow-up. This morning, the patient is quite drowsy and sleepy and encephalopathic. He is not communicating with me. I was told that his mentation was much better yesterday. I came to find out that the patient was given Ativan overnight. Will continue monitoring his mentation. He is currently on 2 L of oxygen by nasal cannula. Chest x-ray shows development of a right lower lobe consolidation with worsening right lower lobe pulmonary filtrate and small left-sided pleural effusion and right-sided pleural effusion. There is also some limited atelectatic changes in the left lung. Hemodynamically stable on no pressors. White cell count of 6.2 with a heme of 9.8 and a platelet count of 187. BUN is 33 with a creatinine of 0.5 and a sodium levels at 139 and potassium level is at 4.8. Remains on DuoNeb. Remains on Pulmicort and Perforomist updrafts twice a day. Remains on IV Solu- Medrol. He was on IV Rocephin and I am going to switch his antibiotics to IV Zosyn covering for aspiration and hospital-acquired pathogens. Remains on normal citrate of 75 cc an hour. Ativan will be discontinued and his mental status needs to be monitored very closely. On 04/15/2024, the patient is being seen for a follow-up. Noted, the patient has significant diminishment of level of consciousness from yesterday. He was maintained on 2 L of oxygen by nasal cannula and he was also noted to have worsening in the right lower lobe consolidation. Overnight, the patient became more dyspneic and the blood gas was obtained that showed a pH of 7.09 with a pCO2 of 79 and pO2 of 81. Based on that, the patient was intubated and placed on mechanical ventilation. This morning, the patient is still on propofol running at 35 mcg/kg/min. The patient is on mechanical ventilator assist- control mode rate of 24, tidal volume of 500, FiO2 50% with a PEEP of 5. Blood gas showed a pH of 7.36 with a pCO2 of 37 and pO2 420. FiO2 was accordingly dropped. Chest x-ray shows a dense consolidation in the right lower lobe and the patient is currently on IV Zosyn. He remains on normal saline at rate of 75 cc an hour. Urine output is in order of 20 to 30 cc an hour. Fluid balance is +2.3 L over the past 24 hours. The white cell count is at 14.8 with a hemoglobin 8.5 and a platelet count of 156. Sodium is 142, potassium is at 5.6, bicarb is at 20 with a BUN of 36 and a creatinine of 0.68. Calcium level is at 6.4. Afebrile. Hemodynamically stable on no pressors. On 04/16/2024, the patient is being seen for a follow-up. Remains intubated on mechanical ventilator. The patient is sedated with propofol which is running at 40 mcg/kg/min. The patient is on assist-control mode of mechanical ventilation at rate of 24, tidal volume of 500, FiO2 40% with a PEEP of 5. Blood gas showed a pH of 7.43 with a pCO2 of 27 and pO2 of 144. Chest x-ray shows a persistent right lower lobe consolidation and the patient remains on IV Zosyn. Fluid balance is +2.1 L over the past 24 hours. Blood pressure remains elevated and the patient is currently on a combination of losartan 100 mg p.o. daily, Norvasc 10 mg p.o. daily and metoprolol 50 mg p.o. 3 times daily. Receiving vital HP at rate of 30 cc an hour. Remains on bronchodilators. Will be started on diureti cs today. Will try to achieve a negative fluid balance on this patient. The WBC count is 11.5 with a hemoglobin 8.3 and a platelet count of 176. Sodium is at 140, potassium is at 3.8 and the patient's chloride is 112 with a BUN of 15 and a creatinine of 1.05. The sputum sample collected on 04/15/2024 remains negative. Lines have been established. Afebrile. Hemodynamically stable. On 04/17/2024, the patient is being seen for a follow-up. This morning, the patient remains intubated on mechanical ventilator. He remains on propofol at 20 mcg/kg/min. Noted the patient was given a sedation holiday. He was arousable yesterday. Nevertheless, he became asynchronous with a mechanical ventilator and was quite restless and agitated. Based on that, the holiday was discontinued. The same is to be done today. The patient remains on IV Zosyn. Repeat chest x-ray done today shows improvement in right lower lobe consolidation. The patient is on assist-control mode of mechanical ventilation with a rate of 16, tidal volume of 500, FiO2 of 40% with a PEEP of 5. Blood gas showed a pH of 7.56 with a pCO2 of 33 and pO2 of 90. The patient is on normal saline at rate of 20 cc an hour. Urine output order of 100 cc an hour. Fluid balance is -2.9 L over the past 24 hours and the patient remains on vital high- protein at the rate of 50 cc an hour. He remains on IV Zosyn. Sputum culture h as been negative. The white cell count of 19 with a hemoglobin of 8.5 and a platelet count of 181. Sodium is at 142, potassium is 3.6, BUN is 47 with a creatinine of 1.08. Serum bicarb is at 32. LFTs are abnormal with an AST of 646, ALT of 161 and alkaline phosphatase of 194. Procalcitonin level is at 0.82. On 04/18/2024, during a very busy ICU morning, the patient self extubated himself. The patient did extremely well postextubation. He is currently on oxygen airfit 3 L. He is off sedation. Noted, prior to his extubation, he was on assist-control mode at rate of 16, tidal volume of 400, FiO2 40% with a PEEP of 5. The blood gas showed a pH of 7.49 with a pCO2 42 and pO2 of 94. Fluid balance is -2.9 L and another 3 L over the past 48 hours. The patient remains on IV Zosyn. The patient was being diuresed with IV Lasix and diuretics was placed on hold. A follow-up chest x-ray done today shows stable right lower lobe pulmonary infiltrate and a small right-sided pleural effusion. The patient continues to have a congested cough. He is able to self suction. He is awake and alert and communicating. Objective - Vital Signs Vital signs: Vital Signs Temp 99.5 F 04/18/24 04:00 Pulse 87 04/18/24 10:00 Resp 22 04/18/24 07:00 BP 109/77 04/17/24 18:00 Pulse Ox 99 04/18/24 07:00 FiO2 40 04/18/24 04:00 Intake & Output 04/17/24 04/18/24 04/18/24 18:59 06:59 18:59 Intake Total 195.888 5985.473 Output Total 3065 1725 Balance -2493.885 -585.527 Weight 85.3 kg Intake: IV 316 359 0.9 NS KVO 120 Magnesium Sulfate-D5w Pmx 100 1 gm In Dextrose/Water 1 100ml.bag @ 100 mls/hr IVPB ONCE ONE Rx#: [id number] Piperacillin-Tazobactam 3 200 100 .375 gm In Sodium Chloride 0.9% 100 ml @ 25 mls/hr IVPB Q8H PANCHO Rx#: [id number] Sodium Chloride 0.9% 1, 80 000 ml @ 10 mls/hr IV . Q24H APNCHO Rx#:[id number] a line 36 39 Intake, IV Titration 155.115 90.473 Amount Dexmedetomidine/0.9% NaCl 6.576 (Pmx) 400 mcg In Empty Bag 1 bag @ 0.2 MCG/KG/HR 4.265 mls/hr IV .[id number] PANCHO Rx#:[id number] Norepinephrine 4 mg In 48.539 27.283 Sodium Chloride 0.9% 250 ml @ 0.03 MCG/KG/MIN 8. 961 mls/hr IV .Q24H PANCHO Rx#:[id number] propofoL 1,000 mg In 100 63.190 Empty Bag 1 bag @ 15 MCG/ KG/MIN 7.866 mls/hr IV . [id number] PANCHO Rx#:[id number] Tube Feeding 100 600 Other 90 Output: Urine 3065 1725 Other: Voiding Method Indwelling Catheter Indwelling Catheter ABP, PAP, CO, CI - Last Documented Arterial Blood Pressure 145/74 - Exam Extubated on 3 L of O2 nasal cannula, calm and comfortable, communicating. HEENT examination is grossly unremarkable. Mucous membranes are moist. No oral lesions. Neck supple. Full range of motion. No adenopathy thyromegaly or neck vein distention. Cardiovascular examination reveals regular rhythm rate. S1-S2 normal. No S3 or S4. No discernible murmur noted. Lungs reveal scattered bilateral inspiratory and expiratory rhonchi. No wheezes or crackles. Diminished breath sound the right lung base Abdomen soft bowel sounds are heard. No masses or tenderness. Extremities are intact. No cyanosis clubbing or edema. Skin is without rash or lesion. Neurologically, the patient is awake and alert and the patient does not have any focal neurological deficit. Cranial nerves are essentially intact. Generalized weakness in all 4 extremities. Adequate cough. - Labs CBC & Chem 7: 04/18/24 05:00 04/18/24 05:00 Labs: Abnormal Lab Results - Last 24 Hours (Table) 04/17/24 04/17/24 04/17/24 Range/Units 13:04 13:36 13:36 WBC 19.5 H (3.8-10.6) k/uL RBC 2.53 L (4.30-5.90) m/uL Hgb 8.5 L (13.0-17.5) gm/dL Hct 25.9 L (39.0-53.0) % MCV 102.5 H (80.0-100.0) fL RDW 16.2 H (11.5-15.5) % Neutrophils # (Manual) (1.3-7.7) k/uL Lymphocytes # (Manual) (1.0-4.8) k/uL Nucleated RBCs (0-0) /100 WBC ABG pH 7.50 H (7.35-7.45) ABG HCO3 30 H (21-25) mmol/L ABG Total CO2 31 H (19-24) mmol/L ABG O2 Saturation 98.0 H (94-97) % Hemoglobin 8.7 L (13.0-17.5) gm/dL Potassium (3.5-5.1) mmol/L Carbon Dioxide 32 H (22-30) mmol/L BUN 47 H (9-20) mg/dL Glucose 104 H (74-99) mg/dL Calcium 7.9 L (8.4-10.2) mg/dL Total Bilirubin 2.9 H (0.2-1.3) mg/dL AST 646 H (17-59) U/L ALT 161 H (4-49) U/L Alkaline Phosphatase 194 H (38-126) U/L Total Protein 4.7 L (6.3-8.2) g/dL Albumin 2.2 L (3.5-5.0) g/dL 04/17/24 04/18/24 04/18/24 Range/Units 20:20 05:00 05:00 WBC 16.6 H (3.8-10.6) k/uL RBC 2.75 L (4.30-5.90) m/uL Hgb 9.3 L (13.0-17.5) gm/dL Hct 28.2 L (39.0-53.0) % MCV 102.5 H (80.0-100.0) fL RDW 16.2 H (11.5-15.5) % Neutrophils # (Manual) 15.70 H (1.3-7.7) k/uL Lymphocytes # (Manual) 0.83 L (1.0-4.8) k/uL Nucleated RBCs 4 H (0-0) /100 WBC ABG pH (7.35-7.45) ABG HCO3 (21-25) mmol/L ABG Total CO2 (19-24) mmol/L ABG O2 Saturation (94-97) % Hemoglobin (13.0-17.5) gm/dL Potassium 3.4 L 3.4 L (3.5-5.1) mmol/L Carbon Dioxide 34 H 35 H (22-30) mmol/L BUN 46 H 47 H (9-20) mg/dL Glucose 109 H 112 H (74-99) mg/dL Calcium 8.1 L 8.2 L (8.4-10.2) mg/dL Total Bilirubin (0.2-1.3) mg/dL AST (17-59) U/L ALT (4-49) U/L Alkaline Phosphatase (38-126) U/L Total Protein (6.3-8.2) g/dL Albumin (3.5-5.0) g/dL 04/18/24 Range/Units 06:03 WBC (3.8-10.6) k/uL RBC (4.30-5.90) m/uL Hgb (13.0-17.5) gm/dL Hct (39.0-53.0) % MCV (80.0-100.0) fL RDW (11.5-15.5) % Neutrophils # (Manual) (1.3-7.7) k/uL Lymphocytes # (Manual) (1.0-4.8) k/uL Nucleated RBCs (0-0) /100 WBC ABG pH 7.49 H (7.35-7.45) ABG HCO3 32 H (21-25) mmol/L ABG Total CO2 33 H (19-24) mmol/L ABG O2 Saturation 97.6 H (94-97) % Hemoglobin 9.1 L (13.0-17.5) gm/dL Potassium (3.5-5.1) mmol/L Carbon Dioxide (22-30) mmol/L BUN (9-20) mg/dL Glucose (74-99) mg/dL Calcium (8.4-10.2) mg/dL Total Bilirubin (0.2-1.3) mg/dL AST (17-59) U/L ALT (4-49) U/L Alkaline Phosphatase (38-126) U/L Total Protein (6.3-8.2) g/dL Albumin (3.5-5.0) g/dL Microbiology - Last 24 Hours (Table) 04/15/24 05:56 Gram Stain - Final Sputum Sputum Culture - Final Assessment and Plan Plan: Acute hypoxemic/hypercapnic respiratory failure with development of the right lower lobe pneumonia, consider aspiration pneumonia versus hospital-acquired and the patient is currently on IV Zosyn. The patient was intubated on 04/14/2024 and self extubated on 04/18/2024. Chest x-ray shows a residual right lower lobe pulmonary infiltrate and effusion. Right lower lobe pneumonia with worsening consolidation of the right lung base. Rule out aspiration versus hospital-acquired pneumonia. The patient remains on IV Zosyn. Chest x-ray seems to be improved. Acute COPD exacerbation, secondary to above maintained on a combination of bronchodilators and steroids Altered mental status, secondary to acute metabolic encephalopathy and hypothermia. . Mental status is appropriate this morning. Alcohol abuse, reportedly drinks 1/5 liquor /day. 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 Hypothermia at the time of admission, recovered Episode of hypoglycemia at the time of admission, recovered Hyponatremia, recovered Transaminitis, possibly secondary to alcohol., LFTs are on the rise and this will be further monitored. Mild rhabdomyolysis at the time of admission secondary to above Normocytic, normochromic anemia. Thrombocytopenia, likely secondary to chronic alcohol intake, stable, improved History of hypertension. History of hyperlipidemia . History of Parkinson's. Hypocalcemia Plan: Self extubated to 3 L of oxygen by nasal cannula Discontinue Lasix and the patient remains in negative fluid balance Discontinue Diamox CAT scan of the brain was repeated and showed no acute abnormalities CAT scan of the chest showed bilateral pleural effusion and compressive atelectatic changes in the lung bases bilaterally Will check a procalcitonin level, nonelevated IV fluids to KVO Monitor LFTs Swallow evaluation Mental status is appropriate Sputum culture has been negative Continue bronchodilators Continue steroids and the patient remains on IV Solu-Medrol Aggressive pulmonary toileting Rest of the medication will be kept unchanged The patient was monitored closely in the intensive care unit. He is a full CODE STATUS. This evaluation was done and 35 minutes. This is a critical care evaluation. Time with Patient: Greater than 30
[2024-04-18 16:37] LABS: Magnesium 1.8 mg/dL (1.6-2.3); Potassium 3.3 mmol/L (3.5-5.1)
[2024-04-18] MEDS: POTASSIUM CHLORIDE 20 MEQ in WATER FOR INJECTION 1 100ML.BAG IVPB SCH (18:36)
[2024-04-19 06:30] LABS: Anisocytosis Slight; HCT 25.7 % (39.0-53.0); HGB 8.4 gm/dL (13.0-17.5); Hypochromasia Slight; MCH 33.9 pg (25.0-35.0); MCHC 32.6 g/dL (31.0-37.0); MCV 104.1 fL (80.0-100.0); Macrocytosis Moderate; Mean Platelet Volume 10.3; Platelet Count 167 k/uL (150-450); RBC 2.46 m/uL (4.30-5.90); RDW 16.5 % (11.5-15.5); WBC 15.2 k/uL (3.8-10.6)
[2024-04-19 07:00] LABS: African American GFR (CKD) >90 (>60 ml/min/1.73 sqM); Anion Gap 3 mmol/L; Blood Urea Nitrogen 35 mg/dL (9-20); Calcium 8.2 mg/dL (8.4-10.2); Carbon Dioxide 32 mmol/L (22-30); Chloride 105 mmol/L (98-107); Glucose 87 mg/dL (74-99); Non-African American GFR(CKD) >90 (>60 ml/min/1.73 sqM); Potassium 3.2 mmol/L (3.5-5.1); Sodium 140 mmol/L (137-145)
--- NOTE | 2024-04-19 07:57 | XR ---
EXAMINATION TYPE: XR chest 1V portable DATE OF EXAM: 04/19/2024 5:46 AM COMPARISON: 04/18/2024 CLINICAL INDICATION: Male, 63 years old with history of lower lobe infiltrates, TECHNIQUE: XR chest 1V portable view(s) obtained. FINDINGS: The heart size is normal. The pulmonary vasculature is normal. Mild right lower lobe infiltrate is improving from comparison. Retrocardiac infiltrate remains presen t. Some blunting of costophrenic angle on the left may indicate a small left pleural effusion IMPRESSION: 1. Some improvement of a right lower lobe infiltrate. 2. Retrocardiac infiltrate and small left pleural effusion may remain present [facility], , 04/19/2024 7:55 AM
[2024-04-19] MEDS: POTASSIUM CHLORIDE 10 MEQ in WATER FOR INJECTION 1 100ML.BAG IVPB SCH (08:41)
[2024-04-19] MEDS: DEXTROSE 5%-0.45% NACL 1,000 ML IV SCH (09:16)
[2024-04-19] MEDS ORDERED: Magnesium Replacement Protocol 1 EACH MISC MISCELLANE PRN (09:19)
[2024-04-19] MEDS: MAGNESIUM SULFATE-D5W PMX 1 GM in DEXTROSE/WATER 1 100ML.BAG IVPB ONE (09:35)
--- NOTE | 2024-04-19 12:10 | P.PN ---
Subjective Progress Note Date: 04/18/24 04/18/2024: Patient apparently self extubated at 8:45 AM. Patient is doing much better. He is speaking some phrases, clearly. Appears slightly encephalopathic. Appears somewhat short of breath. Patient is getting suctioning. Patient offers no complaints. 04/17/2024: Patient was seen for a follow-up. Patient currently only was fed, 0.06 mcg/kg per minute. Per nurse report, when patient was weaned off sedation, patient was alert awake, following all commands. Weaning attempt was considered, but patient became very restless. He started breathing at 40 per minute was placed on Precedex. Now patient on Diaz breathing support on Levophed. 04/16/2024: Patient was seen for a follow-up. Patient currently on propofol 20 mcg/kg's per minute and also on Zosyn. Patient has failed weaning trial today. She does follow commands. She does have gag and coughs. Possible tomorrow extubation. Patient was apparently intubated after she was seen last time, sometimes after midnight between 04/14/2024 and 04/15/2024. 04/14/2024: Patient was initially seen by Dr. Arvind Mayo. Please refer to his notes for details. Patient is a 63-year-old male with toxic metabolic encephalopathy. EEG showed mild to moderate slowing but no seizure or discharges. Patient has vertebral artery aneurysm and recommend outpatient evaluation. Nurses reported that patient daughter's was questioning regarding starting of the Sinemet. She does not recall him having a diagnosis of Parkinson's. He has history of tremors. Some of the workup during this hospital visit consisted of: Sodium is 124, POC glucose is 412, plasma lactic acid is 3.6, AST is 363 and ALT is 101, CK level 722 Troponins 0.042 His repeated POC glucose was 66--resolved CT head: A 1.2cm rounded area of eggshell calcification midline posterior cranial fossa along the left vertebral artery. Unable to exclude an arterial aneurysm. Suspect 1.8cm dentgerous cyst involving the impacted left maxilary molar. Eroding the posterior wall of the maxilla. 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 Routine EEG: This is an abnormal routine EEG. The background slowing is suggestive of mild to moderate encephalopathy. Otherwise, there is no focal slowing, epileptiform discharge or seizure on the EEG. There is moderate to severe myogenic artifact during this study. Objective - Vital Signs Vital signs: Vital Signs Temp 97.7 F 04/18/24 08:00 Pulse 86 04/18/24 12:47 Resp 18 04/18/24 12:00 BP 109/77 04/17/24 18:00 Pulse Ox 100 04/18/24 09:00 FiO2 40 04/18/24 08:00 Intake & Output 04/17/24 04/18/24 04/18/24 18:59 06:59 18:59 Intake Total 942.143 2450.473 Output Total 3065 1725 Balance -2493.885 -585.527 Weight 85.3 kg 85.3 kg Intake: IV 316 359 0.9 NS KVO 120 Magnesium Sulfate-D5w Pmx 100 1 gm In Dextrose/Water 1 100ml.bag @ 100 mls/hr IVPB ONCE ONE Rx#: [id number] Piperacillin-Tazobactam 3 200 100 .375 gm In Sodium Chloride 0.9% 100 ml @ 25 mls/hr IVPB Q8H [facility] Rx#: [id number] Sodium Chloride 0.9% 1, 80 000 ml @ 10 mls/hr IV . Q24H [facility] Rx#:[id number] a line 36 39 Intake, IV Titration 155.115 90.473 Amount Dexmedetomidine/0.9% NaCl 6.576 (Pmx) 400 mcg In Empty Bag 1 bag @ 0.2 MCG/KG/HR 4.265 mls/hr IV .[id number] [facility] Rx#:[id number] Norepinephrine 4 mg In 48.539 27.283 Sodium Chloride 0.9% 250 ml @ 0.03 MCG/KG/MIN 8. 961 mls/hr IV .Q24H [facility] Rx#:[id number] propofoL 1,000 mg In 100 63.190 Empty Bag 1 bag @ 15 MCG/ KG/MIN 7.866 mls/hr IV . [id number] [facility] Rx#:[id number] Tube Feeding 100 600 Other 90 Output: Urine 3065 1725 Other: Voiding Method Indwelling Catheter Indwelling Catheter Indwelling Catheter ABP, PAP, CO, CI - Last Documented Arterial Blood Pressure 136/77 - Exam Patient is laying in the bed, self extubated earlier today. Patient is very alert and awake. Patient able to express "my arm", when he was moved to the side and his left arm was pressed, he felt and said he is feeling. Patient able to speak some words, but is tired and has oxygen on. Pupils are equal, round and reacting to light. Face is symmetric. Patient able to squeeze hands, at least 4 bilaterally. Patient able to wiggle his feet and toes very well. DTRs are hypoactive. No obvious tremors noted at rest. Tone is completely normal, in fact slightly decreased in the arms. - Labs CBC & Chem 7: 04/19/24 05:19 04/19/24 05:19 Labs: Abnormal Lab Results - Last 24 Hours (Table) 04/17/24 04/17/24 04/17/24 Range/Units 13:04 13:36 13:36 WBC 19.5 H (3.8-10.6) k/uL RBC 2.53 L (4.30-5.90) m/uL Hgb 8.5 L (13.0-17.5) gm/dL Hct 25.9 L (39.0-53.0) % MCV 102.5 H (80.0-100.0) fL RDW 16.2 H (11.5-15.5) % Neutrophils # (Manual) (1.3-7.7) k/uL Lymphocytes # (Manual) (1.0-4.8) k/uL Nucleated RBCs (0-0) /100 WBC ABG pH 7.50 H (7.35-7.45) ABG HCO3 30 H (21-25) mmol/L ABG Total CO2 31 H (19-24) mmol/L ABG O2 Saturation 98.0 H (94-97) % Hemoglobin 8.7 L (13.0-17.5) gm/dL Potassium (3.5-5.1) mmol/L Carbon Dioxide 32 H (22-30) mmol/L BUN 47 H (9-20) mg/dL Glucose 104 H (74-99) mg/dL Calcium 7.9 L (8.4-10.2) mg/dL Total Bilirubin 2.9 H (0.2-1.3) mg/dL AST 646 H (17-59) U/L ALT 161 H (4-49) U/L Alkaline Phosphatase 194 H (38-126) U/L Total Protein 4.7 L (6.3-8.2) g/dL Albumin 2.2 L (3.5-5.0) g/dL 04/17/24 04/18/24 04/18/24 Range/Units 20:20 05:00 05:00 WBC 16.6 H (3.8-10.6) k/uL RBC 2.75 L (4.30-5.90) m/uL Hgb 9.3 L (13.0-17.5) gm/dL Hct 28.2 L (39.0-53.0) % MCV 102.5 H (80.0-100.0) fL RDW 16.2 H (11.5-15.5) % Neutrophils # (Manual) 15.70 H (1.3-7.7) k/uL Lymphocytes # (Manual) 0.83 L (1.0-4.8) k/uL Nucleated RBCs 4 H (0-0) /100 WBC ABG pH (7.35-7.45) ABG HCO3 (21-25) mmol/L ABG Total CO2 (19-24) mmol/L ABG O2 Saturation (94-97) % Hemoglobin (13.0-17.5) gm/dL Potassium 3.4 L 3.4 L (3.5-5.1) mmol/L Carbon Dioxide 34 H 35 H (22-30) mmol/L BUN 46 H 47 H (9-20) mg/dL Glucose 109 H 112 H (74-99) mg/dL Calcium 8.1 L 8.2 L (8.4-10.2) mg/dL Total Bilirubin (0.2-1.3) mg/dL AST (17-59) U/L ALT (4-49) U/L Alkaline Phosphatase (38-126) U/L Total Protein (6.3-8.2) g/dL Albumin (3.5-5.0) g/dL 04/18/24 Range/Units 06:03 WBC (3.8-10.6) k/uL RBC (4.30-5.90) m/uL Hgb (13.0-17.5) gm/dL Hct (39.0-53.0) % MCV (80.0-100.0) fL RDW (11.5-15.5) % Neutrophils # (Manual) (1.3-7.7) k/uL Lymphocytes # (Manual) (1.0-4.8) k/uL Nucleated RBCs (0-0) /100 WBC ABG pH 7.49 H (7.35-7.45) ABG HCO3 32 H (21-25) mmol/L ABG Total CO2 33 H (19-24) mmol/L ABG O2 Saturation 97.6 H (94-97) % Hemoglobin 9.1 L (13.0-17.5) gm/dL Potassium (3.5-5.1) mmol/L Carbon Dioxide (22-30) mmol/L BUN (9-20) mg/dL Glucose (74-99) mg/dL Calcium (8.4-10.2) mg/dL Total Bilirubin (0.2-1.3) mg/dL AST (17-59) U/L ALT (4-49) U/L Alkaline Phosphatase (38-126) U/L Total Protein (6.3-8.2) g/dL Albumin (3.5-5.0) g/dL Microbiology - Last 24 Hours (Table) 04/15/24 05:56 Gram Stain - Final Sputum Sputum Culture - Final Assessment and Plan Assessment: This is a 63-year-old gentleman who was transferred from [place] for escalation of care in which the patient was found down by his neighbor on the ground and he did not have heat and his initial temperature was 87. Seems that his sugar at the outside facility was in the 30s. He had CT brain cervical spine abdomen pelvis and it showed subacute rib fracture but no acute process. In our facility he had sugars in the 400 initially then down to the 60s. He has hyponatremia 124. He is also is a heavy drinker Altered mental status due to toxic metabolic encephalopathy. Encephalopathy much improved. Status post self extubation 04/18/2024. Status post intubation 04/15/2024. Hyponatremia (124-->140) Hypoglycemia--resolved Incidental 9mm Left vertebral artery aneurysm Suspect 1.8cm dentgerous cyst involving the impacted left maxilary molar. Eroding the posterior wall of the maxilla. Acute Hypoxic/Hypercapnic respiratory failure on BiPAP. Hypothermia and patient does not have heat at home that is reported Transaminitis AST more than ALT likely due to his alcohol use Per patient's daughter, there is no history of Parkinson's. History of polysubstance abuse Marijuana use Longstanding history of alcoholism. Plan: * Patient's mentation has improved. He has self extubated today. He is following directions as mentioned above. * Regarding the left vertebral artery aneurysm, this seems incidental and recommend patient to follow-up with Dr. Kohli (Interventional Neurologist) as outpatient within 3 weeks as outpatient. * I spoke to patient's daughter Celina on the phone. She states that patient has never been diagnosed with Parkinson's disease. Celina and her dad have no t been very close. She states that patient has history of lifelong alcoholism for almost 50 years since he was a teenager. 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 He also did prescription drug abuse with opiates, and also did some cocaine. He was a lifelong democrat person. She states that patient does have history of tremors, which she believes is related to anxiety or possibly related to alcoholism. No history of Parkinson's. We will stop Sinemet. * CT head 04/15/2024 showed stable mild senescent changes. No acute bleed or mass effect. * Patient is on thiamine 100mg daily. * Nephrology is consulted * Consider dental or an ENT consultation per Dr. Mayo. * Discussed with patient's nurse in detail. * Defer the rest of the medical management to primary other specialist
--- NOTE | 2024-04-19 13:02 | P.PN ---
Subjective Progress Note Date: 04/19/24 63-year-old gentleman who is a transfer from [facility] after being found laying on ground outside his house. Most of the history has been obtained from the EMR according to which patient has been drinking 1/5 of alcohol per day. Patient was found by his neighbor to be laying on the ground, patient was initially hypothermic and was placed on warming blankets and was transferred to [facility] where he had CT of his brain, cervical spine and CT abdominal pelvis done which were unremarkable. Patient was later transferred to [facility] for further evaluation and treatment Initial lab work done in the ER showed WBC 6.3, hemoglobin 8.1, platelet count 100, sodium 124, potassium 5, BUN 18, creatinine 0.67, glucose 412, lactate 3.6, bilirubin 2.1, AST 363, ALT 101 Patient admitted to internal medicine service 04/12/2024 Patient is seen and evaluated in room at bedside; discussed with nursing staff; mental status is a bit improved. He continues on 2 L nasal cannula. He is not using the BiPAP device. Blood work reveals hemoglobin this morning was 6.9. He will receive 1 unit packed red blood cells. White count 4.6, hemoglobin 6.9, macro 21.4, platelet count 133,000. Sodium 135, potassium 4.1, chlorides 101, CO2 25, BUN 14, creatinine 0.39. Glucose 166. Calcium 7.4. Blood cultures are negative. Chest x-ray is largely unchanged, and show bibasilar airspace opacities versus atelectasis; patient received 1 dose of Lasix per critical care recommendations. The patient's overall prognosis remains guarded. 04/13/2024 Patient is seen and evaluated with nursing staff at bedside; patient is more alert and responsive; able to follow commands; wants to go home Vital signs are reviewed; blood pressure has been somewhat elevated; critical care recommended to titrate Cleviprex and IV Lopressor White count 6.8, hemoglobin 8.5, hematocrit 26.2, platelet count 169,000. Sodium 137, potassium 4.1, chlorides 102, CO2 23, anion gap 12, BUN 21, creatinine 0.5. Glucose 127. Calcium 7.8. Magnesium 1.9. Sputum and blood cultures are negative. Chest x-ray shows bibasilar airspace disease and/or atelectasis. 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 Patient was intubated about 1 to 2 hours ago. Repeat ABG showing pH is normal at 7.36 and lower and pCO2 down to reference range at 37 CT of the brain showing no acute process and EEG showing no epileptiform discharge. Neurologist on the case and patient was diagnosed with toxic metabolic encephalopathy. Other than that he is afebrile. Hemoglobin 9.3, WBC 10.6. Creatinine 0.5. Chest x-ray:Bilateral pleural effusion. His antibiotics were changed to Zosyn. He is also on IV Solu-Medrol 60 mg He is getting normal saline at 75 mL/h. Also patient started on Levophed 04/16. Patient seen and examined. WBC 9.5, hemoglobin 8.3, platelet count 176, sodium 140, potassium 3.8 BUN 50, creatinine 1.05. Currently on mechanical vent ilation. 04/17. Patient seen and examined. Patient is opening eyes, following commands. Still intubated. Patient is going through a weaning trial. Blood work done showed WBC 20.4, hemoglobin 8.8, platelet count 185, sodium 141, potassium 3.6, BUN 52, creatinine 1.02. Pro-Ramesh was 0.82 04/18. Patient seen and examined. Patient self extubated this morning. Currently patient is alert, following commands. Patient waiting on swallow evaluation. Denies any chest pain. Denies any shortness of breath 04/19. Patient seen and examined. Blood work done this morning showed WBC 15.2, hemoglobin 8.4, platelet count 167, sodium 140, potassium 3.2, BUN 35, creatinine 0.81. Patient stated he feels better. Denies any shortness of breath at rest. Patient is complaining of lethargy and weakness states that he is very weak and thinks that he will need therapy REVIEW OF SYSTEMS: As mentioned above PHYSICAL EXAMINATION: GENERAL: The patient is alert HEENT: Pupils are round and equally reacting to light. EOMI. No scleral icterus. No conjunctival pallor. Normocephalic, atraumatic. No pharyngeal erythema. No thyromegaly. CARDIOVASCULAR: S1 and S2 present. No murmurs, rubs, or gallops. PULMONARY: Diminished breath sound bilaterally, no wheezing or crackles. ABDOMEN: Soft, nontender, nondistended, normoactive bowel sounds. No palpable organomegaly. MUSCULOSKELETAL: No joint swelling or deformity. EXTREMITIES: No cyanosis, clubbing, 1+ pitting edema lower extremities NEUROLOGICAL: Alert, following commands SKIN: No rashes. Assessment and plan Severe sepsis Left lower lobe pneumonia Acute COPD exacerbation Acute hypoxic hypercapnic respiratory failure Alcohol use disorder and withdrawal Metabolic/toxic encephalopathy Microcytic anemia Alcoholic transaminitis Alcoholic induced thrombocytopenia Possible left vertebral artery round calcified eggshell lesion of 1.2 cm in the posterior cranial fossa, aneurysm cannot be ruled out. Patient will need to fol low-up as an outpatient with interventional neurologist Acute left sphenoid sinusitis Left upper maxillary cyst 1.8 cm eroding into the posterior wall of the left maxilla Hypertension Hyperlipidemia Possible Parkinson disease Monitor vital signs Monitor CBC Monitor CMP Continue ox supplementation Continue aggressive bronchopulmonary hygiene Continue breathing treatments Continue Norvasc Continue losartan Continue CIWA protocol Continue IV Zosyn Pulmonology following ID following Labs and medication were reviewed.. Continue same treatment. Continue with symptomatic treatment. Resume home medication. Monitor labs and vitals. DVT and GI prophylaxis. Further recommendations as per clinical course of the patient Dictation was produced using [employer] dictation software. please excuse any grammatical, word or spelling errors. Objective - Vital Signs Vital signs: Vital Signs Temp 98.3 F 04/19/24 11:56 Pulse 72 04/19/24 12:14 Resp 22 04/19/24 12:00 BP 152/138 04/19/24 12:00 Pulse Ox 100 04/19/24 12:00 FiO2 21 04/19/24 08:45 Intake & Output 04/18/24 04/19/24 04/19/24 18:59 06:59 18:59 Intake Total 143 256 326 Output Total 1475 7191 715 Balance -0844 -9963 -284 Weight 85.3 kg 78.2 kg Intake: IV 143 156 326 0.9 NS KVO 110 120 20 Dextrose 5%-0.45% NaCl 1, 100 000 ml @ 50 mls/hr IV . Q20H [facility] Rx#:[id number] Magnesium Sulfate-D5w Pmx 100 1 gm In Dextrose/Water 1 100ml.bag @ 100 mls/hr IVPB ONCE ONE Rx#: [id number] Potassium Chloride 10 meq 100 In Water For Injection 1 100ml.bag @ 100 mls/hr IVPB Q1H [facility] Rx#: [id number] a line 33 36 6 Intake, IV Titration 100 Amount propofoL 1,000 mg In 100 Empty Bag 1 bag @ 15 MCG/ KG/MIN 7.866 mls/hr IV . [id number] [facility] Rx#:[id number] Output: Urine 1475 1415 715 Other: Voiding Method Indwelling Catheter Indwelling Catheter Indwelling Catheter # Bowel Movements 1 ABP, PAP, CO, CI - Last Documented Arterial Blood Pressure 188/82 - Labs CBC & Chem 7: 04/19/24 05:19 04/19/24 05:19 Labs: Abnormal Lab Results - Last 24 Hours (Table) 04/18/24 04/19/24 04/19/24 Range/Units 16:00 05:19 05:19 WBC 15.2 H (3.8-10.6) k/uL RBC 2.46 L (4.30-5.90) m/uL Hgb 8.4 L (13.0-17.5) gm/dL Hct 25.7 L (39.0-53.0) % MCV 104.1 H (80.0-100.0) fL RDW 16.5 H (11.5-15.5) % Potassium 3.3 L 3.2 L (3.5-5.1) mmol/L Carbon Dioxide 32 H (22-30) mmol/L BUN 35 H (9-20) mg/dL Calcium 8.2 L (8.4-10.2) mg/dL
--- NOTE | 2024-04-19 13:02 | P.PN ---
Subjective Progress Note Date: 04/19/24 Principal diagnosis: Reason for follow-up is pneumonia Patient is a 63-year-old male with a past medical history significant for COPD alcohol abuse hypertension hyperlipidemia with initially presented to the hospital the patient was found to be unresponsive and hypothermic sepsis he did have worsening of his respiratory status requiring intubation and there was concern for right lower lobe pneumonia. On today's evaluation that is 04/19/2024, patient did not have any fever and denies any chills, patient is breathing comfortably on room air, patient with no chest pain or any worsening cough patient did not have any abdominal pain nausea vomiting or any loose stools. Patient white count is down to 15.2, creatinine 0.81 Objective - Vital Signs Vital signs: Vital Signs Temp 98.3 F 04/19/24 11:56 Pulse 72 04/19/24 12:14 Resp 04/19/24 12:00 BP 152/138 04/19/24 12:00 Pulse Ox 100 04/19/24 12:00 FiO2 21 04/19/24 08:45 Intake & Output 04/18/24 04/19/24 04/19/24 18:59 06:59 18:59 Intake Total 143 256 326 Output Total 1475 1415 715 Balance -8846 -3517 -389 Weight 85.3 kg 78.2 kg Intake: IV 143 156 326 0.9 NS KVO 110 120 20 Dextrose 5%-0.45% NaCl 1, 100 000 ml @ 50 mls/hr IV . Q20H [facility] Rx#:[id number] Magnesium Sulfate-D5w Pmx 100 1 gm In Dextrose/Water 1 100ml.bag @ 100 mls/hr IVPB ONCE ONE Rx#: [id number] Potassium Chloride 10 meq 100 In Water For Injection 1 100ml.bag @ 100 mls/hr IVPB Q1H [facility] Rx#: [id number] a line 33 36 6 Intake, IV Titration 100 Amount propofoL 1,000 mg In 100 Empty Bag 1 bag @ 15 MCG/ KG/MIN 7.866 mls/hr IV . [id number] [facility] Rx#:[id number] Output: Urine 1475 1415 715 Other: Voiding Method Indwelling Catheter Indwelling Catheter Indwelling Catheter # Bowel Movements 1 ABP, PAP, CO, CI - Last Documented Arterial Blood Pressure 188/82 - Exam GENERAL DESCRIPTION: An elderly male lying in bed in no distress RESPIRATORY SYSTEM: Unlabored breathing , decreased breath sounds at bases HEART: S1 S2 regular rate and rhythm , ABDOMEN: Soft , no tenderness EXTREMITIES: No edema feet - Labs CBC & Chem 7: 04/19/24 05:19 04/19/24 05:19 Labs: Abnormal Lab Results - Last 24 Hours (Table) 04/18/24 04/19/24 04/19/24 Range/Units 16:00 05:19 05:19 WBC 15.2 H (3.8-10.6) k/uL RBC 2.46 L (4.30-5.90) m/uL Hgb 8.4 L (13.0-17.5) gm/dL Hct 25.7 L (39.0-53.0) % MCV 104.1 H (80.0-100.0) fL RDW 16.5 H (11.5-15.5) % Potassium 3.3 L 3.2 L (3.5-5.1) mmol/L Carbon Dioxide 32 H (22-30) mmol/L BUN 35 H (9-20) mg/dL Calcium 8.2 L (8.4-10.2) mg/dL Assessment and Plan (1) Aspiration pneumonia Current Visit: Yes Status: Acute Code(s): J69.0 - PNEUMONITIS DUE TO INHALATION OF FOOD AND VOMIT SNOMED Code(s): 292932504 (2) Leukocytosis Current Visit: Yes Status: Acute Code(s): D72.829 - ELEVATED WHITE BLOOD CELL COUNT, UNSPECIFIED SNOMED Code(s): 982919663 Plan: 1patient with initial presentation to the hospital with episode of hypothermia and unresponsiveness subsequently worsening of his respiratory status requiring intubation and evidence of worsening right lower lobe infiltrate concerning for possible aspiration/gram-negative pneumonia. 2blood and sputum culture obtained which are so far negative 3patient is afebrile and the patient white count is trending down to 16,000, patient to continue with Zosyn and monitor clinical course closely Dictation was produced using [employer] software. please excuse any grammatical, word or spelling errors.
--- NOTE | 2024-04-19 13:22 | P.PN ---
Subjective Progress Note Date: 04/19/24 Patient is a 63-year-old male with past medical history significant for COPD, alcohol abuse, hypertension, hyperlipidemia, among other things. Transferred from [facility] on 04/08/2024. Apparently, was found by his neighbor on the ground and unresponsive in his residence. The heat in the house was not working, and patient was hypothermic with a temperature of 87 F. Unclear just how long the patient was on the floor. Did undergo rewarming at the outside facility. His blood glucose was also found to be low at 27 mg/dL. Did have a CT of the brain and C-spine which did not show any abnormalities or C-spine fracture/subluxation. Also, had a CT of the chest, images not available, ho estela, reportedly demonstrating multiple bilateral subacute and nondisplaced rib fractures. According to the ER records, patient is an alcoholic and drinks approximately 1/5 of liquor per day. Currently on CIWA protocol. Workup at our facility, including a brain CT which did not show any acute intracranial hemorrhage, acute ischemic changes, or mass effect. Demonstrated a 1.2 cm rounded area of eggshell calcification midline posterior cranial fossa along the left vertebral artery. Concern was for possible aneurysm. Suspect a 1.8 cm cyst involving an impacted left maxillary molar. Regarding posterior wall of the maxilla. Air-fluid level of the left soft sphenoid sinus, possibly repres enting acute sinusitis. Chest x-ray showing low lung volumes with small bilateral pleural effusions and left-sided basilar atelectasis or infiltrate.CBC done arrival: WBC count 6.3, hemoglobin 8.1, hematocrit 23.3, platelets 100. Most recent CMP from yesterday showing a sodium 125, potassium 3.4, chloride 87, serum bicarb 28, BUN 15, creatinine 0.48, glucose 117. Lactic was 3.6 down to 1.5. Magnesium 1.5. LFTs mildly elevated, possibly secondary to chronic alcohol intake. CPK 722. Troponin was elevated at 0.042 and is trending down, most recently 0.027. Procalcitonin level is 1.11. Not currently on any antibiotics Patient currently being evaluated emergency department. He is on BiPAP with settings 12/6 and FiO2 100%. He is quite tachypneic, breathing in the high 40s. Vital lungs range around 400 to 500 mL. ABGs done on these settings showing a PaO2 of 70, pCO2 42, pH of 7.44. He remains quite obtunded, withdraws to painful stimuli in all 4 extremities. Now normothermic with a temperature of 98.3 F. Blood glucose 155. Ammonia 22. D5W with normal saline infusing at 75 mL/h. Plan is for patient be transferred to the intensive care unit once bed available. Progress note dated April 11, 2024. 63-year-old male seen today in the intensive care unit, room 259. The patient is on dextrose, with saline, 75 cc an hour, saline IV at 10 cc an hour, and getting nasal cannula at 3 L. He also has a BiPAP in the room, with settings of 12/6, and 60%. He appears to be resting relatively comfortably, although he is a bit lethargic and somnolent. Current labs include a white count 3.9, hemoglobin 7.4, hematocrit 22.3, and a platelet count of hearing 26,000. Sodium 131, potassium 4, chlorides 95, CO2 33, BUN 15, creatinine 0.39. Glucose is 157. Chest x-ray reveals mild bibasilar infiltrates or atelectasis. 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 Progress note dated April 12, 2024. The patient is seen here in room 259. His mental status is a bit improved. He continues on 2 L nasal cannula. He is not using the BiPAP device. He is getting saline at 75 cc an hour. His hemoglobin this morning was 6.9. He will receive 1 unit packed red blood cells. In addition, the patient will get 1 dose of Lasix, 20 mg IV push. White count 4.6, hemoglobin 6.9, macro 21.4, platelet count 133,000. Sodium 135, potassium 4.1, chlorides 101, CO2 25, BUN 14, creatinine 0.39. Glucose 166. Calcium 7.4. Blood cultures are negative. Chest x-ray is largely unchanged, and show bibasilar airspace opacities versus atelectasis. Progress note dated April 13, 2024. 63-year-old male seen today in room 259. The patient is on saline at 75 cc an hour, nasal O2 at 2 L. He did receive 1 unit of packed red blood cells. The patient's blood pressure has been a bit elevated, so he may need something IV for that, I have written orders for both Cleviprex to be titrated, and IV beta- oh, i.e. the Lopressor. The patient's mental status is poor. It continues to be about the same. White count 6.8, hemoglobin 8.5, hematocrit 26.2, platelet count 169,000. Sodium 137, potassium 4.1, chlorides 102, CO2 23, anion gap 12, BUN 21, creatinine 0.5. Glucose 127. Calcium 7.8. Magnesium 1.9. Sputum and blood cultures are negative. Chest x-ray shows bibasilar airspace disease and/or atelectasis. On 04/14/2024, the patient is being seen for a follow-up. This morning, the patient is quite drowsy and sleepy and encephalopathic. He is not communicating with me. I was told that his mentation was much better yesterday. I came to find out that the patient was given Ativan overnight. Will continue monitoring his mentation. He is currently on 2 L of oxygen by nasal cannula. Chest x-ray shows development of a right lower lobe consolidation with worsening right lower lobe pulmonary filtrate and small left-sided pleural effusion and right-sided pleural effusion. There is also some limited atelectatic changes in the left lung. Hemodynamically stable on no pressors. White cell count of 6.2 with a heme of 9.8 and a platelet count of 187. BUN is 33 with a creatinine of 0.5 and a sodium levels at 139 and potassium level is at 4.8. Remains on DuoNeb. Remains on Pulmicort and Perforomist updrafts twice a day. Remains on IV Solu- Medrol. He was on IV Rocephin and I am going to switch his antibiotics to IV Zosyn covering for aspiration and hospital-acquired pathogens. Remains on normal citrate of 75 cc an hour. Ativan will be discontinued and his mental status needs to be monitored very closely. On 04/15/2024, the patient is being seen for a follow-up. Noted, the patient has significant diminishment of level of consciousness from yesterday. He was maintained on 2 L of oxygen by nasal cannula and he was also noted to have worsening in the right lower lobe consolidation. Overnight, the patient became more dyspneic and the blood gas was obtained that showed a pH of 7.09 with a pCO2 of 79 and pO2 of 81. Based on that, the patient was intubated and placed on mechanical ventilation. This morning, the patient is still on propofol running at 35 mcg/kg/min. The patient is on mechanical ventilator assist- control mode rate of 24, tidal volume of 500, FiO2 50% with a PEEP of 5. Blood gas showed a pH of 7.36 with a pCO2 of 37 and pO2 420. FiO2 was accordingly dropped. Chest x-ray shows a dense consolidation in the right lower lobe and the patient is currently on IV Zosyn. He remains on normal saline at rate of 75 cc an hour. Urine output is in order of 20 to 30 cc an hour. Fluid balance is +2.3 L over the past 24 hours. The white cell count is at 14.8 with a hemoglobin 8.5 and a platelet count of 156. Sodium is 142, potassium is at 5.6, bicarb is at 20 with a BUN of 36 and a creatinine of 0.68. Calcium level is at 6.4. Afebrile. Hemodynamically stable on no pressors. On 04/16/2024, the patient is being seen for a follow-up. Remains intubated on mechanical ventilator. The patient is sedated with propofol which is running at 40 mcg/kg/min. The patient is on assist-control mode of mechanical ventilation at rate of 24, tidal volume of 500, FiO2 40% with a PEEP of 5. Blood gas showed a pH of 7.43 with a pCO2 of 27 and pO2 of 144. Chest x-ray shows a persistent right lower lobe consolidation and the patient remains on IV Zosyn. Fluid balance is +2.1 L over the past 24 hours. Blood pressure remains elevated and the patient is currently on a combination of losartan 100 mg p.o. daily, Norvasc 10 mg p.o. daily and metoprolol 50 mg p.o. 3 times daily. Receiving vital HP at rate of 30 cc an hour. Remains on bronchodilators. Will be started on diureti cs today. Will try to achieve a negative fluid balance on this patient. The WBC count is 11.5 with a hemoglobin 8.3 and a platelet count of 176. Sodium is at 140, potassium is at 3.8 and the patient's chloride is 112 with a BUN of 15 and a creatinine of 1.05. The sputum sample collected on 04/15/2024 remains negative. Lines have been established. Afebrile. Hemodynamically stable. On 04/17/2024, the patient is being seen for a follow-up. This morning, the patient remains intubated on mechanical ventilator. He remains on propofol at 20 mcg/kg/min. Noted the patient was given a sedation holiday. He was arousable yesterday. Nevertheless, he became asynchronous with a mechanical ventilator and was quite restless and agitated. Based on that, the holiday was discontinued. The same is to be done today. The patient remains on IV Zosyn. Repeat chest x-ray done today shows improvement in right lower lobe consolidation. The patient is on assist-control mode of mechanical ventilation with a rate of 16, tidal volume of 500, FiO2 of 40% with a PEEP of 5. Blood gas showed a pH of 7.56 with a pCO2 of 33 and pO2 of 90. The patient is on normal saline at rate of 20 cc an hour. Urine output order of 100 cc an hour. Fluid balance is -2.9 L over the past 24 hours and the patient remains on vital high- protein at the rate of 50 cc an hour. He remains on IV Zosyn. Sputum culture h as been negative. The white cell count of 19 with a hemoglobin of 8.5 and a platelet count of 181. Sodium is at 142, potassium is 3.6, BUN is 47 with a creatinine of 1.08. Serum bicarb is at 32. LFTs are abnormal with an AST of 646, ALT of 161 and alkaline phosphatase of 194. Procalcitonin level is at 0.82. On 04/18/2024, during a very busy ICU morning, the patient self extubated himself. The patient did extremely well postextubation. He is currently on oxygen airfit 3 L. He is off sedation. Noted, prior to his extubation, he was on assist-control mode at rate of 16, tidal volume of 400, FiO2 40% with a PEEP of 5. The blood gas showed a pH of 7.49 with a pCO2 42 and pO2 of 94. Fluid balance is -2.9 L and another 3 L over the past 48 hours. The patient remains on IV Zosyn. The patient was being diuresed with IV Lasix and diuretics was placed on hold. A follow-up chest x-ray done today shows stable right lower lobe pulmonary infiltrate and a small right-sided pleural effusion. The patient continues to have a congested cough. He is able to self suction. He is awake and alert and communicating. 04/19/2024, the patient is awake and alert. He is on room air. Continues to cough. Able to do adequate pulmonary toileting. A follow-up chest x-ray from this morning shows improvement in right lower lobe pulmonary filtrate. Small left-sided pleural effusion is also noted. No respiratory distress. He remains weak. He failed a swallow evaluation. IV fluids are currently at KVO. Fluid balance is -2.4 L over the past 24 hours. Blood pressure remains elevated and t he patient remains on a combination of amlodipine 10 mg p.o. daily, Cozaar 100 mg p.o. daily, metoprolol 50 mg twice a day. Arterial line is to be discontinued. The white cell count is 15 with a hemoglobin 8.4 and a platelet count of 167. Sodium is at 140, BUN 35 and creatinine 0.8. Potassium level is at 3.2. Objective - Vital Signs Vital signs: Vital Signs Temp 99.4 F 04/19/24 08:00 Pulse 80 04/19/24 08:42 Resp 18 04/19/24 08:00 BP 163/99 04/19/24 08:00 Pulse Ox 99 04/19/24 08:45 FiO2 21 04/19/24 08:45 Intake & Output 04/18/24 04/19/24 04/19/24 18:59 06:59 18:59 Intake Total 143 256 23 Output Total 1475 1415 260 Balance -1332 -1159 -237 Weight 85.3 kg 78.2 kg Intake: IV 143 156 23 0.9 NS KVO 110 120 20 a line 33 36 3 Intake, IV Titration 100 Amount propofoL 1,000 mg In 100 Empty Bag 1 bag @ 15 MCG/ KG/MIN 7.866 mls/hr IV . [id number] [facility] Rx#:[id number] Output: Urine 1475 1415 260 Other: Voiding Method Indwelling Catheter Indwelling Catheter # Bowel Movements 1 ABP, PAP, CO, CI - Last Documented Arterial Blood Pressure 188/82 - Exam Calm and comfortable on room air oxygen HEENT examination is grossly unremarkable. Mucous membranes are moist. No oral lesions. Neck supple. Full range of motion. No adenopathy thyromegaly or neck vein distention. Cardiovascular examination reveals regular rhythm rate. S1-S2 normal. No S3 or S4. No discernible murmur noted. Lungs reveal scattered bilateral inspiratory and expiratory rhonchi. No wheezes or crackles. Diminished breath sound the right lung base Abdomen soft bowel sounds are heard. No masses or tenderness. Extremities are intact. No cyanosis clubbing or edema. Skin is without rash or lesion. Neurologically, the patient is awake and alert and the patient does not have any focal neurological deficit. Cranial nerves are essentially intact. Generalized weakness in all 4 extremities. Adequate cough. Generalized weakness in all 4 extremities. - Labs CBC & Chem 7: 04/19/24 05:19 04/19/24 05:19 Labs: Abnormal Lab Results - Last 24 Hours (Table) 04/18/24 04/19/24 04/19/24 Range/Units 16:00 05:19 05:19 WBC 15.2 H (3.8-10.6) k/uL RBC 2.46 L (4.30-5.90) m/uL Hgb 8.4 L (13.0-17.5) gm/dL Hct 25.7 L (39.0-53.0) % MCV 104.1 H (80.0-100.0) fL RDW 16.5 H (11.5-15.5) % Potassium 3.3 L 3.2 L (3.5-5.1) mmol/L Carbon Dioxide 32 H (22-30) mmol/L BUN 35 H (9-20) mg/dL Calcium 8.2 L (8.4-10.2) mg/dL Assessment and Plan Plan: Acute hypoxemic/hypercapnic respiratory failure with development of the right lower lobe pneumonia, consider aspiration pneumonia versus hospital-acquired and the patient is currently on IV Zosyn. The patient was intubated on 04/14/2024 and self extubated on 04/18/2024. Chest x-ray shows a residual right lower lobe pulmonary infiltrate and effusion. There is improvement in the right lower lobe pulmonary infiltrate. Currently on room air oxygen. Right lower lobe pneumonia. Rule out aspiration versus hospital-acquired pneumonia. The patient remains on IV Zosyn. Chest x-ray seems to be improved. Acute COPD exacerbation, secondary to above maintained on a combination of bronchodilators and steroids Altered mental status, secondary to acute metabolic encephalopathy and hypothermia. . Mental status is appropriate this morning. Failed swallow evaluation Alcohol abuse, reportedly drinks 1/5 liquor /day. 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 Hypothermia at the time of admission, recovered Episode of hypoglycemia at the time of admission, recovered Hyponatremia, recovered Transaminitis, possibly secondary to alcohol., LFTs are on the rise and this will be further monitored. Mild rhabdomyolysis at the time of admission secondary to above Normocytic, normochromic anemia. Thrombocytopenia, likely secondary to chronic alcohol intake, stable, improved History of hypertension. History of hyperlipidemia . History of Parkinson's. Hypocalcemia Plan: Patient is currently on room air oxygen Start gentle hydration with D5 half-normal saline at rate of 50 cc an hour CAT scan of the brain was repeated and showed no acute abnormalities CAT scan of the chest showed bilateral pleural effusion and compressive atelectatic changes in the lung bases bilaterally Will check a procalcitonin level, nonelevated Monitor LFTs Swallow evaluation failed and this will be repeated within the next 24 to 48 hours Mental status is appropriate Sputum culture has been negative Continue bronchodilators Discontinued IV Solu-Medrol Aggressive pulmonary toileting Rest of the medication will be kept unchanged The patient was monitored closely in the intensive care unit. He is a full CODE STATUS. This evaluation was done and 35 minutes. This is a critical care evaluation. Time with Patient: Greater than 30
[2024-04-19 16:29] LABS: ALT 154 U/L (4-49); AST 277 U/L (17-59); Albumin 2.4 g/dL (3.5-5.0); Alkaline Phosphatase 172 U/L (38-126); Total Bilirubin 2.8 mg/dL (0.2-1.3); Total Protein 4.8 g/dL (6.3-8.2)
[2024-04-19] MEDS ORDERED: Potassium Replacement Protocol 1 EACH MISC MISCELLANE PRN (18:00)
[2024-04-19 18:53] LABS: Glucose,Whole Blood 140 mg/dL (70-110)
[2024-04-19] MEDS: POTASSIUM CHLORIDE 20 MEQ in WATER FOR INJECTION 1 100ML.BAG IVPB SCH (20:03)
[2024-04-19 23:52] LABS: Glucose,Whole Blood 113 mg/dL (70-110)
[2024-04-20 06:21] LABS: Glucose,Whole Blood 109 mg/dL (70-110)
--- NOTE | 2024-04-20 10:51 | P.PN ---
Subjective Progress Note Date: 04/19/24 04/19/2024: Patient was seen for a follow-up. Patient is doing remarkably better. He hollered at me "how are you" when I was outside his room looking at the computer. Patient speech and language functions appears normal. His examination has remarkably improved. Patient admits to drinking alcohol in the past. 04/18/2024: Patient apparently self extubated at 8:45 AM. Patient is doing much better. He is speaking some phrases, clearly. Appears slightly encephalopathic. Appears somewhat short of breath. Patient is getting suctioning. Patient offers no complaints. 04/17/2024: Patient was seen for a follow-up. Patient currently only was fed, 0. 06 mcg/kg per minute. Per nurse report, when patient was weaned off sedation, patient was alert awake, following all commands. Weaning attempt was considered, but patient became very restless. He started breathing at 40 per minute was placed on Precedex. Now patient on Diaz breathing support on Levophed. 04/16/2024: Patient was seen for a follow-up. Patient currently on propofol 20 mcg/kg's per minute and also on Zosyn. Patient has failed weaning trial today. She does follow commands. She does have gag and coughs. Possible tomorrow extubation. Patient was apparently intubated after she was seen last time, sometimes after midnight between 04/14/2024 and 04/15/2024. 04/14/2024: Patient was initially seen by Dr. Arvind Mayo. Please refer to his notes for details. Patient is a 63-year-old male with toxic metabolic encephalopathy. EEG showed mild to moderate slowing but no seizure or discharges. Patient has vertebral artery aneurysm and recommend outpatient evaluation. Nurses reported that patient daughter's was questioning regarding starting of the Sinemet. She does not recall him having a diagnosis of Parkinson's. He has history of tremors. Some of the workup during this hospital visit consisted of: Sodium is 124, POC glucose is 412, plasma lactic acid is 3.6, AST is 363 and ALT is 101, CK level 722 Troponins 0.042 His repeated POC glucose was 66--resolved CT head: A 1.2cm rounded area of eggshell calcification midline posterior cranial fossa along the left vertebral artery. Unable to exclude an arterial aneurysm. Suspect 1.8cm dentgerous cyst involving the impacted left paul benoit. Eroding the posterior wall of the maxilla. 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 Routine EEG: This is an abnormal routine EEG. The background slowing is childress ggestive of mild to moderate encephalopathy. Otherwise, there is no focal slowing, epileptiform discharge or seizure on the EEG. There is moderate to severe myogenic artifact during this study. Objective - Vital Signs Vital signs: Vital Signs Temp 98.3 F 04/19/24 11:56 Pulse 80 04/19/24 15:52 Resp 18 04/19/24 13:47 BP 142/95 04/19/24 13:00 Pulse Ox 98 04/19/24 13:00 FiO2 21 04/19/24 08:45 Intake & Output 04/18/24 04/19/24 04/19/24 18:59 06:59 18:59 Intake Total 143 256 376 Output Total 1475 1415 715 Balance -9811 -6945 -339 Weight 85.3 kg 78.2 kg Intake: IV 143 156 376 0.9 NS KVO 110 120 20 Dextrose 5%-0.45% NaCl 1, 150 000 ml @ 50 mls/hr IV . Q20H [facility] Rx#:[id number] Magnesium Sulfate-D5w Pmx 100 1 gm In Dextrose/Water 1 100ml.bag @ 100 mls/hr IVPB ONCE ONE Rx#: [id number] Potassium Chloride 10 meq 100 In Water For Injection 1 100ml.bag @ 100 mls/hr IVPB Q1H [facility] Rx#: [id number] a line 33 36 6 Intake, IV Titration 100 Amount propofoL 1,000 mg In 100 Empty Bag 1 bag @ 15 MCG/ KG/MIN 7.866 mls/hr IV . [id number] [facility] Rx#:[id number] Output: Urine 1475 1415 715 Other: Voiding Method Indwelling Catheter Indwelling Catheter Indwelling Catheter # Bowel Movements 1 ABP, PAP, CO, CI - Last Documented Arterial Blood Pressure 188/82 - Exam Patient is laying in the bed, very alert and awake. Speech and language functions are normal. Attention, concentration appears intact. Fund of knowledge testing deferred. Answering appropriately. 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 Patient wiggles his feet and toes. On passive movement, it hurts. DTRs are hypoactive. No obvious tremors noted at rest. Tone is completely normal. - Labs CBC & Chem 7: 04/19/24 05:19 04/19/24 15:16 Labs: Abnormal Lab Results - Last 24 Hours (Table) 04/18/24 04/19/24 04/19/24 Range/Units 16:00 05:19 05:19 WBC 15.2 H (3.8-10.6) k/uL RBC 2.46 L (4.30-5.90) m/uL Hgb 8.4 L (13.0-17.5) gm/dL Hct 25.7 L (39.0-53.0) % MCV 104.1 H (80.0-100.0) fL RDW 16.5 H (11.5-15.5) % Potassium 3.3 L 3.2 L (3.5-5.1) mmol/L Carbon Dioxide 32 H (22-30) mmol/L BUN 35 H (9-20) mg/dL Calcium 8.2 L (8.4-10.2) mg/dL 04/19/24 Range/Units 15:16 WBC (3.8-10.6) k/uL RBC (4.30-5.90) m/uL Hgb (13.0-17.5) gm/dL Hct (39.0-53.0) % MCV (80.0-100.0) fL RDW (11.5-15.5) % Potassium 3.2 L (3.5-5.1) mmol/L Carbon Dioxide (22-30) mmol/L BUN (9-20) mg/dL Calcium (8.4-10.2) mg/dL Assessment and Plan Assessment: This is a 63-year-old gentleman who was transferred from [place] for escalation of care in which the patient was found down by his neighbor on the ground and he did not have heat and his initial temperature was 87. Seems that his sugar at the outside facility was in the 30s. He had CT brain cervical spine abdomen pelvis and it showed subacute rib fracture but no acute process. In our facility he had sugars in the 400 initially then down to the 60s. He has hyponatremia 124. He is also is a heavy drinker Altered mental status due to toxic metabolic encephalopathy. Encephalopathy much improved. Status post self extubation 04/18/2024. Status post intubation 04/15/2024. Hyponatremia (124-->140) Hypoglycemia--resolved Incidental 9mm Left vertebral artery aneurysm Suspect 1.8cm dentgerous cyst involving the impacted left maxilary molar. Eroding the posterior wall of the maxilla. Acute Hypoxic/Hypercapnic respiratory failure on BiPAP. Hypothermia and patient does not have heat at home that is reported Transaminitis AST more than ALT likely due to his alcohol use Per patient's daughter, there is no history of Parkinson's. History of polysubstance abuse Marijuana use Longstanding history of alcoholism. Plan: * Patient's mentation has improved. Patient's neurological examination and muscle strength is getting better. * Regarding the left vertebral artery aneurysm, this seems incidental and recommend patient to follow-up with Dr. Kohli (Interventional Neurologist) as outpatient within 3 weeks as outpatient. * I spoke to patient's daughter Celina on the phone. She states that patient has never been diagnosed with Parkinson's disease. Celina and her dad have not been very close. She states that patient has history of lifelong alcoholism for almost 50 years since he was a teenager. 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 He also did prescription drug abuse with opiates, and also did some cocaine. 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 She states that patient does have history of tremors, which she believes is related to anxiety or possibly related to alcoholism. No history of Parkinson's. We will stop Sinemet. * CT head 04/15/2024 showed stable mild senescent changes. No acute bleed or mass effect. * Patient is on thiamine 100mg daily. * Nephrology is consulted * Consider dental or an ENT consultation per Dr. Mayo. * Discussed with patient's nurse in detail. * Defer the rest of the medical management to primary other specialist * DVT prophylaxis: Patient has SCDs as well. Start Lovenox 40 mg subcu daily * Start PT, OT. * Continue present treatment.
[2024-04-20 11:46] LABS: Glucose,Whole Blood 106 mg/dL (70-110)
[2024-04-20] MEDS: ENOXAPARIN 40 MG/0.4 ML SYRINGE SQ SCH (12:10)
[2024-04-20] MEDS: VASOPRESSIN 60 UNIT in SODIUM CHLORIDE 0.9% 150 ML IV SCH (12:20)
--- NOTE | 2024-04-20 13:36 | P.PN ---
Subjective Progress Note Date: 04/20/24 Patient is a 63-year-old male with past medical history significant for COPD, alcohol abuse, hypertension, hyperlipidemia, among other things. Transferred from [facility] on 04/08/2024. Apparently, was found by his neighbor on the ground and unresponsive in his residence. The heat in the house was not working, and patient was hypothermic with a temperature of 87 F. Unclear just how long the patient was on the floor. Did undergo rewarming at the outside facility. His blood glucose was also found to be low at 27 mg/dL. Did have a CT of the brain and C-spine which did not show any abnormalities or C-spine fracture/subluxation. Also, had a CT of the chest, images not available, ho estela, reportedly demonstrating multiple bilateral subacute and nondisplaced rib fractures. According to the ER records, patient is an alcoholic and drinks approximately 1/5 of liquor per day. Currently on CIWA protocol. Workup at our facility, including a brain CT which did not show any acute intracranial hemorrhage, acute ischemic changes, or mass effect. Demonstrated a 1.2 cm rounded area of eggshell calcification midline posterior cranial fossa along the left vertebral artery. Concern was for possible aneurysm. Suspect a 1.8 cm cyst involving an impacted left maxillary molar. Regarding posterior wall of the maxilla. Air-fluid level of the left soft sphenoid sinus, possibly repres enting acute sinusitis. Chest x-ray showing low lung volumes with small bilateral pleural effusions and left-sided basilar atelectasis or infiltrate.CBC done arrival: WBC count 6.3, hemoglobin 8.1, hematocrit 23.3, platelets 100. Most recent CMP from yesterday showing a sodium 125, potassium 3.4, chloride 87, serum bicarb 28, BUN 15, creatinine 0.48, glucose 117. Lactic was 3.6 down to 1.5. Magnesium 1.5. LFTs mildly elevated, possibly secondary to chronic alcohol intake. CPK 722. Troponin was elevated at 0.042 and is trending down, most recently 0.027. Procalcitonin level is 1.11. Not currently on any antibiotics Patient currently being evaluated emergency department. He is on BiPAP with settings 12/6 and FiO2 100%. He is quite tachypneic, breathing in the high 40s. Vital lungs range around 400 to 500 mL. ABGs done on these settings showing a PaO2 of 70, pCO2 42, pH of 7.44. He remains quite obtunded, withdraws to painful stimuli in all 4 extremities. Now normothermic with a temperature of 98.3 F. Blood glucose 155. Ammonia 22. D5W with normal saline infusing at 75 mL/h. Plan is for patient be transferred to the intensive care unit once bed available. Progress note dated April 11, 2024. 63-year-old male seen today in the intensive care unit, room 259. The patient is on dextrose, with saline, 75 cc an hour, saline IV at 10 cc an hour, and getting nasal cannula at 3 L. He also has a BiPAP in the room, with settings of 12/6, and 60%. He appears to be resting relatively comfortably, although he is a bit lethargic and somnolent. Current labs include a white count 3.9, hemoglobin 7.4, hematocrit 22.3, and a platelet count of hearing 26,000. Sodium 131, potassium 4, chlorides 95, CO2 33, BUN 15, creatinine 0.39. Glucose is 157. Chest x-ray reveals mild bibasilar infiltrates or atelectasis. 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 Progress note dated April 12, 2024. The patient is seen here in room 259. His mental status is a bit improved. He continues on 2 L nasal cannula. He is not using the BiPAP device. He is getting saline at 75 cc an hour. His hemoglobin this morning was 6.9. He will receive 1 unit packed red blood cells. In addition, the patient will get 1 dose of Lasix, 20 mg IV push. White count 4.6, hemoglobin 6.9, macro 21.4, platelet count 133,000. Sodium 135, potassium 4.1, chlorides 101, CO2 25, BUN 14, creatinine 0.39. Glucose 166. Calcium 7.4. Blood cultures are negative. Chest x-ray is largely unchanged, and show bibasilar airspace opacities versus atelectasis. Progress note dated April 13, 2024. 63-year-old male seen today in room 259. The patient is on saline at 75 cc an hour, nasal O2 at 2 L. He did receive 1 unit of packed red blood cells. The patient's blood pressure has been a bit elevated, so he may need something IV for that, I have written orders for both Cleviprex to be titrated, and IV beta- oh, i.e. the Lopressor. The patient's mental status is poor. It continues to be about the same. White count 6.8, hemoglobin 8.5, hematocrit 26.2, platelet count 169,000. Sodium 137, potassium 4.1, chlorides 102, CO2 23, anion gap 12, BUN 21, creatinine 0.5. Glucose 127. Calcium 7.8. Magnesium 1.9. Sputum and blood cultures are negative. Chest x-ray shows bibasilar airspace disease and/or atelectasis. On 04/14/2024, the patient is being seen for a follow-up. This morning, the patient is quite drowsy and sleepy and encephalopathic. He is not communicating with me. I was told that his mentation was much better yesterday. I came to find out that the patient was given Ativan overnight. Will continue monitoring his mentation. He is currently on 2 L of oxygen by nasal cannula. Chest x-ray shows development of a right lower lobe consolidation with worsening right lower lobe pulmonary filtrate and small left-sided pleural effusion and right-sided pleural effusion. There is also some limited atelectatic changes in the left lung. Hemodynamically stable on no pressors. White cell count of 6.2 with a heme of 9.8 and a platelet count of 187. BUN is 33 with a creatinine of 0.5 and a sodium levels at 139 and potassium level is at 4.8. Remains on DuoNeb. Remains on Pulmicort and Perforomist updrafts twice a day. Remains on IV Solu- Medrol. He was on IV Rocephin and I am going to switch his antibiotics to IV Zosyn covering for aspiration and hospital-acquired pathogens. Remains on normal citrate of 75 cc an hour. Ativan will be discontinued and his mental status needs to be monitored very closely. On 04/15/2024, the patient is being seen for a follow-up. Noted, the patient has significant diminishment of level of consciousness from yesterday. He was maintained on 2 L of oxygen by nasal cannula and he was also noted to have worsening in the right lower lobe consolidation. Overnight, the patient became more dyspneic and the blood gas was obtained that showed a pH of 7.09 with a pCO2 of 79 and pO2 of 81. Based on that, the patient was intubated and placed on mechanical ventilation. This morning, the patient is still on propofol running at 35 mcg/kg/min. The patient is on mechanical ventilator assist- control mode rate of 24, tidal volume of 500, FiO2 50% with a PEEP of 5. Blood gas showed a pH of 7.36 with a pCO2 of 37 and pO2 420. FiO2 was accordingly dropped. Chest x-ray shows a dense consolidation in the right lower lobe and the patient is currently on IV Zosyn. He remains on normal saline at rate of 75 cc an hour. Urine output is in order of 20 to 30 cc an hour. Fluid balance is +2.3 L over the past 24 hours. The white cell count is at 14.8 with a hemoglobin 8.5 and a platelet count of 156. Sodium is 142, potassium is at 5.6, bicarb is at 20 with a BUN of 36 and a creatinine of 0.68. Calcium level is at 6.4. Afebrile. Hemodynamically stable on no pressors. On 04/16/2024, the patient is being seen for a follow-up. Remains intubated on mechanical ventilator. The patient is sedated with propofol which is running at 40 mcg/kg/min. The patient is on assist-control mode of mechanical ventilation at rate of 24, tidal volume of 500, FiO2 40% with a PEEP of 5. Blood gas showed a pH of 7.43 with a pCO2 of 27 and pO2 of 144. Chest x-ray shows a persistent right lower lobe consolidation and the patient remains on IV Zosyn. Fluid balance is +2.1 L over the past 24 hours. Blood pressure remains elevated and the patient is currently on a combination of losartan 100 mg p.o. daily, Norvasc 10 mg p.o. daily and metoprolol 50 mg p.o. 3 times daily. Receiving vital HP at rate of 30 cc an hour. Remains on bronchodilators. Will be started on diureti cs today. Will try to achieve a negative fluid balance on this patient. The WBC count is 11.5 with a hemoglobin 8.3 and a platelet count of 176. Sodium is at 140, potassium is at 3.8 and the patient's chloride is 112 with a BUN of 15 and a creatinine of 1.05. The sputum sample collected on 04/15/2024 remains negative. Lines have been established. Afebrile. Hemodynamically stable. On 04/17/2024, the patient is being seen for a follow-up. This morning, the patient remains intubated on mechanical ventilator. He remains on propofol at 20 mcg/kg/min. Noted the patient was given a sedation holiday. He was arousable yesterday. Nevertheless, he became asynchronous with a mechanical ventilator and was quite restless and agitated. Based on that, the holiday was discontinued. The same is to be done today. The patient remains on IV Zosyn. Repeat chest x-ray done today shows improvement in right lower lobe consolidation. The patient is on assist-control mode of mechanical ventilation with a rate of 16, tidal volume of 500, FiO2 of 40% with a PEEP of 5. Blood gas showed a pH of 7.56 with a pCO2 of 33 and pO2 of 90. The patient is on normal saline at rate of 20 cc an hour. Urine output order of 100 cc an hour. Fluid balance is -2.9 L over the past 24 hours and the patient remains on vital high- protein at the rate of 50 cc an hour. He remains on IV Zosyn. Sputum culture h as been negative. The white cell count of 19 with a hemoglobin of 8.5 and a platelet count of 181. Sodium is at 142, potassium is 3.6, BUN is 47 with a creatinine of 1.08. Serum bicarb is at 32. LFTs are abnormal with an AST of 646, ALT of 161 and alkaline phosphatase of 194. Procalcitonin level is at 0.82. On 04/18/2024, during a very busy ICU morning, the patient self extubated himself. The patient did extremely well postextubation. He is currently on oxygen airfit 3 L. He is off sedation. Noted, prior to his extubation, he was on assist-control mode at rate of 16, tidal volume of 400, FiO2 40% with a PEEP of 5. The blood gas showed a pH of 7.49 with a pCO2 42 and pO2 of 94. Fluid balance is -2.9 L and another 3 L over the past 48 hours. The patient remains on IV Zosyn. The patient was being diuresed with IV Lasix and diuretics was placed on hold. A follow-up chest x-ray done today shows stable right lower lobe pulmonary infiltrate and a small right-sided pleural effusion. The patient continues to have a congested cough. He is able to self suction. He is awake and alert and communicating. 04/19/2024, the patient is awake and alert. He is on room air. Continues to cough. Able to do adequate pulmonary toileting. A follow-up chest x-ray from this morning shows improvement in right lower lobe pulmonary filtrate. Small left-sided pleural effusion is also noted. No respiratory distress. He remains weak. He failed a swallow evaluation. IV fluids are currently at KVO. Fluid balance is -2.4 L over the past 24 hours. Blood pressure remains elevated and t he patient remains on a combination of amlodipine 10 mg p.o. daily, Cozaar 100 mg p.o. daily, metoprolol 50 mg twice a day. Arterial line is to be discontinued. The white cell count is 15 with a hemoglobin 8.4 and a platelet count of 167. Sodium is at 140, BUN 35 and creatinine 0.8. Potassium level is at 3.2. On 04/20/2024, the patient is being seen for a follow-up. The patient was transferred out of the intensive care unit yesterday and the patient remains on room air oxygen. Continues to have a congested cough. Able to do pulmonary toileting. He has some difficulty with swallowing and the patient had failed swallow evaluation and the patient is receiving only some applesauce under close supervision. The patient is also on D5 half-normal saline at rate of 50 cc an hour. Remains on IV Zosyn regarding right lower lobe pneumonia. Hemodynamically stable. Remains on bronchodilators. Blood pressure management is adequate for now. No new labs are available from today. His LFTs have been improving and AST and ALT have been declining based on the most recent labs from 04/19/2024. Objective - Vital Signs Vital signs: Vital Signs Temp 97.8 F 04/20/24 08:12 Pulse 72 04/20/24 08:45 Resp 20 04/20/24 08:12 BP 155/88 04/20/24 08:12 Pulse Ox 93 L 04/20/24 08:17 FiO2 21 04/20/24 08:17 Intake & Output 0204/20/24 04/20/24 18:59 06:59 18:59 Intake Total 376 Output Total 1365 850 700 Balance -989 -850 -700 Weight 67 kg Intake: IV 376 0.9 NS KVO 20 Dextrose 5%-0.45% NaCl 1, 150 000 ml @ 50 mls/hr IV . Q20H [facility] Rx#:[id number] Magnesium Sulfate-D5w Pmx 100 1 gm In Dextrose/Water 1 100ml.bag @ 100 mls/hr IVPB ONCE ONE Rx#: [id number] Potassium Chloride 10 meq 100 In Water For Injection 1 100ml.bag @ 100 mls/hr IVPB Q1H [facility] Rx#: [id number] a line 6 Output: Urine 1365 850 700 Other: Voiding Method Indwelling Catheter Indwelling Catheter Indwelling Catheter # Bowel Movements 1 1 ABP, PAP, CO, CI - Last Documented Arterial Blood Pressure 188/82 - Exam Calm and comfortable on room air oxygen HEENT examination is grossly unremarkable. Mucous membranes are moist. No oral lesions. Neck supple. Full range of motion. No adenopathy thyromegaly or neck vein distention. Cardiovascular examination reveals regular rhythm rate. S1-S2 normal. No S3 or S4. No discernible murmur noted. Lungs reveal scattered bilateral inspiratory and expiratory rhonchi. No wheezes or crackles. Diminished breath sound the right lung base Abdomen soft bowel sounds are heard. No masses or tenderness. Extremities are intact. No cyanosis clubbing or edema. Skin is without rash or lesion. Neurologically, the patient is awake and alert and the patient does not have any focal neurological deficit. Cranial nerves are essentially intact. Generalized weakness in all 4 extremities. Adequate cough. Generalized weakness in all 4 extremities. - Labs CBC & Chem 7: 04/19/24 05:19 04/19/24 15:16 Labs: Abnormal Lab Results - Last 24 Hours (Table) 04/19/24 04/19/24 04/19/24 Range/Units 05:19 15:16 18:52 Potassium 3.2 L 3.2 L (3.5-5.1) mmol/L Carbon Dioxide 32 H (22-30) mmol/L BUN 35 H (9-20) mg/dL POC Glucose (mg/dL) 140 H (70-110) mg/dL Calcium 8.2 L (8.4-10.2) mg/dL Total Bilirubin 2.8 H (0.2-1.3) mg/dL AST 277 H (17-59) U/L ALT 154 H (4-49) U/L Alkaline Phosphatase 172 H (38-126) U/L Total Protein 4.8 L (6.3-8.2) g/dL Albumin 2.4 L (3.5-5.0) g/dL 04/19/24 Range/Units 23:51 Potassium (3.5-5.1) mmol/L Carbon Dioxide (22-30) mmol/L BUN (9-20) mg/dL POC Glucose (mg/dL) 113 H (70-110) mg/dL Calcium (8.4-10.2) mg/dL Total Bilirubin (0.2-1.3) mg/dL AST (17-59) U/L ALT (4-49) U/L Alkaline Phosphatase (38-126) U/L Total Protein (6.3-8.2) g/dL Albumin (3.5-5.0) g/dL Assessment and Plan Plan: Acute hypoxemic/hypercapnic respiratory failure with development of the right lower lobe pneumonia, consider aspiration pneumonia versus hospital-acquired and the patient is currently on IV Zosyn. The patient was intubated on 04/14/2024 and self extubated on 04/18/2024. Chest x-ray shows a residual right lower lobe pulmonary infiltrate and effusion. There is improvement in the right lower lobe pulmonary infiltrate. Currently on room air oxygen. Right lower lobe pneumonia. Rule out aspiration versus hospital-acquired pneumonia. The patient remains on IV Zosyn. Chest x-ray seems to be improved. Acute COPD exacerbation, secondary to above maintained on a combination of bronchodilators and patient is currently off steroids Altered mental status, secondary to acute metabolic encephalopathy and hypothermia. . Mental status is appropriate this morning. Failed swallow evaluation Alcohol abuse, reportedly drinks 1/5 liquor /day. 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 Hypothermia at the time of admission, recovered Episode of hypoglycemia at the time of admission, recovered Hyponatremia, recovered Transaminitis, possibly secondary to alcohol., LFTs are on the rise and this will be further monitored. Mild rhabdomyolysis at the time of admission secondary to above Normocytic, normochromic anemia. Thrombocytopenia, likely secondary to chronic alcohol intake, stable, improved History of hypertension. History of hyperlipidemia . History of Parkinson's. Hypocalcemia Plan: Patient is currently on room air oxygen Continue D5 half-normal saline at rate of 50 cc an hour CAT scan of the brain was repeated and showed no acute abnormalities CAT scan of the chest showed bilateral pleural effusion and compressive atelectatic changes in the lung bases bilaterally Will check a procalcitonin level, nonelevated Monitor LFTs, improving Swallow evaluation failed and this will be repeated within the next 24 to 48 hours Mental status is appropriate Sputum culture has been negative Continue bronchodilators Aggressive pulmonary toileting Rest of the medication will be kept unchanged The patient was transferred out of the intensive care unit he is a full CODE STATUS. This evaluation was done and 35 minutes. Time with Patient: Greater than 30
--- NOTE | 2024-04-20 14:45 | P.PN ---
Subjective Progress Note Date: 04/20/24 Principal diagnosis: Reason for follow-up is pneumonia Patient is a 63-year-old male with a past medical history significant for COPD alcohol abuse hypertension hyperlipidemia with initially presented to the hospital the patient was found to be unresponsive and hypothermic sepsis he did have worsening of his respiratory status requiring intubation and there was concern for right lower lobe pneumonia. On today's evaluation that is 04/20/2024, Patient is afebrile patient is currently on room air and denies having any shortness of breath, the patient denies any chest pain and cough is decreased in intensity h, the patient denies any nausea vomiting did not have any abdominal pain and no diarrhea. Patient did not have a lab draw today blood and sputum culture has been negative Objective - Vital Signs Vital signs: Vital Signs Temp 97.7 F 04/20/24 12:00 Pulse 63 04/20/24 12:00 Resp 20 04/20/24 12:00 BP 133/91 04/20/24 12:00 Pulse Ox 96 04/20/24 12:00 FiO2 21 04/20/24 08:17 Intake & Output 04/19/24 04/20/24 04/20/24 18:59 06:59 18:59 Intake Total 376 Output Total 1365 850 700 Balance -989 -850 -700 Weight 67 kg Intake: IV 376 0.9 NS KVO 20 Dextrose 5%-0.45% NaCl 1, 150 000 ml @ 50 mls/hr IV . Q20H [facility] Rx#:[id number] Magnesium Sulfate-D5w Pmx 100 1 gm In Dextrose/Water 1 100ml.bag @ 100 mls/hr IVPB ONCE ONE Rx#: [id number] Potassium Chloride 10 meq 100 In Water For Injection 1 100ml.bag @ 100 mls/hr IVPB Q1H [facility] Rx#: [id number] a line 6 Output: Urine 1365 850 700 Other: Voiding Method Indwelling Catheter Indwelling Catheter Indwelling Catheter # Bowel Movements 1 1 ABP, PAP, CO, CI - Last Documented Arterial Blood Pressure 188/82 - Exam GENERAL DESCRIPTION: An elderly male lying in bed in no distress RESPIRATORY SYSTEM: Unlabored breathing , decreased breath sounds at bases HEART: S1 S2 regular rate and rhythm , ABDOMEN: Soft , no tenderness EXTREMITIES: No edema feet - Labs CBC & Chem 7: 04/19/24 05:19 04/19/24 15:16 Labs: Abnormal Lab Results - Last 24 Hours (Table) 04/19/24 04/19/24 04/19/24 Range/Units 05:19 15:16 18:52 Potassium 3.2 L 3.2 L (3.5-5.1) mmol/L Carbon Dioxide 32 H (22-30) mmol/L BUN 35 H (9-20) mg/dL POC Glucose (mg/dL) 140 H (70-110) mg/dL Calcium 8.2 L (8.4-10.2) mg/dL Total Bilirubin 2.8 H (0.2-1.3) mg/dL AST 277 H (17-59) U/L ALT 154 H (4-49) U/L Alkaline Phosphatase 172 H (38-126) U/L Total Protein 4.8 L (6.3-8.2) g/dL Albumin 2.4 L (3.5-5.0) g/dL 04/19/24 Range/Units 23:51 Potassium (3.5-5.1) mmol/L Carbon Dioxide (22-30) mmol/L BUN (9-20) mg/dL POC Glucose (mg/dL) 113 H (70-110) mg/dL Calcium (8.4-10.2) mg/dL Total Bilirubin (0.2-1.3) mg/dL AST (17-59) U/L ALT (4-49) U/L Alkaline Phosphatase (38-126) U/L Total Protein (6.3-8.2) g/dL Albumin (3.5-5.0) g/dL Assessment and Plan (1) Aspiration pneumonia Current Visit: Yes Status: Acute Code(s): J69.0 - PNEUMONITIS DUE TO INHALATION OF FOOD AND VOMIT SNOMED Code(s): 903258889 (2) Leukocytosis Current Visit: Yes Status: Acute Code(s): D72.829 - ELEVATED WHITE BLOOD CELL COUNT, UNSPECIFIED SNOMED Code(s): 379313267 Plan: 1patient with initial presentation to the hospital with episode of hypothermia and unresponsiveness subsequently worsening of his respiratory status requiring intubation and evidence of worsening right lower lobe infiltrate concerning for possible aspiration/gram-negative pneumonia. 2blood and sputum culture obtained which are so far negative 3patient is afebrile and the patient white count is trending down to 16,000 as of yesterday no CBC was done today 4 patient to continue with Zosyn while inpatient will transition to oral Augmentin on discharge Dictation was produced using [employer] dictation software. please excuse any grammatical, word or spelling errors. Time with Patient: Less than 30
--- NOTE | 2024-04-20 15:00 | P.PN ---
Subjective Progress Note Date: 04/20/24 63-year-old gentleman who is a transfer from [facility] after being found laying on ground outside his house. Most of the history has been obtained from the EMR according to which patient has been drinking 1/5 of alcohol per day. Patient was found by his neighbor to be laying on the ground, patient was initially hypothermic and was placed on warming blankets and was transferred to [facility] where he had CT of his brain, cervical spine and CT abdominal pelvis done which were unremarkable. Patient was later transferred to [facility] for further evaluation and treatment Initial lab work done in the ER showed WBC 6.3, hemoglobin 8.1, platelet count 100, sodium 124, potassium 5, BUN 18, creatinine 0.67, glucose 412, lactate 3.6, bilirubin 2.1, AST 363, ALT 101 Patient admitted to internal medicine service 04/12/2024 Patient is seen and evaluated in room at bedside; discussed with nursing staff; mental status is a bit improved. He continues on 2 L nasal cannula. He is not using the BiPAP device. Blood work reveals hemoglobin this morning was 6.9. He will receive 1 unit packed red blood cells. White count 4.6, hemoglobin 6.9, macro 21.4, platelet count 133,000. Sodium 135, potassium 4.1, chlorides 101, CO2 25, BUN 14, creatinine 0.39. Glucose 166. Calcium 7.4. Blood cultures are negative. Chest x-ray is largely unchanged, and show bibasilar airspace opacities versus atelectasis; patient received 1 dose of Lasix per critical care recommendations. The patient's overall prognosis remains guarded. 04/13/2024 Patient is seen and evaluated with nursing staff at bedside; patient is more alert and responsive; able to follow commands; wants to go home Vital signs are reviewed; blood pressure has been somewhat elevated; critical care recommended to titrate Cleviprex and IV Lopressor White count 6.8, hemoglobin 8.5, hematocrit 26.2, platelet count 169,000. Sodium 137, potassium 4.1, chlorides 102, CO2 23, anion gap 12, BUN 21, creatinine 0.5. Glucose 127. Calcium 7.8. Magnesium 1.9. Sputum and blood cultures are negative. Chest x-ray shows bibasilar airspace disease and/or atelectasis. 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 Patient was intubated about 1 to 2 hours ago. Repeat ABG showing pH is normal at 7.36 and lower and pCO2 down to reference range at 37 CT of the brain showing no acute process and EEG showing no epileptiform discharge. Neurologist on the case and patient was diagnosed with toxic metabolic encephalopathy. Other than that he is afebrile. Hemoglobin 9.3, WBC 10.6. Creatinine 0.5. Chest x-ray:Bilateral pleural effusion. His antibiotics were changed to Zosyn. He is also on IV Solu-Medrol 60 mg He is getting normal saline at 75 mL/h. Also patient started on Levophed 04/16. Patient seen and examined. WBC 9.5, hemoglobin 8.3, platelet count 176, sodium 140, potassium 3.8 BUN 50, creatinine 1.05. Currently on mechanical vent ilation. 04/17. Patient seen and examined. Patient is opening eyes, following commands. Still intubated. Patient is going through a weaning trial. Blood work done showed WBC 20.4, hemoglobin 8.8, platelet count 185, sodium 141, potassium 3.6, BUN 52, creatinine 1.02. Pro-Ramesh was 0.82 04/18. Patient seen and examined. Patient self extubated this morning. Currently patient is alert, following commands. Patient waiting on swallow evaluation. Denies any chest pain. Denies any shortness of breath 04/19. Patient seen and examined. Blood work done this morning showed WBC 15.2, hemoglobin 8.4, platelet count 167, sodium 140, potassium 3.2, BUN 35, creatinine 0.81. Patient stated he feels better. Denies any shortness of breath at rest. Patient is complaining of lethargy and weakness states that he is very weak and thinks that he will need therapy /23. Patient seen and examined. Patient is currently not getting any oxygen. Currently n.p.o., waiting on speech evaluation . Patient seen and examined REVIEW OF SYSTEMS: As mentioned above PHYSICAL EXAMINATION: GENERAL: The patient is alert HEENT: Pupils are round and equally reacting to light. EOMI. No scleral icterus. No conjunctival pallor. Normocephalic, atraumatic. No pharyngeal erythema. No thyromegaly. CARDIOVASCULAR: S1 and S2 present. No murmurs, rubs, or gallops. PULMONARY: Diminished breath sound bilaterally, no wheezing or crackles. ABDOMEN: Soft, nontender, nondistended, normoactive bowel sounds. No palpable organomegaly. MUSCULOSKELETAL: No joint swelling or deformity. EXTREMITIES: No cyanosis, clubbing, 1+ pitting edema lower extremities NEUROLOGICAL: Alert, following commands SKIN: No rashes. Assessment and plan Severe sepsis Left lower lobe pneumonia Acute COPD exacerbation Acute hypoxic hypercapnic respiratory failure Alcohol use disorder and withdrawal Metabolic/toxic encephalopathy Microcytic anemia Alcoholic transaminitis Alcoholic induced thrombocytopenia Possible left vertebral artery round calcified eggshell lesion of 1.2 cm in the posterior cranial fossa, aneurysm cannot be ruled out. Patient will need to follow-up as an outpatient with interventional neurologist Acute left sphenoid sinusitis Left upper maxillary cyst 1.8 cm eroding into the posterior wall of the left maxilla Hypertension Hyperlipidemia Possible Parkinson disease Monitor vital signs Monitor CBC Monitor CMP Continue ox supplementation Continue aggressive bronchopulmonary hygiene Continue breathing treatments Continue Norvasc Continue losartan Continue CIWA protocol Continue IV Zosyn Pulmonology following ID following Labs and medication were reviewed.. Continue same treatment. Continue with symptomatic treatment. Resume home medication. Monitor labs and vitals. DVT and GI prophylaxis. Further recommendations as per clinical course of the patient Dictation was produced using [employer] dictation software. please excuse any grammatical, word or spelling errors. Objective - Vital Signs Vital signs: Vital Signs Temp 97.8 F 04/20/24 08:12 Pulse 63 04/20/24 08:17 Resp 20 04/20/24 08:12 BP 155/88 04/20/24 08:12 Pulse Ox 93 L 04/20/24 08:17 FiO2 21 04/20/24 08:17 Intake & Output 04/19/24 04/20/24 04/20/24 18:59 06:59 18:59 Intake Total 376 Output Total 1365 850 Balance -269 850 Weight 67 kg Intake: IV 376 0.9 NS KVO 20 Dextrose 5%-0.45% NaCl 1, 150 000 ml @ 50 mls/hr IV . Q20H [facility] Rx#:[id number] Magnesium Sulfate-D5w Pmx 100 1 gm In Dextrose/Water 1 100ml.bag @ 100 mls/hr IVPB ONCE ONE Rx#: [id number] Potassium Chloride 10 meq 100 In Water For Injection 1 100ml.bag @ 100 mls/hr IVPB Q1H [facility] Rx#: [id number] a line 6 Output: Urine 1365 850 Other: Voiding Method Indwelling Catheter Indwelling Catheter # Bowel Movements 1 1 ABP, PAP, CO, CI - Last Documented Arterial Blood Pressure 188/82 - Labs CBC & Chem 7: 04/19/24 05:19 04/19/24 15:16 Labs: Abnormal Lab Results - Last 24 Hours (Table) 04/19/24 04/19/24 04/19/24 Range/Units 05:19 15:16 18:52 Potassium 3.2 L 3.2 L (3.5-5.1) mmol/L Carbon Dioxide 32 H (22-30) mmol/L BUN 35 H (9-20) mg/dL POC Glucose (mg/dL) 140 H (70-110) mg/dL Calcium 8.2 L (8.4-10.2) mg/dL Total Bilirubin 2.8 H (0.2-1.3) mg/dL AST 277 H (17-59) U/L ALT 154 H (4-49) U/L Alkaline Phosphatase 172 H (38-126) U/L Total Protein 4.8 L (6.3-8.2) g/dL Albumin 2.4 L (3.5-5.0) g/dL 04/19/24 Range/Units 23:51 Potassium (3.5-5.1) mmol/L Carbon Dioxide (22-30) mmol/L BUN (9-20) mg/dL POC Glucose (mg/dL) 113 H (70-110) mg/dL Calcium (8.4-10.2) mg/dL Total Bilirubin (0.2-1.3) mg/dL AST (17-59) U/L ALT (4-49) U/L Alkaline Phosphatase (38-126) U/L Total Protein (6.3-8.2) g/dL Albumin (3.5-5.0) g/dL
[2024-04-20 17:59] LABS: Glucose,Whole Blood 94 mg/dL (70-110)
[2024-04-20] MEDS ORDERED: LORazepam 2 MG/ML INJ IV PRN (20:46)
[2024-04-20] MEDS: LORazepam 2 MG/ML INJ IV STA (20:51)
[2024-04-20 21:05] LABS: Glucose,Whole Blood 57 mg/dL (70-110)
[2024-04-20 21:05] LABS: Glucose,Whole Blood 199 mg/dL (70-110)
[2024-04-20 21:05] LABS: Glucose,Whole Blood 143 mg/dL (70-110)
[2024-04-20 21:05] LABS: Glucose,Whole Blood 132 mg/dL (70-110)
[2024-04-20 21:05] LABS: Glucose,Whole Blood 102 mg/dL (70-110)
[2024-04-20 21:05] LABS: Glucose,Whole Blood 146 mg/dL (70-110)
[2024-04-20 21:05] LABS: Glucose,Whole Blood 216 mg/dL (70-110)
[2024-04-20 21:05] LABS: Glucose,Whole Blood 146 mg/dL (70-110)
[2024-04-20 21:05] LABS: Glucose,Whole Blood 159 mg/dL (70-110)
[2024-04-20 21:05] LABS: Glucose,Whole Blood 99 mg/dL (70-110)
[2024-04-20 21:05] LABS: Glucose,Whole Blood 148 mg/dL (70-110)
[2024-04-20 21:05] LABS: Glucose,Whole Blood 188 mg/dL (70-110)
[2024-04-20 21:05] LABS: Glucose,Whole Blood 192 mg/dL (70-110)
[2024-04-20 21:05] LABS: Glucose,Whole Blood 102 mg/dL (70-110)
[2024-04-20 21:05] LABS: Glucose,Whole Blood 120 mg/dL (70-110)
[2024-04-20 21:05] LABS: Glucose,Whole Blood 113 mg/dL (70-110)
[2024-04-20 21:05] LABS: Glucose,Whole Blood 168 mg/dL (70-110)
[2024-04-20 21:05] LABS: Glucose,Whole Blood 156 mg/dL (70-110)
[2024-04-20 21:05] LABS: Glucose,Whole Blood 113 mg/dL (70-110)
[2024-04-20 21:05] LABS: Glucose,Whole Blood 184 mg/dL (70-110)
[2024-04-20 21:05] LABS: Glucose,Whole Blood 121 mg/dL (70-110)
[2024-04-20 21:05] LABS: Glucose,Whole Blood 208 mg/dL (70-110)
[2024-04-20 21:05] LABS: Glucose,Whole Blood 193 mg/dL (70-110)
[2024-04-20 21:05] LABS: Glucose,Whole Blood 182 mg/dL (70-110)
[2024-04-20 21:05] LABS: Glucose,Whole Blood 130 mg/dL (70-110)
[2024-04-20 21:05] LABS: Glucose,Whole Blood 111 mg/dL (70-110)
[2024-04-21 00:05] LABS: Glucose,Whole Blood 108 mg/dL (70-110)
[2024-04-21 06:15] LABS: Glucose,Whole Blood 101 mg/dL (70-110)
[2024-04-21 06:39] LABS: Anisocytosis Slight; Basophils % (A) 0 %; Eosinophils # (A) 0.1 k/uL (0-0.7); Eosinophils % (A) 1 %; HCT 29.4 % (39.0-53.0); HGB 9.4 gm/dL (13.0-17.5); Hypochromasia Slight; Lymphocytes # (A) 0.6 k/uL (1.0-4.8); Lymphocytes % (A) 5 %; MCH 33.5 pg (25.0-35.0); MCHC 31.8 g/dL (31.0-37.0); MCV 105.2 fL (80.0-100.0); Macrocytosis Moderate; Mean Platelet Volume 9.1; Monocytes # (A) 0.3 k/uL (0-1.0); Monocytes % (A) 3 %; Neutrophils % (A) 90 %; Platelet Count 255 k/uL (150-450); RDW 17.3 % (11.5-15.5); WBC 11.1 k/uL (3.8-10.6)
[2024-04-21 06:46] LABS: ALT 127 U/L (4-49); AST 145 U/L (17-59); African American GFR (CKD) >90 (>60 ml/min/1.73 sqM); Albumin 2.6 g/dL (3.5-5.0); Alkaline Phosphatase 156 U/L (38-126); Anion Gap 3 mmol/L; Blood Urea Nitrogen 16 mg/dL (9-20); Calcium 8.2 mg/dL (8.4-10.2); Carbon Dioxide 33 mmol/L (22-30); Chloride 100 mmol/L (98-107); Glucose 85 mg/dL (74-99); Non-African American GFR(CKD) >90 (>60 ml/min/1.73 sqM); Potassium 3.2 mmol/L (3.5-5.1); Sodium 136 mmol/L (137-145); Total Bilirubin 2.4 mg/dL (0.2-1.3); Total Protein 5.1 g/dL (6.3-8.2)
--- NOTE | 2024-04-21 07:24 | P.PN ---
Subjective 63-year-old gentleman who is a transfer from [facility] after being found laying on ground outside his house. Most of the history has been obtained from the EMR according to which patient has been drinking 1/5 of alcohol per day. Patient was found by his neighbor to be laying on the ground, patient was initially hypothermic and was placed on warming blankets and was transferred to [facility] where he had CT of his brain, cervical spine and CT abdominal pelvis done which were unremarkable. Patient was later transferred to [facility] for further evaluation and treatment Initial lab work done in the ER showed WBC 6.3, hemoglobin 8.1, platelet count 100, sodium 124, potassium 5, BUN 18, creatinine 0.67, glucose 412, lactate 3.6, bilirubin 2.1, AST 363, ALT 101 Patient admitted to internal medicine service 04/12/2024 Patient is seen and evaluated in room at bedside; discussed with nursing staff; mental status is a bit improved. He continues on 2 L nasal cannula. He is not using the BiPAP device. Blood work reveals hemoglobin this morning was 6.9. He will receive 1 unit packed red blood cells. White count 4.6, hemoglobin 6.9, macro 21.4, platelet count 133,000. Sodium 135, potassium 4.1, chlorides 101, CO2 25, BUN 14, creatinine 0.39. Glucose 166. Calcium 7.4. Blood cultures are negative. Chest x-ray is largely unchanged, and show bibasilar airspace opacities versus atelectasis; patient received 1 dose of Lasix per critical care recommendations. The patient's overall prognosis remains guarded. 04/13/2024 Patient is seen and evaluated with nursing staff at bedside; patient is more alert and responsive; able to follow commands; wants to go home Vital signs are reviewed; blood pressure has been somewhat elevated; critical care recommended to titrate Cleviprex and IV Lopressor White count 6.8, hemoglobin 8.5, hematocrit 26.2, platelet count 169,000. Sodium 137, potassium 4.1, chlorides 102, CO2 23, anion gap 12, BUN 21, creatinine 0.5. Glucose 127. Calcium 7.8. Magnesium 1.9. Sputum and blood cultures are negative. Chest x-ray shows bibasilar airspace disease and/or atelectasis. 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 Patient was intubated about 1 to 2 hours ago. Repeat ABG showing pH is normal at 7.36 and lower and pCO2 down to reference range at 37 CT of the brain showing no acute process and EEG showing no epileptiform discharge. Neurologist on the case and patient was diagnosed with toxic metabolic encephalopathy. Other than that he is afebrile. Hemoglobin 9.3, WBC 10.6. Creatinine 0.5. Chest x-ray:Bilateral pleural effusion. His antibiotics were changed to Zosyn. He is also on IV Solu-Medrol 60 mg He is getting normal saline at 75 mL/h. Also patient started on Levophed 04/21 Patient was transferred out of the ICU 2 nights ago. Today he is awake alert, he knows it is 2024 but he is disoriented to place and person. He looks like somewhat confused, yesterday he was agitated overnight requiring Ativan for his CIWA. Also he was placed on Librium 10 mg 3 times daily. He is generally weak both upper and lower extremities. Neurology follow-up with him closely and they think he is improving. Mentation significantly improved from last week. Also patient failed swallow evaluation. Currently getting D5 half-normal saline at 50 mL/h. Is kept on Zosyn for his aspiration pneumonia, steroids has been stopped. He still getting dialysis per bowl topper for his acute kidney injury on chronic kidney disease. He is on Lovenox for DVT prophylaxis. Active Medications Generic Name Dose Route Start Last Admin Trade Name Freq PRN Reason Stop Dose Admin Acetaminophen 650 mg 04/17/24 20:00 04/17/24 20:21 Acetaminophen Tab 325 Mg Tab PO 650 mg Q6HR PRN Administration Fever and/ or Pain Albuterol/Ipratropium 3 ml 04/10/24 08:00 04/20/24 22:01 Ipratropium-Albuterol 3 Ml Neb INHALATION 3 ml RT-QID PANCHO Administration Albuterol/Ipratropium 3 ml 04/10/24 01:01 Ipratropium-Albuterol 3 Ml Neb INHALATION RT-Q4H PRN Shortness Of Breath Or Wheezing Amlodipine Besylate 10 mg 04/15/24 16:15 04/20/24 09:29 Amlodipine 10 Mg Tab PO 10 mg DAILY PANCHO Administration Budesonide 1 mg 04/10/24 08:00 04/20/24 22:01 Budesonide 1 Mg/2 Ml Nebu INHALATION 1 mg RT-BID PANCHO Administration Chlordiazepoxide HCl 10 mg 04/21/24 09:00 Chlordiazepoxide 10 Mg Cap PO TID PANCHO Dextrose/Water 25 ml 04/10/24 19:57 Dextrose 50% Syringe 50 Ml IVP PER PROTOCOL PRN Hypoglycemia Protocol Dextrose/Water 50 ml 04/10/24 19:57 Dextrose 50% Syringe 50 Ml IVP PER PROTOCOL PRN Hypoglycemia Protocol Enoxaparin Sodium 40 mg 04/20/24 11:00 04/20/24 12:10 Enoxaparin 40 Mg/0.4 Ml Syringe SQ 40 mg DAILY PANCHO Administration Formoterol Fumarate 20 mcg 04/10/24 08:00 04/20/24 22:01 Formoterol Fumarate 20 Mcg/2 Ml Nebu INHALATION 20 mcg RT-BID PNACHO Administration Guaifenesin 600 mg 04/09/24 21:00 04/20/24 19:58 Guaifenesin 600 Mg Tablet.Er PO Not Given Q12HR PANCHO Hydralazine HCl 25 mg 04/15/24 16:10 04/15/24 21:07 Hydralazine Hcl 25 Mg Tab PO 25 mg BID PRN Administration Blood Pressure - High Sodium Chloride 1,000 mls @ 10 mls/hr 04/11/24 15:15 04/21/24 00:37 Saline 0.9% IV Not Given .Q24H PANCHO Piperacillin Sod/Tazobactam 100 mls @ 25 mls/hr 04/14/24 11:00 04/21/24 03:33 Sod 3.375 gm/ Sodium Chloride IVPB 25 mls/hr Q8H PANCHO Administration Protocol Dextrose/Sodium Chloride 1,000 mls @ 50 mls/hr 04/19/24 09:15 04/21/24 00:38 Dextrose 5%-1/2ns Iv Soln IV Not Given .Q20H [facility] Insulin Aspart 0 unit 04/12/24 18:00 04/21/24 06:16 Insulin Aspart (Novolog) 100 Unit/Ml Vial SQ Not Given Q6H [facility] Protocol Lorazepam 1 mg 04/20/24 20:46 Lorazepam 2 Mg/Ml Inj IV Q1HR PRN CIWA 10 to 15 Lorazepam 1 mg 04/20/24 20:46 Lorazepam 2 Mg/Ml Inj IV Q2HR PRN CIWA 8 or 9 Lorazepam 2 mg 04/20/24 20:46 Lorazepam 2 Mg/Ml Inj IV 04/22/24 20:46 Q10M PRN CIWA 16 or higher Losartan Potassium 100 mg 04/16/24 09:00 04/20/24 09:29 Losartan 50 Mg Tab PO 100 mg DAILY PANCHO Administration Metoprolol Tartrate 50 mg 04/16/24 09:00 04/20/24 19:58 Metoprolol Tartrate 50 Mg Tab PO Not Given BID [facility] Miscellaneous Information 1 each 04/19/24 09:19 Magnesium Replacement Protocol 1 Each Misc MISCELLANE DAILY PRN Per Protocol Protocol Miscellaneous Information 1 each 04/19/24 18:00 Potassium Replacement Protocol 1 Each Misc MISCELLANE DAILY PRN Per Protocol Protocol Morphine Sulfate 2 mg 04/10/24 09:12 04/20/24 15:06 Morphine Sulfate 2 Mg/Ml Syringe IVP 2 mg Q6HR PRN Administration Pain/Discomfort Naloxone HCl 0.2 mg 04/08/24 23:03 Naloxone 0.4 Mg/Ml 1 Ml Vial IV Q2M PRN Opioid Reversal Pantoprazole Sodium 40 mg 04/10/24 09:00 04/20/24 09:28 Pantoprazole 40 Mg/10 Ml Vial IVP 40 mg DAILY [facility] Administration Thiamine HCl 100 mg 04/16/24 09:00 04/20/24 09:29 Thiamine 100 Mg Tab PO 100 mg DAILY PANCHO Administration Objective - Vital Signs Vital signs: Vital Signs Temp 97.7 F 04/21/24 03:37 Pulse 72 04/21/24 03:37 Resp 23 04/21/24 03:37 BP 135/87 04/21/24 03:37 Pulse Ox 93 L 04/21/24 03:37 FiO2 04/20/24 08:17 Intake & Output 04/20/24 04/21/24 04/21/24 18:59 06:59 18:59 Intake Total 30 Output Total 1400 775 Balance -1400 -745 Weight 68.5 kg Intake: IV 30 Invasive Line 6 20 Invasive Line 9 10 Output: Urine 1400 775 Other: Voiding Method Indwelling Catheter Indwelling Catheter # Bowel Movements 1 ABP, PAP, CO, CI - Last Documented Arterial Blood Pressure 188/82 - Exam -GENERAL: The patient is awake, and oriented x 1, partially to time. Not in distress. Very weak generally HEENT: Pupils are round and equally reacting to light. EOMI. No scleral icterus. No conjunctival pallor. Normocephalic, atraumatic. No pharyngeal erythema. No thyromegaly. CARDIOVASCULAR: S1 and S2 present. No murmurs, rubs, or gallops. -PULMONARY: Chest is clear to auscultation, no wheezing , no crackles. Tachypneic with limited air entry on both sides ABDOMEN: Soft, nontender, nondistended, normoactive bowel sounds. No palpable organomegaly. MUSCULOSKELETAL: No joint swelling or deformity. EXTREMITIES: No cyanosis, clubbing, or pedal edema. NEUROLOGICAL: Gross neurological examination did not reveal any focal deficits. Generalized weakness, he cannot bend his knee or raise his arms above his head SKIN: No rashes. no petechiae. - Labs CBC & Chem 7: 04/21/24 05:34 04/21/24 05:34 Labs: Abnormal Lab Results - Last 24 Hours (Table) 04/14/24 04/14/24 04/14/24 Range/Units 05:47 11:48 17:25 WBC (3.8-10.6) k/uL RBC (4.30-5.90) m/uL Hgb (13.0-17.5) gm/dL Hct (39.0-53.0) % MCV (80.0-100.0) fL RDW (11.5-15.5) % Neutrophils # (1.3-7.7) k/uL Lymphocytes # (1.0-4.8) k/uL Sodium (137-145) mmol/L Potassium (3.5-5.1) mmol/L Carbon Dioxide (22-30) mmol/L Creatinine (0.66-1.25) mg/dL POC Glucose (mg/dL) 143 H 132 H 146 H (70-110) mg/dL Calcium (8.4-10.2) mg/dL Total Bilirubin (0.2-1.3) mg/dL AST (17-59) U/L ALT (4-49) U/L Alkaline Phosphatase (38-126) U/L Total Protein (6.3-8.2) g/dL Albumin (3.5-5.0) g/dL 04/14/24 04/15/24 04/15/24 Range/Units 23:18 06:02 09:23 WBC (3.8-10.6) k/uL RBC (4.30-5.90) m/uL Hgb (13.0-17.5) gm/dL Hct (39.0-53.0) % MCV (80.0-100.0) fL RDW (11.5-15.5) % Neutrophils # (1.3-7.7) k/uL Lymphocytes # (1.0-4.8) k/uL Sodium (137-145) mmol/L Potassium (3.5-5.1) mmol/L Carbon Dioxide (22-30) mmol/L Creatinine (0.66-1.25) mg/dL POC Glucose (mg/dL) 156 H 57 L 168 H (70-110) mg/dL Calcium (8.4-10.2) mg/dL Total Bilirubin (0.2-1.3) mg/dL AST (17-59) U/L ALT (4-49) U/L Alkaline Phosphatase (38-126) U/L Total Protein (6.3-8.2) g/dL Albumin (3.5-5.0) g/dL 04/15/24 04/15/24 04/15/24 Range/Units 13:05 18:13 23:22 WBC (3.8-10.6) k/uL RBC (4.30-5.90) m/uL Hgb (13.0-17.5) gm/dL Hct (39.0-53.0) % MCV (80.0-100.0) fL RDW (11.5-15.5) % Neutrophils # (1.3-7.7) k/uL Lymphocytes # (1.0-4.8) k/uL Sodium (137-145) mmol/L Potassium (3.5-5.1) mmol/L Carbon Dioxide (22-30) mmol/L Creatinine (0.66-1.25) mg/dL POC Glucose (mg/dL) 148 H 159 H 193 H (70-110) mg/dL Calcium (8.4-10.2) mg/dL Total Bilirubin (0.2-1.3) mg/dL AST (17-59) U/L ALT (4-49) U/L Alkaline Phosphatase (38-126) U/L Total Protein (6.3-8.2) g/dL Albumin (3.5-5.0) g/dL 04/16/24 04/16/24 04/16/24 Range/Units 00:01 04:35 11:02 WBC (3.8-10.6) k/uL RBC (4.30-5.90) m/uL Hgb (13.0-17.5) gm/dL Hct (39.0-53.0) % MCV (80.0-100.0) fL RDW (11.5-15.5) % Neutrophils # (1.3-7.7) k/uL Lymphocytes # (1.0-4.8) k/uL Sodium (137-145) mmol/L Potassium (3.5-5.1) mmol/L Carbon Dioxide (22-30) mmol/L Creatinine (0.66-1.25) mg/dL POC Glucose (mg/dL) 184 H 188 H 208 H (70-110) mg/dL Calcium (8.4-10.2) mg/dL Total Bilirubin (0.2-1.3) mg/dL AST (17-59) U/L ALT (4-49) U/L Alkaline Phosphatase (38-126) U/L Total Protein (6.3-8.2) g/dL Albumin (3.5-5.0) g/dL 04/16/24 04/16/24 04/16/24 Range/Units 18:07 19:01 23:35 WBC (3.8-10.6) k/uL RBC (4.30-5.90) m/uL Hgb (13.0-17.5) gm/dL Hct (39.0-53.0) % MCV (80.0-100.0) fL RDW (11.5-15.5) % Neutrophils # (1.3-7.7) k/uL Lymphocytes # (1.0-4.8) k/uL Sodium (137-145) mmol/L Potassium (3.5-5.1) mmol/L Carbon Dioxide (22-30) mmol/L Creatinine (0.66-1.25) mg/dL POC Glucose (mg/dL) 199 H 216 H 192 H (70-110) mg/dL Calcium (8.4-10.2) mg/dL Total Bilirubin (0.2-1.3) mg/dL AST (17-59) U/L ALT (4-49) U/L Alkaline Phosphatase (38-126) U/L Total Protein (6.3-8.2) g/dL Albumin (3.5-5.0) g/dL 04/17/24 04/17/24 04/17/24 Range/Units 05:38 12:12 17:37 WBC (3.8-10.6) k/uL RBC (4.30-5.90) m/uL Hgb (13.0-17.5) gm/dL Hct (39.0-53.0) % MCV (80.0-100.0) fL RDW (11.5-15.5) % Neutrophils # (1.3-7.7) k/uL Lymphocytes # (1.0-4.8) k/uL Sodium (137-145) mmol/L Potassium (3.5-5.1) mmol/L Carbon Dioxide (22-30) mmol/L Creatinine (0.66-1.25) mg/dL POC Glucose (mg/dL) 182 H 111 H 113 H (70-110) mg/dL Calcium (8.4-10.2) mg/dL Total Bilirubin (0.2-1.3) mg/dL AST (17-59) U/L ALT (4-49) U/L Alkaline Phosphatase (38-126) U/L Total Protein (6.3-8.2) g/dL Albumin (3.5-5.0) g/dL 04/17/24 04/18/24 04/18/24 Range/Units 23:13 05:50 18:41 WBC (3.8-10.6) k/uL RBC (4.30-5.90) m/uL Hgb (13.0-17.5) gm/dL Hct (39.0-53.0) % MCV (80.0-100.0) fL RDW (11.5-15.5) % Neutrophils # (1.3-7.7) k/uL Lymphocytes # (1.0-4.8) k/uL Sodium (137-145) mmol/L Potassium (3.5-5.1) mmol/L Carbon Dioxide (22-30) mmol/L Creatinine (0.66-1.25) mg/dL POC Glucose (mg/dL) 121 H 130 H 120 H (70-110) mg/dL Calcium (8.4-10.2) mg/dL Total Bilirubin (0.2-1.3) mg/dL AST (17-59) U/L ALT (4-49) U/L Alkaline Phosphatase (38-126) U/L Total Protein (6.3-8.2) g/dL Albumin (3.5-5.0) g/dL 04/19/24 04/19/24 04/21/24 Range/Units 12:20 18:24 05:34 WBC 11.1 H (3.8-10.6) k/uL RBC 2.80 L (4.30-5.90) m/uL Hgb 9.4 L (13.0-17.5) gm/dL Hct 29.4 L (39.0-53.0) % MCV 105.2 H (80.0-100.0) fL RDW 17.3 H (11.5-15.5) % Neutrophils # 10.0 H (1.3-7.7) k/uL Lymphocytes # 0.6 L (1.0-4.8) k/uL Sodium (137-145) mmol/L Potassium (3.5-5.1) mmol/L Carbon Dioxide (22-30) mmol/L Creatinine (0.66-1.25) mg/dL POC Glucose (mg/dL) 113 H 146 H (70-110) mg/dL Calcium (8.4-10.2) mg/dL Total Bilirubin (0.2-1.3) mg/dL AST (17-59) U/L ALT (4-49) U/L Alkaline Phosphatase (38-126) U/L Total Protein (6.3-8.2) g/dL Albumin (3.5-5.0) g/dL 04/21/24 Range/Units 05:34 WBC (3.8-10.6) k/uL RBC (4.30-5.90) m/uL Hgb (13.0-17.5) gm/dL Hct (39.0-53.0) % MCV (80.0-100.0) fL RDW (11.5-15.5) % Neutrophils # (1.3-7.7) k/uL Lymphocytes # (1.0-4.8) k/uL Sodium 136 L (137-145) mmol/L Potassium 3.2 L (3.5-5.1) mmol/L Carbon Dioxide 33 H (22-30) mmol/L Creatinine 0.59 L (0.66-1.25) mg/dL POC Glucose (mg/dL) (70-110) mg/dL Calcium 8.2 L (8.4-10.2) mg/dL Total Bilirubin 2.4 H (0.2-1.3) mg/dL AST 145 H (17-59) U/L ALT 127 H (4-49) U/L Alkaline Phosphatase 156 H (38-126) U/L Total Protein 5.1 L (6.3-8.2) g/dL Albumin 2.6 L (3.5-5.0) g/dL Assessment and Plan Assessment: Severe sepsis, secondary to Left lower lobe pneumonia Acute COPD exacerbation Acute hypoxic hypercapnic respiratory failure Alcohol use disorder and withdrawal Dysphagia Critical illness myopathy Metabolic/toxic encephalopathy Microcytic anemia Alcoholic transaminitis Alcoholic induced thrombocytopenia Possible left vertebral artery round calcified eggshell lesion of 1.2 cm in the posterior cranial fossa, aneurysm cannot be ruled out. Patient will need to follow-up as an outpatient with interventional neurologist Acute left sphenoid sinusitis Left upper maxillary cyst 1.8 cm eroding into the posterior wall of the left maxilla Hypertension Hyperlipidemia Possible Parkinson disease Plan: Continue with antibiotic Zosyn with a plan to switch to Augmentin Continue with CIWA protocol and thiamine On IV fluid D5 1/2 normal saline at 50 mL/h On IV Solu-Medrol 60 mg was discontinued Continue with oxygen therapy as needed and bronchodilator Several consultants on the case including pulmonary/critical care team, bowl topper and neurologist GI prophylaxis: Protonix DVT prophylaxis: Mechanical. Lovenox
[2024-04-21] MEDS: POTASSIUM CHLORIDE ER 20 MEQ TAB.ER PO STA (09:00)
[2024-04-21] MEDS ORDERED: Potassium Replacement Protocol 1 EACH MISC MISCELLANE PRN (11:25)
[2024-04-21 11:52] LABS: Glucose,Whole Blood 100 mg/dL (70-110)
[2024-04-21] MEDS: POTASSIUM CHLORIDE 10 MEQ in WATER FOR INJECTION 1 100ML.BAG IVPB SCH (13:46)
--- NOTE | 2024-04-21 14:46 | FL ---
Exam Date: 04/21/2024 12:36 PM. Modified barium swallow for dysphagia. Consistencies administered: Various consistency of barium. Fluoro time: 2 minutes 28 seconds No images were sent to PACS. Please see speech pathology report. DAP: 260.32 mGym2 Gycm2 [email or web address] VIOLET (Vessel hardening > 1.4; Normal 0.9 - 1.4, Moderate 0.7 - 0.9, Severe 0.5-0.7) TBI (Normal > 0.6; Mild 0.35 - 0.59, Moderate 0.12 - 0.34, Severe <0.12) Gastric sleeve TECHNIQUE: Limited single contrast UGI study is performed with [email or web address]. A total of seconds of fluo roscopic time was utilized during procedure and images obtained. DAP: mGym2 FINDINGS: The stomach demonstrates a postsurgical morphology. No extravasation of contrast identifie d. No evidence of mass or ulcer disease. The duodenal bulb and sweep are unremarkable. IMPRESSION: Postsurgical changes without evidence of contrast extravasation. [facility], , 04/21/2024 2:43 PM
--- NOTE | 2024-04-21 14:54 | P.PN ---
Subjective Progress Note Date: 04/21/24 Principal diagnosis: Reason for follow-up is pneumonia Patient is a 63-year-old male with a past medical history significant for COPD alcohol abuse hypertension hyperlipidemia with initially presented to the hospital the patient was found to be unresponsive and hypothermic sepsis he did have worsening of his respiratory status requiring intubation and there was concern for right lower lobe pneumonia. On today's evaluation that is 04/21/2024, patient has been afebrile, patient is breathing comfortably and is currently on room air, patient denies having any significant chest pain did have occasional cough , patient denies nausea vomiting or diarrhea and no abdominal pain. Patient white count is 11.1, creatinine 0.59 Objective - Vital Signs Vital signs: Vital Signs Temp 98.2 F 04/21/24 11:14 Pulse 83 04/21/24 11:14 Resp 17 04/21/24 11:14 BP 122/86 04/21/24 11:14 Pulse Ox 95 04/21/24 11:14 FiO2 21 04/20/24 08:17 Intake & Output 04/20/24 04/21/24 04/21/24 18:59 06:59 18:59 Intake Total 30 10 Output Total 1400 775 Balance -1400 -745 10 Weight 68.5 kg Intake: IV 30 10 Invasive Line 6 20 Invasive Line 9 10 10 Output: Urine 1400 775 Other: Voiding Method Indwelling Catheter Indwelling Catheter Indwelling Catheter # Bowel Movements 1 ABP, PAP, CO, CI - Last Documented Arterial Blood Pressure 188/82 - Exam GENERAL DESCRIPTION: An elderly male lying in bed in no distress RESPIRATORY SYSTEM: Unlabored breathing , decreased breath sounds at bases HEART: S1 S2 regular rate and rhythm , ABDOMEN: Soft , no tenderness EXTREMITIES: No edema feet - Labs CBC & Chem 7: 04/21/24 05:34 04/21/24 05:34 Labs: Abnormal Lab Results - Last 24 Hours (Table) 04/14/24 04/14/24 04/14/24 Range/Units 05:47 11:48 17:25 WBC (3.8-10.6) k/uL RBC (4.30-5.90) m/uL Hgb (13.0-17.5) gm/dL Hct (39.0-53.0) % MCV (80.0-100.0) fL RDW (11.5-15.5) % Neutrophils # (1.3-7.7) k/uL Lymphocytes # (1.0-4.8) k/uL Sodium (137-145) mmol/L Potassium (3.5-5.1) mmol/L Carbon Dioxide (22-30) mmol/L Creatinine (0.66-1.25) mg/dL POC Glucose (mg/dL) 143 H 132 H 146 H (70-110) mg/dL Calcium (8.4-10.2) mg/dL Total Bilirubin (0.2-1.3) mg/dL AST (17-59) U/L ALT (4-49) U/L Alkaline Phosphatase (38-126) U/L Total Protein (6.3-8.2) g/dL Albumin (3.5-5.0) g/dL 04/14/24 04/15/24 04/15/24 Range/Units 23:18 06:02 09:23 WBC (3.8-10.6) k/uL RBC (4.30-5.90) m/uL Hgb (13.0-17.5) gm/dL Hct (39.0-53.0) % MCV (80.0-100.0) fL RDW (11.5-15.5) % Neutrophils # (1.3-7.7) k/uL Lymphocytes # (1.0-4.8) k/uL Sodium (137-145) mmol/L Potassium (3.5-5.1) mmol/L Carbon Dioxide (22-30) mmol/L Creatinine (0.66-1.25) mg/dL POC Glucose (mg/dL) 156 H 57 L 168 H (70-110) mg/dL Calcium (8.4-10.2) mg/dL Total Bilirubin (0.2-1.3) mg/dL AST (17-59) U/L ALT (4-49) U/L Alkaline Phosphatase (38-126) U/L Total Protein (6.3-8.2) g/dL Albumin (3.5-5.0) g/dL 04/15/24 04/15/24 04/15/24 Range/Units 13:05 18:13 23:22 WBC (3.8-10.6) k/uL RBC (4.30-5.90) m/uL Hgb (13.0-17.5) gm/dL Hct (39.0-53.0) % MCV (80.0-100.0) fL RDW (11.5-15.5) % Neutrophils # (1.3-7.7) k/uL Lymphocytes # (1.0-4.8) k/uL Sodium (137-145) mmol/L Potassium (3.5-5.1) mmol/L Carbon Dioxide (22-30) mmol/L Creatinine (0.66-1.25) mg/dL POC Glucose (mg/dL) 148 H 159 H 193 H (70-110) mg/dL Calcium (8.4-10.2) mg/dL Total Bilirubin (0.2-1.3) mg/dL AST (17-59) U/L ALT (4-49) U/L Alkaline Phosphatase (38-126) U/L Total Protein (6.3-8.2) g/dL Albumin (3.5-5.0) g/dL 04/16/24 04/16/24 04/16/24 Range/Units 00:01 04:35 11:02 WBC (3.8-10.6) k/uL RBC (4.30-5.90) m/uL Hgb (13.0-17.5) gm/dL Hct (39.0-53.0) % MCV (80.0-100.0) fL RDW (11.5-15.5) % Neutrophils # (1.3-7.7) k/uL Lymphocytes # (1.0-4.8) k/uL Sodium (137-145) mmol/L Potassium (3.5-5.1) mmol/L Carbon Dioxide (22-30) mmol/L Creatinine (0.66-1.25) mg/dL POC Glucose (mg/dL) 184 H 188 H 208 H (70-110) mg/dL Calcium (8.4-10.2) mg/dL Total Bilirubin (0.2-1.3) mg/dL AST (17-59) U/L ALT (4-49) U/L Alkaline Phosphatase (38-126) U/L Total Protein (6.3-8.2) g/dL Albumin (3.5-5.0) g/dL 04/16/24 04/16/24 04/16/24 Range/Units 18:07 19:01 23:35 WBC (3.8-10.6) k/uL RBC (4.30-5.90) m/uL Hgb (13.0-17.5) gm/dL Hct (39.0-53.0) % MCV (80.0-100.0) fL RDW (11.5-15.5) % Neutrophils # (1.3-7.7) k/uL Lymphocytes # (1.0-4.8) k/uL Sodium (137-145) mmol/L Potassium (3.5-5.1) mmol/L Carbon Dioxide (22-30) mmol/L Creatinine (0.66-1.25) mg/dL POC Glucose (mg/dL) 199 H 216 H 192 H (70-110) mg/dL Calcium (8.4-10.2) mg/dL Total Bilirubin (0.2-1.3) mg/dL AST (17-59) U/L ALT (4-49) U/L Alkaline Phosphatase (38-126) U/L Total Protein (6.3-8.2) g/dL Albumin (3.5-5.0) g/dL 04/17/24 04/17/24 04/17/24 Range/Units 05:38 12:12 17:37 WBC (3.8-10.6) k/uL RBC (4.30-5.90) m/uL Hgb (13.0-17.5) gm/dL Hct (39.0-53.0) % MCV (80.0-100.0) fL RDW (11.5-15.5) % Neutrophils # (1.3-7.7) k/uL Lymphocytes # (1.0-4.8) k/uL Sodium (137-145) mmol/L Potassium (3.5-5.1) mmol/L Carbon Dioxide (22-30) mmol/L Creatinine (0.66-1.25) mg/dL POC Glucose (mg/dL) 182 H 111 H 113 H (70-110) mg/dL Calcium (8.4-10.2) mg/dL Total Bilirubin (0.2-1.3) mg/dL AST (17-59) U/L ALT (4-49) U/L Alkaline Phosphatase (38-126) U/L Total Protein (6.3-8.2) g/dL Albumin (3.5-5.0) g/dL 04/17/24 04/18/24 04/18/24 Range/Units 23:13 05:50 18:41 WBC (3.8-10.6) k/uL RBC (4.30-5.90) m/uL Hgb (13.0-17.5) gm/dL Hct (39.0-53.0) % MCV (80.0-100.0) fL RDW (11.5-15.5) % Neutrophils # (1.3-7.7) k/uL Lymphocytes # (1.0-4.8) k/uL Sodium (137-145) mmol/L Potassium (3.5-5.1) mmol/L Carbon Dioxide (22-30) mmol/L Creatinine (0.66-1.25) mg/dL POC Glucose (mg/dL) 121 H 130 H 120 H (70-110) mg/dL Calcium (8.4-10.2) mg/dL Total Bilirubin (0.2-1.3) mg/dL AST (17-59) U/L ALT (4-49) U/L Alkaline Phosphatase (38-126) U/L Total Protein (6.3-8.2) g/dL Albumin (3.5-5.0) g/dL 04/19/24 04/19/24 04/21/24 Range/Units 12:20 18:24 05:34 WBC 11.1 H (3.8-10.6) k/uL RBC 2.80 L (4.30-5.90) m/uL Hgb 9.4 L (13.0-17.5) gm/dL Hct 29.4 L (39.0-53.0) % MCV 105.2 H (80.0-100.0) fL RDW 17.3 H (11.5-15.5) % Neutrophils # 10.0 H (1.3-7.7) k/uL Lymphocytes # 0.6 L (1.0-4.8) k/uL Sodium (137-145) mmol/L Potassium (3.5-5.1) mmol/L Carbon Dioxide (22-30) mmol/L Creatinine (0.66-1.25) mg/dL POC Glucose (mg/dL) 113 H 146 H (70-110) mg/dL Calcium (8.4-10.2) mg/dL Total Bilirubin (0.2-1.3) mg/dL AST (17-59) U/L ALT (4-49) U/L Alkaline Phosphatase (38-126) U/L Total Protein (6.3-8.2) g/dL Albumin (3.5-5.0) g/dL 04/21/24 Range/Units 05:34 WBC (3.8-10.6) k/uL RBC (4.30-5.90) m/uL Hgb (13.0-17.5) gm/dL Hct (39.0-53.0) % MCV (80.0-100.0) fL RDW (11.5-15.5) % Neutrophils # (1.3-7.7) k/uL Lymphocytes # (1.0-4.8) k/uL Sodium 136 L (137-145) mmol/L Potassium 3.2 L (3.5-5.1) mmol/L Carbon Dioxide 33 H (22-30) mmol/L Creatinine 0.59 L (0.66-1.25) mg/dL POC Glucose (mg/dL) (70-110) mg/dL Calcium 8.2 L (8.4-10.2) mg/dL Total Bilirubin 2.4 H (0.2-1.3) mg/dL AST 145 H (17-59) U/L ALT 127 H (4-49) U/L Alkaline Phosphatase 156 H (38-126) U/L Total Protein 5.1 L (6.3-8.2) g/dL Albumin 2.6 L (3.5-5.0) g/dL Assessment and Plan (1) Aspiration pneumonia Current Visit: Yes Status: Acute Code(s): J69.0 - PNEUMONITIS DUE TO INHALATION OF FOOD AND VOMIT SNOMED Code(s): 075202518 (2) Leukocytosis Current Visit: Yes Status: Acute Code(s): D72.829 - ELEVATED WHITE BLOOD CELL COUNT, UNSPECIFIED SNOMED Code(s): 551320844 Plan: 1patient with initial presentation to the hospital with episode of hypothermia and unresponsiveness subsequently worsening of his respiratory status requiring intubation and evidence of worsening right lower lobe infiltrate concerning for possible aspiration/gram-negative pneumonia. 2blood and sputum culture obtained which are so far negative 3patient is afebrile and the patient white count is trending down to 11,000 4 patient currently being treated with Zosyn while inpatient however plan is to be therapy with oral Augmentin on discharge Dictation was produced using [employer] dictation software. please excuse any grammatical, word or spelling errors. Time with Patient: Less than 30
--- NOTE | 2024-04-21 17:51 | P.PN ---
Subjective Progress Note Date: 04/21/24 Principal diagnosis: Acute hypoxic respiratory failure secondary to aspiration pneumonia Patient is a 63-year-old male with past medical history significant for COPD, alcohol abuse, hypertension, hyperlipidemia, among other things. Transferred from [facility] on 04/08/2024. Apparently, was found by his neighbor on the ground and unresponsive in his residence. The heat in the house was not working, and patient was hypothermic with a temperature of 87 F. Unclear just how long the patient was on the floor. Did undergo rewarming at the outside facility. His blood glucose was also found to be low at 27 mg/dL. Did have a CT of the brain and C-spine which did not show any abnormalities or C-spine fracture/subluxation. Also, had a CT of the chest, images not available, however, reportedly demonstrating multiple bilateral subacute and nondisplaced rib fractures. According to the ER records, patient is an alcoholic and drinks approximately 1/5 of liquor per day. Currently on CIWA protocol. Workup at our facility, including a brain CT which did not show any acute intracranial hemorrhage, acute ischemic changes, or mass effect. Demonstrated a 1.2 cm rounded area of eggshell calcification midline posterior cranial fossa along the left vertebral artery. Concern was for possible aneurysm. Suspect a 1.8 cm cyst involving an impacted left maxillary molar. Regarding posterior wall of the maxilla. Air-fluid level of the left soft sphenoid sinus, possibly representing acute sinusitis. Chest x-ray showing low lung volumes with small bilateral pleural effusions and left-sided basilar atelectasis or infiltrate.CBC done arrival: WBC count 6.3, hemoglobin 8.1, hematocrit 23.3, platelets 100. Most recent CMP from yesterday showing a sodium 125, potassium 3.4, chloride 87, serum bicarb 28, BUN 15, creatinine 0.48, glucose 117. Lactic was 3.6 down to 1.5. Magnesium 1.5. LFTs mildly elevated, possibly secondary to chronic alcohol intake. CPK 722. Troponin was elevated at 0.042 and is trending down, most recently 0.027. Procalcitonin level is 1.11. Not currently on any antibiotics Patient currently being evaluated emergency department. He is on BiPAP with settings 12/6 and FiO2 100%. He is quite tachypneic, breathing in the high 40s. Vital lungs range around 400 to 500 mL. ABGs done on these settings showing a PaO2 of 70, pCO2 42, pH of 7.44. He remains quite obtunded, withdraws to painful stimuli in all 4 extremities. Now normothermic with a temperature of 98.3 F. Blood glucose 155. Ammonia 22. D5W with normal saline infusing at 75 mL/h. Plan is for patient be transferred to the intensive care unit once bed av ailable. Progress note dated April 11, 2024. 63-year-old male seen today in the intensive care unit, room 259. The patient is on dextrose, with saline, 75 cc an hour, saline IV at 10 cc an hour, and getting nasal cannula at 3 L. He also has a BiPAP in the room, with settings of 12/6, and 60%. He appears to be resting relatively comfortably, although he is a bit lethargic and somnolent. Current labs include a white count 3.9, hemoglobin 7.4, hematocrit 22.3, and a platelet count of hearing 26,000. Sodium 131, potassium 4, chlorides 95, CO2 33, BUN 15, creatinine 0.39. Glucose is 157. Chest x-ray reveals mild bibasilar infiltrates or atelectasis. 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 Progress note dated April 12, 2024. The patient is seen here in room 259. His mental status is a bit improved. He continues on 2 L nasal cannula. He is not using the BiPAP device. He is getting saline at 75 cc an hour. His hemoglobin this morning was 6.9. He will receive 1 unit packed red blood cells. In addition, the patient will get 1 dose of Lasix, 20 mg IV push. White count 4.6, hemoglobin 6.9, macro 21.4, platelet count 133,000. Sodium 135, potassium 4.1, chlorides 101, CO2 25, BUN 14, creatinine 0.39. Glucose 166. Calcium 7.4. Blood cultures are negative. Chest x-ray is largely unchanged, and show bibasilar airspace opacities versus atelectasis. Progress note dated April 13, 2024. 63-year-old male seen today in room 259. The patient is on saline at 75 cc an hour, nasal O2 at 2 L. He did receive 1 unit of packed red blood cells. The patient's blood pressure has been a bit elevated, so he may need something IV for that, I have written orders for both Cleviprex to be titrated, and IV beta- oh, i.e. the Lopressor. The patient's mental status is poor. It continues to be about the same. White count 6.8, hemoglobin 8.5, hematocrit 26.2, platelet count 169,000. Sodium 137, potassium 4.1, chlorides 102, CO2 23, anion gap 12, BUN 21, creatinine 0.5. Glucose 127. Calcium 7.8. Magnesium 1.9. Sputum and blood cultures are negative. Chest x-ray shows bibasilar airspace disease and/or atelectasis. On 04/14/2024, the patient is being seen for a follow-up. This morning, the patient is quite drowsy and sleepy and encephalopathic. He is not communicating with me. I was told that his mentation was much better yesterday. I came to find out that the patient was given Ativan overnight. Will continue monitoring his mentation. He is currently on 2 L of oxygen by nasal cannula. Chest x-ray shows development of a right lower lobe consolidation with worsening right lower lobe pulmonary filtrate and small left-sided pleural effusion and right-sided pleural effusion. There is also some limited atelectatic changes in the left lung. Hemodynamically stable on no pressors. White cell count of 6.2 with a heme of 9.8 and a platelet count of 187. BUN is 33 with a creatinine of 0.5 and a sodium levels at 139 and potassium level is at 4.8. Remains on DuoNeb. Remains on Pulmicort and Perforomist updrafts twice a day. Remains on IV Solu- Medrol. He was on IV Rocephin and I am going to switch his antibiotics to IV Zosyn covering for aspiration and hospital-acquired pathogens. Remains on n ormal citrate of 75 cc an hour. Ativan will be discontinued and his mental status needs to be monitored very closely. On 04/15/2024, the patient is being seen for a follow-up. Noted, the patient has significant diminishment of level of consciousness from yesterday. He was maintained on 2 L of oxygen by nasal cannula and he was also noted to have worsening in the right lower lobe consolidation. Overnight, the patient became more dyspneic and the blood gas was obtained that showed a pH of 7.09 with a pCO2 of 79 and pO2 of 81. Based on that, the patient was intubated and placed on mechanical ventilation. This morning, the patient is still on propofol running at 35 mcg/kg/min. The patient is on mechanical ventilator assist- control mode rate of 24, tidal volume of 500, FiO2 50% with a PEEP of 5. Blood gas showed a pH of 7.36 with a pCO2 of 37 and pO2 420. FiO2 was accordingly dropped. Chest x-ray shows a dense consolidation in the right lower lobe and the patient is currently on IV Zosyn. He remains on normal saline at rate of 75 cc an hour. Urine output is in order of 20 to 30 cc an hour. Fluid balance is +2.3 L over the past 24 hours. The white cell count is at 14.8 with a hemoglobin 8.5 and a platelet count of 156. Sodium is 142, potassium is at 5.6, bicarb is at 20 with a BUN of 36 and a creatinine of 0.68. Calcium level is at 6.4. Afebrile. Hemodynamically stable on no pressors. On 04/16/2024, the patient is being seen for a follow-up. Remains intubated on mechanical ventilator. The patient is sedated with propofol which is running at 40 mcg/kg/min. The patient is on assist-control mode of mechanical ventilation at rate of 24, tidal volume of 500, FiO2 40% with a PEEP of 5. Blood gas showed a pH of 7.43 with a pCO2 of 27 and pO2 of 144. Chest x-ray shows a persistent right lower lobe consolidation and the patient remains on IV Zosyn. Fluid susanna nce is +2.1 L over the past 24 hours. Blood pressure remains elevated and the patient is currently on a combination of losartan 100 mg p.o. daily, Norvasc 10 mg p.o. daily and metoprolol 50 mg p.o. 3 times daily. Receiving vital HP at rate of 30 cc an hour. Remains on bronchodilators. Will be started on diuretics today. Will try to achieve a negative fluid balance on this patient. The WBC count is 11.5 with a hemoglobin 8.3 and a platelet count of 176. Sodium is at 140, potassium is at 3.8 and the patient's chloride is 112 with a BUN of 15 and a creatinine of 1.05. The sputum sample collected on 04/15/2024 remains negative. Lines have been established. Afebrile. Hemodynamically stable. On 04/17/2024, the patient is being seen for a follow-up. This morning, the patient remains intubated on mechanical ventilator. He remains on propofol at 20 mcg/kg/min. Noted the patient was given a sedation holiday. He was arousable yesterday. Nevertheless, he became asynchronous with a mechanical ventilator and was quite restless and agitated. Based on that, the holiday was discontinued. The same is to be done today. The patient remains on IV Zosyn. Repeat chest x-ray done today shows improvement in right lower lobe consolidation. The patient is on assist-control mode of mechanical ventilation with a rate of 16, tidal volume of 500, FiO2 of 40% with a PEEP of 5. Blood gas showed a pH of 7.56 with a pCO2 of 33 and pO2 of 90. The patient is on normal saline at rate of 20 cc an hour. Urine output order of 100 cc an hour. Fluid balance is -2.9 L over the past 24 hours and the patient remains on vital high- protein at the rate of 50 cc an hour. He remains on IV Zosyn. Sputum culture has been negative. The white cell count of 19 with a hemoglobin of 8.5 and a platelet count of 181. Sodium is at 142, potassium is 3.6, BUN is 47 with a creatinine of 1.08. Serum bicarb is at 32. LFTs are abnormal with an AST of 646, ALT of 161 and alkaline phosphatase of 194. Procalcitonin level is at 0.82. On 04/18/2024, during a very busy ICU morning, the patient self extubated himself. The patient did extremely well postextubation. He is currently on oxygen airfit 3 L. He is off sedation. Noted, prior to his extubation, he was on assist-control mode at rate of 16, tidal volume of 400, FiO2 40% with a PEEP of 5. The blood gas showed a pH of 7.49 with a pCO2 42 and pO2 of 94. Fluid balance is -2.9 L and another 3 L over the past 48 hours. The patient remains on IV Zosyn. The patient was being diuresed with IV Lasix and diuretics was placed on hold. A follow-up chest x-ray done today shows stable right lower lobe pulmonary infiltrate and a small right-sided pleural effusion. The patient continues to have a congested cough. He is able to self suction. He is awake and alert and communicating. 04/19/2024, the patient is awake and alert. He is on room air. Continues to cough. Able to do adequate pulmonary toileting. A follow-up chest x-ray from this morning shows improvement in right lower lobe pulmonary filtrate. Small left-sided pleural effusion is also noted. No respiratory distress. He remains weak. He failed a swallow evaluation. IV fluids are currently at KVO. Fluid balance is -2.4 L over the past 24 hours. Blood pressure remains elevated and the patient remains on a combination of amlodipine 10 mg p.o. daily, Cozaar 100 mg p.o. daily, metoprolol 50 mg twice a day. Arterial line is to be discontinued. The white cell count is 15 with a hemoglobin 8.4 and a platelet count of 167. Sodium is at 140, BUN 35 and creatinine 0.8. Potassium level is at 3.2. On 04/20/2024, the patient is being seen for a follow-up. The patient was transferred out of the intensive care unit yesterday and the patient remains on room air oxygen. Continues to have a congested cough. Able to do pulmonary toileting. He has some difficulty with swallowing and the patient had failed swallow evaluation and the patient is receiving only some applesauce under close supervision. The patient is also on D5 half-normal saline at rate of 50 cc an hour. Remains on IV Zosyn regarding right lower lobe pneumonia. Hemodynamically stable. Remains on bronchodilators. Blood pressure management is adequate for now. No new labs are available from today. His LFTs have been improving and AST and ALT have been declining based on the most recent labs from 04/19/2024. Patient was seen today on 04/21/2024, patient continues to have intermittent coug h, he had difficulty clearing his secretions patient continues to have some difficulty with swallowing and he did fail his swallow evaluation receiving applesauce under close supervision remains on Zosyn for his presumptive aspiration pneumonia remains on bronchodilators, continues to have a bit of leukocytosis with WC count of 11.1 hemoglobin is 9.4 electrolytes are normal except for low potassium of 3.2 renal profile is normal, chest x-ray 2 days ago showed bibasilar infiltrates with I suspect left lower lobe consolidation and possibly a small left pleural effusion this is consistent with aspiration pneumonia. Objective - Vital Signs Vital signs: Vital Signs Temp 98.2 F 04/21/24 11:14 Pulse 80 04/21/24 15:41 Resp 17 04/21/24 14:00 BP 122/86 04/21/24 11:14 Pulse Ox 95 04/21/24 11:14 FiO2 21 04/20/24 08:17 Intake & Output 04/20/24 04/21/24 04/21/24 18:59 06:59 18:59 Intake Total 30 20 Output Total 1400 775 Balance -1400 -745 20 Weight 68.5 kg 68.5 kg Intake: IV 30 20 Invasive Line 6 20 Invasive Line 9 10 20 Output: Urine 1400 775 Other: Voiding Method Indwelling Catheter Indwelling Catheter Indwelling Catheter # Bowel Movements 1 ABP, PAP, CO, CI - Last Documented Arterial Blood Pressure 188/82 - Exam GENERAL: The patient is awake, and oriented x 1, HEENT: Pupils are round and equally reacting to light. EOMI. No scleral icterus. No conjunctival pallor. Normocephalic, atraumatic. No pharyngeal erythema. No thyromegaly. CARDIOVASCULAR: S1 and S2 present. No murmurs, rubs, or gallops. -PULMONARY: Crackles and rhonchi noted bilaterally ABDOMEN: Soft, nontender, nondistended, normoactive bowel sounds. No palpable organomegaly. MUSCULOSKELETAL: No joint swelling or deformity. EXTREMITIES: No cyanosis, clubbing, or pedal edema. NEUROLOGICAL: Gross neurological examination did not reveal any focal deficits. Generalized weakness SKIN: No rashes. no petechiae. - Labs CBC & Chem 7: 04/21/24 05:34 04/21/24 05:34 Labs: Abnormal Lab Results - Last 24 Hours (Table) 04/14/24 04/14/24 04/14/24 Range/Units 05:47 11:48 17:25 WBC (3.8-10.6) k/uL RBC (4.30-5.90) m/uL Hgb (13.0-17.5) gm/dL Hct (39.0-53.0) % MCV (80.0-100.0) fL RDW (11.5-15.5) % Neutrophils # (1.3-7.7) k/uL Lymphocytes # (1.0-4.8) k/uL Sodium (137-145) mmol/L Potassium (3.5-5.1) mmol/L Carbon Dioxide (22-30) mmol/L Creatinine (0.66-1.25) mg/dL POC Glucose (mg/dL) 143 H 132 H 146 H (70-110) mg/dL Calcium (8.4-10.2) mg/dL Total Bilirubin (0.2-1.3) mg/dL AST (17-59) U/L ALT (4-49) U/L Alkaline Phosphatase (38-126) U/L Total Protein (6.3-8.2) g/dL Albumin (3.5-5.0) g/dL 04/14/24 04/15/24 04/15/24 Range/Units 23:18 06:02 09:23 WBC (3.8-10.6) k/uL RBC (4.30-5.90) m/uL Hgb (13.0-17.5) gm/dL Hct (39.0-53.0) % MCV (80.0-100.0) fL RDW (11.5-15.5) % Neutrophils # (1.3-7.7) k/uL Lymphocytes # (1.0-4.8) k/uL Sodium (137-145) mmol/L Potassium (3.5-5.1) mmol/L Carbon Dioxide (22-30) mmol/L Creatinine (0.66-1.25) mg/dL POC Glucose (mg/dL) 156 H 57 L 168 H (70-110) mg/dL Calcium (8.4-10.2) mg/dL Total Bilirubin (0.2-1.3) mg/dL AST (17-59) U/L ALT (4-49) U/L Alkaline Phosphatase (38-126) U/L Total Protein (6.3-8.2) g/dL Albumin (3.5-5.0) g/dL 04/15/24 04/15/24 04/15/24 Range/Units 13:05 18:13 23:22 WBC (3.8-10.6) k/uL RBC (4.30-5.90) m/uL Hgb (13.0-17.5) gm/dL Hct (39.0-53.0) % MCV (80.0-100.0) fL RDW (11.5-15.5) % Neutrophils # (1.3-7.7) k/uL Lymphocytes # (1.0-4.8) k/uL Sodium (137-145) mmol/L Potassium (3.5-5.1) mmol/L Carbon Dioxide (22-30) mmol/L Creatinine (0.66-1.25) mg/dL POC Glucose (mg/dL) 148 H 159 H 193 H (70-110) mg/dL Calcium (8.4-10.2) mg/dL Total Bilirubin (0.2-1.3) mg/dL AST (17-59) U/L ALT (4-49) U/L Alkaline Phosphatase (38-126) U/L Total Protein (6.3-8.2) g/dL Albumin (3.5-5.0) g/dL 04/16/24 04/16/24 04/16/24 Range/Units 00:01 04:35 11:02 WBC (3.8-10.6) k/uL RBC (4.30-5.90) m/uL Hgb (13.0-17.5) gm/dL Hct (39.0-53.0) % MCV (80.0-100.0) fL RDW (11.5-15.5) % Neutrophils # (1.3-7.7) k/uL Lymphocytes # (1.0-4.8) k/uL Sodium (137-145) mmol/L Potassium (3.5-5.1) mmol/L Carbon Dioxide (22-30) mmol/L Creatinine (0.66-1.25) mg/dL POC Glucose (mg/dL) 184 H 188 H 208 H (70-110) mg/dL Calcium (8.4-10.2) mg/dL Total Bilirubin (0.2-1.3) mg/dL AST (17-59) U/L ALT (4-49) U/L Alkaline Phosphatase (38-126) U/L Total Protein (6.3-8.2) g/dL Albumin (3.5-5.0) g/dL 04/16/24 04/16/24 04/16/24 Range/Units 18:07 19:01 23:35 WBC (3.8-10.6) k/uL RBC (4.30-5.90) m/uL Hgb (13.0-17.5) gm/dL Hct (39.0-53.0) % MCV (80.0-100.0) fL RDW (11.5-15.5) % Neutrophils # (1.3-7.7) k/uL Lymphocytes # (1.0-4.8) k/uL Sodium (137-145) mmol/L Potassium (3.5-5.1) mmol/L Carbon Dioxide (22-30) mmol/L Creatinine (0.66-1.25) mg/dL POC Glucose (mg/dL) 199 H 216 H 192 H (70-110) mg/dL Calcium (8.4-10.2) mg/dL Total Bilirubin (0.2-1.3) mg/dL AST (17-59) U/L ALT (4-49) U/L Alkaline Phosphatase (38-126) U/L Total Protein (6.3-8.2) g/dL Albumin (3.5-5.0) g/dL 04/17/24 04/17/24 04/17/24 Range/Units 05:38 12:12 17:37 WBC (3.8-10.6) k/uL RBC (4.30-5.90) m/uL Hgb (13.0-17.5) gm/dL Hct (39.0-53.0) % MCV (80.0-100.0) fL RDW (11.5-15.5) % Neutrophils # (1.3-7.7) k/uL Lymphocytes # (1.0-4.8) k/uL Sodium (137-145) mmol/L Potassium (3.5-5.1) mmol/L Carbon Dioxide (22-30) mmol/L Creatinine (0.66-1.25) mg/dL POC Glucose (mg/dL) 182 H 111 H 113 H (70-110) mg/dL Calcium (8.4-10.2) mg/dL Total Bilirubin (0.2-1.3) mg/dL AST (17-59) U/L ALT (4-49) U/L Alkaline Phosphatase (38-126) U/L Total Protein (6.3-8.2) g/dL Albumin (3.5-5.0) g/dL 04/17/24 04/18/24 04/18/24 Range/Units 23:13 05:50 18:41 WBC (3.8-10.6) k/uL RBC (4.30-5.90) m/uL Hgb (13.0-17.5) gm/dL Hct (39.0-53.0) % MCV (80.0-100.0) fL RDW (11.5-15.5) % Neutrophils # (1.3-7.7) k/uL Lymphocytes # (1.0-4.8) k/uL Sodium (137-145) mmol/L Potassium (3.5-5.1) mmol/L Carbon Dioxide (22-30) mmol/L Creatinine (0.66-1.25) mg/dL POC Glucose (mg/dL) 121 H 130 H 120 H (70-110) mg/dL Calcium (8.4-10.2) mg/dL Total Bilirubin (0.2-1.3) mg/dL AST (17-59) U/L ALT (4-49) U/L Alkaline Phosphatase (38-126) U/L Total Protein (6.3-8.2) g/dL Albumin (3.5-5.0) g/dL 04/19/24 04/19/24 04/21/24 Range/Units 12:20 18:24 05:34 WBC 11.1 H (3.8-10.6) k/uL RBC 2.80 L (4.30-5.90) m/uL Hgb 9.4 L (13.0-17.5) gm/dL Hct 29.4 L (39.0-53.0) % MCV 105.2 H (80.0-100.0) fL RDW 17.3 H (11.5-15.5) % Neutrophils # 10.0 H (1.3-7.7) k/uL Lymphocytes # 0.6 L (1.0-4.8) k/uL Sodium (137-145) mmol/L Potassium (3.5-5.1) mmol/L Carbon Dioxide (22-30) mmol/L Creatinine (0.66-1.25) mg/dL POC Glucose (mg/dL) 113 H 146 H (70-110) mg/dL Calcium (8.4-10.2) mg/dL Total Bilirubin (0.2-1.3) mg/dL AST (17-59) U/L ALT (4-49) U/L Alkaline Phosphatase (38-126) U/L Total Protein (6.3-8.2) g/dL Albumin (3.5-5.0) g/dL 04/21/24 Range/Units 05:34 WBC (3.8-10.6) k/uL RBC (4.30-5.90) m/uL Hgb (13.0-17.5) gm/dL Hct (39.0-53.0) % MCV (80.0-100.0) fL RDW (11.5-15.5) % Neutrophils # (1.3-7.7) k/uL Lymphocytes # (1.0-4.8) k/uL Sodium 136 L (137-145) mmol/L Potassium 3.2 L (3.5-5.1) mmol/L Carbon Dioxide 33 H (22-30) mmol/L Creatinine 0.59 L (0.66-1.25) mg/dL POC Glucose (mg/dL) (70-110) mg/dL Calcium 8.2 L (8.4-10.2) mg/dL Total Bilirubin 2.4 H (0.2-1.3) mg/dL AST 145 H (17-59) U/L ALT 127 H (4-49) U/L Alkaline Phosphatase 156 H (38-126) U/L Total Protein 5.1 L (6.3-8.2) g/dL Albumin 2.6 L (3.5-5.0) g/dL Assessment and Plan Assessment: Impression: Acute hypoxic respiratory failure secondary to pneumonia Acute aspiration pneumonia Severe sepsis secondary to pneumonia Acute exacerbation of COPD History of alcohol withdrawal and alcohol use Dysphagia and aspiration pneumonia Critical illness polyneuropathy and myopathy Acute metabolic encephalopathy Microcytic anemia Alcohol induced thrombocytopenia Possible vertebral artery/left vertebral artery aneurysm needs outpatient workup by neurology Acute left sphenoid sinusitis Benign essential hypertension Dyslipidemia Recommendation: Continue antibiotics/Zosyn plan to eventually transition to Augmentin Continue alcohol withdrawal protocol including Ativan and thiamine Continue IV fluids at 50 cc/h Continue bronchodilators and steroids Continue oxygen and titrate accordingly Patient remains quite ill with multiple complex issues as noted above Not ready for any discharge planning Will continue to follow Time with Patient: Less than 30
[2024-04-21 18:34] LABS: Glucose,Whole Blood 97 mg/dL (70-110)
[2024-04-21] MEDS: LORazepam 2 MG/ML INJ IV PRN (23:16)
[2024-04-22] MEDS: LORazepam 2 MG/ML INJ IV PRN (01:50)
[2024-04-22 06:27] LABS: Glucose,Whole Blood 105 mg/dL (70-110)
--- NOTE | 2024-04-22 09:07 | P.PN ---
Subjective 63-year-old gentleman who is a transfer from [facility] after being found laying on ground outside his house. Most of the history has been obtained from the EMR according to which patient has been drinking 1/5 of alcohol per day. Patient was found by his neighbor to be laying on the ground, patient was initially hypothermic and was placed on warming blankets and was transferred to [facility] where he had CT of his brain, cervical spine and CT abdominal pelvis done which were unremarkable. Patient was later transferred to [facility] for further evaluation and treatment Initial lab work done in the ER showed WBC 6.3, hemoglobin 8.1, platelet count 100, sodium 124, potassium 5, BUN 18, creatinine 0.67, glucose 412, lactate 3.6, bilirubin 2.1, AST 363, ALT 101 Patient admitted to internal medicine service 04/12/2024 Patient is seen and evaluated in room at bedside; discussed with nursing staff; mental status is a bit improved. He continues on 2 L nasal cannula. He is not using the BiPAP device. Blood work reveals hemoglobin this morning was 6.9. He will receive 1 unit packed red blood cells. White count 4.6, hemoglobin 6.9, macro 21.4, platelet count 133,000. Sodium 135, potassium 4.1, chlorides 101, CO2 25, BUN 14, creatinine 0.39. Glucose 166. Calcium 7.4. Blood cultures are negative. Chest x-ray is largely unchanged, and show bibasilar airspace opacities versus atelectasis; patient received 1 dose of Lasix per critical care recommendations. The patient's overall prognosis remains guarded. 04/13/2024 Patient is seen and evaluated with nursing staff at bedside; patient is more alert and responsive; able to follow commands; wants to go home Vital signs are reviewed; blood pressure has been somewhat elevated; critical care recommended to titrate Cleviprex and IV Lopressor White count 6.8, hemoglobin 8.5, hematocrit 26.2, platelet count 169,000. Sodium 137, potassium 4.1, chlorides 102, CO2 23, anion gap 12, BUN 21, creatinine 0.5. Glucose 127. Calcium 7.8. Magnesium 1.9. Sputum and blood cultures are negative. Chest x-ray shows bibasilar airspace disease and/or atelectasis. 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 Patient was intubated about 1 to 2 hours ago. Repeat ABG showing pH is normal at 7.36 and lower and pCO2 down to reference range at 37 CT of the brain showing no acute process and EEG showing no epileptiform discharge. Neurologist on the case and patient was diagnosed with toxic metabolic encephalopathy. Other than that he is afebrile. Hemoglobin 9.3, WBC 10.6. Creatinine 0.5. Chest x-ray:Bilateral pleural effusion. His antibiotics were changed to Zosyn. He is also on IV Solu-Medrol 60 mg He is getting normal saline at 75 mL/h. Also patient started on Levophed 04/21 Patient was transferred out of the ICU 2 nights ago. Today he is awake alert, he knows it is 2024 but he is disoriented to place and person. He looks like somewhat confused, yesterday he was agitated overnight requiring Ativan for his CIWA. Also he was placed on Librium 10 mg 3 times daily. He is generally weak both upper and lower extremities. Neurology follow-up with him closely and they think he is improving. Mentation significantly improved from last week. Also patient failed swallow evaluation. Currently getting D5 half-normal saline at 50 mL/h. Is kept on Zosyn for his aspiration pneumonia, steroids has been stopped. He still getting dialysis per foreign agent for his acute kidney injury on chronic kidney disease. He is on Lovenox for DVT prophylaxis. 04/22 Patient remains with significant encephalopathy and significant weakness in both upper and lower extremities. Patient awake can follow simple commands but he has no insight and he is confused to the surrounding. Also patient failed swallow evaluation yesterday and he might require a tube feed after being evaluated again today. We will wait for nutrition team evaluation. Also patient has severe weakness in both upper and lower extremity could be partly because of the alcohol effect and ICU admission plus other medical problems. Neurology is already on the case. He can hardly move his both lower extremities. And upper extremities looks weak all looks symmetrical. Patient himself does not have any other complaint. He is still going through significant alcohol withdrawal and currently he is on Librium 10 mg 3 times daily and CIWA protocol, CIWA score patch was between 5 and 14. Currently 9 this morning but he is not getting it because he is n.p.o. he required 2 mg of Ativan from last night Active Medications Generic Name Dose Route Start Last Admin Trade Name Freq PRN Reason Stop Dose Admin Acetaminophen 650 mg 04/17/24 20:00 04/17/24 20:21 Acetaminophen Tab 325 Mg Tab PO 650 mg Q6HR PRN Administration Fever and/ or Pain Albuterol/Ipratropium 3 ml 04/10/24 08:00 04/20/24 22:01 Ipratropium-Albuterol 3 Ml Neb INHALATION 3 ml RT-QID [facility] Administration Albuterol/Ipratropium 3 ml 04/10/24 01:01 Ipratropium-Albuterol 3 Ml Neb INHALATION RT-Q4H PRN Shortness Of Breath Or Wheezing Amlodipine Besylate 10 mg 04/15/24 16:15 04/20/24 09:29 Amlodipine 10 Mg Tab PO 10 mg DAILY [facility] Administration Budesonide 1 mg 04/10/24 08:00 04/20/24 22:01 Budesonide 1 Mg/2 Ml Nebu INHALATION 1 mg RT-BID [facility] Administration Chlordiazepoxide HCl 10 mg 04/21/24 09:00 Chlordiazepoxide 10 Mg Cap PO TID [facility] Dextrose/Water 25 ml 04/10/24 19:57 Dextrose 50% Syringe 50 Ml IVP PER PROTOCOL PRN Hypoglycemia Protocol Dextrose/Water 50 ml 04/10/24 19:57 Dextrose 50% Syringe 50 Ml IVP PER PROTOCOL PRN Hypoglycemia Protocol Enoxaparin Sodium 40 mg 04/20/24 11:00 04/20/24 12:10 Enoxaparin 40 Mg/0.4 Ml Syringe SQ 40 mg DAILY [facility] Administration Formoterol Fumarate 20 mcg 04/10/24 08:00 04/20/24 22:01 Formoterol Fumarate 20 Mcg/2 Ml Nebu INHALATION 20 mcg RT-BID [facility] Administration Guaifenesin 600 mg 04/09/24 21:00 04/20/24 19:58 Guaifenesin 600 Mg Tablet.Er PO Not Given Q12HR [facility] Hydralazine HCl 25 mg 04/15/24 16:10 04/15/24 21:07 Hydralazine Hcl 25 Mg Tab PO 25 mg BID PRN Administration Blood Pressure - High Sodium Chloride 1,000 mls @ 10 mls/hr 04/11/24 15:15 04/21/24 00:37 Saline 0.9% IV Not Given .Q24H [facility] Piperacillin Sod/Tazobactam 100 mls @ 25 mls/hr 04/14/24 11:00 04/21/24 03:33 Sod 3.375 gm/ Sodium Chloride IVPB 25 mls/hr Q8H [facility] Administration Protocol Dextrose/Sodium Chloride 1,000 mls @ 50 mls/hr 04/19/24 09:15 04/21/24 00:38 Dextrose 5%-1/2ns Iv Soln IV Not Given .Q20H [facility] Insulin Aspart 0 unit 04/12/24 18:00 04/21/24 06:16 Insulin Aspart (Novolog) 100 Unit/Ml Vial SQ Not Given Q6H [facility] Protocol Lorazepam 1 mg 04/20/24 20:46 Lorazepam 2 Mg/Ml Inj IV Q1HR PRN CIWA 10 to 15 Lorazepam 1 mg 04/20/24 20:46 Lorazepam 2 Mg/Ml Inj IV Q2HR PRN CIWA 8 or 9 Lorazepam 2 mg 04/20/24 20:46 Lorazepam 2 Mg/Ml Inj IV 04/22/24 20:46 Q10M PRN CIWA 16 or higher Losartan Potassium 100 mg 04/16/24 09:00 04/20/24 09:29 Losartan 50 Mg Tab PO 100 mg DAILY [facility] Administration Metoprolol Tartrate 50 mg 04/16/24 09:00 04/20/24 19:58 Metoprolol Tartrate 50 Mg Tab PO Not Given BID [facility] Miscellaneous Information 1 each 04/19/24 09:19 Magnesium Replacement Protocol 1 Each Misc MISCELLANE DAILY PRN Per Protocol Protocol Miscellaneous Information 1 each 04/19/24 18:00 Potassium Replacement Protocol 1 Each Misc MISCELLANE DAILY PRN Per Protocol Protocol Morphine Sulfate 2 mg 04/10/24 09:12 04/20/24 15:06 Morphine Sulfate 2 Mg/Ml Syringe IVP 2 mg Q6HR PRN Administration Pain/Discomfort Naloxone HCl 0.2 mg 04/08/24 23:03 Naloxone 0.4 Mg/Ml 1 Ml Vial IV Q2M PRN Opioid Reversal Pantoprazole Sodium 40 mg 04/10/24 09:00 04/20/24 09:28 Pantoprazole 40 Mg/10 Ml Vial IVP 40 mg DAILY [facility] Administration Thiamine HCl 100 mg 04/16/24 09:00 04/20/24 09:29 Thiamine 100 Mg Tab PO 100 mg DAILY [facility] Administration Objective - Vital Signs Vital signs: Vital Signs Temp 98.2 F 04/22/24 08:20 Pulse 104 H 04/22/24 08:52 Resp 19 04/22/24 08:20 BP 160/93 04/22/24 08:20 Pulse Ox 93 L 04/22/24 08:20 FiO2 21 04/20/24 08:17 Intake & Output 04/21/24 04/22/24 04/22/24 18:59 06:59 18:59 Intake Total 750 20 Output Total 1999 Balance 750 -1979 Weight 68.5 kg 69.5 kg Intake: IV 720 20 Dextrose 5%-0.45% NaCl 1, 700 000 ml @ 50 mls/hr IV . Q20H [facility] Rx#:[id number] Invasive Line 9 20 20 Intake, IV Titration 30 Amount Potassium Chloride 10 meq 30 In Water For Injection 1 100ml.bag @ 100 mls/hr IVPB Q1HR [facility] Rx#: [id number] Output: Urine 2000 Other: Voiding Method Indwelling Catheter Indwelling Catheter ABP, PAP, CO, CI - Last Documented Arterial Blood Pressure 188/82 - Exam -GENERAL: The patient is awake, and oriented x 1, partially to time. Not in distress. Very weak generally HEENT: Pupils are round and equally reacting to light. EOMI. No scleral icterus. No conjunctival pallor. Normocephalic, atraumatic. No pharyngeal erythema. No thyromegaly. CARDIOVASCULAR: S1 and S2 present. No murmurs, rubs, or gallops. -PULMONARY: Chest is clear to auscultation, no wheezing , no crackles. Tachypneic with limited air entry on both sides ABDOMEN: Soft, nontender, nondistended, normoactive bowel sounds. No palpable organomegaly. MUSCULOSKELETAL: No joint swelling or deformity. EXTREMITIES: No cyanosis, clubbing, or pedal edema. NEUROLOGICAL: Gross neurological examination did not reveal any focal deficits. Generalized weakness, he cannot bend his knee or raise his arms above his head SKIN: No rashes. no petechiae. - Labs CBC & Chem 7: 04/21/24 05:34 04/21/24 05:34 Assessment and Plan Assessment: Severe sepsis, secondary to Left lower lobe pneumonia Acute COPD exacerbation Acute hypoxic hypercapnic respiratory failure Alcohol use disorder and withdrawal Dysphagia Critical illness myopathy Metabolic/toxic encephalopathy Microcytic anemia Alcoholic transaminitis Alcoholic induced thrombocytopenia Possible left vertebral artery round calcified eggshell lesion of 1.2 cm in the posterior cranial fossa, aneurysm cannot be ruled out. Patient will need to follow-up as an outpatient with interventional neurologist Acute left sphenoid sinusitis Left upper maxillary cyst 1.8 cm eroding into the posterior wall of the left ma xilla Hypertension Hyperlipidemia Possible Parkinson disease Plan: Continue with antibiotic Zosyn with a plan to switch to Augmentin Continue with CIWA protocol and thiamine On IV fluid D5 1/2 normal saline at 50 mL/h On IV Solu-Medrol 60 mg was discontinued Continue with oxygen therapy as needed and bronchodilator Several consultants on the case including pulmonary/critical care team, foreign agent and neurologist GI prophylaxis: Protonix DVT prophylaxis: Mechanical. Lovenox
[2024-04-22 09:36] LABS: Glucose,Whole Blood 103 mg/dL (70-110)
[2024-04-22 10:30] LABS: African American GFR (CKD) >90 (>60 ml/min/1.73 sqM); Anion Gap 5 mmol/L; Blood Urea Nitrogen 10 mg/dL (9-20); Calcium 7.9 mg/dL (8.4-10.2); Carbon Dioxide 31 mmol/L (22-30); Chloride 98 mmol/L (98-107); Glucose 88 mg/dL (74-99); Non-African American GFR(CKD) >90 (>60 ml/min/1.73 sqM); Sodium 134 mmol/L (137-145)
[2024-04-22 10:33] LABS: Magnesium 1.3 mg/dL (1.6-2.3); Potassium 3.5 mmol/L (3.5-5.1)
[2024-04-22 11:19] LABS: Anisocytosis Slight; Basophils % (A) 0 %; Eosinophils # (A) 0.1 k/uL (0-0.7); Eosinophils % (A) 1 %; HCT 29.3 % (39.0-53.0); HGB 9.1 gm/dL (13.0-17.5); Hypochromasia Slight; Lymphocytes # (A) 0.6 k/uL (1.0-4.8); Lymphocytes % (A) 4 %; MCH 32.9 pg (25.0-35.0); MCHC 31.2 g/dL (31.0-37.0); MCV 105.4 fL (80.0-100.0); Macrocytosis Moderate; Mean Platelet Volume 8.3; Monocytes # (A) 0.6 k/uL (0-1.0); Monocytes % (A) 4 %; Neutrophils # (A) 12.8 k/uL (1.3-7.7); Neutrophils % (A) 90 %; Platelet Count 250 k/uL (150-450); RBC 2.78 m/uL (4.30-5.90); RDW 16.8 % (11.5-15.5); WBC 14.3 k/uL (3.8-10.6)
[2024-04-22 12:03] LABS: Glucose,Whole Blood 104 mg/dL (70-110)
--- NOTE | 2024-04-22 13:24 | P.PN ---
Subjective Progress Note Date: 04/22/24 The patient was under the care by Dr. Meneses last week for neurological management. Please refer to his notes for further details. Objective - Vital Signs Vital signs: Vital Signs Temp 98.4 F 04/22/24 11:09 Pulse 100 04/22/24 12:15 Resp 19 04/22/24 11:09 BP 131/90 04/22/24 11:09 Pulse Ox 93 L 04/22/24 11:09 FiO2 21 04/20/24 08:17 Intake & Output 04/21/24 04/22/24 04/22/24 18:59 06:59 18:59 Intake Total 750 20 Output Total 1999 Balance 750 -1979 Weight 68.5 kg 69.5 kg Intake: IV 720 20 Dextrose 5%-0.45% NaCl 1, 700 000 ml @ 50 mls/hr IV . Q20H [facility] Rx#:[id number] Invasive Line 9 20 20 Intake, IV Titration 30 Amount Potassium Chloride 10 meq 30 In Water For Injection 1 100ml.bag @ 100 mls/hr IVPB Q1HR [facility] Rx#: [id number] Output: Urine 2000 Other: Voiding Method Indwelling Catheter Indwelling Catheter Indwelling Catheter ABP, PAP, CO, CI - Last Documented Arterial Blood Pressure 188/82 - Exam General: Lying in bed and does not appear in acute distress. Neuro: The patient is drowsy but is awakeable to voice. Is oriented to self, time. He correctly named objects (pen and glasses). Is following simple commands. No facial weakness. No dysarthria. But is very hypophonic. Motor: stregnth is somewhat limited. But is lifting upper extremities above gravity and wiggling toes. He has edema on the right upper and lower extremity. - Labs CBC & Chem 7: 04/22/24 11:00 04/22/24 09:48 Labs: Abnormal Lab Results - Last 24 Hours (Table) 04/22/24 04/22/24 Range/Units 09:48 11:00 WBC 14.3 H (3.8-10.6) k/uL RBC 2.78 L (4.30-5.90) m/uL Hgb 9.1 L (13.0-17.5) gm/dL Hct 29.3 L (39.0-53.0) % MCV 105.4 H (80.0-100.0) fL RDW 16.8 H (11.5-15.5) % Neutrophils # 12.8 H (1.3-7.7) k/uL Lymphocytes # 0.6 L (1.0-4.8) k/uL Sodium 134 L (137-145) mmol/L Carbon Dioxide 31 H (22-30) mmol/L Creatinine 0.40 L (0.66-1.25) mg/dL Calcium 7.9 L (8.4-10.2) mg/dL Magnesium 1.3 L (1.6-2.3) mg/dL Assessment and Plan Assessment: This is a 63-year-old gentleman who was transferred from [place] for escalation of care in which the patient was found down by his neighbor on the ground and he did not have heat and his initial temperature was 87. Seems that his sugar at the outside facility was in the 30s. He had CT brain cervical spine abdomen pelvis and it showed subacute rib fracture but no acute process. In our facility he had sugars in the 400 initially then down to the 60s. He has hyponatremia 124. He is also is a heavy drinker Altered mental status due to toxic metabolic encephalopathy--improving Status post self extubation 04/18/2024. Status post intubation 04/15/2024. Hyponatremia (124-->140) Hypoglycemia--resolved Incidental 9mm Left vertebral artery aneurysm Suspect 1.8cm dentgerous cyst involving the impacted left maxilary molar. Eroding the posterior wall of the maxilla. Acute Hypoxic/Hypercapnic respiratory failure on BiPAP. Hypothermia and patient does not have heat at home that is reported Transaminitis AST more than ALT likely due to his alcohol use Per patient's daughter, there is no history of Parkinson's. History of polysubstance abuse Marijuana use Longstanding history of alcoholism. Plan: * Regarding the left vertebral artery aneurysm, this seems incidental and recommend patient to follow-up with Dr. Kohli (Interventional Neurologist) as outpatient within 3 weeks as outpatient. * Per daughter Celina, patient has never been diagnosed with Parkinson's disease. Celina and her dad have not been very close. She states that patient has history of lifelong alcoholism for almost 50 years since he was a teenager. 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 He also did prescription drug abuse with opiates, and also did some cocaine. He was a lifelong democrat person. She states that patient does have history of tremors, which she believes is related to anxiety or possibly related to alcoholism. No history of Parkinson's. We will stop Sinemet. * Repeat CT head 04/15/2024 showed stable mild senescent changes. No acute bleed or mass effect. * Routine EEG on 04/11/24: Is abnormal. The background slowing is suggestive of mild to moderate encephalopathy. Otherwise, no focal slowing, epileptiform discharge or seizure on the EEG. * Patient is on thiamine 100mg daily. * Nephrology is consulted * Consider dental or an ENT consultation * Discussed with patient's nurse in detail. * Defer the rest of the medical management to primary other specialist * DVT prophylaxis: Patient has SCDs as well. Start Lovenox 40 mg subcu daily * Start PT, OT. * Continue present treatment. Will follow-up with patient sporadically. Time with Patient: Less than 30
--- NOTE | 2024-04-22 15:28 | P.PN ---
Subjective Progress Note Date: 04/22/24 Principal diagnosis: Reason for follow-up is pneumonia Patient is a 63-year-old male with a past medical history significant for COPD alcohol abuse hypertension hyperlipidemia with initially presented to the hospital the patient was found to be unresponsive and hypothermic sepsis he did have worsening of his respiratory status requiring intubation and there was concern for right lower lobe pneumonia. On today's evaluation that is 04/22/2024, Patient is afebrile this morning patient denies having any chest pain shortness of breath or any worsening cough, the patient is currently on room air, patient denies any abdominal pain no diarrhea no nausea no vomiting patient mention feeling hungry wants to eat. Patient white count is 14.3, creatinine 0.40 Objective - Vital Signs Vital signs: Vital Signs Temp 98.4 F 04/22/24 11:09 Pulse 104 H 04/22/24 14:00 Resp 19 04/22/24 14:00 BP 131/90 04/22/24 11:09 Pulse Ox 93 L 04/22/24 11:09 FiO2 21 04/20/24 08:17 Intake & Output 04/21/24 04/22/24 04/22/24 18:59 06:59 18:59 Intake Total 750 20 Output Total 1999 1400 Balance 750 -1980 -1400 Weight 68.5 kg 69.5 kg Intake: IV 720 20 Dextrose 5%-0.45% NaCl 1, 700 000 ml @ 50 mls/hr IV . Q20H [facility] Rx#:[id number] Invasive Line 9 20 20 Intake, IV Titration 30 Amount Potassium Chloride 10 meq 30 In Water For Injection 1 100ml.bag @ 100 mls/hr IVPB Q1HR [facility] Rx#: [id number] Output: Urine 1999 1399 Other: Voiding Method Indwelling Catheter Indwelling Catheter Indwelling Catheter ABP, PAP, CO, CI - Last Documented Arterial Blood Pressure 188/82 - Exam GENERAL DESCRIPTION: An elderly male lying in bed in no distress RESPIRATORY SYSTEM: Unlabored breathing , decreased breath sounds at bases HEART: S1 S2 regular rate and rhythm , ABDOMEN: Soft , no tenderness EXTREMITIES: No edema feet - Labs CBC & Chem 7: 04/22/24 11:00 04/22/24 09:48 Labs: Abnormal Lab Results - Last 24 Hours (Table) 04/22/24 04/22/24 Range/Units 09:48 11:00 WBC 14.3 H (3.8-10.6) k/uL RBC 2.78 L (4.30-5.90) m/uL Hgb 9.1 L (13.0-17.5) gm/dL Hct 29.3 L (39.0-53.0) % MCV 105.4 H (80.0-100.0) fL RDW 16.8 H (11.5-15.5) % Neutrophils # 12.8 H (1.3-7.7) k/uL Lymphocytes # 0.6 L (1.0-4.8) k/uL Sodium 134 L (137-145) mmol/L Carbon Dioxide 31 H (22-30) mmol/L Creatinine 0.40 L (0.66-1.25) mg/dL Calcium 7.9 L (8.4-10.2) mg/dL Magnesium 1.3 L (1.6-2.3) mg/dL Assessment and Plan (1) Aspiration pneumonia Current Visit: Yes Status: Acute Code(s): J69.0 - PNEUMONITIS DUE TO INHALATION OF FOOD AND VOMIT SNOMED Code(s): 044662512 (2) Leukocytosis Current Visit: Yes Status: Acute Code(s): D72.829 - ELEVATED WHITE BLOOD CELL COUNT, UNSPECIFIED SNOMED Code(s): 557361190 Plan: 1patient with initial presentation to the hospital with episode of hypothermia and unresponsiveness subsequently worsening of his respiratory status requiring intubation and evidence of worsening right lower lobe infiltrate concerning for possible aspiration/gram-negative pneumonia. 2blood and sputum culture obtained which are so far negative 3patient is afebrile and the patient white count is up today looks like patient has completed his Zosyn we will switch him over to oral Augmentin and monitor clinical course closely Dictation was produced using [employer] software. please excuse any grammatical, word or spelling errors. Time with Patient: Less than 30
--- NOTE | 2024-04-22 15:32 | P.PN ---
Subjective Progress Note Date: 04/22/24 Principal diagnosis: Acute hypoxic respiratory failure secondary to aspiration pneumonia Patient is a 63-year-old male with past medical history significant for COPD, alcohol abuse, hypertension, hyperlipidemia, among other things. Transferred from [facility] on 04/08/2024. Apparently, was found by his neighbor on the ground and unresponsive in his residence. The heat in the house was not working, and patient was hypothermic with a temperature of 87 F. Unclear just how long the patient was on the floor. Did undergo rewarming at the outside facility. His blood glucose was also found to be low at 27 mg/dL. Did have a CT of the brain and C-spine which did not show any abnormalities or C-spine fracture/subluxation. Also, had a CT of the chest, images not available, however, reportedly demonstrating multiple bilateral subacute and nondisplaced rib fractures. According to the ER records, patient is an alcoholic and drinks approximately 1/5 of liquor per day. Currently on CIWA protocol. Workup at our facility, including a brain CT which did not show any acute intracranial hemorrhage, acute ischemic changes, or mass effect. Demonstrated a 1.2 cm rounded area of eggshell calcification midline posterior cranial fossa along the left vertebral artery. Concern was for possible aneurysm. Suspect a 1.8 cm cyst involving an impacted left maxillary molar. Regarding posterior wall of the maxilla. Air-fluid level of the left soft sphenoid sinus, possibly representing acute sinusitis. Chest x-ray showing low lung volumes with small bilateral pleural effusions and left-sided basilar atelectasis or infiltrate.CBC done arrival: WBC count 6.3, hemoglobin 8.1, hematocrit 23.3, platelets 100. Most recent CMP from yesterday showing a sodium 125, potassium 3.4, chloride 87, serum bicarb 28, BUN 15, creatinine 0.48, glucose 117. Lactic was 3.6 down to 1.5. Magnesium 1.5. LFTs mildly elevated, possibly secondary to chronic alcohol intake. CPK 722. Troponin was elevated at 0.042 and is trending down, most recently 0.027. Procalcitonin level is 1.11. Not currently on any antibiotics Patient currently being evaluated emergency department. He is on BiPAP with settings 12/6 and FiO2 100%. He is quite tachypneic, breathing in the high 40s. Vital lungs range around 400 to 500 mL. ABGs done on these settings showing a PaO2 of 70, pCO2 42, pH of 7.44. He remains quite obtunded, withdraws to painful stimuli in all 4 extremities. Now normothermic with a temperature of 98.3 F. Blood glucose 155. Ammonia 22. D5W with normal saline infusing at 75 mL/h. Plan is for patient be transferred to the intensive care unit once bed av ailable. Progress note dated April 11, 2024. 63-year-old male seen today in the intensive care unit, room 259. The patient is on dextrose, with saline, 75 cc an hour, saline IV at 10 cc an hour, and getting nasal cannula at 3 L. He also has a BiPAP in the room, with settings of 12/6, and 60%. He appears to be resting relatively comfortably, although he is a bit lethargic and somnolent. Current labs include a white count 3.9, hemoglobin 7.4, hematocrit 22.3, and a platelet count of hearing 26,000. Sodium 131, potassium 4, chlorides 95, CO2 33, BUN 15, creatinine 0.39. Glucose is 157. Chest x-ray reveals mild bibasilar infiltrates or atelectasis. 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 Progress note dated April 12, 2024. The patient is seen here in room 259. His mental status is a bit improved. He continues on 2 L nasal cannula. He is not using the BiPAP device. He is getting saline at 75 cc an hour. His hemoglobin this morning was 6.9. He will receive 1 unit packed red blood cells. In addition, the patient will get 1 dose of Lasix, 20 mg IV push. White count 4.6, hemoglobin 6.9, macro 21.4, platelet count 133,000. Sodium 135, potassium 4.1, chlorides 101, CO2 25, BUN 14, creatinine 0.39. Glucose 166. Calcium 7.4. Blood cultures are negative. Chest x-ray is largely unchanged, and show bibasilar airspace opacities versus atelectasis. Progress note dated April 13, 2024. 63-year-old male seen today in room 259. The patient is on saline at 75 cc an hour, nasal O2 at 2 L. He did receive 1 unit of packed red blood cells. The patient's blood pressure has been a bit elevated, so he may need something IV for that, I have written orders for both Cleviprex to be titrated, and IV beta- oh, i.e. the Lopressor. The patient's mental status is poor. It continues to be about the same. White count 6.8, hemoglobin 8.5, hematocrit 26.2, platelet count 169,000. Sodium 137, potassium 4.1, chlorides 102, CO2 23, anion gap 12, BUN 21, creatinine 0.5. Glucose 127. Calcium 7.8. Magnesium 1.9. Sputum and blood cultures are negative. Chest x-ray shows bibasilar airspace disease and/or atelectasis. On 04/14/2024, the patient is being seen for a follow-up. This morning, the patient is quite drowsy and sleepy and encephalopathic. He is not communicating with me. I was told that his mentation was much better yesterday. I came to find out that the patient was given Ativan overnight. Will continue monitoring his mentation. He is currently on 2 L of oxygen by nasal cannula. Chest x-ray shows development of a right lower lobe consolidation with worsening right lower lobe pulmonary filtrate and small left-sided pleural effusion and right-sided pleural effusion. There is also some limited atelectatic changes in the left lung. Hemodynamically stable on no pressors. White cell count of 6.2 with a heme of 9.8 and a platelet count of 187. BUN is 33 with a creatinine of 0.5 and a sodium levels at 139 and potassium level is at 4.8. Remains on DuoNeb. Remains on Pulmicort and Perforomist updrafts twice a day. Remains on IV Solu- Medrol. He was on IV Rocephin and I am going to switch his antibiotics to IV Zosyn covering for aspiration and hospital-acquired pathogens. Remains on n ormal citrate of 75 cc an hour. Ativan will be discontinued and his mental status needs to be monitored very closely. On 04/15/2024, the patient is being seen for a follow-up. Noted, the patient has significant diminishment of level of consciousness from yesterday. He was maintained on 2 L of oxygen by nasal cannula and he was also noted to have worsening in the right lower lobe consolidation. Overnight, the patient became more dyspneic and the blood gas was obtained that showed a pH of 7.09 with a pCO2 of 79 and pO2 of 81. Based on that, the patient was intubated and placed on mechanical ventilation. This morning, the patient is still on propofol running at 35 mcg/kg/min. The patient is on mechanical ventilator assist- control mode rate of 24, tidal volume of 500, FiO2 50% with a PEEP of 5. Blood gas showed a pH of 7.36 with a pCO2 of 37 and pO2 420. FiO2 was accordingly dropped. Chest x-ray shows a dense consolidation in the right lower lobe and the patient is currently on IV Zosyn. He remains on normal saline at rate of 75 cc an hour. Urine output is in order of 20 to 30 cc an hour. Fluid balance is +2.3 L over the past 24 hours. The white cell count is at 14.8 with a hemoglobin 8.5 and a platelet count of 156. Sodium is 142, potassium is at 5.6, bicarb is at 20 with a BUN of 36 and a creatinine of 0.68. Calcium level is at 6.4. Afebrile. Hemodynamically stable on no pressors. On 04/16/2024, the patient is being seen for a follow-up. Remains intubated on mechanical ventilator. The patient is sedated with propofol which is running at 40 mcg/kg/min. The patient is on assist-control mode of mechanical ventilation at rate of 24, tidal volume of 500, FiO2 40% with a PEEP of 5. Blood gas showed a pH of 7.43 with a pCO2 of 27 and pO2 of 144. Chest x-ray shows a persistent right lower lobe consolidation and the patient remains on IV Zosyn. Fluid susanna nce is +2.1 L over the past 24 hours. Blood pressure remains elevated and the patient is currently on a combination of losartan 100 mg p.o. daily, Norvasc 10 mg p.o. daily and metoprolol 50 mg p.o. 3 times daily. Receiving vital HP at rate of 30 cc an hour. Remains on bronchodilators. Will be started on diuretics today. Will try to achieve a negative fluid balance on this patient. The WBC count is 11.5 with a hemoglobin 8.3 and a platelet count of 176. Sodium is at 140, potassium is at 3.8 and the patient's chloride is 112 with a BUN of 15 and a creatinine of 1.05. The sputum sample collected on 04/15/2024 remains negative. Lines have been established. Afebrile. Hemodynamically stable. On 04/17/2024, the patient is being seen for a follow-up. This morning, the patient remains intubated on mechanical ventilator. He remains on propofol at 20 mcg/kg/min. Noted the patient was given a sedation holiday. He was arousable yesterday. Nevertheless, he became asynchronous with a mechanical ventilator and was quite restless and agitated. Based on that, the holiday was discontinued. The same is to be done today. The patient remains on IV Zosyn. Repeat chest x-ray done today shows improvement in right lower lobe consolidation. The patient is on assist-control mode of mechanical ventilation with a rate of 16, tidal volume of 500, FiO2 of 40% with a PEEP of 5. Blood gas showed a pH of 7.56 with a pCO2 of 33 and pO2 of 90. The patient is on normal saline at rate of 20 cc an hour. Urine output order of 100 cc an hour. Fluid balance is -2.9 L over the past 24 hours and the patient remains on vital high- protein at the rate of 50 cc an hour. He remains on IV Zosyn. Sputum culture has been negative. The white cell count of 19 with a hemoglobin of 8.5 and a platelet count of 181. Sodium is at 142, potassium is 3.6, BUN is 47 with a creatinine of 1.08. Serum bicarb is at 32. LFTs are abnormal with an AST of 646, ALT of 161 and alkaline phosphatase of 194. Procalcitonin level is at 0.82. On 04/18/2024, during a very busy ICU morning, the patient self extubated himself. The patient did extremely well postextubation. He is currently on oxygen airfit 3 L. He is off sedation. Noted, prior to his extubation, he was on assist-control mode at rate of 16, tidal volume of 400, FiO2 40% with a PEEP of 5. The blood gas showed a pH of 7.49 with a pCO2 42 and pO2 of 94. Fluid balance is -2.9 L and another 3 L over the past 48 hours. The patient remains on IV Zosyn. The patient was being diuresed with IV Lasix and diuretics was placed on hold. A follow-up chest x-ray done today shows stable right lower lobe pulmonary infiltrate and a small right-sided pleural effusion. The patient continues to have a congested cough. He is able to self suction. He is awake and alert and communicating. 04/19/2024, the patient is awake and alert. He is on room air. Continues to cough. Able to do adequate pulmonary toileting. A follow-up chest x-ray from this morning shows improvement in right lower lobe pulmonary filtrate. Small left-sided pleural effusion is also noted. No respiratory distress. He remains weak. He failed a swallow evaluation. IV fluids are currently at KVO. Fluid balance is -2.4 L over the past 24 hours. Blood pressure remains elevated and the patient remains on a combination of amlodipine 10 mg p.o. daily, Cozaar 100 mg p.o. daily, metoprolol 50 mg twice a day. Arterial line is to be discontinued. The white cell count is 15 with a hemoglobin 8.4 and a platelet count of 167. Sodium is at 140, BUN 35 and creatinine 0.8. Potassium level is at 3.2. On 04/20/2024, the patient is being seen for a follow-up. The patient was transferred out of the intensive care unit yesterday and the patient remains on room air oxygen. Continues to have a congested cough. Able to do pulmonary toileting. He has some difficulty with swallowing and the patient had failed swallow evaluation and the patient is receiving only some applesauce under close supervision. The patient is also on D5 half-normal saline at rate of 50 cc an hour. Remains on IV Zosyn regarding right lower lobe pneumonia. Hemodynamically stable. Remains on bronchodilators. Blood pressure management is adequate for now. No new labs are available from today. His LFTs have been improving and AST and ALT have been declining based on the most recent labs from 04/19/2024. Patient was seen today on 04/21/2024, patient continues to have intermittent coug h, he had difficulty clearing his secretions patient continues to have some difficulty with swallowing and he did fail his swallow evaluation receiving applesauce under close supervision remains on Zosyn for his presumptive aspiration pneumonia remains on bronchodilators, continues to have a bit of leukocytosis with WC count of 11.1 hemoglobin is 9.4 electrolytes are normal except for low potassium of 3.2 renal profile is normal, chest x-ray 2 days ago showed bibasilar infiltrates with I suspect left lower lobe consolidation and possibly a small left pleural effusion this is consistent with aspiration pneumonia. Reevaluated today on 04/22/2024, patient is about the same, continues to have problems with secretions, continues to have aspiration symptoms, and aspiration pneumonia. CBC showed leukocytosis with WC count 14.3 hemoglobin 9.1 electrolytes are normal renal profile is normal, patient remains encephalopathic with significant weakness in upper and lower extremities. He is able to follow simple commands. Patient failed his last swallow evaluation, and at this point I am strongly recommending a PEG tube placement. Patient is known to have history of alcoholism remains on Librium at 10 mg 3 times daily and on the CIWA protocol. Objective - Vital Signs Vital signs: Vital Signs Temp 98.4 F 04/22/24 11:09 Pulse 104 H 04/22/24 14:00 Resp 19 04/22/24 14:00 BP 131/90 04/22/24 11:09 Pulse Ox 93 L 04/22/24 11:09 FiO2 21 04/20/24 08:17 Intake & Output 04/21/24 04/22/24 04/22/24 18:59 06:59 18:59 Intake Total 750 20 Output Total 1999 1400 Balance 750 -1980 -1400 Weight 68.5 kg 69.5 kg Intake: IV 720 20 Dextrose 5%-0.45% NaCl 1, 700 000 ml @ 50 mls/hr IV . Q20H PANCHO Rx#:[id number] Invasive Line 9 20 20 Intake, IV Titration 30 Amount Potassium Chloride 10 meq 30 In Water For Injection 1 100ml.bag @ 100 mls/hr IVPB Q1HR PANCHO Rx#: [id number] Output: Urine 1999 1399 Other: Voiding Method Indwelling Catheter Indwelling Catheter Indwelling Catheter ABP, PAP, CO, CI - Last Documented Arterial Blood Pressure 188/82 - Exam GENERAL: Patient is drowsy but awakens to voice. Oriented x 1 HEENT: Pupils are round and equally reacting to light. EOMI. No scleral icterus. No conjunctival pallor. Normocephalic, atraumatic. No pharyngeal erythema. No thyromegaly. CARDIOVASCULAR: S1 and S2 present. No murmurs, rubs, or gallops. -PULMONARY: Crackles and rhonchi noted bilaterally ABDOMEN: Soft, nontender, nondistended, normoactive bowel sounds. No palpable organomegaly. MUSCULOSKELETAL: No joint swelling or deformity. EXTREMITIES: No cyanosis, clubbing, or pedal edema. NEUROLOGICAL: Gross neurological examination patient is relatively encephalopathic. Generalized weakness SKIN: No rashes. no petechiae. - Labs CBC & Chem 7: 04/22/24 11:00 04/22/24 09:48 Labs: Abnormal Lab Results - Last 24 Hours (Table) 04/22/24 04/22/24 Range/Units 09:48 11:00 WBC 14.3 H (3.8-10.6) k/uL RBC 2.78 L (4.30-5.90) m/uL Hgb 9.1 L (13.0-17.5) gm/dL Hct 29.3 L (39.0-53.0) % MCV 105.4 H (80.0-100.0) fL RDW 16.8 H (11.5-15.5) % Neutrophils # 12.8 H (1.3-7.7) k/uL Lymphocytes # 0.6 L (1.0-4.8) k/uL Sodium 134 L (137-145) mmol/L Carbon Dioxide 31 H (22-30) mmol/L Creatinine 0.40 L (0.66-1.25) mg/dL Calcium 7.9 L (8.4-10.2) mg/dL Magnesium 1.3 L (1.6-2.3) mg/dL Assessment and Plan Assessment: Impression: Acute hypoxic respiratory failure secondary to pneumonia Acute aspiration pneumonia Severe sepsis secondary to pneumonia Acute exacerbation of COPD History of alcohol withdrawal and alcohol use Dysphagia and aspiration pneumonia Critical illness polyneuropathy and myopathy Acute metabolic encephalopathy Microcytic anemia Alcohol induced thrombocytopenia Possible vertebral artery/left vertebral artery aneurysm needs outpatient workup by neurology Acute left sphenoid sinusitis Benign essential hypertension Dyslipidemia Recommendation: Continue antibiotics/Zosyn plan to eventually transition to Augmentin Continue alcohol withdrawal protocol including Ativan and thiamine Continue IV fluids at 50 cc/h Continue bronchodilators and steroids Continue oxygen and titrate accordingly Patient remains quite ill with multiple complex issues as noted above I will strongly recommend PEG tube placement for nutritional support Patient is being followed by neurology for his encephalopathy and critical illness polyneuropathy and myopathy Long-term prognosis seems to be very poor. Will continue to follow Time with Patient: Less than 30
[2024-04-22] MEDS ORDERED: ZINC OXIDE 20% OINT 28.4 GM TUBE TOPICAL PRN (18:07)
[2024-04-22 18:14] LABS: Glucose,Whole Blood 110 mg/dL (70-110)
[2024-04-22] MEDS ORDERED: Magnesium Replacement Protocol 1 EACH MISC MISCELLANE PRN (19:09)
[2024-04-22] MEDS: AMOXIC-POT CLAV 875-125MG 1 EACH TAB PO SCH (19:40)
[2024-04-22] MEDS: MAGNESIUM SULFATE-D5W PMX 1 GM in DEXTROSE/WATER 1 100ML.BAG IVPB SCH (19:59)
[2024-04-22 23:52] LABS: Glucose,Whole Blood 133 mg/dL (70-110)
[2024-04-23 05:42] LABS: Glucose,Whole Blood 147 mg/dL (70-110)
--- NOTE | 2024-04-23 10:02 | P.PN ---
Subjective 63-year-old gentleman who is a transfer from [facility] after being found laying on ground outside his house. Most of the history has been obtained from the EMR according to which patient has been drinking 1/5 of alcohol per day. Patient was found by his neighbor to be laying on the ground, patient was initially hypothermic and was placed on warming blankets and was transferred to [facility] where he had CT of his brain, cervical spine and CT abdominal pelvis done which were unremarkable. Patient was later transferred to [facility] for further evaluation and treatment Initial lab work done in the ER showed WBC 6.3, hemoglobin 8.1, platelet count 100, sodium 124, potassium 5, BUN 18, creatinine 0.67, glucose 412, lactate 3.6, bilirubin 2.1, AST 363, ALT 101 Patient admitted to internal medicine service 04/12/2024 Patient is seen and evaluated in room at bedside; discussed with nursing staff; mental status is a bit improved. He continues on 2 L nasal cannula. He is not using the BiPAP device. Blood work reveals hemoglobin this morning was 6.9. He will receive 1 unit packed red blood cells. White count 4.6, hemoglobin 6.9, macro 21.4, platelet count 133,000. Sodium 135, potassium 4.1, chlorides 101, CO2 25, BUN 14, creatinine 0.39. Glucose 166. Calcium 7.4. Blood cultures are negative. Chest x-ray is largely unchanged, and show bibasilar airspace opacities versus atelectasis; patient received 1 dose of Lasix per critical care recommendations. The patient's overall prognosis remains guarded. 04/13/2024 Patient is seen and evaluated with nursing staff at bedside; patient is more alert and responsive; able to follow commands; wants to go home Vital signs are reviewed; blood pressure has been somewhat elevated; critical care recommended to titrate Cleviprex and IV Lopressor White count 6.8, hemoglobin 8.5, hematocrit 26.2, platelet count 169,000. Sodium 137, potassium 4.1, chlorides 102, CO2 23, anion gap 12, BUN 21, creatinine 0.5. Glucose 127. Calcium 7.8. Magnesium 1.9. Sputum and blood cultures are negative. Chest x-ray shows bibasilar airspace disease and/or atelectasis. -Patient received 1 unit packed RBCs for low hemoglobin -- Plan to continue current management at this time 04/14 Patient remains obtund, nonverbal, not following command, he grimaces to painful stimuli He is off BiPAP on 2.5 L/min osygen via nasal cannula Has Diaz catheter in place Getting normal saline 75 mL/h 04/15 Patient has been very confused and lethargic over the last few days exhaust tender he started to desaturate he was placed on BiPAP and pH was very low 7.09, high pCO2 is 79. Patient was intubated about 1 to 2 hours ago. Repeat ABG showing pH is normal at 7.36 and lower and pCO2 down to reference range at 37 CT of the brain showing no acute process and EEG showing no epileptiform discharge. Neurologist on the case and patient was diagnosed with toxic metabolic encephalopathy. Other than that he is afebrile. Hemoglobin 9.3, WBC 10.6. Creatinine 0.5. Chest x-ray:Bilateral pleural effusion. His antibiotics were changed to Zosyn. He is also on IV Solu-Medrol 60 mg He is getting normal saline at 75 mL/h. Also patient started on Levophed 04/21 Patient was transferred out of the ICU 2 nights ago. Today he is awake alert, he knows it is 2024 but he is disoriented to place and person. He looks like somewhat confused, yesterday he was agitated overnight requiring Ativan for his CIWA. Also he was placed on Librium 10 mg 3 times daily. He is generally weak both upper and lower extremities. Neurology follow-up with him closely and they think he is improving. Mentation significantly improved from last week. Also patient failed swallow evaluation. Currently getting D5 half-normal saline at 50 mL/h. Is kept on Zosyn for his aspiration pneumonia, steroids has been stopped. He still getting dialysis per cafeteria attendant for his acute kidney injury on chronic kidney disease. He is on Lovenox for DVT prophylaxis. 04/22 Patient remains with significant encephalopathy and significant weakness in both upper and lower extremities. Patient awake can follow simple commands but he has no insight and he is confused to the surrounding. Also patient failed swallow evaluation yesterday and he might require a tube feed after being evaluated again today. We will wait for nutrition team evaluation. Also patient has severe weakness in both upper and lower extremity could be partly because of the alcohol effect and ICU admission plus other medical problems. Neurology is already on the case. He can hardly move his both lower extremities. And upper extremities looks weak all looks symmetrical. Patient himself does not have any other complaint. He is still going through significant alcohol withdrawal and currently he is on Librium 10 mg 3 times daily and CIWA protocol, CIWA score patch was between 5 and 14. Currently 9 this morning but he is not getting it because he is n.p.o. he required 2 mg of Ativan from last night 06/21 Patient significantly improved and his mentation today. He is awake alert and once I walked into the room he said I want to go home. However patient still confused about place partially, however he knows the year for the first time. He could not tell the name of the president. He could not tell why he is in the hospital. Patient still complains from generalized weakness although it looks better. He can move both upper and lower extremity little bit, but looks more weaker on the right side both upper and lower extremity. Patient states this is a chronic for the last [address] accident[address] Regardless patient still have severe generalized weakness most likely related to his critical illness myopathy. Besides all other complex medical issues and medication effect Patient is still n.p.o. because he failed swallow evaluation yesterday. We are going to try today or tomorrow. In the meantime he remains on D5 half-normal saline at 50 mL/h. Check labs tomorrow Objective - Vital Signs Vital signs: Vital Signs Temp 98.1 F 04/23/24 04:05 Pulse 110 H 04/23/24 08:08 Resp 20 04/23/24 07:43 BP 128/73 04/23/24 04:05 Pulse Ox 97 04/23/24 07:46 FiO2 21 04/20/24 08:17 Intake & Output 04/22/24 04/23/24 04/23/24 18:59 06:59 18:59 Output Total 1400 1250 Balance -1400 -1250 Weight 65.5 kg Output: Urine 1400 1250 Other: Voiding Method Indwelling Catheter Indwelling Catheter ABP, PAP, CO, CI - Last Documented Arterial Blood Pressure 188/82 - Exam -GENERAL: The patient is awake, and oriented x 1, partially to time. Not in distress. Very weak generally HEENT: Pupils are round and equally reacting to light. EOMI. No scleral icterus. No conjunctival pallor. Normocephalic, atraumatic. No pharyngeal erythema. No thyromegaly. CARDIOVASCULAR: S1 and S2 present. No murmurs, rubs, or gallops. -PULMONARY: Chest is clear to auscultation, no wheezing , no crackles. Tachypneic with limited air entry on both sides ABDOMEN: Soft, nontender, nondistended, normoactive bowel sounds. No palpable organomegaly. MUSCULOSKELETAL: No joint swelling or deformity. EXTREMITIES: No cyanosis, clubbing, or pedal edema. NEUROLOGICAL: Gross neurological examination did not reveal any focal deficits. Generalized weakness, he cannot bend his knee or raise his arms above his head SKIN: No rashes. no petechiae. - Labs CBC & Chem 7: 04/22/24 11:00 04/22/24 09:48 Labs: Abnormal Lab Results - Last 24 Hours (Table) 04/22/24 04/22/24 04/22/24 Range/Units 09:48 11:00 23:51 WBC 14.3 H (3.8-10.6) k/uL RBC 2.78 L (4.30-5.90) m/uL Hgb 9.1 L (13.0-17.5) gm/dL Hct 29.3 L (39.0-53.0) % MCV 105.4 H (80.0-100.0) fL RDW 16.8 H (11.5-15.5) % Neutrophils # 12.8 H (1.3-7.7) k/uL Lymphocytes # 0.6 L (1.0-4.8) k/uL Sodium 134 L (137-145) mmol/L Carbon Dioxide 31 H (22-30) mmol/L Creatinine 0.40 L (0.66-1.25) mg/dL POC Glucose (mg/dL) 133 H (70-110) mg/dL Calcium 7.9 L (8.4-10.2) mg/dL Magnesium 1.3 L (1.6-2.3) mg/dL 04/23/24 Range/Units 05:40 WBC (3.8-10.6) k/uL RBC (4.30-5.90) m/uL Hgb (13.0-17.5) gm/dL Hct (39.0-53.0) % MCV (80.0-100.0) fL RDW (11.5-15.5) % Neutrophils # (1.3-7.7) k/uL Lymphocytes # (1.0-4.8) k/uL Sodium (137-145) mmol/L Carbon Dioxide (22-30) mmol/L Creatinine (0.66-1.25) mg/dL POC Glucose (mg/dL) 147 H (70-110) mg/dL Calcium (8.4-10.2) mg/dL Magnesium (1.6-2.3) mg/dL Assessment and Plan Assessment: Severe sepsis, secondary to Left lower lobe pneumonia Acute COPD exacerbation Acute hypoxic hypercapnic respiratory failure Alcohol use disorder and withdrawal Dysphagia Critical illness myopathy Metabolic/toxic encephalopathy Microcytic anemia Alcoholic transaminitis Alcoholic induced thrombocytopenia Possible left vertebral artery round calcified eggshell lesion of 1.2 cm in the posterior cranial fossa, aneurysm cannot be ruled out. Patient will need to follow-up as an outpatient with interventional neurologist Acute left sphenoid sinusitis Left upper maxillary cyst 1.8 cm eroding into the posterior wall of the left maxilla Hypertension Hyperlipidemia Possible Parkinson disease Plan: Continue with antibiotic Zosyn with a plan to switch to Augmentin Continue with CIWA protocol and thiamine On IV fluid D5 1/2 normal saline at 50 mL/h On IV Solu-Medrol 60 mg was discontinued Continue with oxygen therapy as needed and bronchodilator Several consultants on the case including pulmonary/critical care team, cafeteria attendant and neurologist GI prophylaxis: Protonix DVT prophylaxis: Mechanical. Lovenox
[2024-04-23 12:00] LABS: Glucose,Whole Blood 130 mg/dL (70-110)
--- NOTE | 2024-04-23 16:11 | P.PN ---
Subjective Progress Note Date: 04/23/24 Principal diagnosis: Acute hypoxic respiratory failure secondary to aspiration pneumonia Patient is a 63-year-old male with past medical history significant for COPD, alcohol abuse, hypertension, hyperlipidemia, among other things. Transferred from [facility] on 04/08/2024. Apparently, was found by his neighbor on the ground and unresponsive in his residence. The heat in the house was not working, and patient was hypothermic with a temperature of 87 F. Unclear just how long the patient was on the floor. Did undergo rewarming at the outside facility. His blood glucose was also found to be low at 27 mg/dL. Did have a CT of the brain and C-spine which did not show any abnormalities or C-spine fracture/subluxation. Also, had a CT of the chest, images not available, however, reportedly demonstrating multiple bilateral subacute and nondisplaced rib fractures. According to the ER records, patient is an alcoholic and drinks approximately 1/5 of liquor per day. Currently on CIWA protocol. Workup at our facility, including a brain CT which did not show any acute intracranial hemorrhage, acute ischemic changes, or mass effect. Demonstrated a 1.2 cm rounded area of eggshell calcification midline posterior cranial fossa along the left vertebral artery. Concern was for possible aneurysm. Suspect a 1.8 cm cyst involving an impacted left maxillary molar. Regarding posterior wall of the maxilla. Air-fluid level of the left soft sphenoid sinus, possibly representing acute sinusitis. Chest x-ray showing low lung volumes with small bilateral pleural effusions and left-sided basilar atelectasis or infiltrate.CBC done arrival: WBC count 6.3, hemoglobin 8.1, hematocrit 23.3, platelets 100. Most recent CMP from yesterday showing a sodium 125, potassium 3.4, chloride 87, serum bicarb 28, BUN 15, creatinine 0.48, glucose 117. Lactic was 3.6 down to 1.5. Magnesium 1.5. LFTs mildly elevated, possibly secondary to chronic alcohol intake. CPK 722. Troponin was elevated at 0.042 and is trending down, most recently 0.027. Procalcitonin level is 1.11. Not currently on any antibiotics Patient currently being evaluated emergency department. He is on BiPAP with settings 12/6 and FiO2 100%. He is quite tachypneic, breathing in the high 40s. Vital lungs range around 400 to 500 mL. ABGs done on these settings showing a PaO2 of 70, pCO2 42, pH of 7.44. He remains quite obtunded, withdraws to painful stimuli in all 4 extremities. Now normothermic with a temperature of 98.3 F. Blood glucose 155. Ammonia 22. D5W with normal saline infusing at 75 mL/h. Plan is for patient be transferred to the intensive care unit once bed av ailable. Progress note dated April 11, 2024. 63-year-old male seen today in the intensive care unit, room 259. The patient is on dextrose, with saline, 75 cc an hour, saline IV at 10 cc an hour, and getting nasal cannula at 3 L. He also has a BiPAP in the room, with settings of 12/6, and 60%. He appears to be resting relatively comfortably, although he is a bit lethargic and somnolent. Current labs include a white count 3.9, hemoglobin 7.4, hematocrit 22.3, and a platelet count of hearing 26,000. Sodium 131, potassium 4, chlorides 95, CO2 33, BUN 15, creatinine 0.39. Glucose is 157. Chest x-ray reveals mild bibasilar infiltrates or atelectasis. 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 Progress note dated April 12, 2024. The patient is seen here in room 259. His mental status is a bit improved. He continues on 2 L nasal cannula. He is not using the BiPAP device. He is getting saline at 75 cc an hour. His hemoglobin this morning was 6.9. He will receive 1 unit packed red blood cells. In addition, the patient will get 1 dose of Lasix, 20 mg IV push. White count 4.6, hemoglobin 6.9, macro 21.4, platelet count 133,000. Sodium 135, potassium 4.1, chlorides 101, CO2 25, BUN 14, creatinine 0.39. Glucose 166. Calcium 7.4. Blood cultures are negative. Chest x-ray is largely unchanged, and show bibasilar airspace opacities versus atelectasis. Progress note dated April 13, 2024. 63-year-old male seen today in room 259. The patient is on saline at 75 cc an hour, nasal O2 at 2 L. He did receive 1 unit of packed red blood cells. The patient's blood pressure has been a bit elevated, so he may need something IV for that, I have written orders for both Cleviprex to be titrated, and IV beta- oh, i.e. the Lopressor. The patient's mental status is poor. It continues to be about the same. White count 6.8, hemoglobin 8.5, hematocrit 26.2, platelet count 169,000. Sodium 137, potassium 4.1, chlorides 102, CO2 23, anion gap 12, BUN 21, creatinine 0.5. Glucose 127. Calcium 7.8. Magnesium 1.9. Sputum and blood cultures are negative. Chest x-ray shows bibasilar airspace disease and/or atelectasis. On 04/14/2024, the patient is being seen for a follow-up. This morning, the patient is quite drowsy and sleepy and encephalopathic. He is not communicating with me. I was told that his mentation was much better yesterday. I came to find out that the patient was given Ativan overnight. Will continue monitoring his mentation. He is currently on 2 L of oxygen by nasal cannula. Chest x-ray shows development of a right lower lobe consolidation with worsening right lower lobe pulmonary filtrate and small left-sided pleural effusion and right-sided pleural effusion. There is also some limited atelectatic changes in the left lung. Hemodynamically stable on no pressors. White cell count of 6.2 with a heme of 9.8 and a platelet count of 187. BUN is 33 with a creatinine of 0.5 and a sodium levels at 139 and potassium level is at 4.8. Remains on DuoNeb. Remains on Pulmicort and Perforomist updrafts twice a day. Remains on IV Solu- Medrol. He was on IV Rocephin and I am going to switch his antibiotics to IV Zosyn covering for aspiration and hospital-acquired pathogens. Remains on n ormal citrate of 75 cc an hour. Ativan will be discontinued and his mental status needs to be monitored very closely. On 04/15/2024, the patient is being seen for a follow-up. Noted, the patient has significant diminishment of level of consciousness from yesterday. He was maintained on 2 L of oxygen by nasal cannula and he was also noted to have worsening in the right lower lobe consolidation. Overnight, the patient became more dyspneic and the blood gas was obtained that showed a pH of 7.09 with a pCO2 of 79 and pO2 of 81. Based on that, the patient was intubated and placed on mechanical ventilation. This morning, the patient is still on propofol running at 35 mcg/kg/min. The patient is on mechanical ventilator assist- control mode rate of 24, tidal volume of 500, FiO2 50% with a PEEP of 5. Blood gas showed a pH of 7.36 with a pCO2 of 37 and pO2 420. FiO2 was accordingly dropped. Chest x-ray shows a dense consolidation in the right lower lobe and the patient is currently on IV Zosyn. He remains on normal saline at rate of 75 cc an hour. Urine output is in order of 20 to 30 cc an hour. Fluid balance is +2.3 L over the past 24 hours. The white cell count is at 14.8 with a hemoglobin 8.5 and a platelet count of 156. Sodium is 142, potassium is at 5.6, bicarb is at 20 with a BUN of 36 and a creatinine of 0.68. Calcium level is at 6.4. Afebrile. Hemodynamically stable on no pressors. On 04/16/2024, the patient is being seen for a follow-up. Remains intubated on mechanical ventilator. The patient is sedated with propofol which is running at 40 mcg/kg/min. The patient is on assist-control mode of mechanical ventilation at rate of 24, tidal volume of 500, FiO2 40% with a PEEP of 5. Blood gas showed a pH of 7.43 with a pCO2 of 27 and pO2 of 144. Chest x-ray shows a persistent right lower lobe consolidation and the patient remains on IV Zosyn. Fluid susanna nce is +2.1 L over the past 24 hours. Blood pressure remains elevated and the patient is currently on a combination of losartan 100 mg p.o. daily, Norvasc 10 mg p.o. daily and metoprolol 50 mg p.o. 3 times daily. Receiving vital HP at rate of 30 cc an hour. Remains on bronchodilators. Will be started on diuretics today. Will try to achieve a negative fluid balance on this patient. The WBC count is 11.5 with a hemoglobin 8.3 and a platelet count of 176. Sodium is at 140, potassium is at 3.8 and the patient's chloride is 112 with a BUN of 15 and a creatinine of 1.05. The sputum sample collected on 04/15/2024 remains negative. Lines have been established. Afebrile. Hemodynamically stable. On 04/17/2024, the patient is being seen for a follow-up. This morning, the patient remains intubated on mechanical ventilator. He remains on propofol at 20 mcg/kg/min. Noted the patient was given a sedation holiday. He was arousable yesterday. Nevertheless, he became asynchronous with a mechanical ventilator and was quite restless and agitated. Based on that, the holiday was discontinued. The same is to be done today. The patient remains on IV Zosyn. Repeat chest x-ray done today shows improvement in right lower lobe consolidation. The patient is on assist-control mode of mechanical ventilation with a rate of 16, tidal volume of 500, FiO2 of 40% with a PEEP of 5. Blood gas showed a pH of 7.56 with a pCO2 of 33 and pO2 of 90. The patient is on normal saline at rate of 20 cc an hour. Urine output order of 100 cc an hour. Fluid balance is -2.9 L over the past 24 hours and the patient remains on vital high- protein at the rate of 50 cc an hour. He remains on IV Zosyn. Sputum culture has been negative. The white cell count of 19 with a hemoglobin of 8.5 and a platelet count of 181. Sodium is at 142, potassium is 3.6, BUN is 47 with a creatinine of 1.08. Serum bicarb is at 32. LFTs are abnormal with an AST of 646, ALT of 161 and alkaline phosphatase of 194. Procalcitonin level is at 0.82. On 04/18/2024, during a very busy ICU morning, the patient self extubated himself. The patient did extremely well postextubation. He is currently on oxygen airfit 3 L. He is off sedation. Noted, prior to his extubation, he was on assist-control mode at rate of 16, tidal volume of 400, FiO2 40% with a PEEP of 5. The blood gas showed a pH of 7.49 with a pCO2 42 and pO2 of 94. Fluid balance is -2.9 L and another 3 L over the past 48 hours. The patient remains on IV Zosyn. The patient was being diuresed with IV Lasix and diuretics was placed on hold. A follow-up chest x-ray done today shows stable right lower lobe pulmonary infiltrate and a small right-sided pleural effusion. The patient continues to have a congested cough. He is able to self suction. He is awake and alert and communicating. 04/19/2024, the patient is awake and alert. He is on room air. Continues to cough. Able to do adequate pulmonary toileting. A follow-up chest x-ray from this morning shows improvement in right lower lobe pulmonary filtrate. Small left-sided pleural effusion is also noted. No respiratory distress. He remains weak. He failed a swallow evaluation. IV fluids are currently at KVO. Fluid balance is -2.4 L over the past 24 hours. Blood pressure remains elevated and the patient remains on a combination of amlodipine 10 mg p.o. daily, Cozaar 100 mg p.o. daily, metoprolol 50 mg twice a day. Arterial line is to be discontinued. The white cell count is 15 with a hemoglobin 8.4 and a platelet count of 167. Sodium is at 140, BUN 35 and creatinine 0.8. Potassium level is at 3.2. On 04/20/2024, the patient is being seen for a follow-up. The patient was transferred out of the intensive care unit yesterday and the patient remains on room air oxygen. Continues to have a congested cough. Able to do pulmonary toileting. He has some difficulty with swallowing and the patient had failed swallow evaluation and the patient is receiving only some applesauce under close supervision. The patient is also on D5 half-normal saline at rate of 50 cc an hour. Remains on IV Zosyn regarding right lower lobe pneumonia. Hemodynamically stable. Remains on bronchodilators. Blood pressure management is adequate for now. No new labs are available from today. His LFTs have been improving and AST and ALT have been declining based on the most recent labs from 04/19/2024. Patient was seen today on 04/21/2024, patient continues to have intermittent coug h, he had difficulty clearing his secretions patient continues to have some difficulty with swallowing and he did fail his swallow evaluation receiving applesauce under close supervision remains on Zosyn for his presumptive aspiration pneumonia remains on bronchodilators, continues to have a bit of leukocytosis with WC count of 11.1 hemoglobin is 9.4 electrolytes are normal except for low potassium of 3.2 renal profile is normal, chest x-ray 2 days ago showed bibasilar infiltrates with I suspect left lower lobe consolidation and possibly a small left pleural effusion this is consistent with aspiration pneumonia. Reevaluated today on 04/22/2024, patient is about the same, continues to have problems with secretions, continues to have aspiration symptoms, and aspiration pneumonia. CBC showed leukocytosis with WC count 14.3 hemoglobin 9.1 electrolytes are normal renal profile is normal, patient remains encephalopathic with significant weakness in upper and lower extremities. He is able to follow simple commands. Patient failed his last swallow evaluation, and at this point I am strongly recommending a PEG tube placement. Patient is known to have history of alcoholism remains on Librium at 10 mg 3 times daily and on the CIWA protocol. Patient was seen today on 04/23/2024, his mentation seems to be a lot better today, seems to be a bit more awake, as well as fact he was even on the phone talking to a family member. Seems a bit confused, but overall that has been improvement in his overall mental status since yesterday. Patient remains generally weak, remains weak and debilitated. Continues to have issues with aspiration pneumonia and the patient remains n.p.o. for now. He failed the swallow evaluation again yesterday. Actually I am strongly recommending considering a PEG tube placement on this patient as he will continue to aspirate most likely and continue to have pneumonia. Last chest x-ray from 4 days ago clearly showed bilateral pneumonia involving right lower lobe and left lower lobe with possibly some atelectasis and consolidation involving the left lower lobe Objective - Vital Signs Vital signs: Vital Signs Temp 98.4 F 04/23/24 12:35 Pulse 120 H 04/23/24 15:30 Resp 20 04/23/24 12:35 BP 115/77 04/23/24 12:35 Pulse Ox 91 L 04/23/24 12:35 FiO2 21 04/20/24 08:17 Intake & Output 04/22/24 04/23/24 04/23/24 18:59 06:59 18:59 Output Total 1400 1250 600 Balance -1400 -1250 -600 Weight 65.5 kg Output: Urine 1400 1250 600 Other: Voiding Method Indwelling Catheter Indwelling Catheter Indwelling Catheter ABP, PAP, CO, CI - Last Documented Arterial Blood Pressure 188/82 - Exam GENERAL: Bit more awake today, does not seem to be in distress but seems to be generally weak HEENT: Pupils are round and equally reacting to light. EOMI. No scleral icterus. No conjunctival pallor. Normocephalic, atraumatic. No pharyngeal erythema. No thyromegaly. CARDIOVASCULAR: S1 and S2 present. No murmurs, rubs, or gallops. -PULMONARY: Crackles and rhonchi noted bilaterally ABDOMEN: Soft, nontender, nondistended, normoactive bowel sounds. No palpable organomegaly. MUSCULOSKELETAL: No joint swelling or deformity. EXTREMITIES: No cyanosis, clubbing, or pedal edema. NEUROLOGICAL: More awake with generalized weakness but remains confused. SKIN: No rashes. no petechiae. - Labs CBC & Chem 7: 04/22/24 11:00 04/22/24 09:48 Labs: Abnormal Lab Results - Last 24 Hours (Table) 04/22/24 04/23/24 04/23/24 Range/Units 23:51 05:40 11:59 POC Glucose (mg/dL) 133 H 147 H 130 H (70-110) mg/dL Assessment and Plan Assessment: Impression: Acute hypoxic respiratory failure secondary to pneumonia/aspiration pneumonia Acute aspiration pneumonia Severe sepsis secondary to pneumonia Acute exacerbation of COPD History of alcohol withdrawal and alcohol use Dysphagia and aspiration pneumonia Critical illness polyneuropathy and myopathy Acute metabolic encephalopathy Microcytic anemia Alcohol induced thrombocytopenia Possible vertebral artery/left vertebral artery aneurysm needs outpatient workup by neurology Acute left sphenoid sinusitis Benign essential hypertension Dyslipidemia Recommendation: Continue to keep the patient n.p.o. as he is high risk for aspiration and seriously consider a PEG tube placement Continue antibiotics Augmentin Continue alcohol withdrawal protocol including Ativan and thiamine Continue IV fluids at 50 cc/h Continue bronchodilators and steroids Continue oxygen and titrate accordingly Patient remains quite ill with multiple complex issues as noted above I will strongly recommend PEG tube placement for nutritional support Long-term prognosis seems to be very poor. Will continue to follow Time with Patient: Less than 30
--- NOTE | 2024-04-23 16:13 | P.PN ---
Subjective Progress Note Date: 04/23/24 Principal diagnosis: Reason for follow-up is pneumonia Patient is a 63-year-old male with a past medical history significant for COPD alcohol abuse hypertension hyperlipidemia with initially presented to the hospital the patient was found to be unresponsive and hypothermic sepsis he did have worsening of his respiratory status requiring intubation and there was concern for right lower lobe pneumonia. On today's evaluation that is 04/23/2024,the patient denies any fever or any chills, patient is breathing comfortably on room air, the patient denies chest pain shortness of breath and no significant cough, patient denies abdominal pain, no nausea vomiting or diarrhea. Patient did have a bilirubin of 1.9 no CBC was done today culture have been negative so far Objective - Vital Signs Vital signs: Vital Signs Temp 98.5 F 04/23/24 08:50 Pulse 118 H 04/23/24 11:44 Resp 20 04/23/24 08:50 BP 111/78 04/23/24 08:50 Pulse Ox 90 L 04/23/24 08:50 FiO2 21 04/20/24 08:17 Intake & Output 04/22/24 04/23/24 04/23/24 18:59 06:59 18:59 Output Total 1400 1250 Balance -1400 -1250 Weight 65.5 kg Output: Urine 1400 1250 Other: Voiding Method Indwelling Catheter Indwelling Catheter Indwelling Catheter ABP, PAP, CO, CI - Last Documented Arterial Blood Pressure 188/82 - Exam GENERAL DESCRIPTION: An elderly male lying in bed in no distress RESPIRATORY SYSTEM: Unlabored breathing , decreased breath sounds at bases HEART: S1 S2 regular rate and rhythm , ABDOMEN: Soft , no tenderness EXTREMITIES: No edema feet - Labs CBC & Chem 7: 04/22/24 11:00 04/22/24 09:48 Labs: Abnormal Lab Results - Last 24 Hours (Table) 04/22/24 04/23/24 04/23/24 Range/Units 23:51 05:40 11:59 POC Glucose (mg/dL) 133 H 147 H 130 H (70-110) mg/dL Assessment and Plan (1) Aspiration pneumonia Current Visit: Yes Status: Acute Code(s): J69.0 - PNEUMONITIS DUE TO INHALATION OF FOOD AND VOMIT SNOMED Code(s): 812557827 (2) Leukocytosis Current Visit: Yes Status: Acute Code(s): D72.829 - ELEVATED WHITE BLOOD CELL COUNT, UNSPECIFIED SNOMED Code(s): 602257991 Plan: 1patient with initial presentation to the hospital with episode of hypothermia and unresponsiveness subsequently worsening of his respiratory status requiring intubation and evidence of worsening right lower lobe infiltrate concerning for possible aspiration/gram-negative pneumonia. 2blood and sputum culture obtained which are so far negative 3patient is afebrile, no CBC was done today patient to continue with oral Augmentin and monitor clinical course closely Dictation was produced using [employer] dictation software. please excuse any grammatical, word or spelling errors. Time with Patient: Less than 30
[2024-04-23] MEDS: METOPROLOL TARTRATE 5 MG/5 ML VIAL IVP STA (17:07)
[2024-04-23 18:01] LABS: Glucose,Whole Blood 115 mg/dL (70-110)
[2024-04-23] MEDS ORDERED: METOPROLOL TARTRATE 5 MG/5 ML VIAL IVP PRN (18:15)
[2024-04-24 00:11] LABS: Glucose,Whole Blood 130 mg/dL (70-110)
[2024-04-24 06:00] LABS: Glucose,Whole Blood 118 mg/dL (70-110)
[2024-04-24 06:25] LABS: Anisocytosis Slight; Basophils % (A) 0 %; Eosinophils % (A) 0 %; HCT 27.8 % (39.0-53.0); HGB 8.6 gm/dL (13.0-17.5); Hypochromasia Slight; Lymphocytes # (A) 0.6 k/uL (1.0-4.8); Lymphocytes % (A) 4 %; MCH 32.9 pg (25.0-35.0); Macrocytosis Marked; Monocytes # (A) 0.4 k/uL (0-1.0); Monocytes % (A) 3 %; Neutrophils # (A) 13.4 k/uL (1.3-7.7); Neutrophils % (A) 92 %; Platelet Count 253 k/uL (150-450); RBC 2.62 m/uL (4.30-5.90); RDW 17.5 % (11.5-15.5); WBC 14.6 k/uL (3.8-10.6)
[2024-04-24 06:26] LABS: MCV 106.2 fL (80.0-100.0)
[2024-04-24 07:37] LABS: African American GFR (CKD) >90 (>60 ml/min/1.73 sqM); Anion Gap 2 mmol/L; Blood Urea Nitrogen 6 mg/dL (9-20); Calcium 7.8 mg/dL (8.4-10.2); Carbon Dioxide 38 mmol/L (22-30); Chloride 91 mmol/L (98-107); Glucose 99 mg/dL (74-99); Non-African American GFR(CKD) >90 (>60 ml/min/1.73 sqM); Potassium 2.8 mmol/L (3.5-5.1); Sodium 131 mmol/L (137-145)
[2024-04-24] MEDS: POTASSIUM CHLORIDE 20 MEQ in WATER FOR INJECTION 1 100ML.BAG IVPB SCH (10:21)
[2024-04-24 11:25] LABS: Glucose,Whole Blood 115 mg/dL (70-110)
--- NOTE | 2024-04-24 12:50 | P.PN ---
Subjective 63-year-old gentleman who is a transfer from [facility] after being found laying on ground outside his house. Most of the history has been obtained from the EMR according to which patient has been drinking 1/5 of alcohol per day. Patient was found by his neighbor to be laying on the ground, patient was initially hypothermic and was placed on warming blankets and was transferred to [facility] where he had CT of his brain, cervical spine and CT abdominal pelvis done which were unremarkable. Patient was later transferred to [facility] for further evaluation and treatment Initial lab work done in the ER showed WBC 6.3, hemoglobin 8.1, platelet count 100, sodium 124, potassium 5, BUN 18, creatinine 0.67, glucose 412, lactate 3.6, bilirubin 2.1, AST 363, ALT 101 Patient admitted to internal medicine service 04/12/2024 Patient is seen and evaluated in room at bedside; discussed with nursing staff; mental status is a bit improved. He continues on 2 L nasal cannula. He is not using the BiPAP device. Blood work reveals hemoglobin this morning was 6.9. He will receive 1 unit packed red blood cells. White count 4.6, hemoglobin 6.9, macro 21.4, platelet count 133,000. Sodium 135, potassium 4.1, chlorides 101, CO2 25, BUN 14, creatinine 0.39. Glucose 166. Calcium 7.4. Blood cultures are negative. Chest x-ray is largely unchanged, and show bibasilar airspace opacities versus atelectasis; patient received 1 dose of Lasix per critical care recommendations. The patient's overall prognosis remains guarded. 04/13/2024 Patient is seen and evaluated with nursing staff at bedside; patient is more alert and responsive; able to follow commands; wants to go home Vital signs are reviewed; blood pressure has been somewhat elevated; critical care recommended to titrate Cleviprex and IV Lopressor White count 6.8, hemoglobin 8.5, hematocrit 26.2, platelet count 169,000. Sodium 137, potassium 4.1, chlorides 102, CO2 23, anion gap 12, BUN 21, creatinine 0.5. Glucose 127. Calcium 7.8. Magnesium 1.9. Sputum and blood cultures are negative. Chest x-ray shows bibasilar airspace disease and/or atelectasis. -Patient received 1 unit packed RBCs for low hemoglobin -- Plan to continue current management at this time 04/14 Patient remains obtund, nonverbal, not following command, he grimaces to painful stimuli He is off BiPAP on 2.5 L/min osygen via nasal cannula Has Diaz catheter in place Getting normal saline 75 mL/h 04/15 Patient has been very confused and lethargic over the last few days industrial staff nurse he started to desaturate he was placed on BiPAP and pH was very low 7.09, high pCO2 is 79. Patient was intubated about 1 to 2 hours ago. Repeat ABG showing pH is normal at 7.36 and lower and pCO2 down to reference range at 37 CT of the brain showing no acute process and EEG showing no epileptiform discharge. Neurologist on the case and patient was diagnosed with toxic metabolic encephalopathy. Other than that he is afebrile. Hemoglobin 9.3, WBC 10.6. Creatinine 0.5. Chest x-ray:Bilateral pleural effusion. His antibiotics were changed to Zosyn. He is also on IV Solu-Medrol 60 mg He is getting normal saline at 75 mL/h. Also patient started on Levophed 04/21 Patient was transferred out of the ICU 2 nights ago. Today he is awake alert, he knows it is 2024 but he is disoriented to place and person. He looks like somewhat confused, yesterday he was agitated overnight requiring Ativan for his CIWA. Also he was placed on Librium 10 mg 3 times daily. He is generally weak both upper and lower extremities. Neurology follow-up with him closely and they think he is improving. Mentation significantly improved from last week. Also patient failed swallow evaluation. Currently getting D5 half-normal saline at 50 mL/h. Is kept on Zosyn for his aspiration pneumonia, steroids has been stopped. He still getting dialysis per engine lathe operator for his acute kidney injury on chronic kidney disease. He is on Lovenox for DVT prophylaxis. 04/22 Patient remains with significant encephalopathy and significant weakness in both upper and lower extremities. Patient awake can follow simple commands but he has no insight and he is confused to the surrounding. Also patient failed swallow evaluation yesterday and he might require a tube feed after being evaluated again today. We will wait for nutrition team evaluation. Also patient has severe weakness in both upper and lower extremity could be partly because of the alcohol effect and ICU admission plus other medical problems. Neurology is already on the case. He can hardly move his both lower extremities. And upper extremities looks weak all looks symmetrical. Patient himself does not have any other complaint. He is still going through significant alcohol withdrawal and currently he is on Librium 10 mg 3 times daily and CIWA protocol, CIWA score patch was between 5 and 14. Currently 9 this morning but he is not getting it because he is n.p.o. he required 2 mg of Ativan from last night 06/21 Patient significantly improved and his mentation today. He is awake alert and once I walked into the room he said I want to go home. However patient still confused about place partially, however he knows the year for the first time. He could not tell the name of the president. He could not tell why he is in the hospital. Patient still complains from generalized weakness although it looks better. He can move both upper and lower extremity little bit, but looks more weaker on the right side both upper and lower extremity. Patient states this is a chronic for the last [address] accident. Regardless patient still have severe generalized weakness most likely related to his critical illness myopathy. Besides all other complex medical issues and medication effect Patient is still n.p.o. because he failed swallow evaluation yesterday. We are going to try today or tomorrow. In the meantime he remains on D5 half-normal saline at 50 mL/h. Check labs tomorrow 06/22 Patient is very lethargic and encephalopathic today again. He barely can answer any question or do any movement Also he failed swallow evaluation this is the third time. Despite medical treatment and monitoring. He is so weak all over. He is high risk for aspiration. He might require different way of nutrition. Will going to consult general surgery team for possible PEG tube placement Also he is severely hypokalemic requiring replacement and monitoring. Requiring IV metoprolol for tachycardia. Objective - Vital Signs Vital signs: Vital Signs Temp 97.8 F 04/24/24 12:00 Pulse 101 H 04/24/24 12:00 Resp 04/24/24 12:00 BP 126/81 04/24/24 12:00 Pulse Ox 96 04/24/24 12:00 FiO2 04/20/24 08:17 Intake & Output 04/23/24 04/24/24 04/24/24 18:59 06:59 18:59 Intake Total 550 100 40 Output Total 600 400 Balance -50 -300 40 Weight 54.5 kg Intake: IV 550 100 40 Dextrose 5%-0.45% NaCl 1, 550 000 ml @ 50 mls/hr IV . Q20H [facility] Rx#:[id number] Invasive Line 10 10 10 Invasive Line 7 90 30 Oral 0 Output: Urine 600 400 Other: Voiding Method Indwelling Catheter Indwelling Catheter Indwelling Catheter ABP, PAP, CO, CI - Last Documented Arterial Blood Pressure 188/82 - Exam -GENERAL: The patient is awake, and oriented x 1, partially to time. Not in distress. Very weak generally HEENT: Pupils are round and equally reacting to light. EOMI. No scleral icterus. No conjunctival pallor. Normocephalic, atraumatic. No pharyngeal erythema. No thyromegaly. CARDIOVASCULAR: S1 and S2 present. No murmurs, rubs, or gallops. -PULMONARY: Chest is clear to auscultation, no wheezing , no crackles. Tachyp neic with limited air entry on both sides ABDOMEN: Soft, nontender, nondistended, normoactive bowel sounds. No palpable organomegaly. MUSCULOSKELETAL: No joint swelling or deformity. EXTREMITIES: No cyanosis, clubbing, or pedal edema. NEUROLOGICAL: Gross neurological examination did not reveal any focal deficits. Generalized weakness, he cannot bend his knee or raise his arms above his head SKIN: No rashes. no petechiae. - Labs CBC & Chem 7: 04/24/24 05:31 04/24/24 05:31 Labs: Abnormal Lab Results - Last 24 Hours (Table) 04/23/24 04/24/24 04/24/24 Range/Units 17:59 00:09 05:31 WBC 14.6 H (3.8-10.6) k/uL RBC 2.62 L (4.30-5.90) m/uL Hgb 8.6 L (13.0-17.5) gm/dL Hct 27.8 L (39.0-53.0) % MCV 106.2 H (80.0-100.0) fL RDW 17.5 H (11.5-15.5) % Neutrophils # 13.4 H (1.3-7.7) k/uL Lymphocytes # 0.6 L (1.0-4.8) k/uL Macrocytosis Marked A Sodium (137-145) mmol/L Potassium (3.5-5.1) mmol/L Chloride (98-107) mmol/L Carbon Dioxide (22-30) mmol/L BUN (9-20) mg/dL Creatinine (0.66-1.25) mg/dL POC Glucose (mg/dL) 115 H 130 H (70-110) mg/dL Calcium (8.4-10.2) mg/dL 04/24/24 04/24/24 04/24/24 Range/Units 05:31 05:59 11:23 WBC (3.8-10.6) k/uL RBC (4.30-5.90) m/uL Hgb (13.0-17.5) gm/dL Hct (39.0-53.0) % MCV (80.0-100.0) fL RDW (11.5-15.5) % Neutrophils # (1.3-7.7) k/uL Lymphocytes # (1.0-4.8) k/uL Macrocytosis Sodium 131 L (137-145) mmol/L Potassium 2.8 L (3.5-5.1) mmol/L Chloride 91 L (98-107) mmol/L Carbon Dioxide 38 H (22-30) mmol/L BUN 6 L (9-20) mg/dL Creatinine 0.42 L (0.66-1.25) mg/dL POC Glucose (mg/dL) 118 H 115 H (70-110) mg/dL Calcium 7.8 L (8.4-10.2) mg/dL Assessment and Plan Assessment: Dysphagia Severe sepsis, secondary to Left lower lobe pneumonia Acute COPD exacerbation Acute hypoxic hypercapnic respiratory failure Alcohol use disorder and withdrawal Dysphagia Critical illness myopathy Metabolic/toxic encephalopathy Microcytic anemia Alcoholic transaminitis Alcoholic induced thrombocytopenia Possible left vertebral artery round calcified eggshell lesion of 1.2 cm in the posterior cranial fossa, aneurysm cannot be ruled out. Patient will need to follow-up as an outpatient with interventional neurologist Acute left sphenoid sinusitis Left upper maxillary cyst 1.8 cm eroding into the posterior wall of the left maxilla Hypertension Hyperlipidemia Possible Parkinson disease Plan: Continue with antibiotic Zosyn with a plan to switch to Augmentin Continue with CIWA protocol and thiamine Consult surgery team for PEG tube placement On IV fluid D5 1/2 normal saline at 50 mL/h On IV Solu-Medrol 60 mg was discontinued Continue with oxygen therapy as needed and bronchodilator Several consultants on the case including pulmonary/critical care team, engine lathe operator and neurologist GI prophylaxis: Protonix DVT prophylaxis: Mechanical. Lovenox
--- NOTE | 2024-04-24 13:28 | P.PN ---
Subjective Progress Note Date: 04/24/24 Principal diagnosis: Acute hypoxic respiratory failure secondary to aspiration pneumonia Patient is a 63-year-old male with past medical history significant for COPD, alcohol abuse, hypertension, hyperlipidemia, among other things. Transferred from [facility] on 04/08/2024. Apparently, was found by his neighbor on the ground and unresponsive in his residence. The heat in the house was not working, and patient was hypothermic with a temperature of 87 F. Unclear just how long the patient was on the floor. Did undergo rewarming at the outside facility. His blood glucose was also found to be low at 27 mg/dL. Did have a CT of the brain and C-spine which did not show any abnormalities or C-spine fracture/subluxation. Also, had a CT of the chest, images not available, however, reportedly demonstrating multiple bilateral subacute and nondisplaced rib fractures. According to the ER records, patient is an alcoholic and drinks approximately 1/5 of liquor per day. Currently on CIWA protocol. Workup at our facility, including a brain CT which did not show any acute intracranial hemorrhage, acute ischemic changes, or mass effect. Demonstrated a 1.2 cm rounded area of eggshell calcification midline posterior cranial fossa along the left vertebral artery. Concern was for possible aneurysm. Suspect a 1.8 cm cyst involving an impacted left maxillary molar. Regarding posterior wall of the maxilla. Air-fluid level of the left soft sphenoid sinus, possibly representing acute sinusitis. Chest x-ray showing low lung volumes with small bilateral pleural effusions and left-sided basilar atelectasis or infiltrate.CBC done arrival: WBC count 6.3, hemoglobin 8.1, hematocrit 23.3, platelets 100. Most recent CMP from yesterday showing a sodium 125, potassium 3.4, chloride 87, serum bicarb 28, BUN 15, creatinine 0.48, glucose 117. Lactic was 3.6 down to 1.5. Magnesium 1.5. LFTs mildly elevated, possibly secondary to chronic alcohol intake. CPK 722. Troponin was elevated at 0.042 and is trending down, most recently 0.027. Procalcitonin level is 1.11. Not currently on any antibiotics Patient currently being evaluated emergency department. He is on BiPAP with settings 12/6 and FiO2 100%. He is quite tachypneic, breathing in the high 40s. Vital lungs range around 400 to 500 mL. ABGs done on these settings showing a PaO2 of 70, pCO2 42, pH of 7.44. He remains quite obtunded, withdraws to painful stimuli in all 4 extremities. Now normothermic with a temperature of 98.3 F. Blood glucose 155. Ammonia 22. D5W with normal saline infusing at 75 mL/h. Plan is for patient be transferred to the intensive care unit once bed av ailable. Progress note dated April 11, 2024. 63-year-old male seen today in the intensive care unit, room 259. The patient is on dextrose, with saline, 75 cc an hour, saline IV at 10 cc an hour, and getting nasal cannula at 3 L. He also has a BiPAP in the room, with settings of 12/6, and 60%. He appears to be resting relatively comfortably, although he is a bit lethargic and somnolent. Current labs include a white count 3.9, hemoglobin 7.4, hematocrit 22.3, and a platelet count of hearing 26,000. Sodium 131, potassium 4, chlorides 95, CO2 33, BUN 15, creatinine 0.39. Glucose is 157. Chest x-ray reveals mild bibasilar infiltrates or atelectasis. 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 Progress note dated April 12, 2024. The patient is seen here in room 259. His mental status is a bit improved. He continues on 2 L nasal cannula. He is not using the BiPAP device. He is getting saline at 75 cc an hour. His hemoglobin this morning was 6.9. He will receive 1 unit packed red blood cells. In addition, the patient will get 1 dose of Lasix, 20 mg IV push. White count 4.6, hemoglobin 6.9, macro 21.4, platelet count 133,000. Sodium 135, potassium 4.1, chlorides 101, CO2 25, BUN 14, creatinine 0.39. Glucose 166. Calcium 7.4. Blood cultures are negative. Chest x-ray is largely unchanged, and show bibasilar airspace opacities versus atelectasis. Progress note dated April 13, 2024. 63-year-old male seen today in room 259. The patient is on saline at 75 cc an hour, nasal O2 at 2 L. He did receive 1 unit of packed red blood cells. The patient's blood pressure has been a bit elevated, so he may need something IV for that, I have written orders for both Cleviprex to be titrated, and IV beta- oh, i.e. the Lopressor. The patient's mental status is poor. It continues to be about the same. White count 6.8, hemoglobin 8.5, hematocrit 26.2, platelet count 169,000. Sodium 137, potassium 4.1, chlorides 102, CO2 23, anion gap 12, BUN 21, creatinine 0.5. Glucose 127. Calcium 7.8. Magnesium 1.9. Sputum and blood cultures are negative. Chest x-ray shows bibasilar airspace disease and/or atelectasis. On 04/14/2024, the patient is being seen for a follow-up. This morning, the patient is quite drowsy and sleepy and encephalopathic. He is not communicating with me. I was told that his mentation was much better yesterday. I came to find out that the patient was given Ativan overnight. Will continue monitoring his mentation. He is currently on 2 L of oxygen by nasal cannula. Chest x-ray shows development of a right lower lobe consolidation with worsening right lower lobe pulmonary filtrate and small left-sided pleural effusion and right-sided pleural effusion. There is also some limited atelectatic changes in the left lung. Hemodynamically stable on no pressors. White cell count of 6.2 with a heme of 9.8 and a platelet count of 187. BUN is 33 with a creatinine of 0.5 and a sodium levels at 139 and potassium level is at 4.8. Remains on DuoNeb. Remains on Pulmicort and Perforomist updrafts twice a day. Remains on IV Solu- Medrol. He was on IV Rocephin and I am going to switch his antibiotics to IV Zosyn covering for aspiration and hospital-acquired pathogens. Remains on n ormal citrate of 75 cc an hour. Ativan will be discontinued and his mental status needs to be monitored very closely. On 04/15/2024, the patient is being seen for a follow-up. Noted, the patient has significant diminishment of level of consciousness from yesterday. He was maintained on 2 L of oxygen by nasal cannula and he was also noted to have worsening in the right lower lobe consolidation. Overnight, the patient became more dyspneic and the blood gas was obtained that showed a pH of 7.09 with a pCO2 of 79 and pO2 of 81. Based on that, the patient was intubated and placed on mechanical ventilation. This morning, the patient is still on propofol running at 35 mcg/kg/min. The patient is on mechanical ventilator assist- control mode rate of 24, tidal volume of 500, FiO2 50% with a PEEP of 5. Blood gas showed a pH of 7.36 with a pCO2 of 37 and pO2 420. FiO2 was accordingly dropped. Chest x-ray shows a dense consolidation in the right lower lobe and the patient is currently on IV Zosyn. He remains on normal saline at rate of 75 cc an hour. Urine output is in order of 20 to 30 cc an hour. Fluid balance is +2.3 L over the past 24 hours. The white cell count is at 14.8 with a hemoglobin 8.5 and a platelet count of 156. Sodium is 142, potassium is at 5.6, bicarb is at 20 with a BUN of 36 and a creatinine of 0.68. Calcium level is at 6.4. Afebrile. Hemodynamically stable on no pressors. On 04/16/2024, the patient is being seen for a follow-up. Remains intubated on mechanical ventilator. The patient is sedated with propofol which is running at 40 mcg/kg/min. The patient is on assist-control mode of mechanical ventilation at rate of 24, tidal volume of 500, FiO2 40% with a PEEP of 5. Blood gas showed a pH of 7.43 with a pCO2 of 27 and pO2 of 144. Chest x-ray shows a persistent right lower lobe consolidation and the patient remains on IV Zosyn. Fluid susanna nce is +2.1 L over the past 24 hours. Blood pressure remains elevated and the patient is currently on a combination of losartan 100 mg p.o. daily, Norvasc 10 mg p.o. daily and metoprolol 50 mg p.o. 3 times daily. Receiving vital HP at rate of 30 cc an hour. Remains on bronchodilators. Will be started on diuretics today. Will try to achieve a negative fluid balance on this patient. The WBC count is 11.5 with a hemoglobin 8.3 and a platelet count of 176. Sodium is at 140, potassium is at 3.8 and the patient's chloride is 112 with a BUN of 15 and a creatinine of 1.05. The sputum sample collected on 04/15/2024 remains negative. Lines have been established. Afebrile. Hemodynamically stable. On 04/17/2024, the patient is being seen for a follow-up. This morning, the patient remains intubated on mechanical ventilator. He remains on propofol at 20 mcg/kg/min. Noted the patient was given a sedation holiday. He was arousable yesterday. Nevertheless, he became asynchronous with a mechanical ventilator and was quite restless and agitated. Based on that, the holiday was discontinued. The same is to be done today. The patient remains on IV Zosyn. Repeat chest x-ray done today shows improvement in right lower lobe consolidation. The patient is on assist-control mode of mechanical ventilation with a rate of 16, tidal volume of 500, FiO2 of 40% with a PEEP of 5. Blood gas showed a pH of 7.56 with a pCO2 of 33 and pO2 of 90. The patient is on normal saline at rate of 20 cc an hour. Urine output order of 100 cc an hour. Fluid balance is -2.9 L over the past 24 hours and the patient remains on vital high- protein at the rate of 50 cc an hour. He remains on IV Zosyn. Sputum culture has been negative. The white cell count of 19 with a hemoglobin of 8.5 and a platelet count of 181. Sodium is at 142, potassium is 3.6, BUN is 47 with a creatinine of 1.08. Serum bicarb is at 32. LFTs are abnormal with an AST of 646, ALT of 161 and alkaline phosphatase of 194. Procalcitonin level is at 0.82. On 04/18/2024, during a very busy ICU morning, the patient self extubated himself. The patient did extremely well postextubation. He is currently on oxygen airfit 3 L. He is off sedation. Noted, prior to his extubation, he was on assist-control mode at rate of 16, tidal volume of 400, FiO2 40% with a PEEP of 5. The blood gas showed a pH of 7.49 with a pCO2 42 and pO2 of 94. Fluid balance is -2.9 L and another 3 L over the past 48 hours. The patient remains on IV Zosyn. The patient was being diuresed with IV Lasix and diuretics was placed on hold. A follow-up chest x-ray done today shows stable right lower lobe pulmonary infiltrate and a small right-sided pleural effusion. The patient continues to have a congested cough. He is able to self suction. He is awake and alert and communicating. 04/19/2024, the patient is awake and alert. He is on room air. Continues to cough. Able to do adequate pulmonary toileting. A follow-up chest x-ray from this morning shows improvement in right lower lobe pulmonary filtrate. Small left-sided pleural effusion is also noted. No respiratory distress. He remains weak. He failed a swallow evaluation. IV fluids are currently at KVO. Fluid balance is -2.4 L over the past 24 hours. Blood pressure remains elevated and the patient remains on a combination of amlodipine 10 mg p.o. daily, Cozaar 100 mg p.o. daily, metoprolol 50 mg twice a day. Arterial line is to be discontinued. The white cell count is 15 with a hemoglobin 8.4 and a platelet count of 167. Sodium is at 140, BUN 35 and creatinine 0.8. Potassium level is at 3.2. On 04/20/2024, the patient is being seen for a follow-up. The patient was transferred out of the intensive care unit yesterday and the patient remains on room air oxygen. Continues to have a congested cough. Able to do pulmonary toileting. He has some difficulty with swallowing and the patient had failed swallow evaluation and the patient is receiving only some applesauce under close supervision. The patient is also on D5 half-normal saline at rate of 50 cc an hour. Remains on IV Zosyn regarding right lower lobe pneumonia. Hemodynamically stable. Remains on bronchodilators. Blood pressure management is adequate for now. No new labs are available from today. His LFTs have been improving and AST and ALT have been declining based on the most recent labs from 04/19/2024. Patient was seen today on 04/21/2024, patient continues to have intermittent coug h, he had difficulty clearing his secretions patient continues to have some difficulty with swallowing and he did fail his swallow evaluation receiving applesauce under close supervision remains on Zosyn for his presumptive aspiration pneumonia remains on bronchodilators, continues to have a bit of leukocytosis with WC count of 11.1 hemoglobin is 9.4 electrolytes are normal except for low potassium of 3.2 renal profile is normal, chest x-ray 2 days ago showed bibasilar infiltrates with I suspect left lower lobe consolidation and possibly a small left pleural effusion this is consistent with aspiration pneumonia. Reevaluated today on 04/22/2024, patient is about the same, continues to have problems with secretions, continues to have aspiration symptoms, and aspiration pneumonia. CBC showed leukocytosis with WC count 14.3 hemoglobin 9.1 electrolytes are normal renal profile is normal, patient remains encephalopathic with significant weakness in upper and lower extremities. He is able to follow simple commands. Patient failed his last swallow evaluation, and at this point I am strongly recommending a PEG tube placement. Patient is known to have history of alcoholism remains on Librium at 10 mg 3 times daily and on the [facility] protocol. Patient was seen today on 04/23/2024, his mentation seems to be a lot better today, seems to be a bit more awake, as well as fact he was even on the phone talking to a family member. Seems a bit confused, but overall that has been improvement in his overall mental status since yesterday. Patient remains generally weak, remains weak and debilitated. Continues to have issues with aspiration pneumonia and the patient remains n.p.o. for now. He failed the swallow evaluation again yesterday. Actually I am strongly recommending considering a PEG tube placement on this patient as he will continue to aspirate most likely and continue to have pneumonia. Last chest x-ray from 4 days ago clearly showed bilateral pneumonia involving right lower lobe and left lower lobe with possibly some atelectasis and consolidation involving the left lower lobe Seen today on 04/24/2024, patient is basically about the same. His mental status seems to wax and wane, today he seems to be a bit confused again, he is oriented x 1/place only. Patient denies any complaints. Still n.p.o., and I believe the patient had multiple episodes of aspirations and he failed his swallow evaluation, remains generally weak, and he remains high risk for aspiration. General surgery was consulted for PEG tube placement and I think that is very appropriate. Continues to have leukocytosis with WBC of 14.6 hemoglobin 8.6 potassium is low at 2.8 being addressed accordingly. Follow-up chest x-ray was ordered to be done today, and will have a follow-up basically on his bibasilar infiltrates. Objective - Vital Signs Vital signs: Vital Signs Temp 97.8 F 04/24/24 12:00 Pulse 101 H 04/24/24 12:00 Resp 21 04/24/24 12:00 BP 126/81 04/24/24 12:00 Pulse Ox 96 04/24/24 12:00 FiO2 21 04/20/24 08:17 Intake & Output 04/23/24 04/24/24 04/24/24 18:59 06:59 18:59 Intake Total 550 100 40 Output Total 600 400 Balance -50 -300 40 Weight 54.5 kg Intake: IV 550 100 40 Dextrose 5%-0.45% NaCl 1, 550 000 ml @ 50 mls/hr IV . Q20H [facility] Rx#:[id number] Invasive Line 10 10 10 Invasive Line 7 90 30 Oral 0 Output: Urine 600 400 Other: Voiding Method Indwelling Catheter Indwelling Catheter Indwelling Catheter ABP, PAP, CO, CI - Last Documented Arterial Blood Pressure 188/82 - Exam GENERAL: Confused, does not seem to be in distress but seems to be generally weak HEENT: Pupils are round and equally reacting to light. EOMI. No scleral icterus. No conjunctival pallor. Normocephalic, atraumatic. No pharyngeal erythema. No thyromegaly. CARDIOVASCULAR: S1 and S2 present. No murmurs, rubs, or gallops. -PULMONARY: Crackles and rhonchi noted bilaterally ABDOMEN: Soft, nontender, nondistended, normoactive bowel sounds. No palpable organomegaly. MUSCULOSKELETAL: No joint swelling or deformity. EXTREMITIES: No cyanosis, clubbing, or pedal edema. NEUROLOGICAL: Confused, with generalized weakness SKIN: No rashes. no petechiae. - Labs CBC & Chem 7: 04/24/24 05:31 04/24/24 05:31 Labs: Abnormal Lab Results - Last 24 Hours (Table) 04/23/24 04/24/24 04/24/24 Range/Units 17:59 00:09 05:31 WBC 14.6 H (3.8-10.6) k/uL RBC 2.62 L (4.30-5.90) m/uL Hgb 8.6 L (13.0-17.5) gm/dL Hct 27.8 L (39.0-53.0) % MCV 106.2 H (80.0-100.0) fL RDW 17.5 H (11.5-15.5) % Neutrophils # 13.4 H (1.3-7.7) k/uL Lymphocytes # 0.6 L (1.0-4.8) k/uL Macrocytosis Marked A Sodium (137-145) mmol/L Potassium (3.5-5.1) mmol/L Chloride (98-107) mmol/L Carbon Dioxide (22-30) mmol/L BUN (9-20) mg/dL Creatinine (0.66-1.25) mg/dL POC Glucose (mg/dL) 115 H 130 H (70-110) mg/dL Calcium (8.4-10.2) mg/dL 04/24/24 04/24/24 04/24/24 Range/Units 05:31 05:59 11:23 WBC (3.8-10.6) k/uL RBC (4.30-5.90) m/uL Hgb (13.0-17.5) gm/dL Hct (39.0-53.0) % MCV (80.0-100.0) fL RDW (11.5-15.5) % Neutrophils # (1.3-7.7) k/uL Lymphocytes # (1.0-4.8) k/uL Macrocytosis Sodium 131 L (137-145) mmol/L Potassium 2.8 L (3.5-5.1) mmol/L Chloride 91 L (98-107) mmol/L Carbon Dioxide 38 H (22-30) mmol/L BUN 6 L (9-20) mg/dL Creatinine 0.42 L (0.66-1.25) mg/dL POC Glucose (mg/dL) 118 H 115 H (70-110) mg/dL Calcium 7.8 L (8.4-10.2) mg/dL Assessment and Plan Assessment: Impression: Acute hypoxic respiratory failure secondary to pneumonia/aspiration pneumonia Acute aspiration pneumonia Severe sepsis secondary to pneumonia Acute exacerbation of COPD History of alcohol withdrawal and alcohol use Dysphagia and aspiration pneumonia Critical illness polyneuropathy and myopathy Acute metabolic encephalopathy Microcytic anemia Alcohol induced thrombocytopenia Possible vertebral artery/left vertebral artery aneurysm needs outpatient workup by neurology Acute left sphenoid sinusitis Benign essential hypertension Dyslipidemia Recommendation: Continue to keep the patient n.p.o. Agree with surgical consultation for PEG tube placement Continue antibiotics Augmentin Continue alcohol withdrawal protocol including Ativan and thiamine Continue IV fluids at 50 cc/h Continue bronchodilators and steroids Continue oxygen and titrate accordingly Patient remains quite ill with multiple complex issues as noted above I will strongly recommend PEG tube placement for nutritional support Long-term prognosis seems to be very poor. Will continue to follow Time with Patient: Less than 30
[2024-04-24 13:52] VITALS: BMI 15.4
--- NOTE | 2024-04-24 13:54 | XR ---
EXAMINATION TYPE: XR chest 1V portable DATE OF EXAM: 04/24/2024 1:47 PM COMPARISON: Chest x-ray 5 days ago CLINICAL INDICATION: Male, 63 years old with history of pneumonia, TECHNIQUE: Single frontal view of the chest is obtained. FINDINGS: Persistent low lung volumes. There is persistent right lower lung increased opacity. There is new left mid to lower lung increased opacity. Silhouetting left heart border is now present. Surg ical changes in the cervical and lumbar spine are partially imaged. IMPRESSION: Stable low lung volumes with right basilar acute infiltrate and/or atelectasis and likely small right pleural effusion. There is now moderate-sized left pleural effusion and worsening left m id and lower lung acute infiltrate and/or atelectasis. [facility], , 04/24/2024 1:52 PM
--- NOTE | 2024-04-24 14:09 | P.PN ---
Subjective Progress Note Date: 04/24/24 I am following-up with patient and he seems about the same. Objective - Vital Signs Vital signs: Vital Signs Temp 97.8 F 04/24/24 12:00 Pulse 101 H 04/24/24 12:00 Resp 21 04/24/24 12:00 BP 126/81 04/24/24 12:00 Pulse Ox 96 04/24/24 12:00 FiO2 21 04/20/24 08:17 Intake & Output 04/23/24 04/24/24 04/24/24 18:59 06:59 18:59 Intake Total 550 100 80 Output Total 600 400 Balance -50 -300 80 Weight 54.5 kg 54.5 kg Intake: IV 550 100 80 Dextrose 5%-0.45% NaCl 1, 550 000 ml @ 50 mls/hr IV . Q20H [facility] Rx#:[id number] Invasive Line 10 10 20 Invasive Line 7 90 60 Oral 0 Output: Urine 600 400 Other: Voiding Method Indwelling Catheter Indwelling Catheter Indwelling Catheter ABP, PAP, CO, CI - Last Documented Arterial Blood Pressure 188/82 - Exam General: Lying in bed and does not appear in acute distress. Neuro: The patient is drowsy but is awakeable to voice. Is oriented to self, place. He correctly named objects (pen and glasses). Is following simple commands. No facial weakness. somewhat dysarthric. But is very hypophonic. Motor: stregnth is somewhat limited. But is lifting upper extremities above gravity and wiggling toes. He has edema on the right upper and lower extremity. - Labs CBC & Chem 7: 04/24/24 05:31 04/24/24 05:31 Labs: Abnormal Lab Results - Last 24 Hours (Table) 04/23/24 04/24/24 04/24/24 Range/Units 17:59 00:09 05:31 WBC 14.6 H (3.8-10.6) k/uL RBC 2.62 L (4.30-5.90) m/uL Hgb 8.6 L (13.0-17.5) gm/dL Hct 27.8 L (39.0-53.0) % MCV 106.2 H (80.0-100.0) fL RDW 17.5 H (11.5-15.5) % Neutrophils # 13.4 H (1.3-7.7) k/uL Lymphocytes # 0.6 L (1.0-4.8) k/uL Macrocytosis Marked A Sodium (137-145) mmol/L Potassium (3.5-5.1) mmol/L Chloride (98-107) mmol/L Carbon Dioxide (22-30) mmol/L BUN (9-20) mg/dL Creatinine (0.66-1.25) mg/dL POC Glucose (mg/dL) 115 H 130 H (70-110) mg/dL Calcium (8.4-10.2) mg/dL 04/24/24 04/24/24 04/24/24 Range/Units 05:31 05:59 11:23 WBC (3.8-10.6) k/uL RBC (4.30-5.90) m/uL Hgb (13.0-17.5) gm/dL Hct (39.0-53.0) % MCV (80.0-100.0) fL RDW (11.5-15.5) % Neutrophils # (1.3-7.7) k/uL Lymphocytes # (1.0-4.8) k/uL Macrocytosis Sodium 131 L (137-145) mmol/L Potassium 2.8 L (3.5-5.1) mmol/L Chloride 91 L (98-107) mmol/L Carbon Dioxide 38 H (22-30) mmol/L BUN 6 L (9-20) mg/dL Creatinine 0.42 L (0.66-1.25) mg/dL POC Glucose (mg/dL) 118 H 115 H (70-110) mg/dL Calcium 7.8 L (8.4-10.2) mg/dL Assessment and Plan Assessment: This is a 63-year-old gentleman who was transferred from [place] for escalation of care in which the patient was found down by his neighbor on the ground and he did not have heat and his initial temperature was 87. Seems that his sugar at the outside facility was in the 30s. He had CT brain cervical spine abdomen pelvis and it showed subacute rib fracture but no acute process. In our facility he had sugars in the 400 initially then down to the 60s. He has hyponatremia 124. He is also is a heavy drinker Altered mental status due to toxic metabolic encephalopathy--improving Status post self extubation 04/18/2024. Status post intubation 04/15/2024. Hyponatremia (124-->140) Hypoglycemia--resolved Incidental 9mm Left vertebral artery aneurysm Suspect 1.8cm dentgerous cyst involving the impacted left maxilary molar. Eroding the posterior wall of the maxilla. Acute Hypoxic/Hypercapnic respiratory failure on BiPAP. Hypothermia and patient does not have heat at home that is reported Transaminitis AST more than ALT likely due to his alcohol use Per patient's daughter, there is no history of Parkinson's. History of polysubstance abuse Marijuana use Longstanding history of alcoholism. Plan: * Regarding the left vertebral artery aneurysm, this seems incidental and recommend patient to follow-up with Dr. Kohli (Interventional Neurologist) as outpatient within 3 weeks as outpatient. * Per daughter Celina, patient has never been diagnosed with Parkinson's disease. Celina and her dad have not been very close. She states that patient has history of lifelong alcoholism for almost 50 years since he was a teenager. 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 He also did prescription drug abuse with opiates, and also did some cocaine. He was a lifelong green party person. She states that patient does have history of tremors, which she believes is related to anxiety or possibly related to alcoholism. No history of Parkinson's. We will stop Sinemet. * Repeat CT head 04/15/2024 showed stable mild senescent changes. No acute bleed or mass effect. * Routine EEG on 04/11/24: Is abnormal. The background slowing is suggestive of mild to moderate encephalopathy. Otherwise, no focal slowing, epileptiform discharge or seizure on the EEG. * Patient is on thiamine 100mg daily. * Nephrology is consulted * Consider dental or an ENT consultation * Discussed with patient's nurse in detail. * Defer the rest of the medical management to primary other specialist * DVT prophylaxis: Lovenox 40 mg subcu daily * Start PT, OT. * Continue present treatment. Will follow-up with patient sporadically. Time with Patient: Less than 30
--- NOTE | 2024-04-24 14:11 | P.GSCN ---
History of Present Illness Consult date: 04/24/24 History of present illness: CHIEF COMPLAINT: Altered mental status HISTORY OF PRESENT ILLNESS: This is a 63-year-old male who presented with altered mental status and hypoxic respiratory failure due to aspiration pneumonia. Patient is failed his swallow eval. Surgical service has been consulted for PEG tube placement. Patient with a known history of COPD and alcohol abuse. Denies any prior abdominal surgeries. PAST MEDICAL HISTORY: COPD, alcohol abuse, hypertension, hyperlipidemia, Parkinson's PAST SURGICAL HISTORY: See below MEDICATIONS: See below ALLERGIES: See below SOCIAL HISTORY: No illicit drug use. REVIEW OF SYSTEMS: CONSTITUTIONAL: Denies fever or chills. HEENT: Denies blurred vision, vision changes, or eye pain. Denies hemoptysis CARDIOVASCULAR: Denies chest pain or pressure. RESPIRATORY: No shortness of breath. GASTROINTESTINAL: See HPI for pertinent findings HEMATOLOGIC: Denies bleeding disorders. GENITOURINARY: Denies any blood in urine or increased urinary frequency. SKIN: Denies pruitis. Denies rash. PHYSICAL EXAM: VITAL SIGNS: Reviewed GENERAL: Well-developed in no acute distress. HEENT: Neck supple ABDOMEN: Soft. Nondistended. Nontender NEUROLOGIC: Alert and oriented. Cranial nerves II through XII grossly intact. LABORATORY DATA: WBC 14.6 Hgb 8.6 platelets 253 Sodium 131 potassium is 2.8 creatinine 0.42 Magnesium 1.9 Albumin 2.6 IMAGING: ASSESSMENT: 1. Aspiration pneumonia 2. Dysphagia. Failed swallow eval 3. Severe protein calorie malnutrition PLAN: -Patient scheduled for EGD with PEG tube placement tomorrow with Dr. Burger -Continue to correct potassium and magnesium -Repeat labs in a.m. -N.p.o. after midnight Physician Tier Over note has been reviewed by physician. Signing provider agrees with the documented findings, assessment, and plan of care. Past Medical History Past Medical History: Unable to Obtain History of Any Multi-Drug Resistant Organisms: Unobtainable Past Surgical History: Unable to Obtain Past Anesthesia/Blood Transfusion Reactions: Unable to Obtain Past Psychological History: Unable to Obtain Smoking Status: Current every day smoker, Unknown if ever smoked Past Alcohol Use History: Abuse Medications and Allergies Home Medications Medication Instructions Recorded Confirmed Type Acetaminophen Tab [Tylenol Tab] 1,000 mg PO TID PRN 04/09/24 04/09/24 History Albuterol Nebulized [Ventolin 2.5 mg INHALATION RT-QID PRN 04/09/24 04/09/24 History Nebulized] Albuterol Sulfate [Albuterol 2 puff PO RT-QID PRN 04/09/24 04/09/24 History Sulfate Hfa] Baclofen [Lioresal] 10 mg PO Q8H PRN 04/09/24 04/09/24 History Fexofenadine HCl [Stephanie Allergy] 180 mg PO DAILY 04/09/24 04/09/24 History Fluticasone Propion/Salmeterol 1 puff INHALATION RT-BID 04/09/24 04/09/24 History [Wixela 250-50 Inhub] Gabapentin 600 mg PO BID 04/09/24 04/09/24 History Ibuprofen [Motrin] 800 mg PO Q8H PRN 04/09/24 04/09/24 History Loratadine [Claritin] 10 mg PO DAILY 04/09/24 04/09/24 History Losartan Potassium [Cozaar] 100 mg PO DAILY 04/09/24 04/09/24 History Mag-Ox 420mg 420 mg PO DAILY 04/09/24 04/09/24 History Metoprolol Tartrate [Lopressor] 50 mg PO BID 04/09/24 04/09/24 History Multivitamins, Thera [Multivitamin 1 tab PO DAILY 04/09/24 04/09/24 History (formulary)] Omeprazole [PriLOSEC] 20 mg PO DAILY 04/09/24 04/09/24 History Oxybutynin ER [Ditropan XL] 10 mg PO HS 04/09/24 04/09/24 History Psyllium Husk/Aspartame [Metamucil 1 tsp PO BID 04/09/24 04/09/24 History Sugar-Free Powder] Roflumilast 500 mcg PO DAILY 04/09/24 04/09/24 History Sodium Bicarbonate 325 mg PO TID 04/09/24 04/09/24 History Spironolactone [Aldactone] 25 mg PO DAILY 04/09/24 04/09/24 History Tamsulosin HCl [Flomax] 0.4 mg PO BID 04/09/24 04/09/24 History amLODIPine [Norvasc] 10 mg PO DAILY 04/09/24 04/09/24 History hydrALAZINE HCL [Apresoline] 50 mg PO TID 04/09/24 04/09/24 History oxyCODONE-APAP 7.5-325MG [Percocet 1 tab PO Q8H PRN 04/09/24 04/09/24 History 7.5-325 mg] Allergies Allergy/AdvReac Type Severity Reaction Status Date / Time No Known Allergies Allergy Unverified 04/09/24 07:20 Surgical - Exam Vital Signs Temp Pulse Resp Pulse Ox 97.1 F L 102 H 18 98 04/08/24 20:49 04/08/24 20:49 04/08/24 20:49 04/08/24 20:49 Results - Labs 04/24/24 05:31 04/24/24 05:31 Abnormal Lab Results - Last 24 Hours (Table) 04/23/24 04/24/24 04/24/24 Range/Units 17:59 00:09 05:31 WBC 14.6 H (3.8-10.6) k/uL RBC 2.62 L (4.30-5.90) m/uL Hgb 8.6 L (13.0-17.5) gm/dL Hct 27.8 L (39.0-53.0) % MCV 106.2 H (80.0-100.0) fL RDW 17.5 H (11.5-15.5) % Neutrophils # 13.4 H (1.3-7.7) k/uL Lymphocytes # 0.6 L (1.0-4.8) k/uL Macrocytosis Marked A Sodium (137-145) mmol/L Potassium (3.5-5.1) mmol/L Chloride (98-107) mmol/L Carbon Dioxide (22-30) mmol/L BUN (9-20) mg/dL Creatinine (0.66-1.25) mg/dL POC Glucose (mg/dL) 115 H 130 H (70-110) mg/dL Calcium (8.4-10.2) mg/dL 04/24/24 04/24/24 04/24/24 Range/Units 05:31 05:59 11:23 WBC (3.8-10.6) k/uL RBC (4.30-5.90) m/uL Hgb (13.0-17.5) gm/dL Hct (39.0-53.0) % MCV (80.0-100.0) fL RDW (11.5-15.5) % Neutrophils # (1.3-7.7) k/uL Lymphocytes # (1.0-4.8) k/uL Macrocytosis Sodium 131 L (137-145) mmol/L Potassium 2.8 L (3.5-5.1) mmol/L Chloride 91 L (98-107) mmol/L Carbon Dioxide 38 H (22-30) mmol/L BUN 6 L (9-20) mg/dL Creatinine 0.42 L (0.66-1.25) mg/dL POC Glucose (mg/dL) 118 H 115 H (70-110) mg/dL Calcium 7.8 L (8.4-10.2) mg/dL Diabetes panel 04/24/24 Range/Units 05:31 Sodium 131 L (137-145) mmol/L Potassium 2.8 L (3.5-5.1) mmol/L Chloride 91 L (98-107) mmol/L Carbon Dioxide 38 H (22-30) mmol/L BUN 6 L (9-20) mg/dL Creatinine 0.42 L (0.66-1.25) mg/dL Glucose 99 (74-99) mg/dL Calcium 7.8 L (8.4-10.2) mg/dL Calcium panel 04/24/24 Range/Units 05:31 Calcium 7.8 L (8.4-10.2) mg/dL Pituitary panel 04/24/24 Range/Units 05:31 Sodium 131 L (137-145) mmol/L Potassium 2.8 L (3.5-5.1) mmol/L Chloride 91 L (98-107) mmol/L Carbon Dioxide 38 H (22-30) mmol/L BUN 6 L (9-20) mg/dL Creatinine 0.42 L (0.66-1.25) mg/dL Glucose 99 (74-99) mg/dL Calcium 7.8 L (8.4-10.2) mg/dL Adrenal panel 04/24/24 Range/Units 05:31 Sodium 131 L (137-145) mmol/L Potassium 2.8 L (3.5-5.1) mmol/L Chloride 91 L (98-107) mmol/L Carbon Dioxide 38 H (22-30) mmol/L BUN 6 L (9-20) mg/dL Creatinine 0.42 L (0.66-1.25) mg/dL Glucose 99 (74-99) mg/dL Calcium 7.8 L (8.4-10.2) mg/dL
[2024-04-24 16:57] LABS: Glucose,Whole Blood 114 mg/dL (70-110)
[2024-04-24] MEDS: INSULIN LISPRO (HumaLOG) 100 UNIT/ML 10 mL VL SQ SCH (17:03)
[2024-04-24] MEDS ORDERED: INSULIN ASPART (NovoLOG) 100 UNIT/ML VIAL SQ SCH (18:00)
[2024-04-24 18:38] LABS: Magnesium 1.4 mg/dL (1.6-2.3); Potassium 3.4 mmol/L (3.5-5.1)
[2024-04-24] MEDS: POTASSIUM CHLORIDE 10 MEQ in WATER FOR INJECTION 1 100ML.BAG IVPB SCH (20:12)
[2024-04-24] MEDS: MAGNESIUM SULFATE-D5W PMX 1 GM in DEXTROSE/WATER 1 100ML.BAG IVPB SCH (20:29)
[2024-04-24 20:57] VITALS: RESP 18; TEMP 98.7
[2024-04-24] MEDS: SYMBICORT 160-4.5 MCG INHALER INHALATION SCH (21:58)
[2024-04-24 22:40] LABS: Glucose,Whole Blood 125 mg/dL (70-110)
[2024-04-24] MEDS ORDERED: NALOXONE 1 MG/ML 2 ML SYRINGE ONE (22:40)
[2024-04-24] MEDS ORDERED: EPINEPHrine 10 ML SYRINGE (0.1 MG/ML) ONE (22:40)
[2024-04-24] MEDS ORDERED: SODIUM BICARB 8.4% 50 ML SYR (1 MEQ/ML) ONE (22:40)
[2024-04-24 23:07] LABS: Glucose,Whole Blood 130 mg/dL (70-110)
[2024-04-24] MEDS: SODIUM CHLORIDE 0.9% 1,000 ML IV ONE (23:15)
[2024-04-24 23:36] LABS: Anisocytosis Slight; Basophils % (A) 0 %; Eosinophils % (A) 1 %; HGB 7.8 gm/dL (13.0-17.5); Hypochromasia Marked; Lymphocytes # (A) 0.8 k/uL (1.0-4.8); Lymphocytes % (A) 10 %; MCH 33.9 pg (25.0-35.0); MCHC 31.3 g/dL (31.0-37.0); MCV 108.3 fL (80.0-100.0); Mean Platelet Volume 8.2; Monocytes # (A) 0.2 k/uL (0-1.0); Monocytes % (A) 2 %; Neutrophils # (A) 7.4 k/uL (1.3-7.7); Neutrophils % (A) 87 %; Platelet Count 195 k/uL (150-450); RDW 16.8 % (11.5-15.5); WBC 8.5 k/uL (3.8-10.6)
--- NOTE | 2024-04-24 23:36 | XR ---
EXAM: XR Chest, 1 View CLINICAL HISTORY: ITS.REASON XR Reason: post arrest, line placement TECHNIQUE: Frontal view of the chest. COMPARISON: 04/15/24 FINDINGS: Lungs: Interval development of widespread bilateral ground-glass opacities. Pleural space: Suspect layering pleural effusions. No pneumothorax. Heart: Stable heart size. Pulmonary vasculature appears congested. Bones/joints: Fusion hardware in the cervical spine extending to the T1 level. Fixation hardware in the thoracolumbar spine beginning at the T12 level. No acute skeletal findings. Tubes, lines and devices: Endotracheal tube 4.5 cm from the jim. Enteric tube extends to the stomach and beyond the [id number]. No central venous catheter is visualized. IMPRESSION: 1. No central venous catheter is visualized. Correlate clinically. 2. Interval development of widespread bilateral ground-glass opacities. Appearance suggests pulmonary edema. 3. Endotracheal tube 4.5 cm from the jim. Enteric tube extends to the stomach and beyond the [id number]. 4. Suspect layering pleural effusions.
[2024-04-24 23:52] LABS: AST 395 U/L (17-59); African American GFR (CKD) >90 (>60 ml/min/1.73 sqM); Alkaline Phosphatase 111 U/L (38-126); Anion Gap 4 mmol/L; Blood Urea Nitrogen 7 mg/dL (9-20); Calcium 7.3 mg/dL (8.4-10.2); Carbon Dioxide 31 mmol/L (22-30); Chloride 96 mmol/L (98-107); Glucose 117 mg/dL (74-99); Magnesium 1.8 mg/dL (1.6-2.3); Non-African American GFR(CKD) >90 (>60 ml/min/1.73 sqM); Potassium 3.3 mmol/L (3.5-5.1); Sodium 131 mmol/L (137-145); Total Bilirubin 2.4 mg/dL (0.2-1.3); Total Protein 4.1 g/dL (6.3-8.2)
[2024-04-24 23:58] LABS: ALT 147 U/L (4-49)
[2024-04-25 00:07] LABS: Macrocytosis Marked
[2024-04-25 00:07] LABS: ABG Base Excess 4.3 mmol/L; ABG HCO3 30 mmol/L (21-25); ABG Oxygen Saturation 65.9 % (94-97); ABG PCO2 52 mmHg (35-45); ABG PH 7.37 (7.35-7.45); ABG TCO2 32 mmol/L (19-24)
[2024-04-25 00:08] LABS: ABG PO2 40 mmHg (83-108)
[2024-04-25 00:09] LABS: Allen Test Performed? no
[2024-04-25] MEDS: VASOPRESSIN 20 UNIT in SODIUM CHLORIDE 0.9% 50 ML IV SCH (00:12)
[2024-04-25] MEDS ORDERED: ARTIFICIAL TEARS OINTMENT 3.5 GM TUBE BOTH EYES SCH (00:15)
[2024-04-25] MEDS: CISATRACURIUM 200 MG in SODIUM CHLORIDE 0.9% 180 ML IV SCH (00:31)
[2024-04-25] MEDS: CISATRACURIUM 2 MG/ML 5 ML VIAL IV ONE (00:32)
[2024-04-25] MEDS: NOREPINEPHRINE 4 MG in SODIUM CHLORIDE 0.9% 250 ML IV SCH (00:45)
--- NOTE | 2024-04-25 00:51 | P.PCN ---
Date of Procedure: 04/25/24 Procedure(s) Performed: Central Line Placement in the Right Subclavian Vein Anesthesia: none Condition: critical Disposition: ICU Indications for Procedure: Cardiac arrest/Hypotension Description of Procedure: INDICATION: Cardiac arrest, Hypotension PROCEDURE TRAFFIC RATE COMPUTER: Uriel Ortiz MD ATTENDING PHYSICIAN: Zenon De Paz MD Ultrasound Used: No The procedure was emergent, the patient was unable to provide consent, and a designee was not immediately available. PROCEDURE SUMMARY: Starting with the first handwash prior to starting sterile technique. A time out was performed. My hands were washed immediately prior to the procedure. I wore a mask with protective eyewear, sterile gown and sterile gloves throughout the procedure. The patient was placed in supine position. The right upper chest region was prepped using chlorhexidine scrub and draped in sterile fashion using a full drape and sterile probe cover and sterile gel employed. Anesthesia was achieved with 1% lidocaine. The introducer needle was inserted approximately two centimeters lateral to and 1 cm inferior to the normal curvature of the patient's clavicle. Venous blood was withdrawn. The syringe was removed and a guidewire was advanced into the introducer needle. A small incision was made at the skin surface with a scalpel and the introducer needle was exchanged for a dilator over the guidewire. After appropriate dilation was obtained, the dilator was exchanged over the wire for a subclavian central venous catheter. The wire was removed and the catheter was sutured in place at 14 cm. A sterile sorbaview shield was placed over the catheter at the insertion site. The patient tolerated the procedure without any hemodynamic compromise. At time of procedure completion, all ports aspirated and flushed properly. Post-procedure chest x-ray is pending at this time. Estimated blood loss is 5 mL. I supervised the entire procedure.
[2024-04-25] MEDS ORDERED: FUROSEMIDE 10 MG/ML 4 ML VIAL IV STA (01:01)
[2024-04-25] MEDS ORDERED: Potassium Replacement Protocol 1 EACH MISC MISCELLANE PRN (01:04)
[2024-04-25] MEDS: MAGNESIUM SULFATE-D5W PMX 1 GM in DEXTROSE/WATER 1 100ML.BAG IVPB ONE (01:15)
--- NOTE | 2024-04-25 01:51 | XR ---
EXAM: XR Chest, 1 View CLINICAL HISTORY: ITS.REASON XR Reason: decreased SP02 and lne placement TECHNIQUE: Frontal view of the chest. COMPARISON: No relevant prior studies available. FINDINGS: Lungs: New complete white out of the left lung. Persistent airspace opacities in the right lung, predominantly the lower lung zone, appearing slightly less confluent on the current exam. Pleural space: No visible pneumothorax. Probable left greater than right pleural effusions. Heart: Cardiac silhouette obscured. Bones/joints: Fixation/fusion hardware in the cervical and lower thoracolumbar spine. No acute osseous findings. Tubes, lines and devices: Endotracheal tube has been pulled back, now 7 cm from the jim. Right subclavian CVC terminates in the proximal SVC. Enteric tube extends to the stomach. IMPRESSION: 1. New complete white out of the left lung. This could be secondary to mucus plugging with postobstructive atelectasis. 2. Persistent airspace opacities in the right lung, predominantly the lower lung zone, appearing slightly less confluent on the current exam. 3. Endotracheal tube has been pulled back, now 7 cm from the jim. 4. Right subclavian CVC terminates in the proximal SVC. No pneumothorax.
[2024-04-25] MEDS ORDERED: POTASSIUM BICARBONATE/CIT AC 20 MEQ TABLET.EFF NG-TUBE SCH (02:00)
[2024-04-25] MEDS ORDERED: ATROPINE OPHTH SOLN 1% 5ML BTL SUBLINGUAL PRN (02:16)
[2024-04-25] MEDS: MORPHINE SULFATE 2 MG/ML SYRINGE IV PRN (02:36)
[2024-04-25] MEDS: MORPHINE SULFATE 100 MG in SODIUM CHLORIDE 0.9% 90 ML IV SCH (02:44)
[2024-04-25] MEDS: SCOPOLAMINE 1 MG/72 HR PATCH TRANSDERM SCH (02:45)
[2024-04-25 04:09] VITALS: BP 58/46; PULSE 35
--- NOTE | 2024-04-25 04:26 | P.EN ---
Code Blue Note Activated at 2237. Arrived at the scene shortly after. Case was discussed with the RN and chart was reviewed. The RN was notified of the patient was bradycardic and upon ROSC she found the patient to be unresponsive and CPR was subsequently initiated. The patient was given epinephrine IVP x 2 and sodium bicarbonate IV push x 1. He was intubated by the ZIGZAG STITCHER. ROSC was subsequently achieved at 2248 with sinus tachycardia. The patient was transferred to the medical ICU. Case was discussed with the patient's legal guardian, his daughter, at the bedside. Patient making no code at this time. Please refer to the code sheet for further details. Primary team and broadcast operations manager were notified.
--- NOTE | 2024-04-25 07:31 | P.PN ---
Subjective Progress Note Date: 04/24/24 Principal diagnosis: Reason for follow-up is pneumonia Patient is a 63-year-old male with a past medical history significant for COPD alcohol abuse hypertension hyperlipidemia with initially presented to the hospital the patient was found to be unresponsive and hypothermic sepsis he did have worsening of his respiratory status requiring intubation and there was concern for right lower lobe pneumonia. On today's evaluation that is 04/24/2024,the patient remains to be afebrile, patient is on 2 L nasal cannula supplemental oxygen and denies any shortness of breath no chest pain or cough.Patient denies having any nausea or vomiting, no abdominal pain and no diarrhea has been reported, no new symptoms. Patient white count is 8.5 creatinine 0.50 blood and sputum culture has been negative Objective - Vital Signs Vital signs: Vital Signs Temp 97.8 F 04/24/24 12:00 Pulse 101 H 04/24/24 12:00 Resp 04/24/24 12:00 BP 126/81 04/24/24 12:00 Pulse Ox 96 04/24/24 12:00 FiO2 04/20/24 08:17 Intake & Output 04/23/24 04/24/24 04/24/24 18:59 06:59 18:59 Intake Total 550 100 40 Output Total 600 400 Balance -50 -300 40 Weight 54.5 kg Intake: IV 550 100 40 Dextrose 5%-0.45% NaCl 1, 550 000 ml @ 50 mls/hr IV . Q20H [facility] Rx#:[id number] Invasive Line 10 10 10 Invasive Line 7 90 30 Oral 0 Output: Urine 600 400 Other: Voiding Method Indwelling Catheter Indwelling Catheter Indwelling Catheter ABP, PAP, CO, CI - Last Documented Arterial Blood Pressure 188/82 - Exam GENERAL DESCRIPTION: An elderly male lying in bed in no distress RESPIRATORY SYSTEM: Unlabored breathing , decreased breath sounds at bases HEART: S1 S2 regular rate and rhythm , ABDOMEN: Soft , no tenderness EXTREMITIES: No edema feet - Labs CBC & Chem 7: 04/24/24 23:21 04/24/24 23:21 Labs: Abnormal Lab Results - Last 24 Hours (Table) 04/23/24 04/24/24 04/24/24 Range/Units 17:59 00:09 05:31 WBC 14.6 H (3.8-10.6) k/uL RBC 2.62 L (4.30-5.90) m/uL Hgb 8.6 L (13.0-17.5) gm/dL Hct 27.8 L (39.0-53.0) % MCV 106.2 H (80.0-100.0) fL RDW 17.5 H (11.5-15.5) % Neutrophils # 13.4 H (1.3-7.7) k/uL Lymphocytes # 0.6 L (1.0-4.8) k/uL Macrocytosis Marked A Sodium (137-145) mmol/L Potassium (3.5-5.1) mmol/L Chloride (98-107) mmol/L Carbon Dioxide (22-30) mmol/L BUN (9-20) mg/dL Creatinine (0.66-1.25) mg/dL POC Glucose (mg/dL) 115 H 130 H (70-110) mg/dL Calcium (8.4-10.2) mg/dL 04/24/24 04/24/24 04/24/24 Range/Units 05:31 05:59 11:23 WBC (3.8-10.6) k/uL RBC (4.30-5.90) m/uL Hgb (13.0-17.5) gm/dL Hct (39.0-53.0) % MCV (80.0-100.0) fL RDW (11.5-15.5) % Neutrophils # (1.3-7.7) k/uL Lymphocytes # (1.0-4.8) k/uL Macrocytosis Sodium 131 L (137-145) mmol/L Potassium 2.8 L (3.5-5.1) mmol/L Chloride 91 L (98-107) mmol/L Carbon Dioxide 38 H (22-30) mmol/L BUN 6 L (9-20) mg/dL Creatinine 0.42 L (0.66-1.25) mg/dL POC Glucose (mg/dL) 118 H 115 H (70-110) mg/dL Calcium 7.8 L (8.4-10.2) mg/dL Assessment and Plan (1) Aspiration pneumonia Status: Acute Code(s): J69.0 - PNEUMONITIS DUE TO INHALATION OF FOOD AND VOMIT SNOMED Code(s): 191727784 (2) Leukocytosis Status: Acute Code(s): D72.829 - ELEVATED WHITE BLOOD CELL COUNT, UNSPECIFIED SNOMED Code(s): 112467434 Plan: 1patient with initial presentation to the hospital with episode of hypothermia and unresponsiveness subsequently worsening of his respiratory status requiring intubation and evidence of worsening right lower lobe infiltrate concerning for possible aspiration/gram-negative pneumonia. 2blood and sputum culture obtained which are so far negative 3patient is afebrile, and the patient white count has been normal currently waiting for possible PEG tube placement and monitor clinical course closely Dictation was produced using [employer] dictation software. please excuse any grammatical, word or spelling errors. Time with Patient: Less than 30
[2024-04-25] MEDS ORDERED: PIPERACILLIN-TAZOBACTAM 3.375 GM in SODIUM CHLORIDE 0.9% 100 ML IVPB SCH (08:00)
[2024-04-25] MEDS ORDERED: CHLORHEXIDINE GLUCONATE 15 ML CUP MUCOUS MEM SCH (09:00)
--- NOTE | 2024-04-28 14:56 | CDI ---
Documentation Clarification Form Date: 04/28/2024 01:58:51 PM From: Mariela Sanon Phone: Admit Date: 04/08/2024 11:05:00 PM Patient Name: Kevyn Odell Visit Number: [id number] Discharge Date: 04/25/2024 05:05:00 AM ATTENTION: The Clinical Documentation Specialists (CDI) and [facility] Coding Staff appreciate your assistance in clarifying documentation. Please respond to the clarification below the line at the bottom and electronically sign. The CDI & [facility] Coding staff will review the response and follow-up if needed. Please note: Queries are made part of the Legal Health Record. If you have any questions, please contact the author of this message via ITS. Doctor/Provider: Renan De La Vega Your patient has a POCGlucose range 27- 412. Please clarify if there is an additional diagnosis and/or clinical significance related to this value. History/Risk Factors: 63yo M, severe sepsis, toxic metabolic encephalopathy, hyponatremia, Hypoglycemia, vertebral arteryaneurysm, cystinvolving theimpactedleft maxillary molar, acute H/HRF, hypothermia(patientdoes not haveheat at home), transaminitis, AST Hx polysubstance abuse, longstanding alcoholism Clinical indicators: In our facility he had sugars in the 400 initially then down to the 60s. Treatment: Insulin Aspart 0 unit; Insulin Aspart (Novolog) 100 Unit/Ml Vial SQ; Lispro( Humalog) Is there an additional diagnosis and/or clinical significance related to the above lab result/information? Please select any/all that apply. [ ] Diabetes Type 2 with hyperglycemia [ x ] Diabetes Type 2 with hypoglycemia [ ] Hyperglycemia, NOS [ ] Hypoglycemia, NOS [ ] No additional diagnosis/Not clinically significant [ ] Other, please specify [ ] Unable to determine (Template Last Revised: March 2020) MTDD
--- NOTE | 2024-05-09 21:21 | CDI ---
Documentation Clarification Form Date: 05/09/2024 09:05:22 PM From: Mariela Sanon Phone: Admit Date: 04/08/2024 11:05:00 PM Patient Name: Kevyn Odell Visit Number: [id number] Discharge Date: 04/25/2024 05:05:00 AM ATTENTION: The Clinical Documentation Specialists (CDI) and [facility] Coding Staff appreciate your assistance in clarifying documentation. Please respond to the clarification below the line at the bottom and electronically sign. The CDI & [facility] Coding staff will review the response and follow-up if needed. Please note: Queries are made part of the Legal Health Record. If you have any questions, please contact the author of this message via ITS. Doctor/Provider: Renan De La Vega There is documentation of mortality without further clarification. Additional clarification is requested. History/Risk Factors: 63yo M, hyponatremia, asp PNA, dysphagia, severe PCM, TME, hypoglycemia, LV arteryaneurysm, dentgerouscyst, impactedLT maxillary molar, eroding posterior wall of the maxilla, AH/HRF, hypothermia(does not haveheat at home), Hxpolysubstance abuse, heavy drinker/alcoholism, rhabdo, ground-level fall, lactic acidosis, thrombocytopenia Clinical Indicators: This is a 63-year-old gentleman who was transferred from [place] for escalation of care in which the patient was found down by his neighbor on the ground and he did not have heat and his initial temperature was 87.Seems that his sugar at the outside facility was in the 30s.He hadCT braincervical spine abdomen pelvis and it showed subacuterib fracturebut no acute process. In our facility he had sugars in the 400 initially then down to the 60s. Self-extubated Treatment: mortality Can you please clarify cause of ? [ ] Aspiration pneumonia [ ] Acute Hypoxic/Hypercapnic respiratory failure [ ] Other, please specify [ ] Unable to determine (Template Last Revised: April 2020) MTDD
--- NOTE | 2024-05-13 09:54 | CDI ---
Documentation Clarification Form Date: 05/13/2024 09:50:38 AM From: Mariela Sanon Phone: Admit Date: 04/08/2024 11:05:00 PM Patient Name: Kevyn Odell Visit Number: [id number] Discharge Date: 04/25/2024 05:05:00 AM ATTENTION: The Clinical Documentation Specialists (CDI) and [facility] Coding Staff appreciate your assistance in clarifying documentation. Please respond to the clarification below the line at the bottom and electronically sign. The CDI & [facility] Coding staff will review the response and follow-up if needed. Please note: Queries are made part of the Legal Health Record. If you have any questions, please contact the author of this message via ITS. Doctor/Provider: Rg E Sheet There is documentation of mortality without further clarification. Additional clarification is requested. History/Risk Factors: 63yo M,hyponatremia, aspPNA,dysphagia,severe PCM, TME, hypoglycemia, LV arteryaneurysm, dentgerouscyst,impactedLT maxillary molar, eroding posterior wall of the maxilla, AHHRF,hypothermia(does not haveheat at home), Hxpolysubstance abuse, heavy drinker/alcoholism, rhabdo,ground-level fall,lactic acidosis,thrombocytopenia Clinical Indicators: This is a 63-year-old gentleman who was transferred from [place] for escalation of care in which the patient was found down by his neighbor on the ground and he did not have heat and his initial temperature was 87.Seems that his sugar at the outside facility was in the 30s.He hadCT braincervical spine abdomen pelvis and it showed subacuterib fracturebut no acute process. In our facility he had sugars in the 400 initially then down to the 60s. Self-extubated Treatment: mortality Can you please clarify cause of ? [ ]Aspiration pneumonia [ ]Acute Hypoxic/Hypercapnic respiratory failure [x ] Other, please specify sever encephalopathy caused by chronic alcohol use and complications [ ] Unable to determine (Template LastRevised: April 2020) MTDD
--- NOTE | 2024-05-16 00:18 | P.DS ---
Providers Date of admission: 04/08/24 23:05 Attending physician: Aida Dooley Consults: 04/08/24 23:03 Consult Physician Urgent Consulting Provider: Arvind Mayo Consult Reason/Comments: Altered mental status Do you want consulting provider notified?: Yes 04/09/24 10:29 Consult Physician Routine Consulting Provider: Rosa Shankar Consult Reason/Comments: Hyponatremia Do you want consulting provider notified?: Yes 04/09/24 13:41 Consult Physician Routine Consulting Provider: Uriel Mayo Consult Reason/Comments: Acute hypoxemic respiratory failure Do you want consulting provider notified?: Yes 04/16/24 09:34 Consult Physician Routine Consulting Provider: Loly Alexandra Consult Reason/Comments: Pneumonia sepsis Do you want consulting provider notified?: Yes 04/24/24 12:47 Consult Physician Routine Consulting Provider: Yasmani Burger Consult Reason/Comments: failed swallow evaluation for peg Do you want consulting provider notified?: Yes Primary care physician: Uriel Arciniega MD Hospital Course: Dysphagia Severe sepsis, secondary to Left lower lobe pneumonia Acute COPD exacerbation Acute hypoxic hypercapnic respiratory failure Alcohol use disorder and withdrawal Dysphagia Critical illness myopathy Metabolic/toxic encephalopathy Microcytic anemia Alcoholic transaminitis Alcoholic induced thrombocytopenia Possible left vertebral artery round calcified eggshell lesion of 1.2 cm in the posterior cranial fossa, aneurysm cannot be ruled out. 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 Patient was found by his neighbor to be laying on the ground, patient was initially hypothermic and was placed on warming blankets and was transferred to [facility] where he had CT of his brain, cervical spine and CT abdominal pelvis done which were unremarkable. Patient was later transferred to [facility] for further evaluation and treatment Patient was severely encephalopathic and he was treated with IV antibiotic for his aspiration pneumonia. He was been followed by several consultants including pulmonary/critical care team and a neurologist. His mentation was waxing and waning and fluctuating but overall he was severely confused most of the time. He failed swallow evaluation several times. Surgery team were planned for tube feeding placement. However patient did not improve much and he continued to deteriorate despite several treatment options and care from several consultants provided for him. Patient developed CODE BLUE on 04/25, patient resuscitated per protocol. After discussing with his guardian and daughter at bedside she decided to make her father no code and eventually he . Patient Condition at Discharge: Poor Plan - Discharge Summary Discharge Rx Participant: No New Discharge Prescriptions: No Action Fexofenadine HCl [Stephanie Allergy] 180 mg PO DAILY Spironolactone [Aldactone] 25 mg PO DAILY Psyllium Husk/Aspartame [Metamucil Sugar-Free Powder] 1 tsp PO BID Multivitamins, Thera [Multivitamin (formulary)] 1 tab PO DAILY Metoprolol Tartrate [Lopressor] 50 mg PO BID Ibuprofen [Motrin] 800 mg PO Q8H PRN PRN Reason: Pain Acetaminophen Tab [Tylenol Tab] 1,000 mg PO TID PRN PRN Reason: Pain Mag-Ox 420mg 420 mg PO DAILY oxyCODONE-APAP 7.5-325MG [Percocet 7.5-325 mg] 1 tab PO Q8H PRN PRN Reason: Pain Tamsulosin HCl [Flomax] 0.4 mg PO BID RX: Sodium Bicarbonate 325 mg PO TID Oxybutynin ER [Ditropan XL] 10 mg PO HS Omeprazole [PriLOSEC] 20 mg PO DAILY Losartan Potassium [Cozaar] 100 mg PO DAILY Loratadine [Claritin] 10 mg PO DAILY hydrALAZINE HCL [Apresoline] 50 mg PO TID RX: Gabapentin 600 mg PO BID Fluticasone Propion/Salmeterol [Wixela 250-50 Inhub] 1 puff INHALATION RT-BID amLODIPine [Norvasc] 10 mg PO DAILY Baclofen [Lioresal] 10 mg PO Q8H PRN PRN Reason: Muscle Spasm Albuterol Nebulized [Ventolin Nebulized] 2.5 mg INHALATION RT-QID PRN PRN Reason: Shortness Of Breath Albuterol Sulfate [Albuterol Sulfate Hfa] 2 puff PO RT-QID PRN PRN Reason: Shortness Of Breath RX: Roflumilast 500 mcg PO DAILY Discharge Medication List Acetaminophen Tab [Tylenol Tab] 1,000 mg PO TID PRN 04/09/24 [History] Albuterol Nebulized [Ventolin Nebulized] 2.5 mg INHALATION RT-QID PRN 04/09/24 [History] Albuterol Sulfate [Albuterol Sulfate Hfa] 2 puff PO RT-QID PRN 04/09/24 [History] Baclofen [Lioresal] 10 mg PO Q8H PRN 04/09/24 [History] Fexofenadine HCl [Stephanie Allergy] 180 mg PO DAILY 04/09/24 [History] Fluticasone Propion/Salmeterol [Wixela 250-50 Inhub] 1 puff INHALATION RT-BID 04/09/24 [History] Ibuprofen [Motrin] 800 mg PO Q8H PRN 04/09/24 [History] Loratadine [Claritin] 10 mg PO DAILY 04/09/24 [History] Losartan Potassium [Cozaar] 100 mg PO DAILY 04/09/24 [History] Mag-Ox 420mg 420 mg PO DAILY 04/09/24 [History] Metoprolol Tartrate [Lopressor] 50 mg PO BID 04/09/24 [History] Multivitamins, Thera [Multivitamin (formulary)] 1 tab PO DAILY 04/09/24 [History] Omeprazole [PriLOSEC] 20 mg PO DAILY 04/09/24 [History] Oxybutynin ER [Ditropan XL] 10 mg PO HS 04/09/24 [History] Psyllium Husk/Aspartame [Metamucil Sugar-Free Powder] 1 tsp PO BID 04/09/24 [History] RX: Gabapentin 600 mg PO BID 04/09/24 [History] RX: Roflumilast 500 mcg PO DAILY 04/09/24 [History] RX: Sodium Bicarbonate 325 mg PO TID 04/09/24 [History] Spironolactone [Aldactone] 25 mg PO DAILY 04/09/24 [History] Tamsulosin HCl [Flomax] 0.4 mg PO BID 04/09/24 [History] amLODIPine [Norvasc] 10 mg PO DAILY 04/09/24 [History] hydrALAZINE HCL [Apresoline] 50 mg PO TID 04/09/24 [History] oxyCODONE-APAP 7.5-325MG [Percocet 7.5-325 mg] 1 tab PO Q8H PRN 04/09/24 [History] Follow up Appointment(s)/Referral(s): Uriel Arciniega MD [Primary Care Provider] - 1-2 days Audelia Kohli MD [STAFF PHYSICIAN] - 2 Weeks (vertebral aneurysm. ) Discharge Disposition: - Preliminary Cause of Preliminary Cause of : sever encephalopathy secondary to chronic alchol use and complications
--- NOTE | 2024-05-16 15:31 | CDI ---
Documentation Clarification Form Date: 05/16/2024 02:51:24 PM From: Gracie Hsu RN, CCDS Email: [email or web address] Admit Date: 04/08/2024 11:05:00 PM Patient Name: Kevyn Odell Visit Number: [id number] Discharge Date: 04/25/2024 05:05:00 AM ATTENTION: The Clinical Documentation Specialists (CDI) and [facility] Coding Staff appreciate your assistance in clarifying documentation. Please respond to the clarification below the line at the bottom and electronically sign. The CDI & [facility] Coding staff will review the response and follow-up if needed. Please note: Queries are made part of the Legal Health Record. If you have any questions, please contact the author of this message via ITS. Doctor Renan De La Vega Sepsis is documented in the progress notes starting on 04/15. For each diagnosis, documentation must be clear to determine if the condition was present at the time of the patients inpatient admission or developed during the hospital stay. Additional clarification regarding the Sepsis is requested. History/Risk Factors: Parkinson's and alcoholism. Presents to the ED from [facility] as a transfer. Patient was found on the ground by neighbor, initial body temp of 87 degrees and altered mental status. Admitted with acute metabolic encephalopathy. Clinical Indicators: Admission vital signs: Temp 97.1 HR 102 RR 18 BP 152/90 pox 98% 04/08 WBC 6.3; lactic acid 3.6 04/09 CRP 3.7-5.1; Procalcitonin 1.35-1.11 04/15 WBC: 11.0 04/10 Blood cultures no growth 04/10 Pulmonary consult: "Acute hypoxemic respiratory failure, currently on BiPAP, chest x-ray showing low lung volumes with small bilateral pleural effusions, and left-sided basilar atelectasis versus infiltrate. Procalcitonin level elevated at 1.11. Not currently on any antibiotics. Patient to be started empiric antibiotics." 04/14 Pulmonary: "Right lower lobe pneumonia with worsening consolidation of the right lung base. Rule out aspiration versus hospital-acquired pneumonia.The patient will be started on IV Zosyn." 04/15 IM: "Patient has been very confused and lethargic over the last few days. community support professional he desaturated and placed on bipap. pH was very low 7.09, high pCO2 is 79. Patient was intubated. Severe sepsis. Left lower lobe pneumonia." 04/17 ID: "initially presented to the hospital unresponsive and hypothermic sepsis. He did have worsening of his respiratory status requiring intubation and there was concern for right lower lobe pneumonia." Treatment: IV Azithromycin 500mg x1 on 04/10; IV Azithromycin 500mg daily 04/10- 04/12; IV Rocephin 2gm x1 on 04/10; IV Rocephin 1gm Q24H 04/10-04/13; IV Levophed titrated 04/15-04/20; IV Zosyn 3.375gm Q8H 04/14-04/21; 1L 0.9 IV bolus on 04/08; 04/11; 04/15 and 04/24 Definition of Present on Admission (POA): A diagnosis present at the time the order for admission to inpatient status was written. Please clarify if Sepsis was POA: [ ] Y = Yes, the condition was present at the time of the order for inpatient admission. [ x] N = No, the condition was not present at the time of the order for inpatient admission. [ ] W = Clinically undetermined if the condition was present at the time of the order for inpatient admission. MTDD
--- NOTE | 2024-05-16 16:03 | CDI ---
Documentation Clarification Form Date: 05/16/2024 03:53:02 PM From: Gracie Hsu RN, CCDS Email: [email or web address] Admit Date: 04/08/2024 11:05:00 PM Patient Name: Kevyn Odell Visit Number: [id number] Discharge Date: 04/25/2024 05:05:00 AM ATTENTION: The Clinical Documentation Specialists (CDI) and [facility] Coding Staff appreciate your assistance in clarifying documentation. Please respond to the clarification below the line at the bottom and electronically sign. The CDI & [facility] Coding staff will review the response and follow-up if needed. Please note: Queries are made part of the Legal Health Record. If you have any questions, please contact the author of this message via ITS. Doctor Kip Burnham The patient received IV Levophed starting 04/15. Please clarify what condition/diagnosis is being treated. History/Risk Factors: Parkinson's and alcoholism. Presents to the ED from [facility] as a transfer. Patient was found on the ground by neighbor, initial body temp of 87 degrees and altered mental status. Admitted with acute metabolic encephalopathy Clinical Indicators: Admission vital signs: Temp 97.1 HR 102 RR 18 BP 152/90 pox 98% 04/15 BP: 80/64-79/33-75/53-99/75 04/08 WBC 6.3; lactic acid 3.6 04/09 CRP 3.7-5.1; Procalcitonin 1.35-1.11 04/15 WBC: 11.0 04/10 Bood cultures no growth 04/10 Pulmonary consult: "Acute hypoxemic respiratory failure, currently on BiPAP, chest x-ray showing low lung volumes with small bilateral pleural effusions, and left-sided basilar atelectasis versus infiltrate.Procalcitonin level elevated at 1.11.Not currently on any antibiotics. Patient to be started empiric antibiotics." 04/14 Pulmonary: "Right lower lobe pneumonia with worsening consolidation of the right lung base. Rule out aspiration versus hospital-acquired pneumonia. The patient will be started on IV Zosyn." 04/15 IM: "Patient has been very confused and lethargic over the last few days. chauffeur he desaturated and placed on bipap. pH was very low 7.09, high pCO2 is 79. Patient was intubated. Also, patient started on Levophed. Severe sepsis. Left lower lobe pneumonia." 04/17 ID: "initially presented to the hospital unresponsive and hypothermic sepsis. He did have worsening of his respiratory status requiring intubation and there was concern for right lower lobe pneumonia." Treatment: IV Azithromycin 500mg x1 on 04/10; IV Azithromycin 500mg daily 04/10- 04/12; IV Rocephin 2gm x1 on 04/10; IV Rocephin 1gm Q24H 04/10-04/13; IV Levophed titrated 04/15-04/20; IV Zosyn 3.375gm Q8H 04/14-04/21; 1L 0.9 IV bolus on 04/08; 04/11; 04/15 and 04/24 What diagnosis were you treating with IV Levophed? [ x ] Septic Shock [ ] Other Shock, please specify [ ] No additional diagnosis [ ] Other, please specify [ ] Unable to determine MTDD
== END 2024-04-25 05:05 | disposition expired | DRG 91 ==
LOC: EC 20:47 → EEVIPCON 23:05 → 3SCARD 23:05 → 2SICU 04-09 16:52 → 3SCARD 04-19 18:53 → 2SICU 04-24 22:58
PROVIDERS: ADMIT Hospitalist; ATTEND Hospitalist
PROC: 5A09357 Assistance with Respiratory Ventilation, Less than 24 Consecutive Hours, Continuous Positive Airway Pressure (ICD-10-PCS; 2024-04-10)
PROC: 30233N1 Transfusion of Nonautologous Red Blood Cells into Peripheral Vein, Percutaneous Approach (ICD-10-PCS; 2024-04-12)
PROC: 03HY32Z Insertion of Monitoring Device into Upper Artery, Percutaneous Approach (ICD-10-PCS; principal; 2024-04-15)
PROC: 4A133B1 Monitoring of Arterial Pressure, Peripheral, Percutaneous Approach (ICD-10-PCS; 2024-04-15)
PROC: 4A133J1 Monitoring of Arterial Pulse, Peripheral, Percutaneous Approach (ICD-10-PCS; 2024-04-15)
PROC: 0BH18EZ Insertion of Endotracheal Airway into Trachea, Via Natural or Artificial Opening Endoscopic (ICD-10-PCS; 2024-04-15)
PROC: 5A1945Z Respiratory Ventilation, 24-96 Consecutive Hours (ICD-10-PCS; 2024-04-15)
PROC: 3E0H76Z Introduction of Nutritional Substance into Lower GI, Via Natural or Artificial Opening (ICD-10-PCS; 2024-04-15)
PROC: 5A1935Z Respiratory Ventilation, Less than 24 Consecutive Hours (ICD-10-PCS; 2024-04-25)
PROC: 05H533Z Insertion of Infusion Device into Right Subclavian Vein, Percutaneous Approach (ICD-10-PCS; 2024-04-25)
PROC: 5A12012 Performance of Cardiac Output, Single, Manual (ICD-10-PCS; 2024-04-25)
PROC: 3E043XZ Introduction of Vasopressor into Central Vein, Percutaneous Approach (ICD-10-PCS; 2024-04-25)
PROC: 0BH18EZ Insertion of Endotracheal Airway into Trachea, Via Natural or Artificial Opening Endoscopic (ICD-10-PCS; 2024-04-25)
DX: G92.8 Other toxic encephalopathy (principal); A41.9 Sepsis, unspecified organism; E43 Unspecified severe protein-calorie malnutrition; J96.02 Acute respiratory failure with hypercapnia; J96.01 Acute respiratory failure with hypoxia; J69.0 Pneumonitis due to inhalation of food and vomit; R65.21 Severe sepsis with septic shock; G62.81 Critical illness polyneuropathy; G72.81 Critical illness myopathy; S22.43XA Multiple fractures of ribs, bilateral, initial encounter for closed fracture; J44.1 Chronic obstructive pulmonary disease with (acute) exacerbation; F10.239 Alcohol dependence with withdrawal, unspecified; G20.A1 Parkinson's disease without dyskinesia, without mention of fluctuations; F19.11 Other psychoactive substance abuse, in remission; E11.649 Type 2 diabetes mellitus with hypoglycemia without coma; I72.6 Aneurysm of vertebral artery; D69.59 Other secondary thrombocytopenia; D50.9 Iron deficiency anemia, unspecified; I10 Essential (primary) hypertension; J44.0 Chronic obstructive pulmonary disease with (acute) lower respiratory infection; M62.82 Rhabdomyolysis; E87.20 Acidosis, unspecified; E87.1 Hypo-osmolality and hyponatremia; Z68.1 Body mass index [BMI] 19.9 or less, adult; N17.9 Acute kidney failure, unspecified; Z59.11 Inadequate housing environmental temperature; I46.9 Cardiac arrest, cause unspecified; Z66 Do not resuscitate; R13.10 Dysphagia, unspecified; E83.51 Hypocalcemia; T68.XXXA Hypothermia, initial encounter; E87.6 Hypokalemia; E78.5 Hyperlipidemia, unspecified; E86.1 Hypovolemia; E83.42 Hypomagnesemia; F17.210 Nicotine dependence, cigarettes, uncomplicated; M27.40 Unspecified cyst of jaw; R74.01 Elevation of levels of liver transaminase levels; R79.89 Other specified abnormal findings of blood chemistry; R53.81 Other malaise; W18.30XA Fall on same level, unspecified, initial encounter; Z79.899 Other long term (current) drug therapy; Z79.51 Long term (current) use of inhaled steroids; Z91.81 History of falling; X31.XXXA Exposure to excessive natural cold, initial encounter
CPT/HCPCS: 36415; 36600; 51702; 51798; 70450; 70496; 70498; 71045; 71260; 74230; 80048; 80053; 80306; 81001; 82140; 82330; 82550; 82607; 82746; 82805; 83036; 83605; 83735; 83880; 83930; 83935; 84132; 84145; 84295; 84300; 84443; 84484; 85025; 85027; 85610; 85730; 86140; 86850; 86900; 86901; 86920; 87040; 87070; 87205; 87636; 92950; 93005; 93306; 94002; 94003; 94640; 94660; 94760; 95816; 96361; 96365; 96366; 96367; 96368; 96375; 96376; 99285